=== PATIENT | male | born 1955 | race Caucasian/White ===

== ENCOUNTER → 2017-06-16 | Outpatient (CLI) | payer MEDICAID ==
[~2017-06-16] MED LIST: LEVO500T69 PO; LISI10TA2 PO; LISI20TA PO; METF-380 PO; SIMV40TA4 PO
--- NOTE | 2017-06-16 14:23 | Diagnostic Imaging Report ---
Ultrasound of the urinary bladder. INDICATION: Hypertension. Chronic kidney disease. FINDINGS: The urinary bladder demonstrates wall thickening which may relate to chronic obstructive changes. Prevoid volume is estimated at 600 mL and postvoid volume is also 600 mL. The patient states that he could not void much. IMPRESSION: Dilated bladder with wall thickening probably related to obstructive changes. The patient could not void much and postvoid volume is nearly identical to prevoid volume. Dictated by: Dictated on workstation # [id number]
--- NOTE | 2017-06-16 15:11 | Diagnostic Imaging Report ---
Renal vascular duplex ultrasound. INDICATION: Hypertension. Chronic renal disease. FINDINGS: The right kidney is 9.3 cm and the left kidney is 10 cm in length. No hydronephrosis or focal lesion is seen. There is increased renal parenchymal echogenicity suggestive of underlying chronic renal disease. The proximal and mid right renal artery segments are obscured. The distal right renal artery demonstrates velocity of 50 cm/s. Resistive index in the right kidney is 0.69-0.79. The left renal artery proximal segment is obscured. The mid and distal segment velocities are 72 cm/s and 103 cm/s. Resistive index in the left kidney is 0.71-0.77. IMPRESSION: Bilateral mild renal atrophy and echogenic cortex. The proximal renal artery is obscured bilaterally. Dictated by: Dictated on workstation # [id number]
== END ==
LOC: RAD 09:16
PROVIDERS: ATTEND Internal Medicine Nephrology
DX: N32.89 Other specified disorders of bladder; E78.5 Hyperlipidemia, unspecified; I12.9 Hypertensive chronic kidney disease with stage 1 through stage 4 chronic kidney disease, or unspecified chronic kidney disease; Z72.0 Tobacco use; N18.3 Chronic kidney disease, stage 3 (moderate)
CPT/HCPCS: 76857; 93975

== ENCOUNTER → 2017-06-30 | Outpatient (CLI) | payer MEDICAID ==
[2017-06-30 14:41] LABS: MEAN PLATELET VOLUME 11.6 FL (7.4-10.4); RED BLOOD COUNT 4.96 10^6/uL (4.35-5.85); RED CELL DISTRIBUTION WIDTH 12.6 % (10.0-14.5); WHITE BLOOD COUNT 9.7 10^3/uL (4.3-11.0)
[2017-06-30 14:46] LABS: BILIRUBIN,URINE NEGATIVE (NEGATIVE); KETONES,URINE NEGATIVE (NEGATIVE); LEUKOCYTE ESTERASE ,URINE 1+ (NEGATIVE); NITRITE,URINE NEGATIVE (NEGATIVE); PH,URINE 6 (5-9); PROTEIN,URINE 1+ (NEGATIVE); UROBILINOGEN,URINE NORMAL (NORMAL)
[2017-06-30 14:55] LABS: SQUAMOUS EPITHELIAL CELL,UR RARE /HPF; WBC,URINE 0-2 /HPF
[2017-06-30 15:00] LABS: ALBUMIN 3.6 GM/DL (3.2-4.5); CREATININE SERUM 1.59 MG/DL (0.60-1.30); PHOSPHORUS 4.2 MG/DL (2.3-4.7); POTASSIUM 5.2 MMOL/L (3.6-5.0)
[2017-06-30 15:03] LABS: PROTEIN/CREATININE RATIO 0.29
[2017-07-01 14:46] LABS: CALCIUM PARA THYROID HORMONE 8.9 mg/dL (8.5-10.5)
== END ==
LOC: LAB 14:26
PROVIDERS: ATTEND Internal Medicine Nephrology
DX: I10 Essential (primary) hypertension (principal); N18.3 Chronic kidney disease, stage 3 (moderate); E87.5 Hyperkalemia; Z72.0 Tobacco use
CPT/HCPCS: 36415; 80069; 81000; 82306; 82570; 83970; 84156; 84550; 85027

== ENCOUNTER 2018-12-15 18:31 | Emergency (ER) | payer MEDICAID, MEDICARE ==
[~2018-12-15] VITALS: Ht 182.9 cm; Wt 136.1 kg
[2018-12-15] MEDS ORDERED: LABETALOL HCL 20 MG/4 ML VIAL IV ONE (18:45)
[2018-12-15] MEDS ORDERED: DEXTROSE 50% 50 ML (IMS) SYR IV ONE ×2 (18:45→20:30)
--- NOTE | 2018-12-15 19:30 | NUR ---
ACCUE CHECK IS 105 AFTER D50. WAS INFORMED.
--- NOTE | 2018-12-15 19:40 | Diagnostic Imaging Report ---
INDICATION: Hypoglycemia. COMPARISON: None FINDINGS: Frontal and lateral radiographic views of the chest were obtained. There is prominent 8.5 cm masslike opacity projecting over the medial right lung base. Cardiac silhouette and pulmonary vasculature within normal limits. Lungs are clear. There is no focal consolidation, large effusion, nor pneumothorax. Bony structures show no gross acute abnormalities. IMPRESSION: 1. No evidence of failure or focal infiltrate. 2. Masslike opacity projecting over the medial right lung base. Both benign (prominent pericardial fat, pericardial cyst) and malignant (lung mass) should be considered. Correlation with postcontrast CT chest is recommended. Dictated by: Dictated on workstation # [id number]
--- NOTE | 2018-12-15 19:42 | Diagnostic Imaging Report ---
INDICATION: Altered mental status. TECHNIQUE: Routine non contrast-enhanced axial images were obtained from the skull base to the vertex. Auto Exposure Controls were utilized during the CT exam to meet ALARA standards for radiation dose reduction COMPARISON: None. FINDINGS: The ventricles and cortical sulci are age appropriate. There is no midline shift or mass-effect. No acute intra-axial hemorrhage is seen. There are no abnormal areas of increased or decreased density to suggest acute hemorrhage or edema. No extra-axial masses or collections are present. The bony calvarium is intact. The visualized paranasal sinuses are unremarkable. The mastoid air cells are clear. IMPRESSION: 1. No acute intracranial abnormality. No CT evidence of mass, acute infarct or intracranial hemorrhage. Dictated by: Dictated on workstation # [id number]
--- OUTSIDE RECORDS SUMMARY | 2018-12-15 19:44 | XMS REPORT ---
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 067182974 Problem Chronic kidney disease, stage III (moderate) N18.3 Active 354191908 Problem Diabetic polyneuropathy associated with type 2 diabetes mellitus E11.42 Active 995619329 Problem Mixed hyperlipidemia E78.2 Active 541383898 Problem Essential hypertension I10 Active 93650049 Problem Hyperkalemia E87.5 Active 40987331 Problem Tobacco dependence F17.200 Active 55470079 Problem Non compliance with medical treatment Z91.19 Active 3106556 Problem Periodontal disease K05.6 Active 0792938 Problem Caries of cementum teeth K02.7 Active 57459999 Problem Type 2 diabetes mellitus with diabetic neuropathic arthropathy E11.610 Active 589369420 Problem Morbid (severe) obesity due to excess calories E66.01 Active 890250453 ALLERGIES No Information ENCOUNTERS Encounter Location Date Diagnosis [facility] [id number] [place] [address]1460- 8859 Sep, [facility] [id number] [place] [address] [phone] Aug, [facility] [id number] [place] [address] 83157- 4122 Aug, [facility] [id number] [place] [address] 17342- 4992 Aug, [facility] [id number] [place] [address] 23917- 9887 Aug, [facility] [id number] [place] [address] 25420- 3987 Jul, 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 [facility] [address] [address]- 5840 Jul, 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 ; Essential hypertension I10 ; Renal insufficiency N28.9 and Mixed hyperlipidemia E78.2 [facility] [address] [address]- [address] Jun, [facility] [address] [address]- 8916 Jun, Renal insufficiency N28.9 [facility] [address] 27240- 6218 Jun, Essential hypertension I10 and 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 [facility] [address] 64410- 9467 Jun, Essential hypertension I10 and 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 [facility] [address] 57288- 7744 May, Essential hypertension I10 ; 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 ; Pain of right heel M79.671 and Tobacco dependence F17.200 [facility] [id number] [place] [address] [phone] May, [facility] [address] [id number] May, Caries K02.9 and Dental examination Z01.20 [facility] [address] 8[address]- 4702 06 May, 2018 Type 2 diabetes mellitus with diabetic neuropathic arthropathy E11.610 [facility] [id number] [place] [address] 88166- 5947 Apr, Type 2 diabetes mellitus with diabetic neuropathic arthropathy E11.610 [facility] [address] [address] Mar, [facility] [id number] [place] [address] 69838- 2402 17 Mar, 2018 Type 2 diabetes mellitus with diabetic neuropathic arthropathy E11.610 [facility] [address] [address] 13 Mar, 2018 Type 2 diabetes mellitus with diabetic neuropathic arthropathy E11.610 ; 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 ; 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 ; Mixed hyperlipidemia E78.2 ; Essential hypertension I10 ; Renal insufficiency N28.9 ; Dental caries K02.9 ; 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 ; Irritant contact dermatitis due to detergent L24.0 ; Morbid (severe) obesity due to excess calories E66.01 ; Body mass index (BMI) of 39.0-39.9 in adult Z68.39 and Non compliance with medical treatment Z91.19 [facility] [address] [place] [address] [phone] Mar, 2018 Dental caries K02.9 [facility] [address] [place] [address] 38604- 9617 18 Feb, 2018 [facility] [id number] [place] [address] 87838- 1280 Feb, [facility] [address] [address] 2168 Feb, [facility] [address] [address] 4469 Feb, [facility] [address] [address] January, [facility] [address] [place] [address] [phone] January, [facility] [address] [address] 6612 January, 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 [facility] [id number] [phone] Dec, Dental caries K02.9 [facility] [address] [address] 9865 Dec, 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 [facility] [address] [place] [address] 56702- 8260 Dec, Dental examination Z01.20 ; Periodontal disease K05.6 and Caries of cementum teeth K02.7 [facility] [address] [address] Dec, 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 ; Chronic kidney disease, stage III (moderate) N18.3 ; prison current use of insulin Z79.4 ; Essential hypertension I10 ; Mixed hyperlipidemia E78.2 ; Diabetic polyneuropathy associated with type 2 diabetes mellitus E11.42 and Dental abscess K04.7 [facility] [address] [address] Nov, [facility] [id number] [place] [address] 12554- 9361 Nov, Mixed hyperlipidemia E78.2 ; Essential hypertension I10 and 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 [facility] [address] [address] 6[address] Oct, [facility] [address] [address]- 1303 Sep, [facility] [address] [address]- 2756 Aug, Diabetic polyneuropathy associated with type 2 diabetes mellitus E11.42 [facility] [address] [address]- 8783 Aug, 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 ; Chronic kidney disease, stage III (moderate) N18.3 ; 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 ; Essential hypertension I10 ; Mixed hyperlipidemia E78.2 and Diabetic polyneuropathy associated with type 2 diabetes mellitus E11.42 [facility] [id number] [place] [address] 70022- 1445 Jul, Type 2 diabetes mellitus with hyperglycemia E11.65 and Mixed hyperlipidemia E78.2 [facility] [id number] [place] [address] 56247- 1056 Jun, Type 2 diabetes mellitus with hyperglycemia E11.65 [facility] [id number] [place] [address] 56841- 6309 Jun, Essential hypertension I10 [facility] [id number] [place] [address] 41111- 4346 May, [facility] [id number] [place] [address] 90235- 1138 May, Type 2 diabetes mellitus with hyperglycemia E11.65 and Essential hypertension I10 [facility] [id number] [place] [address] 88356- 3166 May, Essential hypertension I10 ; Mixed hyperlipidemia E78.2 ; Renal insufficiency N28.9 ; Hyperkalemia E87.5 ; Swelling of both lower extremities M79.89 and Type 2 diabetes mellitus with hyperglycemia E11.65 [facility] [address] [address]- 1405 Apr, Essential hypertension I10 ; Mixed hyperlipidemia E78.2 ; Renal insufficiency N28.9 ; Hyperkalemia E87.5 ; Swelling of both lower extremities M79.89 and Type 2 diabetes mellitus with hyperglycemia E11.65 [facility] [address] [address]- 5234 Mar, [facility] [id number] [place] [address] 85956- 1935 Feb, [facility] [address] [address]- 3716 Feb, Essential hypertension I10 ; Mixed hyperlipidemia E78.2 ; Renal insufficiency N28.9 ; Hyperkalemia E87.5 ; Swelling of both lower extremities M79.89 and Type 2 diabetes mellitus with hyperglycemia E11.65 [facility] [id number] [place] [address] [id number] Feb, Encounter for dental examination Z01.20 [facility] [id number] [place] [address] 20663- 5526 January, Essential hypertension I10 [facility] [address] [phone]- 7081 January, Essential hypertension I10 ; Mixed hyperlipidemia E78.2 ; Renal insufficiency N28.9 ; Hyperkalemia E87.5 ; Swelling of both lower extremities M79.89 and Type 2 diabetes mellitus with hyperglycemia E11.65 [facility] [id number] [place] [address] [id number] January, Dental examination Z01.20 [facility] [id number] [place] [address] [phone]- 4697 Dec, Dental examination Z01.20 [facility] [id number] [place] [address] 53201- 2807 Dec, Type 2 diabetes mellitus with hyperglycemia, without long- term current use of insulin E11.65 ; Essential hypertension I10 ; Mixed hyperlipidemia E78.2 ; Renal insufficiency N28.9 ; Hyperkalemia E87.5 and Swelling of both lower extremities M79.89 [facility] [address] [place] [address] 46341- 6398 Nov, Hyperkalemia E87.5 [facility] [id number] [place] [address] 50351- 6996 Nov, Hyperkalemia E87.5 [facility] [id number] [place] [address] [id number]- 0680 Nov, Type 2 diabetes mellitus with hyperglycemia, without long- term current use of insulin E11.65 ; Essential hypertension I10 ; Mixed hyperlipidemia E78.2 ; Renal insufficiency N28.9 ; Hyperkalemia E87.5 and Swelling of both lower extremities M79.89 [facility] [facility] [address] 54943- 4971 Oct, Type 2 diabetes mellitus with hyperglycemia, without long- term current use of insulin E11.65 ; Essential hypertension I10 ; Mixed hyperlipidemia E78.2 ; Renal insufficiency N28.9 ; Hyperkalemia E87.5 and Swelling of both lower extremities M79.89 [facility] [facility] [address] 795694- 3045 Aug, Type 2 diabetes mellitus with hyperglycemia, without long- term current use of insulin E11.65 ; Essential hypertension I10 ; Mixed hyperlipidemia E78.2 ; Renal insufficiency N28.9 ; Hyperkalemia E87.5 and Swelling of both lower extremities M79.89 [facility] [address] 87827- 3545 Aug, Type 2 diabetes mellitus with hyperglycemia, without long- term current use of insulin E11.65 ; Essential hypertension I10 ; Mixed hyperlipidemia E78.2 ; Renal insufficiency N28.9 ; Hyperkalemia E87.5 and Swelling of both lower extremities M79.89 [facility] [address] 28449- 9723 Aug, Mixed hyperlipidemia E78.2 [facility] [id number] [place] [address] 26636- 9384 Aug, Type 2 diabetes mellitus with hyperglycemia, without long- term current use of insulin E11.65 ; Essential hypertension I10 ; Mixed hyperlipidemia E78.2 ; Renal insufficiency N28.9 ; Hyperkalemia E87.5 and Swelling of both lower extremities M79.89 [place] [address] 39418- 4018 Jul, [facility] [facility] [address] [place] [address] [phone]- 2469 Jul, Type 2 diabetes mellitus with hyperglycemia, without long- term current use of insulin E11.65 ; Essential hypertension I10 ; Mixed hyperlipidemia E78.2 ; Renal insufficiency N28.9 ; Hyperkalemia E87.5 ; Weight gain R63.5 and Encounter for immunization Z23 [facility] [address] 97[address]- 7126 Jun, Type 2 diabetes mellitus with hyperglycemia, without long- term current use of insulin E11.65 ; Essential hypertension I10 ; Mixed hyperlipidemia E78.2 ; Renal insufficiency N28.9 and Hyperkalemia E87.5 [place] [address] 71872- 1244 Jun, [place] [address] 76076- 2561 May, Type 2 diabetes mellitus with hyperglycemia, without long- term current use of insulin E11.65 ; Essential hypertension I10 ; Mixed hyperlipidemia E78.2 ; Renal insufficiency N28.9 and Hyperkalemia E87.5 [facility] [id number] [place] [address] 22278- 9687 Apr, Type 2 diabetes mellitus with hyperglycemia, without long- term current use of insulin E11.65 ; Essential hypertension I10 ; Mixed hyperlipidemia E78.2 ; Renal insufficiency N28.9 and Hyperkalemia E87.5 [facility] [id number] [place] [address] 43926- 5127 Apr, [facility] [id number] [place] [address] 19702- 3089 Apr, Type 2 diabetes mellitus with hyperglycemia, without long- term current use of insulin E11.65 ; Essential hypertension I10 ; Mixed hyperlipidemia E78.2 and Renal insufficiency N28.9 [facility] [facility] [id number] [place] [address] 57751- 4840 Mar, [facility] [id number] [place] [address] 69589- 4280 Mar, Type 2 diabetes mellitus with hyperglycemia, without long- term current use of insulin E11.65 ; Essential hypertension I10 ; Mixed hyperlipidemia E78.2 and Renal insufficiency N28.9 [facility] [address] [place] [address] 39264- 1315 Feb, Type 2 diabetes mellitus with hyperglycemia, without long- term current use of insulin E11.65 [facility] [address] [place] [address] 89667- 4293 Feb, [place] [address] 27109- 9960 January, [facility] [id number] [place] [address] 35633- 7555 January, Type 2 diabetes mellitus with hyperglycemia, without long- term current use of insulin E11.65 ; Essential hypertension I10 and Mixed hyperlipidemia E78.2 [place] [id number] [place] [address] 39665- 9481 Dec, [facility] [id number] [place] [address] 73281- 1230 Dec, [facility] [id number] [place] [address] 45436- 5577 Oct, [place] [id number] [place] [address] 57100- 5991 Oct, [facility] [id number] [place] [address] 13192- 2081 Oct, [facility] [id number] [place] [address] 75946- 8483 Oct, IMMUNIZATIONS No Known Immunizations SOCIAL HISTORY Never Assessed REASON FOR VISIT BS f/u PLAN OF CARE VITAL SIGNS MEDICATIONS Unknown Medications RESULTS No Results PROCEDURES No Known procedures INSTRUCTIONS MEDICATIONS ADMINISTERED No Known Medications MEDICAL (GENERAL) HISTORY Type Description Date Medical History Type 2 Diabetes Medical History Hyperlipidemia Medical History Seasonal allergies Medical History DM uncontrolled Noncompliance-Eye Referral Made never kept appt Medical History Essential hypertension, benign Medical History Seeing Dr. Stoner Surgical History Teeth removal 06/14/2018 Hospitalization History Infection in left leg 2013
--- OUTSIDE RECORDS SUMMARY | 2018-12-15 19:44 | XMS REPORT ---
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 Active 32480918 Problem Renal insufficiency N28.9 Active 975589358 Problem Tobacco dependence F17.200 Active 17613152 Problem Non compliance with medical treatment Z91.19 Active 3076302 Problem Type 2 diabetes mellitus with diabetic neuropathic arthropathy E11.610 Active 623644495 Problem Morbid (severe) obesity due to excess calories E66.01 Active 697673508 Problem Type 2 diabetes mellitus with hyperglycemia, without long-term current use of insulin E11.65 Active 603453576783303 Problem Body mass index (BMI) of 39.0-39.9 in adult Z68.39 Active 745042320 Problem Mixed hyperlipidemia E78.2 Active 938942320 Problem Hyperkalemia E87.5 Active 25695368 Problem Essential hypertension I10 Active 20497899 Problem 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 Active 473870014 Problem Diabetic polyneuropathy associated with type 2 diabetes mellitus E11.42 Active 497152520 Problem Swelling of both lower extremities M79.89 Active 05532823450037699 Problem Chronic kidney disease, stage III (moderate) N18.3 Active 769002196 Problem 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 Active 55880330 Problem Periodontal disease K05.6 Active 1761542 ALLERGIES No Information ENCOUNTERS Encounter Location Date Diagnosis [facility], [place] [address] [facility] [id number] [address] Sep, [facility] [address] [id number] [id number] Aug, [facility], [place] [id number] [place] [address] 70766- 2088 Aug, [facility] [place] [id number] [place] [address] 09099- 7546 Aug, [facility], [place] [id number] [place] [address] 25667- 4357 Jul, 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 [facility], [place] [id number] [place] [address] 92301- 3866 Jul, 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 ; Essential hypertension I10 ; Renal insufficiency N28.9 and Mixed hyperlipidemia E78.2 [place] [id number] [place] [address] 87573- 9640 Jun, [place] [address] [address]35- 3457 Jun, Renal insufficiency N28.9 [place] [id number] [place] [address] 09025- 0811 Jun, Essential hypertension I10 and 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 [place] [id number] [place] [address] 73974- 2082 Jun, Essential hypertension I10 and 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 [place] [id number] [place] [address] 51694- 4869 24 May, 2018 Essential hypertension I10 ; 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 ; Pain of right heel M79.671 and Tobacco dependence F17.200 [facility] [id number] [place] [address] [phone] May, [facility] [id number] [place] [address] [id number] May, Caries K02.9 and Dental examination Z01.20 [place] [id number] [place] [address] [phone] 4877 May, Type 2 diabetes mellitus with diabetic neuropathic arthropathy E11.610 [facility], [place] [address] [place] [address] [phone]- 7551 Apr, Type 2 diabetes mellitus with diabetic neuropathic arthropathy E11.610 [facility], [place] [address] [place] [address] 43245- 8366 Mar, [facility] [place] [id number] [place] [address] 50893- 0157 Mar, Type 2 diabetes mellitus with diabetic neuropathic arthropathy E11.610 [facility], [place] [address] [place] [address] 78610- 2291 Mar, Type 2 diabetes mellitus with diabetic neuropathic arthropathy E11.610 ; 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 ; [facility] current use of insulin Z79.4 ; Mixed hyperlipidemia E78.2 ; Essential hypertension I10 ; Renal insufficiency N28.9 ; Dental caries K02.9 ; 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 ; Irritant contact dermatitis due to detergent L24.0 ; Morbid (severe) obesity due to excess calories E66.01 ; Body mass index (BMI) of 39.0-39.9 in adult Z68.39 and Non compliance with medical treatment Z91.19 [facility] [address] [place] [address] [phone] Mar, Dental caries K02.9 [facility], [place] [id number] [place] [address] 98481- 9531 Feb, [facility], [place] [address] [place] [address] 79916- 6579 Feb, [facility] [place] [id number] [place] [address] 89987- 4385 Feb, [facility] [place] [id number] [place] [address] 30813- 7926 Feb, [facility] [place] [id number] [place] [address] 47906- 2423 January, [facility], [place] [address] [address] January, [facility] [place] [id number] [place] [address] 27248- 0664 January, 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 [facility] [address] [phone] Dec, Dental caries K02.9 [facility] [place] [address] [place] [address] 90110- 3873 Dec, 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 [place] [id number] [place] [address] 37935- 3579 Dec, Dental examination Z01.20 ; Periodontal disease K05.6 and Caries of cementum teeth K02.7 [place] [id number] [place] [address] 63570- 9199 Dec, 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 ; Chronic kidney disease, stage III (moderate) N18.3 ; 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 ; Essential hypertension I10 ; Mixed hyperlipidemia E78.2 ; Diabetic polyneuropathy associated with type 2 diabetes mellitus E11.42 and Dental abscess K04.7 [place] [address] [address] Nov, [facility], [place] [address] [address] Nov, Mixed hyperlipidemia E78.2 ; Essential hypertension I10 and 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 [place] [address] [place] [address] 06308- 8574 Oct, [facility] [place] [address] [id number] Sep, [place] [address] [place] [address] 94521- 3549 Aug, Diabetic polyneuropathy associated with type 2 diabetes mellitus E11.42 [place] [address] [place] [address] 89682- 2816 Aug, 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 ; Chronic kidney disease, stage III (moderate) N18.3 ; 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 ; Essential hypertension I10 ; Mixed hyperlipidemia E78.2 and Diabetic polyneuropathy associated with type 2 diabetes mellitus E11.42 [place] [id number] [place] [address] 11387- 4230 Jul, Type 2 diabetes mellitus with hyperglycemia E11.65 and Mixed hyperlipidemia E78.2 [place] [id number] [place] [address] 55048- 9808 Jun, Type 2 diabetes mellitus with hyperglycemia E11.65 [place] [id number] [place] [address] 43439- 8117 Jun, Essential hypertension I10 [place] [id number] [place] [address] 45707- 5903 May, [place] [id number] [place] [address] 96419- 4007 May, Type 2 diabetes mellitus with hyperglycemia E11.65 and Essential hypertension I10 [place] [id number] [place] [address] 80171- 5825 May, Essential hypertension I10 ; Mixed hyperlipidemia E78.2 ; Renal insufficiency N28.9 ; Hyperkalemia E87.5 ; Swelling of both lower extremities M79.89 and Type 2 diabetes mellitus with hyperglycemia E11.65 [place] [address] [address] 8049 Apr, Essential hypertension I10 ; Mixed hyperlipidemia E78.2 ; Renal insufficiency N28.9 ; Hyperkalemia E87.5 ; Swelling of both lower extremities M79.89 and Type 2 diabetes mellitus with hyperglycemia E11.65 [place] [id number] [place] [address] 55429- 7663 Mar, [facility], [place] [address] [place] [address] 85023- 3333 Feb, [facility], [place] [id number] [place] [address] 07172- 4606 Feb, Essential hypertension I10 ; Mixed hyperlipidemia E78.2 ; Renal insufficiency N28.9 ; Hyperkalemia E87.5 ; Swelling of both lower extremities M79.89 and Type 2 diabetes mellitus with hyperglycemia E11.65 [facility] [id number] [place] [address] [phone] Feb, Encounter for dental examination Z01.20 [place] [address] 60577- 4439 January, Essential hypertension I10 [place] [address] 61896- 8836 January, Essential hypertension I10 ; Mixed hyperlipidemia E78.2 ; Renal insufficiency N28.9 ; Hyperkalemia E87.5 ; Swelling of both lower extremities M79.89 and Type 2 diabetes mellitus with hyperglycemia E11.65 [facility] [id number] [place] [address] [phone] January, Dental examination Z01.20 [facility] [place] [id number] [place] [address] 97473- 4987 Dec, Dental examination Z01.20 [facility], [place] [id number] [place] [address] 62586- 6209 Dec, Type 2 diabetes mellitus with hyperglycemia, without long- term current use of insulin E11.65 ; Essential hypertension I10 ; Mixed hyperlipidemia E78.2 ; Renal insufficiency N28.9 ; Hyperkalemia E87.5 and Swelling of both lower extremities M79.89 [facility], [place] [address] [place] [address] [phone]- 0676 Nov, Hyperkalemia E87.5 [facility] [place] [id number] [place] [address] 66548- 4952 Nov, Hyperkalemia E87.5 [place] [id number] [place] [address] 49099- 6346 Nov, Type 2 diabetes mellitus with hyperglycemia, without long- term current use of insulin E11.65 ; Essential hypertension I10 ; Mixed hyperlipidemia E78.2 ; Renal insufficiency N28.9 ; Hyperkalemia E87.5 and Swelling of both lower extremities M79.89 [place] [address] 805248- 1516 Oct, Type 2 diabetes mellitus with hyperglycemia, without long- term current use of insulin E11.65 ; Essential hypertension I10 ; Mixed hyperlipidemia E78.2 ; Renal insufficiency N28.9 ; Hyperkalemia E87.5 and Swelling of both lower extremities M79.89 [place] [address] 20897- 1131 Aug, Type 2 diabetes mellitus with hyperglycemia, without long- term current use of insulin E11.65 ; Essential hypertension I10 ; Mixed hyperlipidemia E78.2 ; Renal insufficiency N28.9 ; Hyperkalemia E87.5 and Swelling of both lower extremities M79.89 [place] [address] 17296- 3898 Aug, Type 2 diabetes mellitus with hyperglycemia, without long- term current use of insulin E11.65 ; Essential hypertension I10 ; Mixed hyperlipidemia E78.2 ; Renal insufficiency N28.9 ; Hyperkalemia E87.5 and Swelling of both lower extremities M79.89 [place] [id number] [place] [address] 56911- 4441 Aug, Mixed hyperlipidemia E78.2 [place] [address] 95253- 6397 Aug, Type 2 diabetes mellitus with hyperglycemia, without long- term current use of insulin E11.65 ; Essential hypertension I10 ; Mixed hyperlipidemia E78.2 ; Renal insufficiency N28.9 ; Hyperkalemia E87.5 and Swelling of both lower extremities M79.89 [place] [address] [place] [address]- 7632 Jul, [place] [address] 35566- 3138 Jul, Type 2 diabetes mellitus with hyperglycemia, without long- term current use of insulin E11.65 ; Essential hypertension I10 ; Mixed hyperlipidemia E78.2 ; Renal insufficiency N28.9 ; Hyperkalemia E87.5 ; Weight gain R63.5 and Encounter for immunization Z23 [place] [address] 60489- 1122 Jun, Type 2 diabetes mellitus with hyperglycemia, without long- term current use of insulin E11.65 ; Essential hypertension I10 ; Mixed hyperlipidemia E78.2 ; Renal insufficiency N28.9 and Hyperkalemia E87.5 [place] [address] 60453- 1171 Jun, [place] [address] 15961- 2607 May, Type 2 diabetes mellitus with hyperglycemia, without long- term current use of insulin E11.65 ; Essential hypertension I10 ; Mixed hyperlipidemia E78.2 ; Renal insufficiency N28.9 and Hyperkalemia E87.5 [place] [address] 10588- 4317 Apr, Type 2 diabetes mellitus with hyperglycemia, without long- term current use of insulin E11.65 ; Essential hypertension I10 ; Mixed hyperlipidemia E78.2 ; Renal insufficiency N28.9 and Hyperkalemia E87.5 [place] [id number] [place] [address] 32237- 7830 Apr, [place] [address] 77186- 0408 Apr, Type 2 diabetes mellitus with hyperglycemia, without long- term current use of insulin E11.65 ; Essential hypertension I10 ; Mixed hyperlipidemia E78.2 and Renal insufficiency N28.9 [place] [address] 06329- 5213 Mar, [facility], [place] [address] [address]- 6794 Mar, Type 2 diabetes mellitus with hyperglycemia, without long- term current use of insulin E11.65 ; Essential hypertension I10 ; Mixed hyperlipidemia E78.2 and Renal insufficiency N28.9 [place] [address] [place] [address] 23310- 1113 Feb, Type 2 diabetes mellitus with hyperglycemia, without long- term current use of insulin E11.65 [place] [id number] [place] [address] 17255- 5088 Feb, [place] [id number] [place] [address] 77308- 5163 January, [place] [id number] [place] [address] 66645- 1008 January, Type 2 diabetes mellitus with hyperglycemia, without long- term current use of insulin E11.65 ; Essential hypertension I10 and Mixed hyperlipidemia E78.2 [place] [address] [place] [address] 42833- 5154 Dec, [place] [id number] [place] [address] 08672- 4145 Dec, [place] [id number] [place] [address] 22051- 3425 Oct, [place] [address] [place] [address] 26141- 5478 Oct, [place] [address] [place] [address] 45892- 3206 Oct, [place] [id number] [place] [address] 42819- 9493 Oct, IMMUNIZATIONS No Known Immunizations SOCIAL HISTORY Never Assessed REASON FOR VISIT Requests return call PLAN OF CARE VITAL SIGNS MEDICATIONS Unknown [...] 06/14/2018 Hospitalization History Infection in left leg 2014
--- OUTSIDE RECORDS SUMMARY | 2018-12-15 19:44 | XMS REPORT ---
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 Active 18434101 Problem Renal insufficiency N28.9 Active 614008356 Problem Tobacco dependence F17.200 Active 83553398 Problem Non compliance with medical treatment Z91.19 Active 9473010 Problem Type 2 diabetes mellitus with diabetic neuropathic arthropathy E11.610 Active 313217514 Problem Morbid (severe) obesity due to excess calories E66.01 Active 560772465 Problem Type 2 diabetes mellitus with hyperglycemia, without long-term current use of insulin E11.65 Active 719348556603359 Problem Body mass index (BMI) of 39.0-39.9 in adult Z68.39 Active 401672042 Problem Mixed hyperlipidemia E78.2 Active 103301375 Problem Hyperkalemia E87.5 Active 02719963 Problem Essential hypertension I10 Active 89660239 Problem 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 Active 425024675 Problem Diabetic polyneuropathy associated with type 2 diabetes mellitus E11.42 Active 153265873 Problem Swelling of both lower extremities M79.89 Active 69050632027912083 Problem Chronic kidney disease, stage III (moderate) N18.3 Active 173354654 Problem 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 Active 53872315 Problem Periodontal disease K05.6 Active 5777967 ALLERGIES No Information ENCOUNTERS Encounter Location Date Diagnosis [facility] [address] [facility] [id number] [address] Sep, [facility] [address] [id number] [id number] Aug, [facility] [id number] [place] [address] 27344- 4224 Aug, [facility] [id number] [place] [address] 76003- 6792 Jul, 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 [facility] [id number] [place] [address] 52803- 2736 Jul, 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 ; Essential hypertension I10 ; Renal insufficiency N28.9 and Mixed hyperlipidemia E78.2 [place] [id number] [place] [address] 97537- 0608 Jun, [place] [id number] [place] [address] 08467- 5903 Jun, Renal insufficiency N28.9 [place] [id number] [place] [address] 83771- 0664 Jun, Essential hypertension I10 and 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 [facility] [id number] [place] [address] 62158- 2462 15 Jun, 2018 Essential hypertension I10 and 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 [place] [id number] [place] [address] 03630- 4900 24 May, 2018 Essential hypertension I10 ; 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 ; Pain of right heel M79.671 and Tobacco dependence F17.200 [facility] [id number] [place] [address] [id number] May, [facility] [address] [id number] May, Caries K02.9 and Dental examination Z01.20 [facility] [id number] [place] [address] 46982- 7997 06 May, 2018 Type 2 diabetes mellitus with diabetic neuropathic arthropathy E11.610 [facility] [address] [address] Apr, Type 2 diabetes mellitus with diabetic neuropathic arthropathy E11.610 [facility] [id number] [place] [address] 78912- 7832 Mar, [facility] [id number] [place] [address] 43670- 3460 17 Mar, 2018 Type 2 diabetes mellitus with diabetic neuropathic arthropathy E11.610 [facility] [id number] [place] [address] 47949- 7660 Mar, Type 2 diabetes mellitus with diabetic neuropathic arthropathy E11.610 ; 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 ; 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 ; Mixed hyperlipidemia E78.2 ; Essential hypertension I10 ; Renal insufficiency N28.9 ; Dental caries K02.9 ; 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 ; Irritant contact dermatitis due to detergent L24.0 ; Morbid (severe) obesity due to excess calories E66.01 ; Body mass index (BMI) of 39.0-39.9 in adult Z68.39 and Non compliance with medical treatment Z91.19 [facility] [id number] [place] [address] [id number] Mar, Dental caries K02.9 [facility] [id number] [place] [address] 81536- 1773 18 Feb, 2018 [facility] [id number] [place] [address] 19433- 2364 Feb, [facility] [id number] [place] [address] 66637- 5895 Feb, [facility] [id number] [place] [address] 49409- 3253 Feb, [facility] [id number] [place] [address] [id number]- 3825 January, [facility] [id number] [place] [address] 70825- 7014 January, [facility] [address] [address] January, 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 [facility] [address] [id number] Dec, Dental caries K02.9 [facility] [id number] [place] [address] 86196- 2331 Dec, 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 [facility] [id number] [place] [address] 97017- 2107 Dec, Dental examination Z01.20 ; Periodontal disease K05.6 and Caries of cementum teeth K02.7 [facility] [address] [place] [address] 92507- 5451 Dec, 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 ; Chronic kidney disease, stage III (moderate) N18.3 ; care home current use of insulin Z79.4 ; Essential hypertension I10 ; Mixed hyperlipidemia E78.2 ; Diabetic polyneuropathy associated with type 2 diabetes mellitus E11.42 and Dental abscess K04.7 [facility] [address] [address] Nov, [facility] [address] [address] Nov, Mixed hyperlipidemia E78.2 ; Essential hypertension I10 and 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 [facility] [address] [address] Oct, [facility] [id number] [place] [address] 03424- 1641 Sep, [facility] [address] [address] Aug, Diabetic polyneuropathy associated with type 2 diabetes mellitus E11.42 [facility] [id number] [place] [address] 64170- 3935 Aug, 2017 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 ; Chronic kidney disease, stage III (moderate) N18.3 ; 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 ; Essential hypertension I10 ; Mixed hyperlipidemia E78.2 and Diabetic polyneuropathy associated with type 2 diabetes mellitus E11.42 [place] [id number] [place] [address] 16941- 4280 Jul, Type 2 diabetes mellitus with hyperglycemia E11.65 and Mixed hyperlipidemia E78.2 [place] [id number] [place] [address] 12898- 0772 Jun, Type 2 diabetes mellitus with hyperglycemia E11.65 [facility] [facility] [id number] [place] [address] 49010- 8560 Jun, Essential hypertension I10 [place] [id number] [place] [address] 83324- 8224 May, [place] [id number] [place] [address] 08669- 9967 May, Type 2 diabetes mellitus with hyperglycemia E11.65 and Essential hypertension I10 [place] [id number] [place] [address] 99841- 9176 May, Essential hypertension I10 ; Mixed hyperlipidemia E78.2 ; Renal insufficiency N28.9 ; Hyperkalemia E87.5 ; Swelling of both lower extremities M79.89 and Type 2 diabetes mellitus with hyperglycemia E11.65 [place] [address] [place] [address] 16290- 0064 Apr, Essential hypertension I10 ; Mixed hyperlipidemia E78.2 ; Renal insufficiency N28.9 ; Hyperkalemia E87.5 ; Swelling of both lower extremities M79.89 and Type 2 diabetes mellitus with hyperglycemia E11.65 [place] [address] [place] [address] 07729- 4091 Mar, [facility] [id number] [place] [address] 09181- 9508 Feb, [facility] [address] [address] 6073 Feb, Essential hypertension I10 ; Mixed hyperlipidemia E78.2 ; Renal insufficiency N28.9 ; Hyperkalemia E87.5 ; Swelling of both lower extremities M79.89 and Type 2 diabetes mellitus with hyperglycemia E11.65 [facility] [id number] [place] [address] [id number] Feb, Encounter for dental examination Z01.20 [facility] [id number] [place] [address] 35936- 1169 January, Essential hypertension I10 [place] [id number] [place] [address] 01917- 8268 January, Essential hypertension I10 ; Mixed hyperlipidemia E78.2 ; Renal insufficiency N28.9 ; Hyperkalemia E87.5 ; Swelling of both lower extremities M79.89 and Type 2 diabetes mellitus with hyperglycemia E11.65 [facility] [id number] [place] [address] [id number] January, Dental examination Z01.20 [facility] [id number] [place] [address] 38763- 5543 Dec, Dental examination Z01.20 [facility] [id number] [place] [address] 00071- 0279 Dec, Type 2 diabetes mellitus with hyperglycemia, without long- term current use of insulin E11.65 ; Essential hypertension I10 ; Mixed hyperlipidemia E78.2 ; Renal insufficiency N28.9 ; Hyperkalemia E87.5 and Swelling of both lower extremities M79.89 [facility] [id number] [place] [address] 64995- 7404 Nov, Hyperkalemia E87.5 [facility] [id number] [place] [address] 26476- 3893 Nov, Hyperkalemia E87.5 [facility] [id number] [place] [address] 86391- 9246 Nov, Type 2 diabetes mellitus with hyperglycemia, without long- term current use of insulin E11.65 ; Essential hypertension I10 ; Mixed hyperlipidemia E78.2 ; Renal insufficiency N28.9 ; Hyperkalemia E87.5 and Swelling of both lower extremities M79.89 [place] [id number] [place] [address] 35649- 5289 Oct, Type 2 diabetes mellitus with hyperglycemia, without long- term current use of insulin E11.65 ; Essential hypertension I10 ; Mixed hyperlipidemia E78.2 ; Renal insufficiency N28.9 ; Hyperkalemia E87.5 and Swelling of both lower extremities M79.89 [place] [address] 259648- 2453 Aug, Type 2 diabetes mellitus with hyperglycemia, without long- term current use of insulin E11.65 ; Essential hypertension I10 ; Mixed hyperlipidemia E78.2 ; Renal insufficiency N28.9 ; Hyperkalemia E87.5 and Swelling of both lower extremities M79.89 [place] [id number] [place] [address] 19233- 0704 Aug, Type 2 diabetes mellitus with hyperglycemia, without long- term current use of insulin E11.65 ; Essential hypertension I10 ; Mixed hyperlipidemia E78.2 ; Renal insufficiency N28.9 ; Hyperkalemia E87.5 and Swelling of both lower extremities M79.89 [place] [id number] [place] [address] 59443- 7480 Aug, Mixed hyperlipidemia E78.2 [place] [id number] [place] [address] 61786- 1931 Aug, Type 2 diabetes mellitus with hyperglycemia, without long- term current use of insulin E11.65 ; Essential hypertension I10 ; Mixed hyperlipidemia E78.2 ; Renal insufficiency N28.9 ; Hyperkalemia E87.5 and Swelling of both lower extremities M79.89 [place] [id number] [place] [address] 67728- 0456 Jul, [place] [address] [place] [address]- 2322 Jul, Type 2 diabetes mellitus with hyperglycemia, without long- term current use of insulin E11.65 ; Essential hypertension I10 ; Mixed hyperlipidemia E78.2 ; Renal insufficiency N28.9 ; Hyperkalemia E87.5 ; Weight gain R63.5 and Encounter for immunization Z23 [place] [id number] [place] [address] 17061- 3115 Jun, Type 2 diabetes mellitus with hyperglycemia, without long- term current use of insulin E11.65 ; Essential hypertension I10 ; Mixed hyperlipidemia E78.2 ; Renal insufficiency N28.9 and Hyperkalemia E87.5 [place] [address] 50126- 2671 Jun, [place] [id number] [place] [address] 41074- 6262 May, Type 2 diabetes mellitus with hyperglycemia, without long- term current use of insulin E11.65 ; Essential hypertension I10 ; Mixed hyperlipidemia E78.2 ; Renal insufficiency N28.9 and Hyperkalemia E87.5 [place] [id number] [place] [address] 77251- 8068 Apr, Type 2 diabetes mellitus with hyperglycemia, without long- term current use of insulin E11.65 ; Essential hypertension I10 ; Mixed hyperlipidemia E78.2 ; Renal insufficiency N28.9 and Hyperkalemia E87.5 [place] [id number] [place] [address] 32164- 8994 Apr, [place] [id number] [place] [address] 00085- 3380 Apr, Type 2 diabetes mellitus with hyperglycemia, without long- term current use of insulin E11.65 ; Essential hypertension I10 ; Mixed hyperlipidemia E78.2 and Renal insufficiency N28.9 [place] [id number] [place] [address] 51831- 6108 Mar, [place] [id number] [place] [address] 14165- 7749 Mar, Type 2 diabetes mellitus with hyperglycemia, without long- term current use of insulin E11.65 ; Essential hypertension I10 ; Mixed hyperlipidemia E78.2 and Renal insufficiency N28.9 [place] [id number] [place] [address] 39011- 5697 Feb, Type 2 diabetes mellitus with hyperglycemia, without long- term current use of insulin E11.65 [place] [address] 29611- 0563 Feb, [place] [address] 25838- 5060 January, [place] [address] 81907- 8960 January, Type 2 diabetes mellitus with hyperglycemia, without long- term current use of insulin E11.65 ; Essential hypertension I10 and Mixed hyperlipidemia E78.2 [place] [id number] [place] [address] 61789- 5992 Dec, [place] [id number] [place] [address] 56681- 7081 Dec, [place] [id number] [place] [address] 27990- 6388 Oct, [place] [id number] [place] [address] 50704- 5454 Oct, [place] [id number] [place] [address] 75808- 2886 Oct, [place] [id number] [place] [address] 73896- 6652 Oct, IMMUNIZATIONS No Known Immunizations SOCIAL HISTORY Never Assessed REASON FOR VISIT 6 mo DM ed f/u PLAN OF CARE VITAL SIGNS MEDICATIONS [...]
--- OUTSIDE RECORDS SUMMARY | 2018-12-15 19:45 | XMS REPORT ---
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 Active 30504069 Problem Renal insufficiency N28.9 Active 229588100 Problem Tobacco dependence F17.200 Active 33397030 Problem Non compliance with medical treatment Z91.19 Active 8003207 Problem Type 2 diabetes mellitus with diabetic neuropathic arthropathy E11.610 Active 386580128 Problem Morbid (severe) obesity due to excess calories E66.01 Active 042103377 Problem Type 2 diabetes mellitus with hyperglycemia, without long-term current use of insulin E11.65 Active 213540193302782 Problem Body mass index (BMI) of 39.0-39.9 in adult Z68.39 Active 315491002 Problem Mixed hyperlipidemia E78.2 Active 649781033 Problem Hyperkalemia E87.5 Active 83424820 Problem Essential hypertension I10 Active 47025849 Problem 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 Active 563894228 Problem Diabetic polyneuropathy associated with type 2 diabetes mellitus E11.42 Active 615066987 Problem Swelling of both lower extremities M79.89 Active 61488268036119619 Problem Chronic kidney disease, stage III (moderate) N18.3 Active 553594382 Problem 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 Active 26182439 Problem Periodontal disease K05.6 Active 2470880 ALLERGIES No Known Allergies ENCOUNTERS Encounter Location Date Diagnosis [facility] [address] [facility] [id number] [address] Sep, [facility] [id number] [address] Jun, [facility] [address] [address] 24 May, 2018 Essential hypertension I10 ; 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 ; Pain of right heel M79.671 and Tobacco dependence F17.200 [facility] [address] [id number] May, [facility] [id number] [place] [id number] May, Caries K02.9 and Dental examination Z01.20 [facility] [id number] [place] [address] 56846- 5173 06 May, 2018 Type 2 diabetes mellitus with diabetic neuropathic arthropathy E11.610 [facility] [id number] [place] [address] 25243- 7746 Apr, Type 2 diabetes mellitus with diabetic neuropathic arthropathy E11.610 [facility] [id number] [place] [address] 80245- 7378 Mar, [facility] [id number] [place] [address] 78992- 7304 17 Mar, 2018 Type 2 diabetes mellitus with diabetic neuropathic arthropathy E11.610 [facility] [id number] [place] [address] 36542- 2204 13 Mar, 2018 Type 2 diabetes mellitus with diabetic neuropathic arthropathy E11.610 ; 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 ; 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 ; Mixed hyperlipidemia E78.2 ; Essential hypertension I10 ; Renal insufficiency N28.9 ; Dental caries K02.9 ; 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 ; Irritant contact dermatitis due to detergent L24.0 ; Morbid (severe) obesity due to excess calories E66.01 ; Body mass index (BMI) of 39.0-39.9 in adult Z68.39 and Non compliance with medical treatment Z91.19 [facility] [address] [id number] 10 Mar, 2018 Dental caries K02.9 [facility] [address], [place] [address] 18 Feb, 2018 [facility] [address] [place] [address] 71989- 5568 Feb, [facility] [address] [address] 14 Feb, 2018 [facility] [address] [place] [address] 38536- 8776 Feb, [facility] [address] [place] [address] 85458- 3477 January, [facility] [id number] [place] [address] 73381- 4594 January, [facility] [id number] [place] [address] 09484- 1846 January, 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 [facility] [id number] [place] [address] [id number] Dec, Dental caries K02.9 [facility] [id number] [place] [address] 06215- 2766 Dec, 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 [facility] [address] [place] [address] 09620- 2743 Dec, Dental examination Z01.20 ; Periodontal disease K05.6 and Caries of cementum teeth K02.7 [facility] [id number] [place] [address] 79850- 5305 Dec, 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 ; Chronic kidney disease, stage III (moderate) N18.3 ; 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 ; Essential hypertension I10 ; Mixed hyperlipidemia E78.2 ; Diabetic polyneuropathy associated with type 2 diabetes mellitus E11.42 and Dental abscess K04.7 [facility] [address], [place] [address] Nov, [facility] [address] [address] Nov, Mixed hyperlipidemia E78.2 ; Essential hypertension I10 and 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 [facility] [address], [place] [address] Oct, [facility] [id number] [place] [address] 23302- 0401 Sep, [facility] [address], [place] [address] Aug, Diabetic polyneuropathy associated with type 2 diabetes mellitus E11.42 [facility] [address] [place] [address] 97302- 2195 Aug, 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 ; Chronic kidney disease, stage III (moderate) N18.3 ; skilled nursing current use of insulin Z79.4 ; Essential hypertension I10 ; Mixed hyperlipidemia E78.2 and Diabetic polyneuropathy associated with type 2 diabetes mellitus E11.42 [facility] [address] [address] Jul, Type 2 diabetes mellitus with hyperglycemia E11.65 and Mixed hyperlipidemia E78.2 [facility] [address], [place] [address] Jun, Type 2 diabetes mellitus with hyperglycemia E11.65 [facility] [address], [place] [address] Jun, Essential hypertension I10 [facility] [address], [place] [address] May, [facility] [address], [place] [address] May, Type 2 diabetes mellitus with hyperglycemia E11.65 and Essential hypertension I10 [facility] [address], [place] [address] May, Essential hypertension I10 ; Mixed hyperlipidemia E78.2 ; Renal insufficiency N28.9 ; Hyperkalemia E87.5 ; Swelling of both lower extremities M79.89 and Type 2 diabetes mellitus with hyperglycemia E11.65 [facility] [address] [place] [address] 95141- 5236 Apr, Essential hypertension I10 ; Mixed hyperlipidemia E78.2 ; Renal insufficiency N28.9 ; Hyperkalemia E87.5 ; Swelling of both lower extremities M79.89 and Type 2 diabetes mellitus with hyperglycemia E11.65 [facility] [address] [place] [address] 12816- 7835 Mar, [place] [id number] [place] [address] 56267- 5903 Feb, [place] [address] [place] [address] 86229- 6730 Feb, Essential hypertension I10 ; Mixed hyperlipidemia E78.2 ; Renal insufficiency N28.9 ; Hyperkalemia E87.5 ; Swelling of both lower extremities M79.89 and Type 2 diabetes mellitus with hyperglycemia E11.65 [facility] [address] [place] [address] [phone] Feb, Encounter for dental examination Z01.20 [facility] [place] [id number] [place] [address] 07159- 6179 January, Essential hypertension I10 [place] [address] [place] [address] 46905- 2732 January, Essential hypertension I10 ; Mixed hyperlipidemia E78.2 ; Renal insufficiency N28.9 ; Hyperkalemia E87.5 ; Swelling of both lower extremities M79.89 and Type 2 diabetes mellitus with hyperglycemia E11.65 [facility] [address] [place] [address] [phone] January, Dental examination Z01.20 [facility] [address] [place] [address] [id number]- 2648 Dec, Dental examination Z01.20 [facility] [id number] [place] [address] 80700- 4950 Dec, Type 2 diabetes mellitus with hyperglycemia, without long- term current use of insulin E11.65 ; Essential hypertension I10 ; Mixed hyperlipidemia E78.2 ; Renal insufficiency N28.9 ; Hyperkalemia E87.5 and Swelling of both lower extremities M79.89 [place] [id number] [place] [address] 25964- 0976 Nov, Hyperkalemia E87.5 [place] [place] [id number] [place] [address] 91395- 5779 Nov, Hyperkalemia E87.5 [place] [id number] [place] [address] 10047- 4891 Nov, Type 2 diabetes mellitus with hyperglycemia, without long- term current use of insulin E11.65 ; Essential hypertension I10 ; Mixed hyperlipidemia E78.2 ; Renal insufficiency N28.9 ; Hyperkalemia E87.5 and Swelling of both lower extremities M79.89 [place] [id number] [place] [address] 09938- 9829 Oct, Type 2 diabetes mellitus with hyperglycemia, without long- term current use of insulin E11.65 ; Essential hypertension I10 ; Mixed hyperlipidemia E78.2 ; Renal insufficiency N28.9 ; Hyperkalemia E87.5 and Swelling of both lower extremities M79.89 [place] [id number] [place] [address] 49720- 5367 Aug, Type 2 diabetes mellitus with hyperglycemia, without long- term current use of insulin E11.65 ; Essential hypertension I10 ; Mixed hyperlipidemia E78.2 ; Renal insufficiency N28.9 ; Hyperkalemia E87.5 and Swelling of both lower extremities M79.89 [place] [id number] [place] [address] 78585- 5523 Aug, Type 2 diabetes mellitus with hyperglycemia, without long- term current use of insulin E11.65 ; Essential hypertension I10 ; Mixed hyperlipidemia E78.2 ; Renal insufficiency N28.9 ; Hyperkalemia E87.5 and Swelling of both lower extremities M79.89 [place] [id number] [place] [address] 70094- 1040 Aug, Mixed hyperlipidemia E78.2 [place] [address] [address]807- 1281 Aug, Type 2 diabetes mellitus with hyperglycemia, without long- term current use of insulin E11.65 ; Essential hypertension I10 ; Mixed hyperlipidemia E78.2 ; Renal insufficiency N28.9 ; Hyperkalemia E87.5 and Swelling of both lower extremities M79.89 [place] [id number] [place] [address] 57952- 2588 Jul, [place] [address] [address]47- 1868 Jul, Type 2 diabetes mellitus with hyperglycemia, without long- term current use of insulin E11.65 ; Essential hypertension I10 ; Mixed hyperlipidemia E78.2 ; Renal insufficiency N28.9 ; Hyperkalemia E87.5 ; Weight gain R63.5 and Encounter for immunization Z23 [place] [address] 73041- 6314 Jun, Type 2 diabetes mellitus with hyperglycemia, without long- term current use of insulin E11.65 ; Essential hypertension I10 ; Mixed hyperlipidemia E78.2 ; Renal insufficiency N28.9 and Hyperkalemia E87.5 [place] [id number] [place] [address] 45731- 5570 Jun, [place] [id number] [place] [address] 44353- 5007 May, Type 2 diabetes mellitus with hyperglycemia, without long- term current use of insulin E11.65 ; Essential hypertension I10 ; Mixed hyperlipidemia E78.2 ; Renal insufficiency N28.9 and Hyperkalemia E87.5 [place] [id number] [place] [address] 17916- 8922 Apr, Type 2 diabetes mellitus with hyperglycemia, without long- term current use of insulin E11.65 ; Essential hypertension I10 ; Mixed hyperlipidemia E78.2 ; Renal insufficiency N28.9 and Hyperkalemia E87.5 [place] [id number] [place] [address] 84590- 1961 Apr, [facility] [id number] [place] [address] 65094- 5223 Apr, Type 2 diabetes mellitus with hyperglycemia, without long- term current use of insulin E11.65 ; Essential hypertension I10 ; Mixed hyperlipidemia E78.2 and Renal insufficiency N28.9 [place] [id number] [place] [address] 20936- 4768 Mar, [place] [id number] [place] [address] 89349- 9506 Mar, Type 2 diabetes mellitus with hyperglycemia, without long- term current use of insulin E11.65 ; Essential hypertension I10 ; Mixed hyperlipidemia E78.2 and Renal insufficiency N28.9 [place] [id number] [place] [address] 60558- 3872 Feb, Type 2 diabetes mellitus with hyperglycemia, without long- term current use of insulin E11.65 [place] [id number] [place] [address] 93091- 0412 Feb, [place] [id number] [place] [address] 85636- 7997 January, [place] [address] [place] [address] 68280- 7192 January, Type 2 diabetes mellitus with hyperglycemia, without long- term current use of insulin E11.65 ; Essential hypertension I10 and Mixed hyperlipidemia E78.2 [place] [id number] [place] [address] 62053- 0340 Dec, [place] [id number] [place] [address] 23262- 5167 Dec, [place] [id number] [place] [address] 47365- 4073 Oct, [facility] [address] [facility] [id number] [place] [address] 9751 Oct, [facility] [address] [facility] [id number] [place] Oct, [facility] [address] [facility] [id number] [address] 1094 Oct, IMMUNIZATIONS No Known Immunizations SOCIAL HISTORY Never Assessed REASON FOR VISIT ext 11, 12, 13 please get PA's 11,12 and 13 for this patient as these extractions were treatment planned by Dr. Yuen and I want to make sure we will be able to do these extractions. Thanks., Twest PLAN OF CARE Activity Details Follow Up prn Reason:te lowers VITAL SIGNS Height 72 in 2018-06-14 Blood pressure systolic 148 mmHg 2018-06-14 Blood pressure diastolic 82 mmHg 2018-06-14 MEDICATIONS Medication Instructions Dosage Frequency Start Date End Date Duration Status Gabapentin 300 MG Orally Once a day 1 capsule before bedtime 24h Aug, 28 days Active Clonidine HCl 0.2 MG Orally twice a day 1 tablet 12h 90 days Active Metoprolol Succinate ER 50 mg Orally twice a day 1 tablet 12h 90 days Active Januvia 100 mg Orally Once a day 1 tablet 24h Mar, 90 days Active Chlorthalidone 25 MG Orally Once a day 1/2 tablet in the morning 24h 90 days Active Triamcinolone Acetonide 0.1 % Externally Twice a day 1 application to affected area 12h Jun, 7 days Active NovoLog 100 UNIT/ML Subcutaneous 3 times a day 70 units with meals. 8h Active Levemir 100 UNIT/ML Subcutaneous 2 times a day INJECT 70 UNITS SUBCUTANEOUSLY TWICE DAILY 12h Active MetFORMIN HCl ER 500 mg Orally twice a day 1 tablet 12h January, 30 day(s) Active MetFORMIN HCl ER 500 mg DX- E11.22 twice a day 2 tablets 12h Mar, Active Simvastatin 40 mg Orally Once a day 1 tablet in the evening 24h 90 days Active RESULTS No Results PROCEDURES Procedure Date Ordered Result Body Site INTRAORL-PERIAPICAL 1 FILM [id number] Jun 14, 2018 INTRAORL-PERIAPICAL EA ADD FILM Jun 14, 2018 EXTRAC ERUPTED TOOTH/EXPOSED ROOT Jun 14, 2018 EXTRAC ERUPTED TOOTH/EXPOSED ROOT Jun 14, 2018 EXTRAC ERUPTED TOOTH/EXPOSED ROOT Jun 14, 2018 EXTRAC ERUPTED TOOTH/EXPOSED ROOT Jun 14, 2018 EXTRAC ERUPTED TOOTH/EXPOSED ROOT Jun 14, 2018 INSTRUCTIONS MEDICATIONS ADMINISTERED No Known Medications MEDICAL (GENERAL) HISTORY Type Description Date Medical History Type 2 Diabetes Medical History Hyperlipidemia Medical History Seasonal allergies Medical History DM uncontrolled Noncompliance-Eye Referral Made never kept appt Medical History Essential hypertension, benign Medical History Seeing Dr. Stoner Surgical History Teeth removal 06/14/2018 Hospitalization History Infection in left leg 2013
--- OUTSIDE RECORDS SUMMARY | 2018-12-15 19:45 | XMS REPORT ---
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 Active 44255118 Problem Renal insufficiency N28.9 Active 228483848 Problem Tobacco dependence F17.200 Active 36445829 Problem Non compliance with medical treatment Z91.19 Active 4808916 Problem Type 2 diabetes mellitus with diabetic neuropathic arthropathy E11.610 Active 529709145 Problem Morbid (severe) obesity due to excess calories E66.01 Active 355636339 Problem Type 2 diabetes mellitus with hyperglycemia, without long-term current use of insulin E11.65 Active [id number] Problem Body mass index (BMI) of 39.0-39.9 in adult Z68.39 Active 677089416 Problem Mixed hyperlipidemia E78.2 Active 582719365 Problem Hyperkalemia E87.5 Active 33123905 Problem Essential hypertension I10 Active 29649479 Problem prison current use of insulin Z79.4 Active 737615057 Problem Diabetic polyneuropathy associated with type 2 diabetes mellitus E11.42 Active 768449634 Problem Swelling of both lower extremities M79.89 Active [id number] Problem Chronic kidney disease, stage III (moderate) N18.3 Active 697585592 Problem 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 Active 35731668 Problem Periodontal disease K05.6 Active 4126949 ALLERGIES No Information ENCOUNTERS Encounter Location Date Diagnosis [facility] [id number], [place] [address] Sep, [facility] [id number] [place] [address] 55421- 7978 Jul, [facility] [id number] [place] [address] 40310- 3395 Jun, [facility] [id number] [place] [address] 14297- 0646 Jun, Renal insufficiency N28.9 [facility] [id number] [place] [address] 29946- 8326 Jun, Essential hypertension I10 and 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 [facility] [id number] [place] [address] 15913- 6946 Jun, Essential hypertension I10 and 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 [facility] [id number] [place] [address] 52864- 5591 24 May, 2018 Essential hypertension I10 ; 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 ; Pain of right heel M79.671 and Tobacco dependence F17.200 [facility] [id number] [place] [address] [phone] May, [facility] [id number] [place] [address] [phone] May, Caries K02.9 and Dental examination Z01.20 [facility] [id number] [place] [address] 88279- 2755 06 May, 2018 Type 2 diabetes mellitus with diabetic neuropathic arthropathy E11.610 [facility] [id number] [place] [address] 11285- 1122 Apr, Type 2 diabetes mellitus with diabetic neuropathic arthropathy E11.610 [facility] [id number] [place] [address] 08225- 4006 Mar, [facility] [id number] [place] [address] 17634- 7870 Mar, Type 2 diabetes mellitus with diabetic neuropathic arthropathy E11.610 [facility] [id number] [place] [address] 29423- 3091 13 Mar, 2018 Type 2 diabetes mellitus with diabetic neuropathic arthropathy E11.610 ; 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 ; prison current use of insulin Z79.4 ; Mixed hyperlipidemia E78.2 ; Essential hypertension I10 ; Renal insufficiency N28.9 ; Dental caries K02.9 ; 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 ; Irritant contact dermatitis due to detergent L24.0 ; Morbid (severe) obesity due to excess calories E66.01 ; Body mass index (BMI) of 39.0-39.9 in adult Z68.39 and Non compliance with medical treatment Z91.19 [facility] [id number] [place] [address] [phone] Mar, Dental caries K02.9 [facility] [id number] [place] [address] 08283- 5194 18 Feb, 2018 [facility] [id number] [place] [address] 36068- [phone] Feb, [facility] [id number] [place] [address] 83371- 4585 Feb, [facility] [id number] [place] [address] 67956- 3844 Feb, [facility] [id number] [place] [address] 04631- 5804 January, [facility] [id number] [place] [address] 19169- 0472 January, [facility] [id number] [place] [address] [phone] January, 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 [facility] [id number] [place] [address] [phone] Dec, Dental caries K02.9 [facility] [address] [address] Dec, 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 [facility] [address], [place] [address] 10 Dec, 2017 Dental examination Z01.20 ; Periodontal disease K05.6 and Caries of cementum teeth K02.7 [facility] [address], [place] [address] 4[address] 10 Dec, 2017 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 ; Chronic kidney disease, stage III (moderate) N18.3 ; 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 ; Essential hypertension I10 ; Mixed hyperlipidemia E78.2 ; Diabetic polyneuropathy associated with type 2 diabetes mellitus E11.42 and Dental abscess K04.7 [facility] [id number] [place] [address] 81226- 0297 08 Nov, 2017 [facility] [id number] [place] [address] 83561- 3967 Nov, Mixed hyperlipidemia E78.2 ; Essential hypertension I10 and 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 [facility] [address], [place] [address] 7871 13 Oct, 2017 [facility] [id number] [place] [address] 82940- 5498 Sep, [facility] [address], [place] [address] 9164 Aug, Diabetic polyneuropathy associated with type 2 diabetes mellitus E11.42 [facility] [address], [place] [address] 9214 Aug, 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 ; Chronic kidney disease, stage III (moderate) N18.3 ; prison current use of insulin Z79.4 ; Essential hypertension I10 ; Mixed hyperlipidemia E78.2 and Diabetic polyneuropathy associated with type 2 diabetes mellitus E11.42 [facility] [address], [place] [address] Jul, Type 2 diabetes mellitus with hyperglycemia E11.65 and Mixed hyperlipidemia E78.2 [facility] [address], [place] [address] 9132 Jun, Type 2 diabetes mellitus with hyperglycemia E11.65 [facility] [id number] [place] [address] 13774- 1777 Jun, Essential hypertension I10 [facility] [id number] [place] [address] 64202- 4751 May, [facility] [id number] [place] [address] 12487- 8436 May, Type 2 diabetes mellitus with hyperglycemia E11.65 and Essential hypertension I10 [facility] [id number] [place] [address] 13353- 8975 May, Essential hypertension I10 ; Mixed hyperlipidemia E78.2 ; Renal insufficiency N28.9 ; Hyperkalemia E87.5 ; Swelling of both lower extremities M79.89 and Type 2 diabetes mellitus with hyperglycemia E11.65 [facility] [id number] [place] [address] 81288- 3743 Apr, Essential hypertension I10 ; Mixed hyperlipidemia E78.2 ; Renal insufficiency N28.9 ; Hyperkalemia E87.5 ; Swelling of both lower extremities M79.89 and Type 2 diabetes mellitus with hyperglycemia E11.65 [facility] [address], [place] [address] 74[address] Mar, [facility] [id number] [place] [address] 38610- 3379 Feb, [facility] [id number] [place] [address] 11729- 7051 Feb, Essential hypertension I10 ; Mixed hyperlipidemia E78.2 ; Renal insufficiency N28.9 ; Hyperkalemia E87.5 ; Swelling of both lower extremities M79.89 and Type 2 diabetes mellitus with hyperglycemia E11.65 [facility] [address] [phone] 13 Feb, 2017 Encounter for dental examination Z01.20 [facility] [id number] [place] [address] 85412- 8001 January, Essential hypertension I10 [facility] [id number] [place] [address] 01166- 6752 January, Essential hypertension I10 ; Mixed hyperlipidemia E78.2 ; Renal insufficiency N28.9 ; Hyperkalemia E87.5 ; Swelling of both lower extremities M79.89 and Type 2 diabetes mellitus with hyperglycemia E11.65 [facility] [id number] [place] [address] [phone] January, Dental examination Z01.20 [facility] [id number] [place] [address] 61156- 8600 Dec, Dental examination Z01.20 [facility] [id number] [place] [address] 19372- 5171 Dec, Type 2 diabetes mellitus with hyperglycemia, without long- term current use of insulin E11.65 ; Essential hypertension I10 ; Mixed hyperlipidemia E78.2 ; Renal insufficiency N28.9 ; Hyperkalemia E87.5 and Swelling of both lower extremities M79.89 [facility] [id number] [place] [address] 86430- 9084 Nov, Hyperkalemia E87.5 [facility] [id number] [place] [address] 72587- 2715 Nov, Hyperkalemia E87.5 [facility] [id number] [place] [address] 36332- 8476 Nov, Type 2 diabetes mellitus with hyperglycemia, without long- term current use of insulin E11.65 ; Essential hypertension I10 ; Mixed hyperlipidemia E78.2 ; Renal insufficiency N28.9 ; Hyperkalemia E87.5 and Swelling of both lower extremities M79.89 [facility] [address] [place] [address] 97794- 1245 Oct, Type 2 diabetes mellitus with hyperglycemia, without long- term current use of insulin E11.65 ; Essential hypertension I10 ; Mixed hyperlipidemia E78.2 ; Renal insufficiency N28.9 ; Hyperkalemia E87.5 and Swelling of both lower extremities M79.89 [facility] [facility] [address] 34[address]- 2080 Aug, Type 2 diabetes mellitus with hyperglycemia, without long- term current use of insulin E11.65 ; Essential hypertension I10 ; Mixed hyperlipidemia E78.2 ; Renal insufficiency N28.9 ; Hyperkalemia E87.5 and Swelling of both lower extremities M79.89 [facility] [address] [id number]- 6276 Aug, Type 2 diabetes mellitus with hyperglycemia, without long- term current use of insulin E11.65 ; Essential hypertension I10 ; Mixed hyperlipidemia E78.2 ; Renal insufficiency N28.9 ; Hyperkalemia E87.5 and Swelling of both lower extremities M79.89 [facility] [facility] [address] 73263- 5798 Aug, Mixed hyperlipidemia E78.2 [facility] [address] 08220- 7689 Aug, Type 2 diabetes mellitus with hyperglycemia, without long- term current use of insulin E11.65 ; Essential hypertension I10 ; Mixed hyperlipidemia E78.2 ; Renal insufficiency N28.9 ; Hyperkalemia E87.5 and Swelling of both lower extremities M79.89 [facility] [id number] [place] [address] 23017- 8029 Jul, [facility] [address]- 8328 Jul, Type 2 diabetes mellitus with hyperglycemia, without long- term current use of insulin E11.65 ; Essential hypertension I10 ; Mixed hyperlipidemia E78.2 ; Renal insufficiency N28.9 ; Hyperkalemia E87.5 ; Weight gain R63.5 and Encounter for immunization Z23 [facility] [id number] [place] [address] 89447- 8799 Jun, Type 2 diabetes mellitus with hyperglycemia, without long- term current use of insulin E11.65 ; Essential hypertension I10 ; Mixed hyperlipidemia E78.2 ; Renal insufficiency N28.9 and Hyperkalemia E87.5 [facility] [id number] [place] [address] 13678- 2627 Jun, [facility] [id number] [place] [address] 50889- 1843 May, Type 2 diabetes mellitus with hyperglycemia, without long- term current use of insulin E11.65 ; Essential hypertension I10 ; Mixed hyperlipidemia E78.2 ; Renal insufficiency N28.9 and Hyperkalemia E87.5 [facility] [id number] [place] [address] 76374- 2932 Apr, Type 2 diabetes mellitus with hyperglycemia, without long- term current use of insulin E11.65 ; Essential hypertension I10 ; Mixed hyperlipidemia E78.2 ; Renal insufficiency N28.9 and Hyperkalemia E87.5 [facility] [id number] [place] [address] 93572- 6400 Apr, [facility] [id number] [place] [address] 25532- 4241 Apr, Type 2 diabetes mellitus with hyperglycemia, without long- term current use of insulin E11.65 ; Essential hypertension I10 ; Mixed hyperlipidemia E78.2 and Renal insufficiency N28.9 [facility] [id number] [place] [address] 98597- 8568 Mar, [facility] [facility] [id number] [place] [address] 89330- 9294 Mar, Type 2 diabetes mellitus with hyperglycemia, without long- term current use of insulin E11.65 ; Essential hypertension I10 ; Mixed hyperlipidemia E78.2 and Renal insufficiency N28.9 [facility] [id number] [place] [address] 27905- 0989 Feb, Type 2 diabetes mellitus with hyperglycemia, without long- term current use of insulin E11.65 [facility] [id number] [place] [address] 48936- 0910 Feb, [facility] [address] 4218 January, [place] [facility] [address] 3952 January, Type 2 diabetes mellitus with hyperglycemia, without long- term current use of insulin E11.65 ; Essential hypertension I10 and Mixed hyperlipidemia E78.2 [place] [facility] [address] [place] [address]- 4015 Dec, [facility] [facility] [address] 5306 Dec, [facility] [id number] [place] [address] 58669- 6977 Oct, [facility] [facility] [id number] [place] [address] 75697- 8217 Oct, [facility] [facility] [address] 5959 Oct, [facility] [facility] [address], [place] [address]- 5879 Oct, IMMUNIZATIONS No Known Immunizations SOCIAL HISTORY Never Assessed REASON FOR VISIT Meds addition PLAN OF CARE VITAL SIGNS MEDICATIONS Medication Instructions Dosage Frequency Start Date End Date Duration Status Januvia 25 MG Orally Once a day 1 tablet 24h Jun, 30 days Active NovoLog 100 UNIT/ML Subcutaneous 3 times a day INJECT SUBCUTANEOUSLY 80 UNITS WITH MEALS AND 10 UNITS WITH SNACKS DIRECTED. 8h Active RESULTS No Results PROCEDURES No Known procedures [...]
--- OUTSIDE RECORDS SUMMARY | 2018-12-15 19:45 | XMS REPORT ---
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 Active 55720714 Problem Renal insufficiency N28.9 Active 089053202 Problem Tobacco dependence F17.200 Active 53013876 Problem Non compliance with medical treatment Z91.19 Active 7383825 Problem Type 2 diabetes mellitus with diabetic neuropathic arthropathy E11.610 Active 117716723 Problem Morbid (severe) obesity due to excess calories E66.01 Active 830860107 Problem Type 2 diabetes mellitus with hyperglycemia, without long-term current use of insulin E11.65 Active 431628297860224 Problem Body mass index (BMI) of 39.0-39.9 in adult Z68.39 Active 968082172 Problem Mixed hyperlipidemia E78.2 Active 611376222 Problem Hyperkalemia E87.5 Active 83185912 Problem Essential hypertension I10 Active 29525601 Problem snf current use of insulin Z79.4 Active 828035647 Problem Diabetic polyneuropathy associated with type 2 diabetes mellitus E11.42 Active 027230202 Problem Swelling of both lower extremities M79.89 Active [id number] Problem Chronic kidney disease, stage III (moderate) N18.3 Active 659614643 Problem 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 Active 99997829 Problem Periodontal disease K05.6 Active [id number] ALLERGIES No Information ENCOUNTERS Encounter Location Date Diagnosis [facility] [address] [address] Sep, [facility] [id number] [place] [address] [id number] Aug, [facility] [id number] [place] [address] 36036- 9540 Aug, [facility] [id number] [place] [address] 54891- 7821 Jul, 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 [facility] [address] [address] Jul, 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 ; Essential hypertension I10 ; Renal insufficiency N28.9 and Mixed hyperlipidemia E78.2 [facility] [address] [address] Jun, [facility] [id number] [place] [address] 43817- 0961 Jun, Renal insufficiency N28.9 [facility] [address] [address]- [address] Jun, Essential hypertension I10 and 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 [facility] [id number] [place] [address] 77012- 1649 15 Jun, 2018 Essential hypertension I10 and 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 [facility] [id number] [place] [address] 91830- 7049 24 May, 2018 Essential hypertension I10 ; 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 ; Pain of right heel M79.671 and Tobacco dependence F17.200 [facility] [id number] [place] [address] [id number] May, [facility] [id number] [place] [address] [id number] May, Caries K02.9 and Dental examination Z01.20 [facility] [id number] [place] [address] 68186- 4203 06 May, 2018 Type 2 diabetes mellitus with diabetic neuropathic arthropathy E11.610 [facility] [address] [address] Apr, Type 2 diabetes mellitus with diabetic neuropathic arthropathy E11.610 [facility] [address] [address] Mar, [facility] [address], [place] [address] Mar, Type 2 diabetes mellitus with diabetic neuropathic arthropathy E11.610 [facility] [address] [place] [address] 40232- 4309 Mar, Type 2 diabetes mellitus with diabetic neuropathic arthropathy E11.610 ; 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 ; snf current use of insulin Z79.4 ; Mixed hyperlipidemia E78.2 ; Essential hypertension I10 ; Renal insufficiency N28.9 ; Dental caries K02.9 ; 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 ; Irritant contact dermatitis due to detergent L24.0 ; Morbid (severe) obesity due to excess calories E66.01 ; Body mass index (BMI) of 39.0-39.9 in adult Z68.39 and Non compliance with medical treatment Z91.19 [facility] [id number] [place] [address] [id number] Mar, Dental caries K02.9 [facility] [address], [place] [address] 18 Feb, 2018 [facility] [address], [place] [address] Feb, [facility] [id number] [place] [address] 25609- 6012 Feb, [facility] [id number] [place] [address] 96087- 1758 Feb, [facility] [address] [address] January, [facility] [id number] [place] [address] 52426- 8296 January, [facility] [address], [place] [address] January, 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 [facility] [id number] [id number] Dec, Dental caries K02.9 [facility] [address] [place] [address] 94351- 1224 Dec, 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 [facility] [address], [place] [address] Dec, Dental examination Z01.20 ; Periodontal disease K05.6 and Caries of cementum teeth K02.7 [facility] [address], [place] [address] Dec, 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 ; Chronic kidney disease, stage III (moderate) N18.3 ; 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 ; Essential hypertension I10 ; Mixed hyperlipidemia E78.2 ; Diabetic polyneuropathy associated with type 2 diabetes mellitus E11.42 and Dental abscess K04.7 [facility] [address], [place] [address] Nov, [facility] [address], [place] [address] Nov, Mixed hyperlipidemia E78.2 ; Essential hypertension I10 and 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 [facility] [address], [place] [address] Oct, [facility] [id number] [address] Sep, [facility] [address], [place] [address] Aug, Diabetic polyneuropathy associated with type 2 diabetes mellitus E11.42 [facility] [id number] [place] [address] 01749- 5803 Aug, 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 ; Chronic kidney disease, stage III (moderate) N18.3 ; snf current use of insulin Z79.4 ; Essential hypertension I10 ; Mixed hyperlipidemia E78.2 and Diabetic polyneuropathy associated with type 2 diabetes mellitus E11.42 [facility] [id number] [place] [address] 27034- 1159 Jul, Type 2 diabetes mellitus with hyperglycemia E11.65 and Mixed hyperlipidemia E78.2 [facility] [id number] [place] [address] 21393- 6846 Jun, Type 2 diabetes mellitus with hyperglycemia E11.65 [facility] [id number] [place] [address] 67692- 2872 Jun, Essential hypertension I10 [facility] [id number] [place] [address] 22224- 3443 May, [facility] [id number] [place] [address] 35013- 5989 May, Type 2 diabetes mellitus with hyperglycemia E11.65 and Essential hypertension I10 [facility] [id number] [place] [address] 68511- 4068 May, Essential hypertension I10 ; Mixed hyperlipidemia E78.2 ; Renal insufficiency N28.9 ; Hyperkalemia E87.5 ; Swelling of both lower extremities M79.89 and Type 2 diabetes mellitus with hyperglycemia E11.65 [facility] [id number] [place] [address] 82958- 6529 Apr, Essential hypertension I10 ; Mixed hyperlipidemia E78.2 ; Renal insufficiency N28.9 ; Hyperkalemia E87.5 ; Swelling of both lower extremities M79.89 and Type 2 diabetes mellitus with hyperglycemia E11.65 [facility] [id number] [place] [address] 04198- 9870 Mar, [facility] [id number] [place] [address] 54718- 9287 Feb, [facility] [id number] [place] [address] 29138- 1278 Feb, Essential hypertension I10 ; Mixed hyperlipidemia E78.2 ; Renal insufficiency N28.9 ; Hyperkalemia E87.5 ; Swelling of both lower extremities M79.89 and Type 2 diabetes mellitus with hyperglycemia E11.65 [facility] [id number] [place] [address] [id number] Feb, Encounter for dental examination Z01.20 [facility] [id number] [place] [address] 77033- 2526 January, Essential hypertension I10 [facility] [id number] [place] [address] 31495- 9859 January, Essential hypertension I10 ; Mixed hyperlipidemia E78.2 ; Renal insufficiency N28.9 ; Hyperkalemia E87.5 ; Swelling of both lower extremities M79.89 and Type 2 diabetes mellitus with hyperglycemia E11.65 [facility] [id number] [place] [address] [id number] January, Dental examination Z01.20 [facility] [id number] [place] [address] 61903- 8103 Dec, Dental examination Z01.20 [facility] [id number] [place] [address] 31212- 7788 Dec, Type 2 diabetes mellitus with hyperglycemia, without long- term current use of insulin E11.65 ; Essential hypertension I10 ; Mixed hyperlipidemia E78.2 ; Renal insufficiency N28.9 ; Hyperkalemia E87.5 and Swelling of both lower extremities M79.89 [facility] [id number] [place] [address] 56129- 0690 Nov, Hyperkalemia E87.5 [facility] [id number] [place] [address] 60761- 2465 Nov, Hyperkalemia E87.5 [facility] [id number] [place] [address] 09343- 3054 Nov, Type 2 diabetes mellitus with hyperglycemia, without long- term current use of insulin E11.65 ; Essential hypertension I10 ; Mixed hyperlipidemia E78.2 ; Renal insufficiency N28.9 ; Hyperkalemia E87.5 and Swelling of both lower extremities M79.89 [facility] [id number] [place] [address] 20987- 5862 Oct, Type 2 diabetes mellitus with hyperglycemia, without long- term current use of insulin E11.65 ; Essential hypertension I10 ; Mixed hyperlipidemia E78.2 ; Renal insufficiency N28.9 ; Hyperkalemia E87.5 and Swelling of both lower extremities M79.89 [facility] [id number] [place] [address] Aug, Type 2 diabetes mellitus with hyperglycemia, without long- term current use of insulin E11.65 ; Essential hypertension I10 ; Mixed hyperlipidemia E78.2 ; Renal insufficiency N28.9 ; Hyperkalemia E87.5 and Swelling of both lower extremities M79.89 [facility] [id number] [place] [address] 35536- 1627 Aug, Type 2 diabetes mellitus with hyperglycemia, without long- term current use of insulin E11.65 ; Essential hypertension I10 ; Mixed hyperlipidemia E78.2 ; Renal insufficiency N28.9 ; Hyperkalemia E87.5 and Swelling of both lower extremities M79.89 [facility] [id number] [place] [address] 46351- 1150 Aug, Mixed hyperlipidemia E78.2 [facility] [id number] [place] [address] 74136- 3507 Aug, Type 2 diabetes mellitus with hyperglycemia, without long- term current use of insulin E11.65 ; Essential hypertension I10 ; Mixed hyperlipidemia E78.2 ; Renal insufficiency N28.9 ; Hyperkalemia E87.5 and Swelling of both lower extremities M79.89 [facility] [id number] [place] [address] 24389- 6208 Jul, [facility] [id number] [place] [address] 08030- 1439 Jul, Type 2 diabetes mellitus with hyperglycemia, without long- term current use of insulin E11.65 ; Essential hypertension I10 ; Mixed hyperlipidemia E78.2 ; Renal insufficiency N28.9 ; Hyperkalemia E87.5 ; Weight gain R63.5 and Encounter for immunization Z23 [facility] [id number] [place] [address] 41266- 1289 Jun, Type 2 diabetes mellitus with hyperglycemia, without long- term current use of insulin E11.65 ; Essential hypertension I10 ; Mixed hyperlipidemia E78.2 ; Renal insufficiency N28.9 and Hyperkalemia E87.5 [place] [facility] [address] 79131- 1639 Jun, [facility] [id number] [place] [address] 23974- 5627 May, Type 2 diabetes mellitus with hyperglycemia, without long- term current use of insulin E11.65 ; Essential hypertension I10 ; Mixed hyperlipidemia E78.2 ; Renal insufficiency N28.9 and Hyperkalemia E87.5 [facility] [id number] [place] [address] 82000- 4831 Apr, Type 2 diabetes mellitus with hyperglycemia, without long- term current use of insulin E11.65 ; Essential hypertension I10 ; Mixed hyperlipidemia E78.2 ; Renal insufficiency N28.9 and Hyperkalemia E87.5 [facility] [id number] [place] [address] 18679- 1075 Apr, [facility] [id number] [place] [address] 38289- 0855 Apr, Type 2 diabetes mellitus with hyperglycemia, without long- term current use of insulin E11.65 ; Essential hypertension I10 ; Mixed hyperlipidemia E78.2 and Renal insufficiency N28.9 [facility] [id number] [place] [address] 95417- 2815 Mar, [facility] [id number] [place] [address] 53866- 1346 Mar, Type 2 diabetes mellitus with hyperglycemia, without long- term current use of insulin E11.65 ; Essential hypertension I10 ; Mixed hyperlipidemia E78.2 and Renal insufficiency N28.9 [facility] [id number] [place] [address] 20984- 3138 Feb, Type 2 diabetes mellitus with hyperglycemia, without long- term current use of insulin E11.65 [facility] [id number] [place] [address] 41917- 1300 Feb, [facility] [id number] [place] [address] 20507- 1845 January, [facility] [id number] [place] [address] 46952- 7954 January, Type 2 diabetes mellitus with hyperglycemia, without long- term current use of insulin E11.65 ; Essential hypertension I10 and Mixed hyperlipidemia E78.2 [facility] [id number] [place] [address] 57863- 0798 Dec, [facility] [id number] [place] [address] 89555- 4119 Dec, [facility] [id number] [place] [address] 58405- 9305 Oct, [facility] [address], [place] [address]- 5361 Oct, [facility] [id number] [place] [address] 86977- 9854 Oct, [facility] [id number] [place] [address] 96355- 5582 Oct, IMMUNIZATIONS No Known Immunizations SOCIAL HISTORY Never Assessed REASON FOR VISIT Returned call about BS PLAN OF CARE VITAL SIGNS MEDICATIONS Medication Instructions Dosage Frequency Start Date End Date Duration Status NovoLog 100 UNIT/ML Subcutaneous 3 times a day before meals. 90 units Active Levemir 100 UNIT/ML Subcutaneous 2 times a day 90 UNITS SUBCUTANEOUSLY TWICE DAILY 12h Active RESULTS No Results PROCEDURES No Known [...]
--- OUTSIDE RECORDS SUMMARY | 2018-12-15 19:46 | XMS REPORT ---
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 Active 74667714 Problem Renal insufficiency N28.9 Active 036836594 Problem Tobacco dependence F17.200 Active 09863624 Problem Non compliance with medical treatment Z91.19 Active 6924610 Problem Type 2 diabetes mellitus with diabetic neuropathic arthropathy E11.610 Active 084036649 Problem Morbid (severe) obesity due to excess calories E66.01 Active 074844364 Problem Type 2 diabetes mellitus with hyperglycemia, without long-term current use of insulin E11.65 Active 889087635869878 Problem Body mass index (BMI) of 39.0-39.9 in adult Z68.39 Active 807232544 Problem Mixed hyperlipidemia E78.2 Active 321183723 Problem Hyperkalemia E87.5 Active 16871443 Problem Essential hypertension I10 Active 34744614 Problem FCI current use of insulin Z79.4 Active 702180092 Problem Diabetic polyneuropathy associated with type 2 diabetes mellitus E11.42 Active 429805191 Problem Swelling of both lower extremities M79.89 Active [id number] Problem Chronic kidney disease, stage III (moderate) N18.3 Active 147403632 Problem 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 Active 48544167 Problem Periodontal disease K05.6 Active 5087448 ALLERGIES No Information ENCOUNTERS Encounter Location Date Diagnosis [facility] [address] [facility] [id number] [address] Sep, [facility] [address] [facility] [id number], [place] [address] 15 Jun, 2018 [facility] [address] [place] [address]2927- 6677 24 May, 2018 Essential hypertension I10 ; 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 ; Pain of right heel M79.671 and Tobacco dependence F17.200 [facility] [address] [id number] May, [facility] [id number] [place] [address] [id number] May, Caries K02.9 and Dental examination Z01.20 [facility] [address] [address] 06 May, 2018 Type 2 diabetes mellitus with diabetic neuropathic arthropathy E11.610 [facility] [id number] [place] [address] 95014- 9142 Apr, Type 2 diabetes mellitus with diabetic neuropathic arthropathy E11.610 [facility] [id number] [place] [address] 24665- 3964 Mar, [facility] [id number] [place] [address] 27159- 2050 17 Mar, 2018 Type 2 diabetes mellitus with diabetic neuropathic arthropathy E11.610 [facility] [id number] [place] [address] 24809- 6688 13 Mar, 2018 Type 2 diabetes mellitus with diabetic neuropathic arthropathy E11.610 ; 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 ; FCI current use of insulin Z79.4 ; Mixed hyperlipidemia E78.2 ; Essential hypertension I10 ; Renal insufficiency N28.9 ; Dental caries K02.9 ; 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 ; Irritant contact dermatitis due to detergent L24.0 ; Morbid (severe) obesity due to excess calories E66.01 ; Body mass index (BMI) of 39.0-39.9 in adult Z68.39 and Non compliance with medical treatment Z91.19 [facility] [address] [place] [address] [phone] Mar, Dental caries K02.9 [facility] [address] [address] 18 Feb, 2018 [facility] [address], [place] [address] Feb, [facility] [address], [place] [address] Feb, [facility] [id number] [place] [address] 37975- 6877 Feb, [facility] [address] [place] [address] 01668- 9784 January, [facility] [address] [place] [address] 09867- 0141 January, [facility] [id number] [place] [address] 27432- 3876 January, 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 [facility] [address] [id number] Dec, Dental caries K02.9 [facility] [id number] [place] [address] 88764- 7384 Dec, 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 [facility] [address] [address] Dec, Dental examination Z01.20 ; Periodontal disease K05.6 and Caries of cementum teeth K02.7 [facility] [address], [place] [address] Dec, 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 ; Chronic kidney disease, stage III (moderate) N18.3 ; 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 ; Essential hypertension I10 ; Mixed hyperlipidemia E78.2 ; Diabetic polyneuropathy associated with type 2 diabetes mellitus E11.42 and Dental abscess K04.7 [facility] [address], [place] [address] Nov, [facility] [address], [place] [address] 8[address] Nov, Mixed hyperlipidemia E78.2 ; Essential hypertension I10 and 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 [facility] [address] [address] 58[address] Oct, [facility] [id number] [place] [address] 36919- 7474 Sep, [facility] [address] [place] [address] 26662- 6492 Aug, Diabetic polyneuropathy associated with type 2 diabetes mellitus E11.42 [facility] [id number] [place] [address] 67103- 9552 Aug, 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 ; Chronic kidney disease, stage III (moderate) N18.3 ; FCI current use of insulin Z79.4 ; Essential hypertension I10 ; Mixed hyperlipidemia E78.2 and Diabetic polyneuropathy associated with type 2 diabetes mellitus E11.42 [facility] [id number] [place] [address] 22342- 0596 Jul, Type 2 diabetes mellitus with hyperglycemia E11.65 and Mixed hyperlipidemia E78.2 [facility] [id number] [place] [address] 50007- 1154 Jun, Type 2 diabetes mellitus with hyperglycemia E11.65 [facility] [address] [place] [address] [phone]- 9019 Jun, Essential hypertension I10 [facility] [address] [place] [address] 26511- 9404 May, [facility] [id number] [place] [address] 38127- 1907 May, Type 2 diabetes mellitus with hyperglycemia E11.65 and Essential hypertension I10 [facility] [id number] [place] [address] 93822- 8296 May, Essential hypertension I10 ; Mixed hyperlipidemia E78.2 ; Renal insufficiency N28.9 ; Hyperkalemia E87.5 ; Swelling of both lower extremities M79.89 and Type 2 diabetes mellitus with hyperglycemia E11.65 [facility] [address] [place] [address] [id number]- 4650 Apr, Essential hypertension I10 ; Mixed hyperlipidemia E78.2 ; Renal insufficiency N28.9 ; Hyperkalemia E87.5 ; Swelling of both lower extremities M79.89 and Type 2 diabetes mellitus with hyperglycemia E11.65 [facility] [address] [place] [address] 52701- 3148 Mar, [facility] [id number] [place] [address] 27535- 4891 Feb, [facility] [id number] [place] [address] 37182- 2486 Feb, Essential hypertension I10 ; Mixed hyperlipidemia E78.2 ; Renal insufficiency N28.9 ; Hyperkalemia E87.5 ; Swelling of both lower extremities M79.89 and Type 2 diabetes mellitus with hyperglycemia E11.65 [facility] [id number] [place] [address] [id number] Feb, Encounter for dental examination Z01.20 [facility] [address] [place] [address] 51257- 4209 January, Essential hypertension I10 [facility] [address] [place] [address] 33210028- 7837 January, Essential hypertension I10 ; Mixed hyperlipidemia E78.2 ; Renal insufficiency N28.9 ; Hyperkalemia E87.5 ; Swelling of both lower extremities M79.89 and Type 2 diabetes mellitus with hyperglycemia E11.65 [facility] [address] [place] [address] [phone] January, Dental examination Z01.20 [facility] [address] [place] [address] 97840- 9514 26 Apr, 2017 Dental examination Z01.20 [facility] [address] [address] 1463 Dec, Type 2 diabetes mellitus with hyperglycemia, without long- term current use of insulin E11.65 ; Essential hypertension I10 ; Mixed hyperlipidemia E78.2 ; Renal insufficiency N28.9 ; Hyperkalemia E87.5 and Swelling of both lower extremities M79.89 [facility] [id number] [place] [address] 98121- 5877 Nov, Hyperkalemia E87.5 [facility] [address] [place] [address] 95933- 9040 Nov, Hyperkalemia E87.5 [facility] [id number] [place] [address] 48230- 8675 Nov, Type 2 diabetes mellitus with hyperglycemia, without long- term current use of insulin E11.65 ; Essential hypertension I10 ; Mixed hyperlipidemia E78.2 ; Renal insufficiency N28.9 ; Hyperkalemia E87.5 and Swelling of both lower extremities M79.89 [facility] [address] [place] [address] 63705- 5704 Oct, Type 2 diabetes mellitus with hyperglycemia, without long- term current use of insulin E11.65 ; Essential hypertension I10 ; Mixed hyperlipidemia E78.2 ; Renal insufficiency N28.9 ; Hyperkalemia E87.5 and Swelling of both lower extremities M79.89 [facility] [address] [address] 2457 Aug, Type 2 diabetes mellitus with hyperglycemia, without long- term current use of insulin E11.65 ; Essential hypertension I10 ; Mixed hyperlipidemia E78.2 ; Renal insufficiency N28.9 ; Hyperkalemia E87.5 and Swelling of both lower extremities M79.89 [facility] [address] [place] [address] 99934- 5837 Aug, Type 2 diabetes mellitus with hyperglycemia, without long- term current use of insulin E11.65 ; Essential hypertension I10 ; Mixed hyperlipidemia E78.2 ; Renal insufficiency N28.9 ; Hyperkalemia E87.5 and Swelling of both lower extremities M79.89 [facility] [address] [address]262- 8755 Aug, Mixed hyperlipidemia E78.2 [facility] [address] [address]- 1954 Aug, Type 2 diabetes mellitus with hyperglycemia, without long- term current use of insulin E11.65 ; Essential hypertension I10 ; Mixed hyperlipidemia E78.2 ; Renal insufficiency N28.9 ; Hyperkalemia E87.5 and Swelling of both lower extremities M79.89 [facility] [address] 36935- 4496 Jul, [facility] [address] 85363- 2263 Jul, Type 2 diabetes mellitus with hyperglycemia, without long- term current use of insulin E11.65 ; Essential hypertension I10 ; Mixed hyperlipidemia E78.2 ; Renal insufficiency N28.9 ; Hyperkalemia E87.5 ; Weight gain R63.5 and Encounter for immunization Z23 [facility] [facility] [address] 28194- 1325 Jun, Type 2 diabetes mellitus with hyperglycemia, without long- term current use of insulin E11.65 ; Essential hypertension I10 ; Mixed hyperlipidemia E78.2 ; Renal insufficiency N28.9 and Hyperkalemia E87.5 [facility] [address] 76519- 3178 Jun, [facility] [id number] [place] [address] 50624- 6835 May, Type 2 diabetes mellitus with hyperglycemia, without long- term current use of insulin E11.65 ; Essential hypertension I10 ; Mixed hyperlipidemia E78.2 ; Renal insufficiency N28.9 and Hyperkalemia E87.5 [facility] [address] 28777- 3863 Apr, Type 2 diabetes mellitus with hyperglycemia, without long- term current use of insulin E11.65 ; Essential hypertension I10 ; Mixed hyperlipidemia E78.2 ; Renal insufficiency N28.9 and Hyperkalemia E87.5 [facility] [id number] [place] [address] 44678- 3656 Apr, [facility] [id number] [place] [address] 85098- 5212 Apr, Type 2 diabetes mellitus with hyperglycemia, without long- term current use of insulin E11.65 ; Essential hypertension I10 ; Mixed hyperlipidemia E78.2 and Renal insufficiency N28.9 [facility] [id number] [place] [address] 67047- 4306 Mar, [facility] [id number] [place] [address] 32722- 4247 Mar, Type 2 diabetes mellitus with hyperglycemia, without long- term current use of insulin E11.65 ; Essential hypertension I10 ; Mixed hyperlipidemia E78.2 and Renal insufficiency N28.9 [facility] [address] [place] [address] 72285- 9654 Feb, Type 2 diabetes mellitus with hyperglycemia, without long- term current use of insulin E11.65 [facility] [address] [place] [address] 39835- 0001 Feb, [facility] [id number] [place] [address] 05947- 6603 January, [facility] [id number] [place] [address] 14772- 4108 January, Type 2 diabetes mellitus with hyperglycemia, without long- term current use of insulin E11.65 ; Essential hypertension I10 and Mixed hyperlipidemia E78.2 [facility] [id number] [place] [address] 49264- 8013 Dec, [facility] [id number] [place] [address] 47247- 5790 Dec, [facility] [id number] [place] [address] 54530- 2836 Oct, [facility] [address] [facility] [id number] [place] [address]- 2546 Oct, [facility] [address] [facility] [id number], [place] [address]- 1556 Oct, [facility] [address] [facility] [id number] [place] [address]- 8586 Oct, IMMUNIZATIONS No Known Immunizations SOCIAL HISTORY Never Assessed REASON FOR VISIT BS f/u PLAN OF CARE VITAL SIGNS MEDICATIONS Medication Instructions Dosage Frequency Start Date End Date Duration Status MetFORMIN HCl ER 500 mg DX- E11.22 twice a day 2 tablets 12h 13 Mar, 2018 Active RESULTS No Results PROCEDURES No Known [...]
--- OUTSIDE RECORDS SUMMARY | 2018-12-15 19:46 | XMS REPORT ---
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 Active 39195845 Problem Renal insufficiency N28.9 Active 242258921 Problem Tobacco dependence F17.200 Active 05155559 Problem Non compliance with medical treatment Z91.19 Active 3403921 Problem Type 2 diabetes mellitus with diabetic neuropathic arthropathy E11.610 Active 763299094 Problem Morbid (severe) obesity due to excess calories E66.01 Active 225347178 Problem Type 2 diabetes mellitus with hyperglycemia, without long-term current use of insulin E11.65 Active 655205761914346 Problem Body mass index (BMI) of 39.0-39.9 in adult Z68.39 Active 172282314 Problem Mixed hyperlipidemia E78.2 Active 711688709 Problem Hyperkalemia E87.5 Active 45197477 Problem Essential hypertension I10 Active 35642995 Problem 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 Active 835265868 Problem Diabetic polyneuropathy associated with type 2 diabetes mellitus E11.42 Active 242217040 Problem Swelling of both lower extremities M79.89 Active [id number] Problem Chronic kidney disease, stage III (moderate) N18.3 Active 229192263 Problem 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 Active 01062949 Problem Periodontal disease K05.6 Active 7984450 ALLERGIES No Known Allergies ENCOUNTERS Encounter Location Date Diagnosis [facility] [address] [facility] [id number] [address] Sep, [facility] [id number] [place] [address]40- 4404 15 Jun, 2018 [facility] [id number] [place] [address] 35265- 1748 24 May, 2018 Essential hypertension I10 ; 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 ; Pain of right heel M79.671 and Tobacco dependence F17.200 [facility] [address] [place] [address] [id number] May, [facility] [id number] [place] [address] [id number] May, Caries K02.9 and Dental examination Z01.20 [place] [address] [address]- [address] 06 May, 2018 Type 2 diabetes mellitus with diabetic neuropathic arthropathy E11.610 [place] [id number] [place] [address] 78440- 9089 Apr, Type 2 diabetes mellitus with diabetic neuropathic arthropathy E11.610 [place] [id number] [place] [address] 15891- 4802 Mar, [place] [address] [address]- [address] 17 Mar, 2018 Type 2 diabetes mellitus with diabetic neuropathic arthropathy E11.610 [place] [id number] [place] [address] 60377- 8358 13 Mar, 2018 Type 2 diabetes mellitus with diabetic neuropathic arthropathy E11.610 ; 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 ; long-term current use of insulin Z79.4 ; Mixed hyperlipidemia E78.2 ; Essential hypertension I10 ; Renal insufficiency N28.9 ; Dental caries K02.9 ; 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 ; Irritant contact dermatitis due to detergent L24.0 ; Morbid (severe) obesity due to excess calories E66.01 ; Body mass index (BMI) of 39.0-39.9 in adult Z68.39 and Non compliance with medical treatment Z91.19 [facility] [id number] [place] [address] [id number] Mar, Dental caries K02.9 [facility] [address] [address] 18 Feb, 2018 [facility] [address] [address] Feb, [facility] [address] [address] Feb, [facility] [address] [address] Feb, [facility] [address] [address] January, [facility] [address] [place] [address] 19705- 3869 January, [facility] [address] [place] [address] 10082- 8670 January, 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 [facility] [address] [id number] Dec, Dental caries K02.9 [facility] [address] [address] Dec, 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 [facility] [address] [address] Dec, Dental examination Z01.20 ; Periodontal disease K05.6 and Caries of cementum teeth K02.7 [facility] [id number] [address] Dec, 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 ; Chronic kidney disease, stage III (moderate) N18.3 ; long-term current use of insulin Z79.4 ; Essential hypertension I10 ; Mixed hyperlipidemia E78.2 ; Diabetic polyneuropathy associated with type 2 diabetes mellitus E11.42 and Dental abscess K04.7 [facility] [address] [place] [address] 72195- 2038 Nov, [facility] [address] [address] Nov, Mixed hyperlipidemia E78.2 ; Essential hypertension I10 and 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 [facility] [address] [address] 47[address] Oct, [facility] [id number] [place] [address] 59336- 7618 Sep, [facility] [address] [address] Aug, Diabetic polyneuropathy associated with type 2 diabetes mellitus E11.42 [place] [address] [address] Aug, 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 ; Chronic kidney disease, stage III (moderate) N18.3 ; long-term current use of insulin Z79.4 ; Essential hypertension I10 ; Mixed hyperlipidemia E78.2 and Diabetic polyneuropathy associated with type 2 diabetes mellitus E11.42 [place] [address] [place] [address] 02741- 3837 Jul, Type 2 diabetes mellitus with hyperglycemia E11.65 and Mixed hyperlipidemia E78.2 [place] [address] [address] 21[address] Jun, Type 2 diabetes mellitus with hyperglycemia E11.65 [facility] [address] [address] 1670 Jun, Essential hypertension I10 [place] [address] [address] May, [place] [address] [address] 92[address] May, Type 2 diabetes mellitus with hyperglycemia E11.65 and Essential hypertension I10 [place] [id number] [place] [address] 19657- 5308 May, Essential hypertension I10 ; Mixed hyperlipidemia E78.2 ; Renal insufficiency N28.9 ; Hyperkalemia E87.5 ; Swelling of both lower extremities M79.89 and Type 2 diabetes mellitus with hyperglycemia E11.65 [facility] [address] [place] [address] 05377- 4248 Apr, Essential hypertension I10 ; Mixed hyperlipidemia E78.2 ; Renal insufficiency N28.9 ; Hyperkalemia E87.5 ; Swelling of both lower extremities M79.89 and Type 2 diabetes mellitus with hyperglycemia E11.65 [facility] [id number] [place] [address] 96093- 8449 Mar, [place] [id number] [place] [address] 15627- 6696 Feb, [facility] [id number] [place] [address] 11751- 2155 Feb, Essential hypertension I10 ; Mixed hyperlipidemia E78.2 ; Renal insufficiency N28.9 ; Hyperkalemia E87.5 ; Swelling of both lower extremities M79.89 and Type 2 diabetes mellitus with hyperglycemia E11.65 [facility] [id number] [place] [address] [phone] Feb, Encounter for dental examination Z01.20 [facility] [address] [place] [address] 71890- 7073 January, Essential hypertension I10 [facility] [id number] [place] [address] 95570- 0987 January, Essential hypertension I10 ; Mixed hyperlipidemia E78.2 ; Renal insufficiency N28.9 ; Hyperkalemia E87.5 ; Swelling of both lower extremities M79.89 and Type 2 diabetes mellitus with hyperglycemia E11.65 [facility] [id number] [place] [address] [phone] January, Dental examination Z01.20 [facility] [id number] [place] [address] [id number]- 4279 Dec, Dental examination Z01.20 [place] [address] [place] [address] 93059- 3835 Dec, Type 2 diabetes mellitus with hyperglycemia, without long- term current use of insulin E11.65 ; Essential hypertension I10 ; Mixed hyperlipidemia E78.2 ; Renal insufficiency N28.9 ; Hyperkalemia E87.5 and Swelling of both lower extremities M79.89 [place] [id number] [place] [address] 12013- 6301 Nov, Hyperkalemia E87.5 [place] [id number] [place] [address] 83157- 4813 Nov, Hyperkalemia E87.5 [place] [id number] [place] [address] 91122- 0320 Nov, Type 2 diabetes mellitus with hyperglycemia, without long- term current use of insulin E11.65 ; Essential hypertension I10 ; Mixed hyperlipidemia E78.2 ; Renal insufficiency N28.9 ; Hyperkalemia E87.5 and Swelling of both lower extremities M79.89 [place] [id number] [place] [address] 67388- 0139 Oct, Type 2 diabetes mellitus with hyperglycemia, without long- term current use of insulin E11.65 ; Essential hypertension I10 ; Mixed hyperlipidemia E78.2 ; Renal insufficiency N28.9 ; Hyperkalemia E87.5 and Swelling of both lower extremities M79.89 [place] [address] [place] [address] 58042- 0868 Aug, Type 2 diabetes mellitus with hyperglycemia, without long- term current use of insulin E11.65 ; Essential hypertension I10 ; Mixed hyperlipidemia E78.2 ; Renal insufficiency N28.9 ; Hyperkalemia E87.5 and Swelling of both lower extremities M79.89 [place] [address] [place] [address] 13691- 7064 Aug, Type 2 diabetes mellitus with hyperglycemia, without long- term current use of insulin E11.65 ; Essential hypertension I10 ; Mixed hyperlipidemia E78.2 ; Renal insufficiency N28.9 ; Hyperkalemia E87.5 and Swelling of both lower extremities M79.89 [place] [address] 86957- 5169 Aug, Mixed hyperlipidemia E78.2 [place] [address] 08003- 1661 Aug, Type 2 diabetes mellitus with hyperglycemia, without long- term current use of insulin E11.65 ; Essential hypertension I10 ; Mixed hyperlipidemia E78.2 ; Renal insufficiency N28.9 ; Hyperkalemia E87.5 and Swelling of both lower extremities M79.89 [place] [address] 85313- 0010 Jul, [place] [address] 99060- 7111 Jul, Type 2 diabetes mellitus with hyperglycemia, without long- term current use of insulin E11.65 ; Essential hypertension I10 ; Mixed hyperlipidemia E78.2 ; Renal insufficiency N28.9 ; Hyperkalemia E87.5 ; Weight gain R63.5 and Encounter for immunization Z23 [place] [address] 30433- 7067 Jun, Type 2 diabetes mellitus with hyperglycemia, without long- term current use of insulin E11.65 ; Essential hypertension I10 ; Mixed hyperlipidemia E78.2 ; Renal insufficiency N28.9 and Hyperkalemia E87.5 [place] [address] 23891- 6855 Jun, [place] [address] 08455- 8968 May, Type 2 diabetes mellitus with hyperglycemia, without long- term current use of insulin E11.65 ; Essential hypertension I10 ; Mixed hyperlipidemia E78.2 ; Renal insufficiency N28.9 and Hyperkalemia E87.5 [place] [address] 22124- 3474 Apr, Type 2 diabetes mellitus with hyperglycemia, without long- term current use of insulin E11.65 ; Essential hypertension I10 ; Mixed hyperlipidemia E78.2 ; Renal insufficiency N28.9 and Hyperkalemia E87.5 [place] [address] [place] [address] 94591- 2878 Apr, [place] [id number] [place] [address] 27473- 4479 Apr, Type 2 diabetes mellitus with hyperglycemia, without long- term current use of insulin E11.65 ; Essential hypertension I10 ; Mixed hyperlipidemia E78.2 and Renal insufficiency N28.9 [place] [id number] [place] [address] 25815- 0328 Mar, [place] [id number] [place] [address] 89846- 8720 Mar, Type 2 diabetes mellitus with hyperglycemia, without long- term current use of insulin E11.65 ; Essential hypertension I10 ; Mixed hyperlipidemia E78.2 and Renal insufficiency N28.9 [place] [id number] [place] [address] 44613- 0774 Feb, Type 2 diabetes mellitus with hyperglycemia, without long- term current use of insulin E11.65 [place] [address] [place] [address] 45497- 4961 Feb, [place] [address] [place] [address] 84724- 2575 January, [place] [id number] [place] [address] 22573- 6625 January, Type 2 diabetes mellitus with hyperglycemia, without long- term current use of insulin E11.65 ; Essential hypertension I10 and Mixed hyperlipidemia E78.2 [place] [address] [place] [address] 74849- 5687 Dec, [place] [id number] [place] [address] 03134- 2519 Dec, [place] [id number] [place] [address], [place] [address]- 3584 Oct, [facility] [address] [facility] [id number] [address]- 4343 Oct, [facility] [address] [facility] [id number] [address]- 0126 Oct, [facility] [address] [facility] [id number] [address]- 0202 Oct, IMMUNIZATIONS No Known Immunizations SOCIAL HISTORY Never Assessed REASON FOR VISIT Medication [id number], Pt states Gabapentin is not helping his heel pain. , Pt is not due for A1c until 07/08, pt informed of this and will schedule after this time PLAN OF CARE Activity Details Follow Up 4 Weeks Reason:CHM/DM w/Janis VITAL SIGNS Height 72 in 2018-06-19 Weight 285.4 lbs 2018-06-19 Temperature 98.5 degrees Fahrenheit 2018-06-19 Heart Rate 104 bpm 2018-06-19 Respiratory Rate 20 2018-06-19 BMI 38.70 kg/m2 2018-06-19 Blood pressure systolic 150 mmHg 2018-06-19 Blood pressure diastolic 88 mmHg 2018-06-19 MEDICATIONS Medication Instructions Dosage Frequency Start Date End Date Duration Status Januvia 100 mg Orally Once a day 1 tablet 24h 17 Mar, 2018 90 days Active Metoprolol Succinate ER 50 mg Orally twice a day 1 tablet 12h 90 days Active Clonidine HCl 0.2 MG Orally twice a day 1 tablet 12h 90 days Active Triamcinolone Acetonide 0.1 % Externally Twice a day 1 application to affected area 12h Jun, 7 days Active Chlorthalidone 25 MG Orally Once a day 1/2 tablet in the morning 24h 90 days Active Gabapentin 300 MG Orally Once a day 1 capsule before bedtime 24h Aug, 28 days Active NovoLog 100 UNIT/ML Subcutaneous 3 times a day 70 units with meals. 8h Active Simvastatin 40 mg Orally Once a day 1 tablet in the evening 24h 90 days Active Levemir 100 UNIT/ML Subcutaneous 2 times a day INJECT 70 UNITS SUBCUTANEOUSLY TWICE DAILY 12h Active MetFORMIN HCl ER 500 mg DX- E11.22 twice a day 2 tablets 12h 13 Mar, 2018 Active RESULTS No Results PROCEDURES Procedure Date Ordered Result Body Site [facility] VISIT ESTABLISHED PATIENT Jun 19, 2018 INSTRUCTIONS MEDICATIONS ADMINISTERED No Known Medications [...]
--- OUTSIDE RECORDS SUMMARY | 2018-12-15 19:46 | XMS REPORT ---
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 Seam Tender Name Role Phone SCOTTJENELLE SibleyELE Unavailable PROBLEMS Type Condition ICD9-CM Code GVM64-XI Code Onset Dates Condition Status SNOMED Code Problem Periodontal disease K05.6 Active 4279836 Problem Body mass index (BMI) of 39.0-39.9 in adult Z68.39 Active 707511599 Problem Caries of cementum teeth K02.7 Active 07619615 Problem Type 2 diabetes mellitus with diabetic neuropathic arthropathy E11.610 Active 680281057 Problem Morbid (severe) obesity due to excess calories E66.01 Active 560413568 Problem Non compliance with medical treatment Z91.19 Active 4345327 Problem Type 2 diabetes mellitus with hyperglycemia, without long-term current use of insulin E11.65 Active 399477469221160 Problem 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 Active 80442209 Problem Renal insufficiency N28.9 Active 685182664 Problem Essential hypertension I10 Active 03945230 Problem Mixed hyperlipidemia E78.2 Active 539722326 Problem 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 Active 76864041 Problem group home current use of insulin Z79.4 Active 445217114 Problem Hyperkalemia E87.5 Active 82427518 Problem Diabetic polyneuropathy associated with type 2 diabetes mellitus E11.42 Active 616763515 Problem Swelling of both lower extremities M79.89 Active [id number] Problem Chronic kidney disease, stage III (moderate) N18.3 Active 146952235 ALLERGIES No Information ENCOUNTERS Encounter Location Date Diagnosis [facility] [address] [id number] May, [facility] [id number] [id number] May, [facility] [address], [place] [address] May, Type 2 diabetes mellitus with diabetic neuropathic arthropathy E11.610 [facility] [address] [address] Apr, Type 2 diabetes mellitus with diabetic neuropathic arthropathy E11.610 [facility] [id number] [place] [address] 24716- 7639 Mar, [facility] [id number] [place] [address] 87266- 9434 Mar, Type 2 diabetes mellitus with diabetic neuropathic arthropathy E11.610 [facility] [id number] [place] [address] 47591- 9758 Mar, Type 2 diabetes mellitus with diabetic neuropathic arthropathy E11.610 ; 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 ; group home current use of insulin Z79.4 ; Mixed hyperlipidemia E78.2 ; Essential hypertension I10 ; Renal insufficiency N28.9 ; Dental caries K02.9 ; 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 ; Irritant contact dermatitis due to detergent L24.0 ; Morbid (severe) obesity due to excess calories E66.01 ; Body mass index (BMI) of 39.0-39.9 in adult Z68.39 and Non compliance with medical treatment Z91.19 [facility] [id number] [place] [id number] Mar, Dental caries K02.9 [facility] [id number] [place] [address] 34627- 3805 18 Feb, 2018 [facility] [id number] [place] [address] 88021- 2393 Feb, [facility] [id number] [place] [address] 33276- 3613 Feb, [facility] [id number] [place] [address] 94472- 4205 Feb, [facility] [id number] [place] [address] 67941- 7159 January, [facility] [address], [place] [address] January, [facility] [id number] [place] [address] 32498- 2014 January, 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 [facility] [address] [id number] Dec, Dental caries K02.9 [facility] [id number] [place] [address] 39099- 6134 Dec, 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 [facility] [id number] [place] [address] 54532- 3637 Dec, Dental examination Z01.20 ; Periodontal disease K05.6 and Caries of cementum teeth K02.7 [facility] [id number] [place] [address] 28623- 1423 Dec, 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 ; Chronic kidney disease, stage III (moderate) N18.3 ; group home current use of insulin Z79.4 ; Essential hypertension I10 ; Mixed hyperlipidemia E78.2 ; Diabetic polyneuropathy associated with type 2 diabetes mellitus E11.42 and Dental abscess K04.7 [facility] [id number] [place] [address] 33598- 6368 Nov, [facility] [id number] [place] [address] 50685- 4419 Nov, Mixed hyperlipidemia E78.2 ; Essential hypertension I10 and 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 [facility] [id number] [place] [address] 15430- 0696 Oct, [facility] [id number] [place] [address] 13040- 0845 Sep, [facility] [id number] [place] [address] 33585- 3234 Aug, Diabetic polyneuropathy associated with type 2 diabetes mellitus E11.42 [facility] [id number] [place] [address] 00175- 7440 Aug, 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 ; Chronic kidney disease, stage III (moderate) N18.3 ; 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 ; Essential hypertension I10 ; Mixed hyperlipidemia E78.2 and Diabetic polyneuropathy associated with type 2 diabetes mellitus E11.42 [facility] [id number] [place] [address] 53912- 0894 Jul, Type 2 diabetes mellitus with hyperglycemia E11.65 and Mixed hyperlipidemia E78.2 [facility] [id number] [place] [address] 91306- 9299 Jun, Type 2 diabetes mellitus with hyperglycemia E11.65 [facility] [id number] [place] [address] 80553- 4712 Jun, Essential hypertension I10 [facility] [id number] [place] [address] 57179- 9680 May, [facility] [id number] [place] [address] 91313- 0280 May, Type 2 diabetes mellitus with hyperglycemia E11.65 and Essential hypertension I10 [place] [facility] [id number] [place] [address] 07166- 1188 May, Essential hypertension I10 ; Mixed hyperlipidemia E78.2 ; Renal insufficiency N28.9 ; Hyperkalemia E87.5 ; Swelling of both lower extremities M79.89 and Type 2 diabetes mellitus with hyperglycemia E11.65 [facility] [id number] [place] [address] 82076- 4814 Apr, Essential hypertension I10 ; Mixed hyperlipidemia E78.2 ; Renal insufficiency N28.9 ; Hyperkalemia E87.5 ; Swelling of both lower extremities M79.89 and Type 2 diabetes mellitus with hyperglycemia E11.65 [facility] [id number] [place] [address] 53180- 4253 Mar, [facility] [address] [place] [address] 91617- 7300 Feb, [facility] [id number] [place] [address] 57792- 5733 Feb, Essential hypertension I10 ; Mixed hyperlipidemia E78.2 ; Renal insufficiency N28.9 ; Hyperkalemia E87.5 ; Swelling of both lower extremities M79.89 and Type 2 diabetes mellitus with hyperglycemia E11.65 [facility] [id number] [place] [address] [id number] Feb, Encounter for dental examination Z01.20 [facility] [id number] [place] [address] 23259- 1767 January, Essential hypertension I10 [place] [id number] [place] [address] 17418- 6129 January, Essential hypertension I10 ; Mixed hyperlipidemia E78.2 ; Renal insufficiency N28.9 ; Hyperkalemia E87.5 ; Swelling of both lower extremities M79.89 and Type 2 diabetes mellitus with hyperglycemia E11.65 [facility] [id number] [place] [address] [id number] January, Dental examination Z01.20 [facility] [id number] [place] [address] 91970- 1799 Dec, Dental examination Z01.20 [facility] [id number] [place] [address] 18266- 9308 Dec, Type 2 diabetes mellitus with hyperglycemia, without long- term current use of insulin E11.65 ; Essential hypertension I10 ; Mixed hyperlipidemia E78.2 ; Renal insufficiency N28.9 ; Hyperkalemia E87.5 and Swelling of both lower extremities M79.89 [facility] [id number] [place] [address] 68777- 6348 Nov, Hyperkalemia E87.5 [facility] [id number] [place] [address] 87264- 6210 Nov, Hyperkalemia E87.5 [facility] [facility] [id number] [place] [address] Nov, Type 2 diabetes mellitus with hyperglycemia, without long- term current use of insulin E11.65 ; Essential hypertension I10 ; Mixed hyperlipidemia E78.2 ; Renal insufficiency N28.9 ; Hyperkalemia E87.5 and Swelling of both lower extremities M79.89 [place] [address] [address]- 1026 Oct, Type 2 diabetes mellitus with hyperglycemia, without long- term current use of insulin E11.65 ; Essential hypertension I10 ; Mixed hyperlipidemia E78.2 ; Renal insufficiency N28.9 ; Hyperkalemia E87.5 and Swelling of both lower extremities M79.89 [facility] [id number] [place] [address] 32152- 4801 Aug, Type 2 diabetes mellitus with hyperglycemia, without long- term current use of insulin E11.65 ; Essential hypertension I10 ; Mixed hyperlipidemia E78.2 ; Renal insufficiency N28.9 ; Hyperkalemia E87.5 and Swelling of both lower extremities M79.89 [place] [id number] [place] [id number] Aug, Type 2 diabetes mellitus with hyperglycemia, without long- term current use of insulin E11.65 ; Essential hypertension I10 ; Mixed hyperlipidemia E78.2 ; Renal insufficiency N28.9 ; Hyperkalemia E87.5 and Swelling of both lower extremities M79.89 [place] [id number] [place] [address] 92923- 2503 Aug, Mixed hyperlipidemia E78.2 [place] [id number] [place] [address] Aug, Type 2 diabetes mellitus with hyperglycemia, without long- term current use of insulin E11.65 ; Essential hypertension I10 ; Mixed hyperlipidemia E78.2 ; Renal insufficiency N28.9 ; Hyperkalemia E87.5 and Swelling of both lower extremities M79.89 [place] [address], [place] [address]64 Jul, [place] [id number] [place] [address] 05484- 8393 Jul, Type 2 diabetes mellitus with hyperglycemia, without long- term current use of insulin E11.65 ; Essential hypertension I10 ; Mixed hyperlipidemia E78.2 ; Renal insufficiency N28.9 ; Hyperkalemia E87.5 ; Weight gain R63.5 and Encounter for immunization Z23 [place] [id number] [place] [address] 76617- 0141 Jun, Type 2 diabetes mellitus with hyperglycemia, without long- term current use of insulin E11.65 ; Essential hypertension I10 ; Mixed hyperlipidemia E78.2 ; Renal insufficiency N28.9 and Hyperkalemia E87.5 [place] [id number] [place] [address] 21270- 9207 Jun, [place] [id number] [place] [address] 77692- 3699 May, Type 2 diabetes mellitus with hyperglycemia, without long- term current use of insulin E11.65 ; Essential hypertension I10 ; Mixed hyperlipidemia E78.2 ; Renal insufficiency N28.9 and Hyperkalemia E87.5 [place] [id number] [place] [address] 86110- 4761 Apr, Type 2 diabetes mellitus with hyperglycemia, without long- term current use of insulin E11.65 ; Essential hypertension I10 ; Mixed hyperlipidemia E78.2 ; Renal insufficiency N28.9 and Hyperkalemia E87.5 [place] [id number] [place] [address] 50146- 3204 Apr, [id number] [place] [address] 45734- 5446 Apr, Type 2 diabetes mellitus with hyperglycemia, without long- term current use of insulin E11.65 ; Essential hypertension I10 ; Mixed hyperlipidemia E78.2 and Renal insufficiency N28.9 [place] [address] [place] [address]- 4343 Mar, [facility] [id number] [place] [address] 06079- 3539 Mar, Type 2 diabetes mellitus with hyperglycemia, without long- term current use of insulin E11.65 ; Essential hypertension I10 ; Mixed hyperlipidemia E78.2 and Renal insufficiency N28.9 [place] [id number] [place] [address] 36009- 5681 Feb, Type 2 diabetes mellitus with hyperglycemia, without long- term current use of insulin E11.65 [place] [address] [place] [address] 31624- 7348 Feb, [place] [id number] [place] [address] 81788- 4736 January, [place] [id number] [place] [address] 44543- 2379 January, Type 2 diabetes mellitus with hyperglycemia, without long- term current use of insulin E11.65 ; Essential hypertension I10 and Mixed hyperlipidemia E78.2 [address] [address] [place] [address] 12230- 1077 Dec, [place] [id number] [place] [address] 96218- 5665 Dec, [place] [id number] [place] [address] 62822- 3510 Oct, [place] [id number] [place] [address] 59169- 2571 Oct, [facility] [id number] [place] [address] 69980- 1221 Oct, [place] [id number] [place] [address] 97959- 6036 Oct, IMMUNIZATIONS No Known Immunizations SOCIAL HISTORY Never Assessed REASON FOR VISIT 1 mo f/u DM Ed PLAN OF CARE VITAL SIGNS MEDICATIONS Medication Instructions Dosage Frequency Start Date End Date Duration Status NovoLog 100 UNIT/ML Subcutaneous 3 times a day 70 units with meals. 8h Active Levemir 100 UNIT/ML Subcutaneous 2 times a day INJECT 70 UNITS SUBCUTANEOUSLY TWICE DAILY 12h Active RESULTS No Results PROCEDURES No Known procedures INSTRUCTIONS MEDICATIONS ADMINISTERED No Known Medications MEDICAL (GENERAL) HISTORY Type Description Date Medical History Type 2 Diabetes Medical History Hyperlipidemia Medical History Seasonal allergies Medical History DM uncontrolled Noncompliance-Eye Referral Made never kept appt Medical History Essential hypertension, benign Medical History Seeing Dr. Stoner Hospitalization History Infection in left leg 2013
--- OUTSIDE RECORDS SUMMARY | 2018-12-15 19:47 | XMS REPORT ---
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 Name Role Phone ANI CASTILLO Unavailable PROBLEMS Type Condition ICD9-CM Code RXP55-TU Code Onset Dates Condition Status SNOMED Code Problem Periodontal disease K05.6 Active 9330434 Problem Body mass index (BMI) of 39.0-39.9 in adult Z68.39 Active 833052597 Problem Caries of cementum teeth K02.7 Active 33215895 Problem Type 2 diabetes mellitus with diabetic neuropathic arthropathy E11.610 Active 859272425 Problem Morbid (severe) obesity due to excess calories E66.01 Active 506266527 Problem Non compliance with medical treatment Z91.19 Active 1226327 Problem Type 2 diabetes mellitus with hyperglycemia, without long-term current use of insulin E11.65 Active 460291784624513 Problem 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 Active 05795885 Problem Renal insufficiency N28.9 Active 482340887 Problem Essential hypertension I10 Active 64240234 Problem Mixed hyperlipidemia E78.2 Active 104740200 Problem 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 Active 26850692 Problem group home current use of insulin Z79.4 Active 671485882 Problem Hyperkalemia E87.5 Active 44355495 Problem Diabetic polyneuropathy associated with type 2 diabetes mellitus E11.42 Active 952441005 Problem Swelling of both lower extremities M79.89 Active 13376231402279736 Problem Chronic kidney disease, stage III (moderate) N18.3 Active 331616598 ALLERGIES No Information ENCOUNTERS Encounter Location Date Diagnosis [facility] [address] [facility] [id number] [id number] May, [facility] [id number] [id number] May, [facility] [address], [place] [address] May, Type 2 diabetes mellitus with diabetic neuropathic arthropathy E11.610 [facility] [address], [place] [address] Apr, Type 2 diabetes mellitus with diabetic neuropathic arthropathy E11.610 [facility] [id number] [place] [address]89- 9861 Mar, [facility] [id number] [place] [address] 22155- 9683 Mar, Type 2 diabetes mellitus with diabetic neuropathic arthropathy E11.610 [facility] [id number] [place] [address] 22321- 2696 Mar, Type 2 diabetes mellitus with diabetic [...] and Non compliance with medical treatment Z91.19 [facility] [id number] [id number] Mar, Dental caries K02.9 [facility] [address], [place] [address] 18 Feb, 2018 [facility] [address], [place] [address] Feb, [facility] [id number] [place] [address] 02195- 5070 Feb, [facility] [address], [place] [address] Feb, [facility] [id number] [address] January, [facility] [id number] [place] [address] 19272- 1023 January, [facility] [id number] [place] [address] 03949- 9639 January, 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 [facility] [id number] [place] [id number] Dec, Dental caries K02.9 [facility] [id number] [place] [address] 00740- 5440 Dec, 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 [facility] [id number] [place] [address] 31347- 8678 Dec, Dental examination Z01.20 ; Periodontal disease K05.6 and Caries of cementum teeth K02.7 [facility] [id number] [place] [address] 11665- 1717 Dec, 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 ; Chronic kidney disease, stage III (moderate) N18.3 ; group home current use of insulin Z79.4 ; Essential hypertension I10 ; Mixed hyperlipidemia E78.2 ; Diabetic polyneuropathy associated with type 2 diabetes mellitus E11.42 and Dental abscess K04.7 [facility] [place] [id number] [place] [address] 99711- 7951 Nov, [facility] [id number] [place] [address] 75770- 1239 Nov, Mixed hyperlipidemia E78.2 ; Essential hypertension I10 and 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 [facility] [id number] [place] [address] 31369- 4395 Oct, [facility] [id number] [place] [address] 81054- 5108 Sep, [facility] [id number] [place] [address] 43489- 6862 Aug, Diabetic polyneuropathy associated with type 2 diabetes mellitus E11.42 [facility] [id number] [place] [address] 17902- 6034 Aug, 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 ; Chronic kidney disease, stage III (moderate) N18.3 ; 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 ; Essential hypertension I10 ; Mixed hyperlipidemia E78.2 and Diabetic polyneuropathy associated with type 2 diabetes mellitus E11.42 [facility] [id number] [place] [address] 74731- 9433 Jul, Type 2 diabetes mellitus with hyperglycemia E11.65 and Mixed hyperlipidemia E78.2 [facility] [id number] [place] [address] 59995- 6895 Jun, Type 2 diabetes mellitus with hyperglycemia E11.65 [facility] [id number] [place] [address] 69025- 2928 Jun, Essential hypertension I10 [facility] [id number] [place] [address] 46513- 2752 May, [facility] [id number] [place] [address] 41615- 7452 May, Type 2 diabetes mellitus with hyperglycemia E11.65 and Essential hypertension I10 [facility] [id number] [place] [address] 99696- 2494 May, Essential hypertension I10 ; Mixed hyperlipidemia E78.2 ; Renal insufficiency N28.9 ; Hyperkalemia E87.5 ; Swelling of both lower extremities M79.89 and Type 2 diabetes mellitus with hyperglycemia E11.65 [facility] [id number] [place] [address] 18555- 7612 Apr, Essential hypertension I10 ; Mixed hyperlipidemia E78.2 ; Renal insufficiency N28.9 ; Hyperkalemia E87.5 ; Swelling of both lower extremities M79.89 and Type 2 diabetes mellitus with hyperglycemia E11.65 [facility] [id number] [place] [address] 10305- 3385 Mar, [facility] [id number] [place] [address] 05643- 6221 Feb, [facility] [id number] [place] [phone] Feb, Essential hypertension I10 ; Mixed hyperlipidemia E78.2 ; Renal insufficiency N28.9 ; Hyperkalemia E87.5 ; Swelling of both lower extremities M79.89 and Type 2 diabetes mellitus with hyperglycemia E11.65 [facility] [id number] [place] [address] [phone] Feb, Encounter for dental examination Z01.20 [facility] [address] 8[address]13- 7955 January, Essential hypertension I10 [facility] [id number] [place] [address] 77885- 8097 January, Essential hypertension I10 ; Mixed hyperlipidemia E78.2 ; Renal insufficiency N28.9 ; Hyperkalemia E87.5 ; Swelling of both lower extremities M79.89 and Type 2 diabetes mellitus with hyperglycemia E11.65 [facility] [id number] [place] [address] [phone] January, Dental examination Z01.20 [facility] [id number] [place] [address] 42381- 7562 Dec, Dental examination Z01.20 [facility] [id number] [place] [address] 50423- 9774 Dec, Type 2 diabetes mellitus with hyperglycemia, without long- term current use of insulin E11.65 ; Essential hypertension I10 ; Mixed hyperlipidemia E78.2 ; Renal insufficiency N28.9 ; Hyperkalemia E87.5 and Swelling of both lower extremities M79.89 [facility] [id number] [place] [address] 92871- 5242 Nov, Hyperkalemia E87.5 [facility] [id number] [place] [phone] 2546 Nov, Hyperkalemia E87.5 [facility] [id number] [place] [address] Nov, Type 2 diabetes mellitus with hyperglycemia, without long- term current use of insulin E11.65 ; Essential hypertension I10 ; Mixed hyperlipidemia E78.2 ; Renal insufficiency N28.9 ; Hyperkalemia E87.5 and Swelling of both lower extremities M79.89 [facility] [id number] [place] [address] 735321- 8323 Oct, Type 2 diabetes mellitus with hyperglycemia, without long- term current use of insulin E11.65 ; Essential hypertension I10 ; Mixed hyperlipidemia E78.2 ; Renal insufficiency N28.9 ; Hyperkalemia E87.5 and Swelling of both lower extremities M79.89 [facility] [id number] [place] [address] 24675- 5606 Aug, Type 2 diabetes mellitus with hyperglycemia, without long- term current use of insulin E11.65 ; Essential hypertension I10 ; Mixed hyperlipidemia E78.2 ; Renal insufficiency N28.9 ; Hyperkalemia E87.5 and Swelling of both lower extremities M79.89 [facility] [id number] [place] [address] 46151- 0408 Aug, Type 2 diabetes mellitus with hyperglycemia, without long- term current use of insulin E11.65 ; Essential hypertension I10 ; Mixed hyperlipidemia E78.2 ; Renal insufficiency N28.9 ; Hyperkalemia E87.5 and Swelling of both lower extremities M79.89 [facility] [id number] [place] [address] 00752- 1558 Aug, Mixed hyperlipidemia E78.2 [facility] [id number] [place] [address] 2398 Aug, Type 2 diabetes mellitus with hyperglycemia, without long- term current use of insulin E11.65 ; Essential hypertension I10 ; Mixed hyperlipidemia E78.2 ; Renal insufficiency N28.9 ; Hyperkalemia E87.5 and Swelling of both lower extremities M79.89 [facility] [id number] [place] [address] 59988- 0846 Jul, [facility] [address] 12892- 4727 Jul, Type 2 diabetes mellitus with hyperglycemia, without long- term current use of insulin E11.65 ; Essential hypertension I10 ; Mixed hyperlipidemia E78.2 ; Renal insufficiency N28.9 ; Hyperkalemia E87.5 ; Weight gain R63.5 and Encounter for immunization Z23 [facility] [id number] [place] [address] 48543- 9945 Jun, Type 2 diabetes mellitus with hyperglycemia, without long- term current use of insulin E11.65 ; Essential hypertension I10 ; Mixed hyperlipidemia E78.2 ; Renal insufficiency N28.9 and Hyperkalemia E87.5 [facility] [id number] [place] [address] 43444- 2064 Jun, [facility] [id number] [place] [address] 16220- 4290 May, Type 2 diabetes mellitus with hyperglycemia, without long- term current use of insulin E11.65 ; Essential hypertension I10 ; Mixed hyperlipidemia E78.2 ; Renal insufficiency N28.9 and Hyperkalemia E87.5 [facility] [id number] [place] [address] 27900- 0711 Apr, Type 2 diabetes mellitus with hyperglycemia, without long- term current use of insulin E11.65 ; Essential hypertension I10 ; Mixed hyperlipidemia E78.2 ; Renal insufficiency N28.9 and Hyperkalemia E87.5 [facility] [id number] [place] [address] 60410- 6827 Apr, [place] [address] 25240- 9185 Apr, Type 2 diabetes mellitus with hyperglycemia, without long- term current use of insulin E11.65 ; Essential hypertension I10 ; Mixed hyperlipidemia E78.2 and Renal insufficiency N28.9 [facility] [id number] [place] [address] 20613- 0639 Mar, [facility] [id number] [place] [address] 66714- 3790 Mar, Type 2 diabetes mellitus with hyperglycemia, without long- term current use of insulin E11.65 ; Essential hypertension I10 ; Mixed hyperlipidemia E78.2 and Renal insufficiency N28.9 [address] [address] 55699- 4163 Feb, Type 2 diabetes mellitus with hyperglycemia, without long- term current use of insulin E11.65 [facility] [id number] [place] [address] 36092- 8132 Feb, [facility] [id number] [place] [address] 20939- 4063 January, [facility] [id number] [place] [address] 56412- 6083 January, Type 2 diabetes mellitus with hyperglycemia, without long- term current use of insulin E11.65 ; Essential hypertension I10 and Mixed hyperlipidemia E78.2 [facility] [id number] [place] [address] 02797- 6335 Dec, [facility] [id number] [place] [address] 24492- 2401 Dec, [facility] [id number] [place] [address] 00416- 7197 Oct, [facility] [id number] [place] [address] 22207- 1578 Oct, [facility] [id number] [place] [address] 88255- 5983 Oct, [facility] [id number] [place] [address] 28371- 6834 Oct, IMMUNIZATIONS No Known Immunizations SOCIAL HISTORY Never Assessed REASON FOR VISIT eye exam PLAN OF CARE VITAL SIGNS MEDICATIONS Unknown [...] [facility] History Infection in left leg 2014
--- OUTSIDE RECORDS SUMMARY | 2018-12-15 19:47 | XMS REPORT ---
Author Author JOSUE DHILLON [facility] Address Unknown Care Team Providers Care Technical Training Manager Name Role Phone JOSUE DHILLON Unavailable PROBLEMS Type Condition ICD9-CM Code LEP22-PF Code Onset Dates Condition Status SNOMED Code Problem Periodontal disease K05.6 Active 3666504 Problem Body mass index (BMI) of 39.0-39.9 in adult Z68.39 Active 110703440 Problem Caries of cementum teeth K02.7 Active 65867528 Problem Type 2 diabetes mellitus with diabetic neuropathic arthropathy E11.610 Active 782226219 Problem Morbid (severe) obesity due to excess calories E66.01 Active 792897236 Problem Non compliance with medical treatment Z91.19 Active 4260871 Problem Type 2 diabetes mellitus with hyperglycemia, without long-term current use of insulin E11.65 Active [id number] Problem 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 Active 10919663 Problem Renal insufficiency N28.9 Active 901542416 Problem Essential hypertension I10 Active 48722575 Problem Mixed hyperlipidemia E78.2 Active 811270892 Problem 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 Active 44758826 Problem medical terminologist current use of insulin Z79.4 Active 170910415 Problem Hyperkalemia E87.5 Active 15592899 Problem Diabetic polyneuropathy associated with type 2 diabetes mellitus E11.42 Active 656602704 Problem Swelling of both lower extremities M79.89 Active 27446402101968080 Problem Chronic kidney disease, stage III (moderate) N18.3 Active 118636126 ALLERGIES No Known Allergies ENCOUNTERS Encounter Location Date Diagnosis [facility] [id number], [place] [address] May, [facility] [id number] [id number] May, [facility] [id number] [id number] May, Type 2 diabetes mellitus with diabetic neuropathic arthropathy E11.610 [facility] [address] [address] Apr, Type 2 diabetes mellitus with diabetic neuropathic arthropathy E11.610 [facility] [address] [address] Mar, [facility] [id number] [place] [address]67- 4298 Mar, Type 2 diabetes mellitus with diabetic neuropathic arthropathy E11.610 [facility] [id number] [place] [address] 0824 Mar, Type 2 diabetes mellitus with diabetic neuropathic arthropathy E11.610 ; 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 ; half-way current use of insulin Z79.4 ; Mixed hyperlipidemia E78.2 ; Essential hypertension I10 ; Renal insufficiency N28.9 ; Dental caries K02.9 ; 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 ; Irritant contact dermatitis due to detergent L24.0 ; Morbid (severe) obesity due to excess calories E66.01 ; Body mass index (BMI) of 39.0-39.9 in adult Z68.39 and Non compliance with medical treatment Z91.19 [facility] [id number] [place] [id number] Mar, Dental caries K02.9 [facility] [address], [place] [address] Feb, [facility] [address], [place] [address] Feb, [facility] [id number] [place] [address] 78617- 2116 Feb, [facility] [id number] [place] [address] 15792- 5183 Feb, [facility] [address] [place] [address] 36990- 2224 January, [facility] [address], [place] [address] January, [facility] [id number] [place] [address] 45044- 7125 January, 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 [facility] [address] [id number] Dec, Dental caries K02.9 [facility] [id number] [place] [address] 05625- 3052 Dec, 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 [facility] [id number] [place] [address] 11307- 2357 Dec, Dental examination Z01.20 ; Periodontal disease K05.6 and Caries of cementum teeth K02.7 [facility] [id number] [place] [address] 79716- 4162 Dec, 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 ; Chronic kidney disease, stage III (moderate) N18.3 ; medical terminologist current use of insulin Z79.4 ; Essential hypertension I10 ; Mixed hyperlipidemia E78.2 ; Diabetic polyneuropathy associated with type 2 diabetes mellitus E11.42 and Dental abscess K04.7 [facility] [address], [place] [address] Nov, [facility] [id number] [place] [address] 84738- 7292 Nov, Mixed hyperlipidemia E78.2 ; Essential hypertension I10 and 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 [facility] [id number] [place] [address]99[address] 0523 Oct, [facility] [id number] [place] [address] [phone]- 4255 Sep, [facility] [id number] [place] [address] 92416- 7469 Aug, Diabetic polyneuropathy associated with type 2 diabetes mellitus E11.42 [facility] [address], [place] [address] Aug, 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 ; Chronic kidney disease, stage III (moderate) N18.3 ; medical terminologist current use of insulin Z79.4 ; Essential hypertension I10 ; Mixed hyperlipidemia E78.2 and Diabetic polyneuropathy associated with type 2 diabetes mellitus E11.42 [facility] [id number] [place] [address] 23074- 0729 Jul, Type 2 diabetes mellitus with hyperglycemia E11.65 and Mixed hyperlipidemia E78.2 [facility] [id number] [place] [address] 29676- 6370 Jun, Type 2 diabetes mellitus with hyperglycemia E11.65 [facility] [id number] [place] [address] 32356- 8519 Jun, Essential hypertension I10 [facility] [id number] [place] [address] 56480- 1905 May, [facility] [id number] [place] [address] 21850- 1406 May, Type 2 diabetes mellitus with hyperglycemia E11.65 and Essential hypertension I10 [facility] [id number] [place] [address] 71000- 8035 May, Essential hypertension I10 ; Mixed hyperlipidemia E78.2 ; Renal insufficiency N28.9 ; Hyperkalemia E87.5 ; Swelling of both lower extremities M79.89 and Type 2 diabetes mellitus with hyperglycemia E11.65 [facility] [address], [place] [address] Apr, Essential hypertension I10 ; Mixed hyperlipidemia E78.2 ; Renal insufficiency N28.9 ; Hyperkalemia E87.5 ; Swelling of both lower extremities M79.89 and Type 2 diabetes mellitus with hyperglycemia E11.65 [facility] [address] [place] [address] 64965- 8838 Mar, [facility] [id number] [place] [address] 61126- 0213 Feb, [facility] [address] [address] Feb, Essential hypertension I10 ; Mixed hyperlipidemia E78.2 ; Renal insufficiency N28.9 ; Hyperkalemia E87.5 ; Swelling of both lower extremities M79.89 and Type 2 diabetes mellitus with hyperglycemia E11.65 [facility] [address] [id number] Feb, Encounter for dental examination Z01.20 [address] [address] [address] January, Essential hypertension I10 [address] [facility] [address] [address]- 3047 January, Essential hypertension I10 ; Mixed hyperlipidemia E78.2 ; Renal insufficiency N28.9 ; Hyperkalemia E87.5 ; Swelling of both lower extremities M79.89 and Type 2 diabetes mellitus with hyperglycemia E11.65 [facility] [id number] [place] [address] [id number] January, Dental examination Z01.20 [facility] [id number] [place] [address] 53301- 3007 Dec, Dental examination Z01.20 [facility] [id number] [place] [address] 80104- 9829 Dec, Type 2 diabetes mellitus with hyperglycemia, without long- term current use of insulin E11.65 ; Essential hypertension I10 ; Mixed hyperlipidemia E78.2 ; Renal insufficiency N28.9 ; Hyperkalemia E87.5 and Swelling of both lower extremities M79.89 [facility] [id number] [place] [address] [phone]- 5508 Nov, Hyperkalemia E87.5 [facility] [id number] [place] [address] 45408- 8087 Nov, Hyperkalemia E87.5 [facility] [id number] [place] [address] 80103- 1711 Nov, Type 2 diabetes mellitus with hyperglycemia, without long- term current use of insulin E11.65 ; Essential hypertension I10 ; Mixed hyperlipidemia E78.2 ; Renal insufficiency N28.9 ; Hyperkalemia E87.5 and Swelling of both lower extremities M79.89 [facility] [address] [address] 4[address] Oct, Type 2 diabetes mellitus with hyperglycemia, without long- term current use of insulin E11.65 ; Essential hypertension I10 ; Mixed hyperlipidemia E78.2 ; Renal insufficiency N28.9 ; Hyperkalemia E87.5 and Swelling of both lower extremities M79.89 [address] [address] [address]- [address] Aug, Type 2 diabetes mellitus with hyperglycemia, without long- term current use of insulin E11.65 ; Essential hypertension I10 ; Mixed hyperlipidemia E78.2 ; Renal insufficiency N28.9 ; Hyperkalemia E87.5 and Swelling of both lower extremities M79.89 [address] [facility] [address] [address]- 9977 Aug, Type 2 diabetes mellitus with hyperglycemia, without long- term current use of insulin E11.65 ; Essential hypertension I10 ; Mixed hyperlipidemia E78.2 ; Renal insufficiency N28.9 ; Hyperkalemia E87.5 and Swelling of both lower extremities M79.89 [facility] [id number] [place] [address] 89367- 4177 Aug, Mixed hyperlipidemia E78.2 [facility] [id number] [place] [address] 18863- 5043 Aug, Type 2 diabetes mellitus with hyperglycemia, without long- term current use of insulin E11.65 ; Essential hypertension I10 ; Mixed hyperlipidemia E78.2 ; Renal insufficiency N28.9 ; Hyperkalemia E87.5 and Swelling of both lower extremities M79.89 [address] [address]- 3473 Jul, [facility] [address] [address]- 3494 Jul, Type 2 diabetes mellitus with hyperglycemia, without long- term current use of insulin E11.65 ; Essential hypertension I10 ; Mixed hyperlipidemia E78.2 ; Renal insufficiency N28.9 ; Hyperkalemia E87.5 ; Weight gain R63.5 and Encounter for immunization Z23 [address] 36583- 9358 Jun, Type 2 diabetes mellitus with hyperglycemia, without long- term current use of insulin E11.65 ; Essential hypertension I10 ; Mixed hyperlipidemia E78.2 ; Renal insufficiency N28.9 and Hyperkalemia E87.5 [address] 7[address]50- 4411 Jun, [facility] [address] 0[address]28- 2129 May, Type 2 diabetes mellitus with hyperglycemia, without long- term current use of insulin E11.65 ; Essential hypertension I10 ; Mixed hyperlipidemia E78.2 ; Renal insufficiency N28.9 and Hyperkalemia E87.5 [address] 87581- 0208 Apr, Type 2 diabetes mellitus with hyperglycemia, without long- term current use of insulin E11.65 ; Essential hypertension I10 ; Mixed hyperlipidemia E78.2 ; Renal insufficiency N28.9 and Hyperkalemia E87.5 [facility] [id number] [place] [address] 47907- 9026 Apr, [address] [address] [address]69- 9630 Apr, Type 2 diabetes mellitus with hyperglycemia, without long- term current use of insulin E11.65 ; Essential hypertension I10 ; Mixed hyperlipidemia E78.2 and Renal insufficiency N28.9 [address] [facility] 21779- 2795 Mar, [facility] [address], [place] [address] Mar, Type 2 diabetes mellitus with hyperglycemia, without long- term current use of insulin E11.65 ; Essential hypertension I10 ; Mixed hyperlipidemia E78.2 and Renal insufficiency N28.9 [address] [facility] [place] [address] 25052- 3221 Feb, Type 2 diabetes mellitus with hyperglycemia, without long- term current use of insulin E11.65 [facility] [address], [place] [address] Feb, [facility] [id number] [place] [address] 40234- 4566 January, [facility] [id number] [place] [address] 94618- 0698 January, Type 2 diabetes mellitus with hyperglycemia, without long- term current use of insulin E11.65 ; Essential hypertension I10 and Mixed hyperlipidemia E78.2 [address] [facility] [place] [address] 11894- 7618 Dec, [facility] [id number] [place] [address] 04770- 6743 Dec, [facility] [id number] [place] [address] 53184- 5879 Oct, [facility] [id number] [place] [address] 16269- 4841 Oct, [address], [place] [address] 7880 Oct, [facility] [id number] [place] [address] 64320- 8977 Oct, IMMUNIZATIONS No Known Immunizations SOCIAL HISTORY Never Assessed REASON FOR VISIT matteo/root tip extraction PLAN OF CARE Activity Details Follow Up prn Reason:upper TE'S VITAL SIGNS Height 72 in 2018-04-04 Blood pressure systolic 180 mmHg 2018-04-04 Blood pressure diastolic 100 mmHg 2018-04-04 MEDICATIONS Medication Instructions Dosage Frequency Start Date End Date Duration Status Levemir 100 UNIT/ML INJECT 60 UNITS SUBCUTANEOUSLY TWICE DAILY 25 Active MetFORMIN HCl ER 500 mg Orally twice a day 1 tablet 12h January, 30 day(s) Active Tradjenta 5 mg Orally Once a day 1 tablet 24h January, 30 day(s) Active Fish Oil 1000 MG Orally Once a day 2 capsule 24h Unknown Clonidine HCl 0.2 MG Orally twice a day 1 tablet 12h 90 days Unknown Lyrica 50 mg Orally Twice a day 1 capsule 12h 28 days Unknown NovoLog 100 UNIT/ML INJECT SUBCUTANEOUSLY 55 UNITS WITH MEALS AND 10 UNITS WITH SNACKS DIRECTED. 17 Active Gabapentin 300 MG Orally Once a day 1 capsule before bedtime 24h Aug, 28 days Unknown Metoprolol Succinate ER 50 mg Orally twice a day 1 tablet 12h Unknown Triamcinolone Acetonide 0.1 % Externally Twice a day 1 application to affected area 12h Jun, Unknown Simvastatin 40 mg Orally Once a day 1 tablet in the evening 24h Unknown Chlorthalidone 25 MG Orally Once a day 1/2 tablet in the morning 24h Unknown RESULTS No Results PROCEDURES Procedure Date Ordered Result Body Site RE-EVALUATION - LTD PROBLEM FOCUSED January 26, 2017 EXTRAC ERUPTED TOOTH/EXPOSED ROOT April 04, 2018 SURG REMOVAL ERUPTED TOOTH April 04, 2018 SURG REMOVAL ERUPTED TOOTH April 04, 2018 SURG REMOVAL ERUPTED TOOTH April 04, 2018 INSTRUCTIONS MEDICATIONS ADMINISTERED No Known Medications MEDICAL (GENERAL) HISTORY Type Description Date Medical History Type 2 Diabetes Medical History Hyperlipidemia Medical History Seasonal allergies Medical History DM uncontrolled Noncompliance-Eye Referral Made never kept appt Medical History Essential hypertension, benign Medical History Seeing Dr. Stoner Hospitalization History Infection in left leg 2013
--- OUTSIDE RECORDS SUMMARY | 2018-12-15 19:47 | XMS REPORT ---
Author Author MERT SCOTT Organization [facility] Address [address] [place] [address] Care Team Providers Care Hiv Counselor Name Role Phone SCOTTJENELLE SibleyELE Unavailable PROBLEMS Type Condition ICD9-CM Code AUD93-QN Code Onset Dates Condition Status SNOMED Code Problem Periodontal disease K05.6 Active 7407776 Problem Body mass index (BMI) of 39.0-39.9 in adult Z68.39 Active 015161076 Problem Caries of cementum teeth K02.7 Active 55104232 Problem Type 2 diabetes mellitus with diabetic neuropathic arthropathy E11.610 Active 546571814 Problem Morbid (severe) obesity due to excess calories E66.01 Active 210609938 Problem Non compliance with medical treatment Z91.19 Active 8197555 Problem Type 2 diabetes mellitus with hyperglycemia, without long-term current use of insulin E11.65 Active 305666074110499 Problem 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 Active 31927976 Problem Renal insufficiency N28.9 Active 992272893 Problem Essential hypertension I10 Active 99643219 Problem Mixed hyperlipidemia E78.2 Active 424016632 Problem 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 [address] [phone] May, [facility] [id number] [id number] May, [facility] [address] [address] May, Type 2 diabetes mellitus with diabetic neuropathic arthropathy E11.610 [facility] [address] [address] Apr, Type 2 diabetes mellitus with diabetic neuropathic arthropathy E11.610 [facility] [id number] [place] [address] 42301- 0300 Mar, [facility] [id number] [place] [address] 24671- 5556 Mar, Type 2 diabetes mellitus with diabetic neuropathic arthropathy E11.610 [facility] [id number] [place] [address] 06089- 2197 Mar, Type 2 diabetes mellitus with diabetic neuropathic arthropathy E11.610 ; 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 ; longterm current use of insulin Z79.4 ; Mixed hyperlipidemia E78.2 ; Essential hypertension I10 ; Renal insufficiency N28.9 ; Dental caries K02.9 ; 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 ; Irritant contact dermatitis due to detergent L24.0 ; Morbid (severe) obesity due to excess calories E66.01 ; Body mass index (BMI) of 39.0-39.9 in adult Z68.39 and Non compliance with medical treatment Z91.19 [facility] [id number] [place] [id number] Mar, Dental caries K02.9 [facility] [id number] [place] [address] 80642- 5371 18 Feb, 2018 [facility] [id number] [place] [address] 50695- 5067 Feb, [facility] [id number] [place] [address] 06680- 1773 Feb, [facility] [id number] [place] [address] 12958- 3305 Feb, [facility] [id number] [place] [address] 97915- 0106 January, [facility] [address] [address] January, [facility] [id number] [place] [address] 76586- 1248 January, 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 [facility] [address] [id number] Dec, Dental caries K02.9 [facility] [id number] [place] [address] 09531- 6705 Dec, 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 [place] [facility] [id number] [place] [address] 63659- 7961 Dec, Dental examination Z01.20 ; Periodontal disease K05.6 and Caries of cementum teeth K02.7 [place] [facility] [id number] [place] [address] 71373- 0904 Dec, 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 ; Chronic kidney disease, stage III (moderate) N18.3 ; longterm current use of insulin Z79.4 ; Essential hypertension I10 ; Mixed hyperlipidemia E78.2 ; Diabetic polyneuropathy associated with type 2 diabetes mellitus E11.42 and Dental abscess K04.7 [place] [id number] [place] [address] 14010- 6885 Nov, [facility] [id number] [place] [address] 16133- 9879 Nov, Mixed hyperlipidemia E78.2 ; Essential hypertension I10 and 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 [facility] [id number] [place] [address] 24288- 8355 Oct, [facility] [id number] [place] [address] 41334- 9144 Sep, 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 ; Essential hypertension I10 ; Mixed hyperlipidemia E78.2 and Diabetic polyneuropathy associated with type 2 diabetes mellitus E11.42 [place] [id number] [place] [address] 21100- 0428 Jul, Type 2 diabetes mellitus with hyperglycemia E11.65 and Mixed hyperlipidemia E78.2 [place] [id number] [place] [address] 54320- 5672 Jun, Type 2 diabetes mellitus with hyperglycemia E11.65 [place] [facility] [id number] [place] [address] 00982- 6759 Jun, Essential hypertension I10 [place] [id number] [place] [address] 73673- 5879 May, [place] [id number] [place] [address] 05463- 0959 May, Type 2 diabetes mellitus with hyperglycemia E11.65 and Essential hypertension I10 [place] [id number] [place] [address] 13706- 6111 May, Essential hypertension I10 ; Mixed hyperlipidemia E78.2 ; Renal insufficiency N28.9 ; Hyperkalemia E87.5 ; Swelling of both lower extremities M79.89 and Type 2 diabetes mellitus with hyperglycemia E11.65 [place] [id number] [place] [address] 10592- 6687 Apr, Essential hypertension I10 ; Mixed hyperlipidemia E78.2 ; Renal insufficiency N28.9 ; Hyperkalemia E87.5 ; Swelling of both lower extremities M79.89 and Type 2 diabetes mellitus with hyperglycemia E11.65 [place] [id number] [place] [address] 47945- 9539 Mar, [facility] [id number] [place] [address] 60561- 1369 Feb, [facility] [id number] [place] [address] 00519- 5169 Feb, Essential hypertension I10 ; Mixed hyperlipidemia E78.2 ; Renal insufficiency N28.9 ; Hyperkalemia E87.5 ; Swelling of both lower extremities M79.89 and Type 2 diabetes mellitus with hyperglycemia E11.65 [facility] [id number] [place] [address] [phone] Feb, Encounter for dental examination Z01.20 [facility] [id number] [place] [address] 81612- 3524 January, Essential hypertension I10 [place] [id number] [place] [address] 21839- 7503 January, Essential hypertension I10 ; Mixed hyperlipidemia E78.2 ; Renal insufficiency N28.9 ; Hyperkalemia E87.5 ; Swelling of both lower extremities M79.89 and Type 2 diabetes mellitus with hyperglycemia E11.65 [facility] [id number] [place] [address] [id number] January, Dental examination Z01.20 [facility] [id number] [place] [address] 44616- 2457 Dec, Dental examination Z01.20 [facility] [id number] [place] [address] 86189- 5745 Dec, Type 2 diabetes mellitus with hyperglycemia, without long- term current use of insulin E11.65 ; Essential hypertension I10 ; Mixed hyperlipidemia E78.2 ; Renal insufficiency N28.9 ; Hyperkalemia E87.5 and Swelling of both lower extremities M79.89 [facility] [id number] [place] [address] 03429- 7182 Nov, Hyperkalemia E87.5 [facility] [id number] [place] [address] 73500- 1615 Nov, Hyperkalemia E87.5 [place] [id number] [place] [address] 9[address] Nov, Type 2 diabetes mellitus with hyperglycemia, without long- term current use of insulin E11.65 ; Essential hypertension I10 ; Mixed hyperlipidemia E78.2 ; Renal insufficiency N28.9 ; Hyperkalemia E87.5 and Swelling of both lower extremities M79.89 [place] [address] [address]337- 0124 Oct, Type 2 diabetes mellitus with hyperglycemia, without long- term current use of insulin E11.65 ; Essential hypertension I10 ; Mixed hyperlipidemia E78.2 ; Renal insufficiency N28.9 ; Hyperkalemia E87.5 and Swelling of both lower extremities M79.89 [place] [id number] [place] [address] 55717- 9442 Aug, Type 2 diabetes mellitus with hyperglycemia, without long- term current use of insulin E11.65 ; Essential hypertension I10 ; Mixed hyperlipidemia E78.2 ; Renal insufficiency N28.9 ; Hyperkalemia E87.5 and Swelling of both lower extremities M79.89 [place] [id number] [place] [id number]89 Aug, Type 2 diabetes mellitus with hyperglycemia, without long- term current use of insulin E11.65 ; Essential hypertension I10 ; Mixed hyperlipidemia E78.2 ; Renal insufficiency N28.9 ; Hyperkalemia E87.5 and Swelling of both lower extremities M79.89 [place] [id number] [place] [address] 93169- 5205 Aug, Mixed hyperlipidemia E78.2 [place] [id number] [place] [address] 8833 Aug, Type 2 diabetes mellitus with hyperglycemia, without long- term current use of insulin E11.65 ; Essential hypertension I10 ; Mixed hyperlipidemia E78.2 ; Renal insufficiency N28.9 ; Hyperkalemia E87.5 and Swelling of both lower extremities M79.89 [place] [address] [address]- 9625 Jul, [place] [id number] [place] [address] 20838- 3062 Jul, Type 2 diabetes mellitus with hyperglycemia, without long- term current use of insulin E11.65 ; Essential hypertension I10 ; Mixed hyperlipidemia E78.2 ; Renal insufficiency N28.9 ; Hyperkalemia E87.5 ; Weight gain R63.5 and Encounter for immunization Z23 [place] [id number] [place] [address] 91256- 2880 Jun, Type 2 diabetes mellitus with hyperglycemia, without long- term current use of insulin E11.65 ; Essential hypertension I10 ; Mixed hyperlipidemia E78.2 ; Renal insufficiency N28.9 and Hyperkalemia E87.5 [place] [id number] [place] [address] 36606- 3437 Jun, [place] [id number] [place] [address] 64991- 0997 May, Type 2 diabetes mellitus with hyperglycemia, without long- term current use of insulin E11.65 ; Essential hypertension I10 ; Mixed hyperlipidemia E78.2 ; Renal insufficiency N28.9 and Hyperkalemia E87.5 [place] [id number] [place] [address] 68979- 9147 Apr, Type 2 diabetes mellitus with hyperglycemia, without long- term current use of insulin E11.65 ; Essential hypertension I10 ; Mixed hyperlipidemia E78.2 ; Renal insufficiency N28.9 and Hyperkalemia E87.5 [place] [address] [place] [address] 33327- 0687 Apr, [place] [id number] [place] [address] 62410- 5615 Apr, Type 2 diabetes mellitus with hyperglycemia, without long- term current use of insulin E11.65 ; Essential hypertension I10 ; Mixed hyperlipidemia E78.2 and Renal insufficiency N28.9 [place] [address] [place] [address]- 3282 Mar, [place] [id number] [place] [address] 52307- 4414 Mar, Type 2 diabetes mellitus with hyperglycemia, without long- term current use of insulin E11.65 ; Essential hypertension I10 ; Mixed hyperlipidemia E78.2 and Renal insufficiency N28.9 [place] [id number] [place] [address] 46440- 5206 Feb, Type 2 diabetes mellitus with hyperglycemia, without long- term current use of insulin E11.65 [place] [id number] [place] [address] 39390- 5821 Feb, [place] [id number] [place] [address] 27774- 0777 January, [place] [id number] [place] [address] 51073- 5424 January, Type 2 diabetes mellitus with hyperglycemia, without long- term current use of insulin E11.65 ; Essential hypertension I10 and Mixed hyperlipidemia E78.2 [place] [id number] [place] [address] 31480- 4018 Dec, [place] [id number] [place] [address] 27164- 5212 Dec, [place] [id number] [place] [address] 46549- 7361 Oct, [place] [id number] [place] [address] 71002- 5269 Oct, [place] [id number] [place] [address] 96666- 1225 Oct, [place] [id number] [place] [address] 07045- 1876 Oct, IMMUNIZATIONS No Known Immunizations SOCIAL HISTORY Never Assessed REASON FOR VISIT ELIZABETH márquez PLAN OF CARE VITAL SIGNS MEDICATIONS Medication Instructions Dosage Frequency Start Date End Date Duration Status Januvia 100 mg Orally Once a day 1 tablet 24h Mar, 90 days Active RESULTS No Results PROCEDURES No Known [...]
--- OUTSIDE RECORDS SUMMARY | 2018-12-15 19:48 | XMS REPORT ---
Author Author MERT SCOTT Organization [facility] Address [address] [place] [address] Care Team Providers Care Automatic Profile Shaper Operator Name Role Phone SCOTTJENELLE SibleyELE Unavailable PROBLEMS Type Condition ICD9-CM Code NHR22-FP Code Onset Dates Condition Status SNOMED Code Problem Periodontal disease K05.6 Active 1978723 Problem Body mass index (BMI) of 39.0-39.9 in adult Z68.39 Active 658830275 Problem Caries of cementum teeth K02.7 Active 54243164 Problem Type 2 diabetes mellitus with diabetic neuropathic arthropathy E11.610 Active 342838676 Problem Morbid (severe) obesity due to excess calories E66.01 Active 264636638 Problem Non compliance with medical treatment Z91.19 Active 3617896 Problem Type 2 diabetes mellitus with hyperglycemia, without long-term current use of insulin E11.65 Active 271750435108235 Problem 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 Active 73368513 Problem Renal insufficiency N28.9 Active 799681804 Problem Essential hypertension I10 Active 06714377 Problem Mixed hyperlipidemia E78.2 Active 572989880 Problem 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 Active 80227086 Problem group home current use of insulin Z79.4 Active 183787754 Problem Hyperkalemia E87.5 Active 86212283 Problem Diabetic polyneuropathy associated with type 2 diabetes mellitus E11.42 Active 208905670 Problem Swelling of both lower extremities M79.89 Active 51422200982304495 Problem Chronic kidney disease, stage III (moderate) N18.3 Active 735455188 ALLERGIES No Known Allergies ENCOUNTERS Encounter Location Date Diagnosis [facility] [address] [facility] [id number] [address] May, [facility] [address] [facility] [id number] [address] Apr, Type 2 diabetes mellitus with diabetic neuropathic arthropathy E11.610 [facility] [address] [address] Mar, [facility] [id number] [place] [address]2848- 7855 17 Mar, 2018 Type 2 diabetes mellitus with diabetic neuropathic arthropathy E11.610 [facility] [id number] [place] [address] 28399- 0211 13 Mar, 2018 Type 2 diabetes mellitus with diabetic neuropathic arthropathy E11.610 ; 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 ; salvage determiner current use of insulin Z79.4 ; Mixed hyperlipidemia E78.2 ; Essential hypertension I10 ; Renal insufficiency N28.9 ; Dental caries K02.9 ; 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 ; Irritant contact dermatitis due to detergent L24.0 ; Morbid (severe) obesity due to excess calories E66.01 ; Body mass index (BMI) of 39.0-39.9 in adult Z68.39 and Non compliance with medical treatment Z91.19 [facility] [id number] [place] [phone] Mar, Dental caries K02.9 [facility] [id number] [place] [address] 57490- 8194 18 Feb, 2018 [facility] [id number] [place] [address]30- 2028 Feb, [facility] [address] [address] Feb, [facility] [address] [address] Feb, [facility] [id number] [place] [address] 76330- 5633 January, [facility] [address] [address] January, [facility] [id number] [place] [address] 41973- 6543 January, 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 [facility] [address] [id number] Dec, Dental caries K02.9 [facility] [id number] [place] [address] 64611- 5238 Dec, 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 [facility] [id number] [place] [address] 11214- 1243 Dec, Dental examination Z01.20 ; Periodontal disease K05.6 and Caries of cementum teeth K02.7 [facility] [id number] [place] [address] 24744- 9963 Dec, 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 ; Chronic kidney disease, stage III (moderate) N18.3 ; salvage determiner current use of insulin Z79.4 ; Essential hypertension I10 ; Mixed hyperlipidemia E78.2 ; Diabetic polyneuropathy associated with type 2 diabetes mellitus E11.42 and Dental abscess K04.7 [facility] [id number] [place] [address] 96758- 2162 Nov, [facility] [id number] [place] [address] 68209- 5494 Nov, Mixed hyperlipidemia E78.2 ; Essential hypertension I10 and 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 [facility] [address] [address] Oct, [facility] [address] [address] Sep, [facility] [id number] [place] [address] 12203- 2622 Aug, Diabetic polyneuropathy associated with type 2 diabetes mellitus E11.42 [facility] [address] [address] Aug, 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 ; Chronic kidney disease, stage III (moderate) N18.3 ; salvage determiner current use of insulin Z79.4 ; Essential hypertension I10 ; Mixed hyperlipidemia E78.2 and Diabetic polyneuropathy associated with type 2 diabetes mellitus E11.42 [facility] [id number] [place] [address] 89945- 5027 Jul, Type 2 diabetes mellitus with hyperglycemia E11.65 and Mixed hyperlipidemia E78.2 [facility] [address] [address]- [address]645 Jun, Type 2 diabetes mellitus with hyperglycemia E11.65 [facility] [id number] [place] [address] 59697- 7522 Jun, Essential hypertension I10 [facility] [id number] [place] [address] 35777- 1530 May, [facility] [id number] [place] [address] 53821- 4313 May, Type 2 diabetes mellitus with hyperglycemia E11.65 and Essential hypertension I10 [facility] [id number] [place] [address] 40730- 9699 May, Essential hypertension I10 ; Mixed hyperlipidemia E78.2 ; Renal insufficiency N28.9 ; Hyperkalemia E87.5 ; Swelling of both lower extremities M79.89 and Type 2 diabetes mellitus with hyperglycemia E11.65 [facility] [id number] [place] [address] 12978- 4684 Apr, Essential hypertension I10 ; Mixed hyperlipidemia E78.2 ; Renal insufficiency N28.9 ; Hyperkalemia E87.5 ; Swelling of both lower extremities M79.89 and Type 2 diabetes mellitus with hyperglycemia E11.65 [facility] [id number] [place] [address] 48390- 1319 Mar, [facility] [id number] [place] [address] 51647- 4084 Feb, [facility] [id number] [place] [address] 47445- 1219 Feb, Essential hypertension I10 ; Mixed hyperlipidemia E78.2 ; Renal insufficiency N28.9 ; Hyperkalemia E87.5 ; Swelling of both lower extremities M79.89 and Type 2 diabetes mellitus with hyperglycemia E11.65 [facility] [id number] [place] [phone] Feb, Encounter for dental examination Z01.20 [facility] [id number] [place] [address] [phone] January, Essential hypertension I10 [facility] [id number] [place] [address] 097694- 0404 January, Essential hypertension I10 ; Mixed hyperlipidemia E78.2 ; Renal insufficiency N28.9 ; Hyperkalemia E87.5 ; Swelling of both lower extremities M79.89 and Type 2 diabetes mellitus with hyperglycemia E11.65 [facility] [id number] [place] [phone] January, Dental examination Z01.20 [facility] [id number] [place] [address] [phone]- [phone] Dec, Dental examination Z01.20 [facility] [id number] [place] [address] 01010- 9768 Dec, Type 2 diabetes mellitus with hyperglycemia, without long- term current use of insulin E11.65 ; Essential hypertension I10 ; Mixed hyperlipidemia E78.2 ; Renal insufficiency N28.9 ; Hyperkalemia E87.5 and Swelling of both lower extremities M79.89 [facility] [address] [address] Nov, Hyperkalemia E87.5 [facility] [id number] [place] [address] 45813- 0950 Nov, Hyperkalemia E87.5 [facility] [id number] [place] [address] 35243- 9091 Nov, Type 2 diabetes mellitus with hyperglycemia, without long- term current use of insulin E11.65 ; Essential hypertension I10 ; Mixed hyperlipidemia E78.2 ; Renal insufficiency N28.9 ; Hyperkalemia E87.5 and Swelling of both lower extremities M79.89 [place] [facility] [address] [place] [id number]- [address] Oct, Type 2 diabetes mellitus with hyperglycemia, without long- term current use of insulin E11.65 ; Essential hypertension I10 ; Mixed hyperlipidemia E78.2 ; Renal insufficiency N28.9 ; Hyperkalemia E87.5 and Swelling of both lower extremities M79.89 [place] [facility] [address] 40992- 0666 Aug, Type 2 diabetes mellitus with hyperglycemia, without long- term current use of insulin E11.65 ; Essential hypertension I10 ; Mixed hyperlipidemia E78.2 ; Renal insufficiency N28.9 ; Hyperkalemia E87.5 and Swelling of both lower extremities M79.89 [place] [address] [address]- 6788 Aug, Type 2 diabetes mellitus with hyperglycemia, without long- term current use of insulin E11.65 ; Essential hypertension I10 ; Mixed hyperlipidemia E78.2 ; Renal insufficiency N28.9 ; Hyperkalemia E87.5 and Swelling of both lower extremities M79.89 [place] [address] 24048- 7081 Aug, Mixed hyperlipidemia E78.2 [place] [address] 57358- 9173 Aug, Type 2 diabetes mellitus with hyperglycemia, without long- term current use of insulin E11.65 ; Essential hypertension I10 ; Mixed hyperlipidemia E78.2 ; Renal insufficiency N28.9 ; Hyperkalemia E87.5 and Swelling of both lower extremities M79.89 [place] [address] [place] [id number]- [address]17 Jul, [facility] [address] 0[address]69- 4486 Jul, Type 2 diabetes mellitus with hyperglycemia, without long- term current use of insulin E11.65 ; Essential hypertension I10 ; Mixed hyperlipidemia E78.2 ; Renal insufficiency N28.9 ; Hyperkalemia E87.5 ; Weight gain R63.5 and Encounter for immunization Z23 [facility] [address] 99459- 2965 Jun, Type 2 diabetes mellitus with hyperglycemia, without long- term current use of insulin E11.65 ; Essential hypertension I10 ; Mixed hyperlipidemia E78.2 ; Renal insufficiency N28.9 and Hyperkalemia E87.5 [place] [address] 18676- 6360 Jun, [place] [address] 65653- 7547 May, Type 2 diabetes mellitus with hyperglycemia, without long- term current use of insulin E11.65 ; Essential hypertension I10 ; Mixed hyperlipidemia E78.2 ; Renal insufficiency N28.9 and Hyperkalemia E87.5 [place] [address] 98922- 6326 Apr, Type 2 diabetes mellitus with hyperglycemia, without long- term current use of insulin E11.65 ; Essential hypertension I10 ; Mixed hyperlipidemia E78.2 ; Renal insufficiency N28.9 and Hyperkalemia E87.5 [place] [address] 94574- 5866 Apr, [place] [address] 02884- 6152 Apr, Type 2 diabetes mellitus with hyperglycemia, without long- term current use of insulin E11.65 ; Essential hypertension I10 ; Mixed hyperlipidemia E78.2 and Renal insufficiency N28.9 [place] [address] 08811- 6934 Mar, [place] [address] [address]- 1991 Mar, Type 2 diabetes mellitus with hyperglycemia, without long- term current use of insulin E11.65 ; Essential hypertension I10 ; Mixed hyperlipidemia E78.2 and Renal insufficiency N28.9 [facility] [address] [place] [address] 03844- 8312 Feb, Type 2 diabetes mellitus with hyperglycemia, without long- term current use of insulin E11.65 [facility] [address] [place] [address] 92995- 4630 Feb, [facility] [id number] [place] [address] 32172- 1428 January, [facility] [id number] [place] [address] 09965- 0349 January, Type 2 diabetes mellitus with hyperglycemia, without long- term current use of insulin E11.65 ; Essential hypertension I10 and Mixed hyperlipidemia E78.2 [facility] [id number] [place] [address] 99480- 5083 Dec, [facility] [id number] [place] [address] 44973- 3998 Dec, [facility] [id number] [place] [address] 81197- 9015 Oct, [facility] [id number] [place] [address] 31946- 3491 Oct, [facility] [id number] [place] [address] 52951- 3479 Oct, [facility] [id number] [place] [address] 24709- 9788 Oct, IMMUNIZATIONS No Known Immunizations SOCIAL HISTORY Never Assessed REASON FOR VISIT Transition of Care/ having heel pain on rightt foot , nerve pain on left foot - - dorian hankins PLAN OF CARE Activity Details Follow Up 3 Months, prn Reason:CHM/DM VITAL SIGNS Height 72 in 2018-04-07 Weight 290.0 lbs 2018-04-07 Temperature 98.6 degrees Fahrenheit 2018-04-07 Heart Rate 86 bpm 2018-04-07 Respiratory Rate 22 2018-04-07 BMI 39.33 kg/m2 2018-04-07 Blood pressure systolic 144 mmHg 2018-04-07 Blood pressure diastolic 90 mmHg 2018-04-07 MEDICATIONS Medication Instructions Dosage Frequency Start Date End Date Duration Status Triamcinolone Acetonide 0.1 % Externally Twice a day 1 application to affected area 12h Jun, 07 days Active Chlorthalidone 25 MG Orally Once a day 1/2 tablet in the morning 24h 90 days Active MetFORMIN HCl ER 500 mg Orally twice a day 1 tablet with meals twice a day 12h Mar, 90 days Active MetFORMIN HCl ER 500 mg Orally twice a day 1 tablet 12h January, 30 day(s) Active NovoLog 100 UNIT/ML Subcutaneous 3 times a day INJECT SUBCUTANEOUSLY 55 UNITS WITH MEALS AND 10 UNITS WITH SNACKS DIRECTED. 8h 12 months Active Simvastatin 40 mg Orally Once a day 1 tablet in the evening 24h 90 days Active Metoprolol Succinate ER 50 mg Orally twice a day 1 tablet 12h 90 days Active Clonidine HCl 0.2 MG Orally twice a day 1 tablet 12h 90 days Active Tradjenta 5 mg Orally Once a day 1 tablet 24h January, 90 days Active Gabapentin 300 MG Orally Once a day 1 capsule before bedtime 24h Aug, 28 days Active Levemir 100 UNIT/ML Subcutaneous 2 times a day INJECT 65 UNITS SUBCUTANEOUSLY TWICE DAILY 12h 12 months Active RESULTS Name Result Date Reference Range A1C (IN HOUSE) 2018-04-07 A1C IN HOUSE 13.1 4.3 - 5.6 % Previous A1c 9.8 Lot [id number] Exp date 11/2018 PROCEDURES Procedure Date Ordered Result Body Site GLYCATED HEMOGLOBIN TEST April 07, 2018 INSTRUCTIONS MEDICATIONS ADMINISTERED No Known Medications MEDICAL (GENERAL) HISTORY Type Description Date Medical History Type 2 Diabetes Medical History Hyperlipidemia Medical History Seasonal allergies Medical History DM uncontrolled Noncompliance-Eye Referral Made never kept appt Medical History Essential hypertension, benign Medical History Seeing Dr. Stoner Hospitalization History Infection in left leg 2013
--- OUTSIDE RECORDS SUMMARY | 2018-12-15 19:48 | XMS REPORT ---
Author Author ADRIANO SANTACRUZ Organization [facility] Address [address] [place] [address] Care Team Providers Care Speech And Hearing Director Name Role Phone NOAM ADRIANO Unavailable PROBLEMS Type Condition ICD9-CM Code XCX60-FW Code Onset Dates Condition Status SNOMED Code Problem Periodontal disease K05.6 Active 0293627 Problem Body mass index (BMI) of 39.0-39.9 in adult Z68.39 Active 018633758 Problem Caries of cementum teeth K02.7 Active 99594160 Problem Type 2 diabetes mellitus with diabetic neuropathic arthropathy E11.610 Active 250207444 Problem Morbid (severe) obesity due to excess calories E66.01 Active 469117662 Problem Non compliance with medical treatment Z91.19 Active 2866737 Problem Type 2 diabetes mellitus with hyperglycemia, without long-term current use of insulin E11.65 Active [id number] Problem 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 Active 84059259 Problem Renal insufficiency N28.9 Active 582489413 Problem Essential hypertension I10 Active 27735400 Problem Mixed hyperlipidemia E78.2 Active 790755419 Problem 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 Active 41331092 Problem 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 Active 423046345 Problem Hyperkalemia E87.5 Active 26612865 Problem Diabetic polyneuropathy associated with type 2 diabetes mellitus E11.42 Active 908240096 Problem Swelling of both lower extremities M79.89 Active [id number] Problem Chronic kidney disease, stage III (moderate) N18.3 Active 386097071 ALLERGIES No Information ENCOUNTERS Encounter Location Date Diagnosis [facility] [id number], [place] [address] Apr, Type 2 diabetes mellitus with diabetic neuropathic arthropathy E11.610 [facility] [id number] [address] Mar, [facility] [id number], [place] [address] 17 Mar, 2018 Type 2 diabetes mellitus with diabetic neuropathic arthropathy E11.610 [facility] [id number] [place] [address]201- [address] 13 Mar, 2018 Type 2 diabetes mellitus with diabetic neuropathic arthropathy E11.610 ; 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 ; 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 ; Mixed hyperlipidemia E78.2 ; Essential hypertension I10 ; Renal insufficiency N28.9 ; Dental caries K02.9 ; 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 ; Irritant contact dermatitis due to detergent L24.0 ; Morbid (severe) obesity due to excess calories E66.01 ; Body mass index (BMI) of 39.0-39.9 in adult Z68.39 and Non compliance with medical treatment Z91.19 [facility] [id number] [place] [address] [id number] 10 Mar, 2018 Dental caries K02.9 [facility] [id number] [place] [address] 95293- 5469 18 Feb, 2018 [facility] [id number] [place] [address] 04626- 7649 Feb, [facility] [id number] [place] [address] 58202- 4358 Feb, [facility] [id number] [place] [address] 62063- 9004 Feb, [facility] [id number] [place] [address] 77988- 2312 January, [facility] [id number] [place] [address] [id number]- 9467 January, [facility] [id number] [place] [address] [phone] January, 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 [facility] [id number] [place] [address] [id number] Dec, Dental caries K02.9 [address], [place] [address] Dec, 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 [address] [address] [address] Dec, Dental examination Z01.20 ; Periodontal disease K05.6 and Caries of cementum teeth K02.7 [address] [place] [address], [place] [address] Dec, 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 ; Chronic kidney disease, stage III (moderate) N18.3 ; 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 ; Essential hypertension I10 ; Mixed hyperlipidemia E78.2 ; Diabetic polyneuropathy associated with type 2 diabetes mellitus E11.42 and Dental abscess K04.7 [address] [place] [address], [place] [address] Nov, [address] [id number] [address] Nov, Mixed hyperlipidemia E78.2 ; Essential hypertension I10 and 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 [facility] [facility] [address] [address] 13 Oct, 2017 [address] [id number] [address] Sep, [address] [id number], [place] [address] Aug, Diabetic polyneuropathy associated with type 2 diabetes mellitus E11.42 [address] [place] [address], [place] [address] Aug, 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 ; Chronic kidney disease, stage III (moderate) N18.3 ; jail current use of insulin Z79.4 ; Essential hypertension I10 ; Mixed hyperlipidemia E78.2 and Diabetic polyneuropathy associated with type 2 diabetes mellitus E11.42 [facility] [id number], [place] [address] Jul, Type 2 diabetes mellitus with hyperglycemia E11.65 and Mixed hyperlipidemia E78.2 [address] [facility] [id number], [place] [address] Jun, Type 2 diabetes mellitus with hyperglycemia E11.65 [facility] [id number] [place] [address] 22553- 0686 Jun, Essential hypertension I10 [address] [place] [id number] [place] [address] 81205- 1372 May, [address] [place] [id number] [place] [address] 16142- 7924 May, Type 2 diabetes mellitus with hyperglycemia E11.65 and Essential hypertension I10 [facility] [facility] [id number] [place] [address] 14852- 5734 May, Essential hypertension I10 ; Mixed hyperlipidemia E78.2 ; Renal insufficiency N28.9 ; Hyperkalemia E87.5 ; Swelling of both lower extremities M79.89 and Type 2 diabetes mellitus with hyperglycemia E11.65 [place] [place] [address], [place] [address] Apr, Essential hypertension I10 ; Mixed hyperlipidemia E78.2 ; Renal insufficiency N28.9 ; Hyperkalemia E87.5 ; Swelling of both lower extremities M79.89 and Type 2 diabetes mellitus with hyperglycemia E11.65 [address] [place] [address] [address] Mar, [address] [place] [id number] [place] [address] 26068- 9713 Feb, [address] [place], [place] [address] Feb, Essential hypertension I10 ; Mixed hyperlipidemia E78.2 ; Renal insufficiency N28.9 ; Hyperkalemia E87.5 ; Swelling of both lower extremities M79.89 and Type 2 diabetes mellitus with hyperglycemia E11.65 [facility] [address] [id number] Feb, Encounter for dental examination Z01.20 [facility] [id number] [place] [address] 696970- 6531 January, Essential hypertension I10 [facility] [id number] [place] [address] 80584- 8390 January, Essential hypertension I10 ; Mixed hyperlipidemia E78.2 ; Renal insufficiency N28.9 ; Hyperkalemia E87.5 ; Swelling of both lower extremities M79.89 and Type 2 diabetes mellitus with hyperglycemia E11.65 [facility] [id number] [place] [address] [id number] January, Dental examination Z01.20 [facility] [place] [id number] [place] [address] 92960- 6008 Dec, Dental examination Z01.20 [facility] [id number] [place] [address] 20419- 1112 Dec, Type 2 diabetes mellitus with hyperglycemia, without long- term current use of insulin E11.65 ; Essential hypertension I10 ; Mixed hyperlipidemia E78.2 ; Renal insufficiency N28.9 ; Hyperkalemia E87.5 and Swelling of both lower extremities M79.89 [address] [place] [id number] [place] [address] 67525- 6622 Nov, Hyperkalemia E87.5 [facility] [facility] [id number] [place] [address] 41383- 8391 Nov, Hyperkalemia E87.5 [facility] [facility] [id number] [place] [address] 03436- 1794 Nov, Type 2 diabetes mellitus with hyperglycemia, without long- term current use of insulin E11.65 ; Essential hypertension I10 ; Mixed hyperlipidemia E78.2 ; Renal insufficiency N28.9 ; Hyperkalemia E87.5 and Swelling of both lower extremities M79.89 [place] [id number] [place] [address] 80104- 3823 Oct, Type 2 diabetes mellitus with hyperglycemia, without long- term current use of insulin E11.65 ; Essential hypertension I10 ; Mixed hyperlipidemia E78.2 ; Renal insufficiency N28.9 ; Hyperkalemia E87.5 and Swelling of both lower extremities M79.89 [place] [id number] [place] [address] 92968- 6781 Aug, Type 2 diabetes mellitus with hyperglycemia, without long- term current use of insulin E11.65 ; Essential hypertension I10 ; Mixed hyperlipidemia E78.2 ; Renal insufficiency N28.9 ; Hyperkalemia E87.5 and Swelling of both lower extremities M79.89 [facility] [place] [id number] [place] [address] 32745- 3151 Aug, Type 2 diabetes mellitus with hyperglycemia, without long- term current use of insulin E11.65 ; Essential hypertension I10 ; Mixed hyperlipidemia E78.2 ; Renal insufficiency N28.9 ; Hyperkalemia E87.5 and Swelling of both lower extremities M79.89 [place] [id number] [place] [address] 30000- 9703 Aug, Mixed hyperlipidemia E78.2 [place] [id number] [place] [address] 81068- 9751 Aug, Type 2 diabetes mellitus with hyperglycemia, without long- term current use of insulin E11.65 ; Essential hypertension I10 ; Mixed hyperlipidemia E78.2 ; Renal insufficiency N28.9 ; Hyperkalemia E87.5 and Swelling of both lower extremities M79.89 [id number] [place] [address] 31299- 4802 Jul, [address] [id number] [place] [address] Jul, Type 2 diabetes mellitus with hyperglycemia, without long- term current use of insulin E11.65 ; Essential hypertension I10 ; Mixed hyperlipidemia E78.2 ; Renal insufficiency N28.9 ; Hyperkalemia E87.5 ; Weight gain R63.5 and Encounter for immunization Z23 [address] [place] [id number] [place] [address] 25547- 0733 Jun, Type 2 diabetes mellitus with hyperglycemia, without long- term current use of insulin E11.65 ; Essential hypertension I10 ; Mixed hyperlipidemia E78.2 ; Renal insufficiency N28.9 and Hyperkalemia E87.5 [address] [place] [id number] [place] [address] 78220- 7595 Jun, [address] [id number] [place] [address] 76055- 7612 May, Type 2 diabetes mellitus with hyperglycemia, without long- term current use of insulin E11.65 ; Essential hypertension I10 ; Mixed hyperlipidemia E78.2 ; Renal insufficiency N28.9 and Hyperkalemia E87.5 [address] [place] [id number] [place] [address] 11363- 4748 Apr, Type 2 diabetes mellitus with hyperglycemia, without long- term current use of insulin E11.65 ; Essential hypertension I10 ; Mixed hyperlipidemia E78.2 ; Renal insufficiency N28.9 and Hyperkalemia E87.5 [address] [place] [id number] [place] [address] 22506- 9984 Apr, [address] [place] [id number] [place] [address] 85029- 7621 Apr, Type 2 diabetes mellitus with hyperglycemia, without long- term current use of insulin E11.65 ; Essential hypertension I10 ; Mixed hyperlipidemia E78.2 and Renal insufficiency N28.9 [place] [place] [id number] [place] [address] 93665- 6549 Mar, [address] [id number] [place] [address] 74760- 4814 Mar, Type 2 diabetes mellitus with hyperglycemia, without long- term current use of insulin E11.65 ; Essential hypertension I10 ; Mixed hyperlipidemia E78.2 and Renal insufficiency N28.9 [address] [place] [id number] [place] [address] 31410- 3226 Feb, Type 2 diabetes mellitus with hyperglycemia, without long- term current use of insulin E11.65 [facility] [address], [place] [address]- 6[address] Feb, [facility] [id number] [place] [address] 41821- 8060 January, [facility] [id number] [place] [address] 46489- 1654 January, Type 2 diabetes mellitus with hyperglycemia, without long- term current use of insulin E11.65 ; Essential hypertension I10 and Mixed hyperlipidemia E78.2 [place] [id number] [place] [address] 23517- 6863 Dec, [facility] [id number] [place] [address] 15130- 3021 Dec, [facility] [id number] [place] [address] 13154- 5680 Oct, [facility] [id number] [place] [address] 45375- 2202 Oct, [facility] [id number] [place] [address] 47886- 4352 Oct, [facility] [address], [place] [address]- 3180 Oct, IMMUNIZATIONS No Known Immunizations SOCIAL HISTORY Never Assessed REASON FOR VISIT 1 wk f/u DM Ed PLAN OF CARE VITAL SIGNS MEDICATIONS Unknown [...]
--- OUTSIDE RECORDS SUMMARY | 2018-12-15 19:48 | XMS REPORT ---
Author Author ANI CASTILLO Organization [facility] Address [address] [place] [address] Care Team Providers Care Wedding Transportation Driver Name Role Phone ANI CASTILLO Unavailable PROBLEMS Type Condition ICD9-CM Code NLT77-EF Code Onset Dates Condition Status SNOMED Code Problem Periodontal disease K05.6 Active 6940763 Problem Body mass index (BMI) of 39.0-39.9 in adult Z68.39 Active 776566399 Problem Caries of cementum teeth K02.7 Active 79883719 Problem Type 2 diabetes mellitus with diabetic neuropathic arthropathy E11.610 Active 565287974 Problem Morbid (severe) obesity due to excess calories E66.01 Active 214993254 Problem Non compliance with medical treatment Z91.19 Active 7601367 Problem Type 2 diabetes mellitus with hyperglycemia, without long-term current use of insulin E11.65 Active 642514895498443 Problem 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 Active 86517964 Problem Renal insufficiency N28.9 Active 860826751 Problem Essential hypertension I10 Active 97314176 Problem Mixed hyperlipidemia E78.2 Active 952063176 Problem 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 Active 15852140 Problem [facility]FP current use of insulin Z79.4 Active 030596145 Problem Hyperkalemia E87.5 Active 32815174 Problem Diabetic polyneuropathy associated with type 2 diabetes mellitus E11.42 Active 113716657 Problem Swelling of both lower extremities M79.89 Active 70002962995782502 Problem Chronic kidney disease, stage III (moderate) N18.3 Active 127204681 ALLERGIES No Information ENCOUNTERS Encounter Location Date Diagnosis [facility] [id number] [address] Apr, Type 2 diabetes mellitus with diabetic neuropathic arthropathy E11.610 [facility] [address], [place] [address] 20 Mar, 2018 [facility] [address] [place] [address] 17 Mar, 2018 Type 2 diabetes mellitus with diabetic neuropathic arthropathy E11.610 [facility] [address], [place] [address] 13 Mar, 2018 Type 2 diabetes mellitus with diabetic neuropathic arthropathy E11.610 ; 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 ; 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 ; Mixed hyperlipidemia E78.2 ; Essential hypertension I10 ; Renal insufficiency N28.9 ; Dental caries K02.9 ; 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 ; Irritant contact dermatitis due to detergent L24.0 ; Morbid (severe) obesity due to excess calories E66.01 ; Body mass index (BMI) of 39.0-39.9 in adult Z68.39 and Non compliance with medical treatment Z91.19 [facility] [address] [id number] 10 Mar, 2018 Dental caries K02.9 [facility] [id number] [place] [address] 18 Feb, 2018 [facility] [id number] [place] [address] Feb, [facility] [address], [place] [address] Feb, [facility] [address], [place] [address] Feb, [facility] [id number] [place] [address] 2649 January, [facility] [id number] [place] [id number]- [address] January, [facility] [address] [address] January, 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 [facility] [address] [place] [id number] Dec, Dental caries K02.9 [facility] [address] [place] [address]22- 2129 Dec, 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 [facility] [address], [place] [address] Dec, Dental examination Z01.20 ; Periodontal disease K05.6 and Caries of cementum teeth K02.7 [facility] [address], [place] [address] Dec, 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 ; Chronic kidney disease, stage III (moderate) N18.3 ; [facility]FP current use of insulin Z79.4 ; Essential hypertension I10 ; Mixed hyperlipidemia E78.2 ; Diabetic polyneuropathy associated with type 2 diabetes mellitus E11.42 and Dental abscess K04.7 [facility] [address], [place] [address] Nov, [facility] [id number] [place] [address] Nov, Mixed hyperlipidemia E78.2 ; Essential hypertension I10 and 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 [facility] [address], [place] [address] Oct, [address] [address], [place] [address] Sep, [facility] [facility] [address], [place] [address] Aug, Diabetic polyneuropathy associated with type 2 diabetes mellitus E11.42 [facility] [address], [place] [address] Aug, 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 ; Chronic kidney disease, stage III (moderate) N18.3 ; 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 ; Essential hypertension I10 ; Mixed hyperlipidemia E78.2 and Diabetic polyneuropathy associated with type 2 diabetes mellitus E11.42 [facility] [address], [place] [address] Jul, Type 2 diabetes mellitus with hyperglycemia E11.65 and Mixed hyperlipidemia E78.2 [facility] [id number] [place] [address]70- 6017 Jun, Type 2 diabetes mellitus with hyperglycemia E11.65 [facility] [id number] [place] [address]306- 6883 Jun, Essential hypertension I10 [facility] [id number] [place] [address] 69005- 9587 May, [facility] [id number] [place] [address] 45345- 0763 May, Type 2 diabetes mellitus with hyperglycemia E11.65 and Essential hypertension I10 [facility] [id number] [place] [address] 25301- 2737 May, Essential hypertension I10 ; Mixed hyperlipidemia E78.2 ; Renal insufficiency N28.9 ; Hyperkalemia E87.5 ; Swelling of both lower extremities M79.89 and Type 2 diabetes mellitus with hyperglycemia E11.65 [facility] [facility] [address], [place] [address] Apr, Essential hypertension I10 ; Mixed hyperlipidemia E78.2 ; Renal insufficiency N28.9 ; Hyperkalemia E87.5 ; Swelling of both lower extremities M79.89 and Type 2 diabetes mellitus with hyperglycemia E11.65 [facility] [address], [place] [address] Mar, [facility] [facility] [id number] [place] [address]34- 5654 Feb, [address] [address] [address], [place] [address] Feb, Essential hypertension I10 ; Mixed hyperlipidemia E78.2 ; Renal insufficiency N28.9 ; Hyperkalemia E87.5 ; Swelling of both lower extremities M79.89 and Type 2 diabetes mellitus with hyperglycemia E11.65 [facility] [address] [place] [id number] Feb, Encounter for dental examination Z01.20 [facility] [id number] [place] [address] [phone]- 6926 January, Essential hypertension I10 [facility] [address] [address] January, Essential hypertension I10 ; Mixed hyperlipidemia E78.2 ; Renal insufficiency N28.9 ; Hyperkalemia E87.5 ; Swelling of both lower extremities M79.89 and Type 2 diabetes mellitus with hyperglycemia E11.65 [facility] [address] [place] [id number] January, Dental examination Z01.20 [facility] [id number] [place] [address] 53890- 5106 Dec, Dental examination Z01.20 [facility] [id number] [place] [address] 46879- 9484 Dec, Type 2 diabetes mellitus with hyperglycemia, without long- term current use of insulin E11.65 ; Essential hypertension I10 ; Mixed hyperlipidemia E78.2 ; Renal insufficiency N28.9 ; Hyperkalemia E87.5 and Swelling of both lower extremities M79.89 [facility] [id number] [place] [address] 84647- 0539 Nov, Hyperkalemia E87.5 [facility] [id number] [place] [address] 52961- 9036 Nov, Hyperkalemia E87.5 [facility] [id number] [place] [address] [phone]- 2999 Nov, Type 2 diabetes mellitus with hyperglycemia, without long- term current use of insulin E11.65 ; Essential hypertension I10 ; Mixed hyperlipidemia E78.2 ; Renal insufficiency N28.9 ; Hyperkalemia E87.5 and Swelling of both lower extremities M79.89 [place] [place] [id number] [place] [address] 09416- 4319 Oct, Type 2 diabetes mellitus with hyperglycemia, without long- term current use of insulin E11.65 ; Essential hypertension I10 ; Mixed hyperlipidemia E78.2 ; Renal insufficiency N28.9 ; Hyperkalemia E87.5 and Swelling of both lower extremities M79.89 [address] [facility] [address] [address]- [address] Aug, Type 2 diabetes mellitus with hyperglycemia, without long- term current use of insulin E11.65 ; Essential hypertension I10 ; Mixed hyperlipidemia E78.2 ; Renal insufficiency N28.9 ; Hyperkalemia E87.5 and Swelling of both lower extremities M79.89 [facility] [id number] [place] [address] 16627- 0820 Aug, Type 2 diabetes mellitus with hyperglycemia, without long- term current use of insulin E11.65 ; Essential hypertension I10 ; Mixed hyperlipidemia E78.2 ; Renal insufficiency N28.9 ; Hyperkalemia E87.5 and Swelling of both lower extremities M79.89 [facility] [id number] [place] [address] 06500- 3904 Aug, Mixed hyperlipidemia E78.2 [facility] [id number] [place] [address] 93489- 1237 Aug, Type 2 diabetes mellitus with hyperglycemia, without long- term current use of insulin E11.65 ; Essential hypertension I10 ; Mixed hyperlipidemia E78.2 ; Renal insufficiency N28.9 ; Hyperkalemia E87.5 and Swelling of both lower extremities M79.89 [facility] [id number] [place] [address] 42693- 4835 Jul, [place] [id number] [place] [address] Jul, Type 2 diabetes mellitus with hyperglycemia, without long- term current use of insulin E11.65 ; Essential hypertension I10 ; Mixed hyperlipidemia E78.2 ; Renal insufficiency N28.9 ; Hyperkalemia E87.5 ; Weight gain R63.5 and Encounter for immunization Z23 [facility] [facility] [id number] [place] [address] 19993- 1369 Jun, Type 2 diabetes mellitus with hyperglycemia, without long- term current use of insulin E11.65 ; Essential hypertension I10 ; Mixed hyperlipidemia E78.2 ; Renal insufficiency N28.9 and Hyperkalemia E87.5 [place] [facility] [address] [address]- [address] Jun, [facility] [id number] [place] [address] 05164- 5226 May, Type 2 diabetes mellitus with hyperglycemia, without long- term current use of insulin E11.65 ; Essential hypertension I10 ; Mixed hyperlipidemia E78.2 ; Renal insufficiency N28.9 and Hyperkalemia E87.5 [facility] [id number] [place] [address] 43411- 6017 Apr, Type 2 diabetes mellitus with hyperglycemia, without long- term current use of insulin E11.65 ; Essential hypertension I10 ; Mixed hyperlipidemia E78.2 ; Renal insufficiency N28.9 and Hyperkalemia E87.5 [facility] [id number] [place] [address] 67876- 8042 Apr, [facility] [id number] [place] [address] 40456- 4413 Apr, Type 2 diabetes mellitus with hyperglycemia, without long- term current use of insulin E11.65 ; Essential hypertension I10 ; Mixed hyperlipidemia E78.2 and Renal insufficiency N28.9 [facility] [id number] [place] [address] 92582- 7746 Mar, [place] [address] [address]- 1199 Mar, Type 2 diabetes mellitus with hyperglycemia, without long- term current use of insulin E11.65 ; Essential hypertension I10 ; Mixed hyperlipidemia E78.2 and Renal insufficiency N28.9 [place] [address] [place] [address] 2462 Feb, Type 2 diabetes mellitus with hyperglycemia, without long- term current use of insulin E11.65 [facility] [id number] [place] [address] 95182- 0136 Feb, [place] [id number] [place] [address] 51885- 9849 January, [facility] [id number] [place] [address] 86663- 9166 January, Type 2 diabetes mellitus with hyperglycemia, without long- term current use of insulin E11.65 ; Essential hypertension I10 and Mixed hyperlipidemia E78.2 [facility] [facility] [id number] [place] [address] 31095- 7547 Dec, [facility] [facility] [id number] [place] [address] 18148- 6590 Dec, [facility] [id number] [place] [address] 92356- 9922 Oct, [facility] [id number] [place] [address] 59257- 8676 Oct, [place] [address] [place] [address] 80861- 3606 Oct, [place] [address] [place] [address] 84838- 8924 Oct, IMMUNIZATIONS No Known Immunizations SOCIAL HISTORY Never Assessed REASON FOR VISIT FYI PLAN OF CARE VITAL SIGNS MEDICATIONS Medication Instructions Dosage Frequency Start Date End Date Duration Status NovoLog 100 UNIT/ML INJECT SUBCUTANEOUSLY 55 UNITS WITH MEALS AND 10 UNITS WITH SNACKS DIRECTED. 17 Active RESULTS No Results PROCEDURES No Known [...]
--- OUTSIDE RECORDS SUMMARY | 2018-12-15 19:49 | XMS REPORT ---
Author Author ANI CASTILLO Organization [facility] Address [address] [place] [address] Care Team Providers Care Cyber Software Engineer Name Role Phone ANI CASTILLO Unavailable PROBLEMS Type Condition ICD9-CM Code HME77-DX Code Onset Dates Condition Status SNOMED Code Problem Periodontal disease K05.6 Active 1004072 Problem Body mass index (BMI) of 39.0-39.9 in adult Z68.39 Active 143264789 Problem Caries of cementum teeth K02.7 Active 21296474 Problem Type 2 diabetes mellitus with diabetic neuropathic arthropathy E11.610 Active 099023754 Problem Morbid (severe) obesity due to excess calories E66.01 Active 933256312 Problem Non compliance with medical treatment Z91.19 Active 7625712 Problem Type 2 diabetes mellitus with hyperglycemia, without long-term current use of insulin E11.65 Active 398465102975839 Problem 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 Active 34248675 Problem Renal insufficiency N28.9 Active 647663863 Problem Essential hypertension I10 Active 13081185 Problem Mixed hyperlipidemia E78.2 Active 669230740 Problem 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 Active 25525012 Problem retirement current use of insulin Z79.4 Active 813267177 Problem Hyperkalemia E87.5 Active 27202127 Problem Diabetic polyneuropathy associated with type 2 diabetes mellitus E11.42 Active 949353470 Problem Swelling of both lower extremities M79.89 Active [id number] Problem Chronic kidney disease, stage III (moderate) N18.3 Active 392952126 ALLERGIES No Information ENCOUNTERS Encounter Location Date Diagnosis [facility] [id number] [address] Apr, Type 2 diabetes mellitus with diabetic neuropathic arthropathy E11.610 [facility] [address] [address] 20 Mar, 2018 [facility] [address] [address] 17 Mar, 2018 Type 2 diabetes mellitus with diabetic neuropathic arthropathy E11.610 [facility] [address] [address] 13 Mar, 2018 Type 2 diabetes mellitus with diabetic neuropathic arthropathy E11.610 ; 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 ; [employer] current use of insulin Z79.4 ; Mixed hyperlipidemia E78.2 ; Essential hypertension I10 ; Renal insufficiency N28.9 ; Dental caries K02.9 ; 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 ; Irritant contact dermatitis due to detergent L24.0 ; Morbid (severe) obesity due to excess calories E66.01 ; Body mass index (BMI) of 39.0-39.9 in adult Z68.39 and Non compliance with medical treatment Z91.19 [facility] [address] [id number] 10 Mar, 2018 Dental caries K02.9 [facility] [id number] [place] [address] 18 Feb, 2018 [facility] [id number] [place] [address]- [address] Feb, [facility] [address] [address] Feb, [facility] [address] [address] Feb, [facility] [id number] [place] [address] January, [facility] [id number] [place] [id number]- 6[address] January, [facility] [address] [address] January, 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 [facility] [address] [place] [id number] Dec, Dental caries K02.9 [facility] [id number] [place] [address]- 8569 Dec, 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 [facility] [address] [address] Dec, Dental examination Z01.20 ; Periodontal disease K05.6 and Caries of cementum teeth K02.7 [facility] [address] [address] Dec, 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 ; Chronic kidney disease, stage III (moderate) N18.3 ; retirement current use of insulin Z79.4 ; Essential hypertension I10 ; Mixed hyperlipidemia E78.2 ; Diabetic polyneuropathy associated with type 2 diabetes mellitus E11.42 and Dental abscess K04.7 [facility] [address] [address] Nov, [facility] [id number] [address] Nov, Mixed hyperlipidemia E78.2 ; Essential hypertension I10 and 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 [facility] [address] [address] Oct, [facility] [address] [address] Sep, [facility] [address] [address] Aug, Diabetic polyneuropathy associated with type 2 diabetes mellitus E11.42 [facility] [address] [address] Aug, 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 ; Chronic kidney disease, stage III (moderate) N18.3 ; [employer] current use of insulin Z79.4 ; Essential hypertension I10 ; Mixed hyperlipidemia E78.2 and Diabetic polyneuropathy associated with type 2 diabetes mellitus E11.42 [facility] [address] [address] Jul, Type 2 diabetes mellitus with hyperglycemia E11.65 and Mixed hyperlipidemia E78.2 [facility] [id number] [place] [address]181- 8309 Jun, Type 2 diabetes mellitus with hyperglycemia E11.65 [facility] [id number] [place] [address]47- 2226 Jun, Essential hypertension I10 [facility] [id number] [place] [address]- 18[address] May, [facility] [id number] [place] [address]- 6730 May, Type 2 diabetes mellitus with hyperglycemia E11.65 and Essential hypertension I10 [facility] [id number] [place] [address]- 4837 May, Essential hypertension I10 ; Mixed hyperlipidemia E78.2 ; Renal insufficiency N28.9 ; Hyperkalemia E87.5 ; Swelling of both lower extremities M79.89 and Type 2 diabetes mellitus with hyperglycemia E11.65 [facility] [address] [address] Apr, Essential hypertension I10 ; Mixed hyperlipidemia E78.2 ; Renal insufficiency N28.9 ; Hyperkalemia E87.5 ; Swelling of both lower extremities M79.89 and Type 2 diabetes mellitus with hyperglycemia E11.65 [facility] [address] [address] Mar, [facility] [id number] [place] [address]- 7321 Feb, [facility] [address] [address] Feb, Essential hypertension I10 ; Mixed hyperlipidemia E78.2 ; Renal insufficiency N28.9 ; Hyperkalemia E87.5 ; Swelling of both lower extremities M79.89 and Type 2 diabetes mellitus with hyperglycemia E11.65 [facility] [address] [place] [id number] Feb, Encounter for dental examination Z01.20 [facility] [id number] [place] [id number]- 1826 January, Essential hypertension I10 [facility] [address] [address] January, Essential hypertension I10 ; Mixed hyperlipidemia E78.2 ; Renal insufficiency N28.9 ; Hyperkalemia E87.5 ; Swelling of both lower extremities M79.89 and Type 2 diabetes mellitus with hyperglycemia E11.65 [facility] [address] [place] [id number] January, Dental examination Z01.20 [facility] [id number] [place] [address] 8[address]37- 1459 Dec, Dental examination Z01.20 [facility] [id number] [place] [address] 86204- 5640 Dec, Type 2 diabetes mellitus with hyperglycemia, without long- term current use of insulin E11.65 ; Essential hypertension I10 ; Mixed hyperlipidemia E78.2 ; Renal insufficiency N28.9 ; Hyperkalemia E87.5 and Swelling of both lower extremities M79.89 [place] [id number] [place] [address]- 1378 Nov, Hyperkalemia E87.5 [facility] [id number] [place] [address] 76965- 6596 Nov, Hyperkalemia E87.5 [facility] [id number] [place] [id number]- 5910 Nov, Type 2 diabetes mellitus with hyperglycemia, without long- term current use of insulin E11.65 ; Essential hypertension I10 ; Mixed hyperlipidemia E78.2 ; Renal insufficiency N28.9 ; Hyperkalemia E87.5 and Swelling of both lower extremities M79.89 [address] [id number] [place] [address]19- 0285 Oct, Type 2 diabetes mellitus with hyperglycemia, without long- term current use of insulin E11.65 ; Essential hypertension I10 ; Mixed hyperlipidemia E78.2 ; Renal insufficiency N28.9 ; Hyperkalemia E87.5 and Swelling of both lower extremities M79.89 [facility] [address] [address]- [address] Aug, Type 2 diabetes mellitus with hyperglycemia, without long- term current use of insulin E11.65 ; Essential hypertension I10 ; Mixed hyperlipidemia E78.2 ; Renal insufficiency N28.9 ; Hyperkalemia E87.5 and Swelling of both lower extremities M79.89 [facility] [id number] [place] [address] 20772- 5730 Aug, Type 2 diabetes mellitus with hyperglycemia, without long- term current use of insulin E11.65 ; Essential hypertension I10 ; Mixed hyperlipidemia E78.2 ; Renal insufficiency N28.9 ; Hyperkalemia E87.5 and Swelling of both lower extremities M79.89 [facility] [id number] [place] [address] 01425- 5062 Aug, Mixed hyperlipidemia E78.2 [facility] [id number] [place] [address] 48821- 1328 Aug, Type 2 diabetes mellitus with hyperglycemia, without long- term current use of insulin E11.65 ; Essential hypertension I10 ; Mixed hyperlipidemia E78.2 ; Renal insufficiency N28.9 ; Hyperkalemia E87.5 and Swelling of both lower extremities M79.89 [facility] [id number] [place] [address] 93128- 8124 Jul, [facility] [id number] [place] [id number] Jul, Type 2 diabetes mellitus with hyperglycemia, without long- term current use of insulin E11.65 ; Essential hypertension I10 ; Mixed hyperlipidemia E78.2 ; Renal insufficiency N28.9 ; Hyperkalemia E87.5 ; Weight gain R63.5 and Encounter for immunization Z23 [facility] [id number] [place] [address]6870- 8293 Jun, Type 2 diabetes mellitus with hyperglycemia, without long- term current use of insulin E11.65 ; Essential hypertension I10 ; Mixed hyperlipidemia E78.2 ; Renal insufficiency N28.9 and Hyperkalemia E87.5 [facility] [address] [address]- [address] Jun, [facility] [id number] [place] [address] 12697- 4327 May, Type 2 diabetes mellitus with hyperglycemia, without long- term current use of insulin E11.65 ; Essential hypertension I10 ; Mixed hyperlipidemia E78.2 ; Renal insufficiency N28.9 and Hyperkalemia E87.5 [facility] [id number] [place] [address] 47562- 5034 Apr, Type 2 diabetes mellitus with hyperglycemia, without long- term current use of insulin E11.65 ; Essential hypertension I10 ; Mixed hyperlipidemia E78.2 ; Renal insufficiency N28.9 and Hyperkalemia E87.5 [facility] [id number] [place] [address] 67951- 5312 Apr, [facility] [id number] [place] [address] 36775- 6384 Apr, Type 2 diabetes mellitus with hyperglycemia, without long- term current use of insulin E11.65 ; Essential hypertension I10 ; Mixed hyperlipidemia E78.2 and Renal insufficiency N28.9 [facility] [id number] [place] [address] 22773- 8836 Mar, [facility] [address] [address]- 0362 Mar, Type 2 diabetes mellitus with hyperglycemia, without long- term current use of insulin E11.65 ; Essential hypertension I10 ; Mixed hyperlipidemia E78.2 and Renal insufficiency N28.9 [facility] [place] [address] [place] [address]- 7852 Feb, Type 2 diabetes mellitus with hyperglycemia, without long- term current use of insulin E11.65 [facility] [id number] [place] [address] 25941- 5507 Feb, [facility] [id number] [place] [address] 49651- 3945 January, [facility] [id number] [place] [address] 31389- 4431 January, Type 2 diabetes mellitus with hyperglycemia, without long- term current use of insulin E11.65 ; Essential hypertension I10 and Mixed hyperlipidemia E78.2 [facility] [id number] [place] [address] 85187- 3845 Dec, [facility] [id number] [place] [address] 87534- 6568 Dec, [facility] [id number] [place] [address] 04140- 8784 Oct, [facility] [id number] [place] [address] 51205- 9068 Oct, [facility] [id number] [place] [address] 37107- 7184 Oct, [facility] [id number] [place] [address] 36351- 9876 Oct, IMMUNIZATIONS No Known Immunizations SOCIAL HISTORY Never Assessed REASON FOR VISIT RX to [facility] PLAN OF CARE VITAL SIGNS MEDICATIONS Medication Instructions Dosage Frequency Start Date End Date Duration Status Gregorydueto 2.5-500 MG DX- E11.22 Twice a day 1 tablet with meals 12h 30 January Active RESULTS No Results PROCEDURES No Known [...]
--- OUTSIDE RECORDS SUMMARY | 2018-12-15 19:49 | XMS REPORT ---
Author Author ANI CASTILLO Organization [facility] Address [address] [place] [address] Care Team Providers Care Sorter/Assay Tech Name Role Phone ANI CASTILLO Unavailable PROBLEMS Type Condition ICD9-CM Code [id number] Code Onset Dates Condition Status SNOMED Code Problem Periodontal disease K05.6 Active 0141149 Problem Body mass index (BMI) of 39.0-39.9 in adult Z68.39 Active 965249196 Problem Caries of cementum teeth K02.7 Active 50813312 Problem Type 2 diabetes mellitus with diabetic neuropathic arthropathy E11.610 Active 507476239 Problem Morbid (severe) obesity due to excess calories E66.01 Active 534188256 Problem Non compliance with medical treatment Z91.19 Active 6824524 Problem Type 2 diabetes mellitus with hyperglycemia, without long-term current use of insulin E11.65 Active 499100608146774 Problem 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 Active 49520044 Problem Renal insufficiency N28.9 Active 181049064 Problem Essential hypertension I10 Active 14288603 Problem Mixed hyperlipidemia E78.2 Active 414144690 Problem 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 Active 80801570 Problem custodial current use of insulin Z79.4 Active 984071277 Problem Hyperkalemia E87.5 Active 04955465 Problem Diabetic polyneuropathy associated with type 2 diabetes mellitus E11.42 Active 367457983 Problem Swelling of both lower extremities M79.89 Active [id number] Problem Chronic kidney disease, stage III (moderate) N18.3 Active 647162939 ALLERGIES No Information ENCOUNTERS Encounter Location Date Diagnosis [facility] [id number] [address] Apr, Type 2 diabetes mellitus with diabetic neuropathic arthropathy E11.610 [facility] [address] [address] 20 Mar, 2018 [facility] [address] [address] 17 Mar, 2018 Type 2 diabetes mellitus with diabetic neuropathic arthropathy E11.610 [facility] [address] [address] 13 Mar, 2018 Type 2 diabetes mellitus with diabetic neuropathic arthropathy E11.610 ; 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 ; 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 ; Mixed hyperlipidemia E78.2 ; Essential hypertension I10 ; Renal insufficiency N28.9 ; Dental caries K02.9 ; 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 ; Irritant contact dermatitis due to detergent L24.0 ; Morbid (severe) obesity due to excess calories E66.01 ; Body mass index (BMI) of 39.0-39.9 in adult Z68.39 and Non compliance with medical treatment Z91.19 [facility] [facility] [address] [id number] 10 Mar, 2018 Dental caries K02.9 [facility] [id number] [place] [address] 18 Feb, 2018 [facility] [id number] [place] [address]- 115[address] Feb, [facility] [address] [address] Feb, [facility] [address] [address] Feb, [facility] [id number] [place] [address] January, [facility] [id number] [place] [address] [phone] 9088 January, [facility] [address] [id number] January, 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 [facility] [address] [place] [id number] Dec, Dental caries K02.9 [address] [id number] [place] [address]47- 1632 Dec, 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 [facility] [address] [address] Dec, Dental examination Z01.20 ; Periodontal disease K05.6 and Caries of cementum teeth K02.7 [facility] [address] [address] Dec, 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 ; Chronic kidney disease, stage III (moderate) N18.3 ; custodial current use of insulin Z79.4 ; Essential hypertension I10 ; Mixed hyperlipidemia E78.2 ; Diabetic polyneuropathy associated with type 2 diabetes mellitus E11.42 and Dental abscess K04.7 [facility] [address] [address] Nov, [facility] [id number] [address] Nov, Mixed hyperlipidemia E78.2 ; Essential hypertension I10 and 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 [facility] [address] [address] Oct, [facility] [address] [address] Sep, [facility] [address] [address] Aug, Diabetic polyneuropathy associated with type 2 diabetes mellitus E11.42 [facility] [address] [address] Aug, 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 ; Chronic kidney disease, stage III (moderate) N18.3 ; 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 ; Essential hypertension I10 ; Mixed hyperlipidemia E78.2 and Diabetic polyneuropathy associated with type 2 diabetes mellitus E11.42 [facility] [address] [address] Jul, Type 2 diabetes mellitus with hyperglycemia E11.65 and Mixed hyperlipidemia E78.2 [facility] [id number] [place] [address]- 6552 Jun, Type 2 diabetes mellitus with hyperglycemia E11.65 [facility] [id number] [place] [address]- 0401 Jun, Essential hypertension I10 [facility] [id number] [place] [address] 97590- 2816 May, [facility] [id number] [place] [address] 97935- 9633 May, Type 2 diabetes mellitus with hyperglycemia E11.65 and Essential hypertension I10 [facility] [id number] [place] [address]8795- 5[address] May, Essential hypertension I10 ; Mixed hyperlipidemia E78.2 ; Renal insufficiency N28.9 ; Hyperkalemia E87.5 ; Swelling of both lower extremities M79.89 and Type 2 diabetes mellitus with hyperglycemia E11.65 [facility] [address] [address] Apr, Essential hypertension I10 ; Mixed hyperlipidemia E78.2 ; Renal insufficiency N28.9 ; Hyperkalemia E87.5 ; Swelling of both lower extremities M79.89 and Type 2 diabetes mellitus with hyperglycemia E11.65 [facility] [address] [address] Mar, [facility] [id number] [place] [address]24- [address] Feb, [facility] [address] [address] Feb, Essential hypertension I10 ; Mixed hyperlipidemia E78.2 ; Renal insufficiency N28.9 ; Hyperkalemia E87.5 ; Swelling of both lower extremities M79.89 and Type 2 diabetes mellitus with hyperglycemia E11.65 [facility] [id number] [place] [phone] Feb, Encounter for dental examination Z01.20 [facility] [id number] [place] [phone] January, Essential hypertension I10 [facility] [address] [address] January, Essential hypertension I10 ; Mixed hyperlipidemia E78.2 ; Renal insufficiency N28.9 ; Hyperkalemia E87.5 ; Swelling of both lower extremities M79.89 and Type 2 diabetes mellitus with hyperglycemia E11.65 [facility] [id number] [place] [phone] January, Dental examination Z01.20 [facility] [id number] [place] [address]79- 4288 Dec, Dental examination Z01.20 [facility] [id number] [place] [address] 69368- 3797 Dec, Type 2 diabetes mellitus with hyperglycemia, without long- term current use of insulin E11.65 ; Essential hypertension I10 ; Mixed hyperlipidemia E78.2 ; Renal insufficiency N28.9 ; Hyperkalemia E87.5 and Swelling of both lower extremities M79.89 [address] [id number] [place] [address] 21472- 3005 Nov, Hyperkalemia E87.5 [facility] [id number] [place] [address] 06583- 3384 Nov, Hyperkalemia E87.5 [facility] [id number] [place] [address] [phone]- 0327 Nov, Type 2 diabetes mellitus with hyperglycemia, without long- term current use of insulin E11.65 ; Essential hypertension I10 ; Mixed hyperlipidemia E78.2 ; Renal insufficiency N28.9 ; Hyperkalemia E87.5 and Swelling of both lower extremities M79.89 [address] [id number] [place] [address] 17296- 5004 Oct, Type 2 diabetes mellitus with hyperglycemia, without long- term current use of insulin E11.65 ; Essential hypertension I10 ; Mixed hyperlipidemia E78.2 ; Renal insufficiency N28.9 ; Hyperkalemia E87.5 and Swelling of both lower extremities M79.89 [facility] [address] [address]- [address]67 Aug, Type 2 diabetes mellitus with hyperglycemia, without long- term current use of insulin E11.65 ; Essential hypertension I10 ; Mixed hyperlipidemia E78.2 ; Renal insufficiency N28.9 ; Hyperkalemia E87.5 and Swelling of both lower extremities M79.89 [facility] [id number] [place] [address] 48132- 3665 Aug, Type 2 diabetes mellitus with hyperglycemia, without long- term current use of insulin E11.65 ; Essential hypertension I10 ; Mixed hyperlipidemia E78.2 ; Renal insufficiency N28.9 ; Hyperkalemia E87.5 and Swelling of both lower extremities M79.89 [facility] [id number] [place] [address] 55475- 4932 Aug, Mixed hyperlipidemia E78.2 [facility] [id number] [place] [address] 60123- 4269 Aug, Type 2 diabetes mellitus with hyperglycemia, without long- term current use of insulin E11.65 ; Essential hypertension I10 ; Mixed hyperlipidemia E78.2 ; Renal insufficiency N28.9 ; Hyperkalemia E87.5 and Swelling of both lower extremities M79.89 [facility] [id number] [place] [address] 05425- 7704 Jul, [facility] [id number] [place] [phone] Jul, Type 2 diabetes mellitus with hyperglycemia, without long- term current use of insulin E11.65 ; Essential hypertension I10 ; Mixed hyperlipidemia E78.2 ; Renal insufficiency N28.9 ; Hyperkalemia E87.5 ; Weight gain R63.5 and Encounter for immunization Z23 [facility] [id number] [place] [address] 65191- 6487 Jun, Type 2 diabetes mellitus with hyperglycemia, without long- term current use of insulin E11.65 ; Essential hypertension I10 ; Mixed hyperlipidemia E78.2 ; Renal insufficiency N28.9 and Hyperkalemia E87.5 [facility] [address] [address]- [address]329 Jun, [facility] [id number] [place] [address] 24697- 0271 May, Type 2 diabetes mellitus with hyperglycemia, without long- term current use of insulin E11.65 ; Essential hypertension I10 ; Mixed hyperlipidemia E78.2 ; Renal insufficiency N28.9 and Hyperkalemia E87.5 [facility] [id number] [place] [address] 97723- 5768 Apr, Type 2 diabetes mellitus with hyperglycemia, without long- term current use of insulin E11.65 ; Essential hypertension I10 ; Mixed hyperlipidemia E78.2 ; Renal insufficiency N28.9 and Hyperkalemia E87.5 [facility] [id number] [place] [address] 62657- 0630 Apr, [facility] [id number] [place] [address] 63295- 5288 Apr, Type 2 diabetes mellitus with hyperglycemia, without long- term current use of insulin E11.65 ; Essential hypertension I10 ; Mixed hyperlipidemia E78.2 and Renal insufficiency N28.9 [facility] [id number] [place] [address] 77763- 3224 Mar, [facility] [address] 19390- 5941 Mar, Type 2 diabetes mellitus with hyperglycemia, without long- term current use of insulin E11.65 ; Essential hypertension I10 ; Mixed hyperlipidemia E78.2 and Renal insufficiency N28.9 [facility] [place] [address] [place] [address]- 1076 Feb, Type 2 diabetes mellitus with hyperglycemia, without long- term current use of insulin E11.65 [facility] [id number] [place] [address] 34397- 2132 Feb, [facility] [id number] [place] [address] 21811- 2796 January, [facility] [id number] [place] [address] 69047- 1132 January, Type 2 diabetes mellitus with hyperglycemia, without long- term current use of insulin E11.65 ; Essential hypertension I10 and Mixed hyperlipidemia E78.2 [facility] [id number] [place] [address] 51629- 2095 Dec, [facility] [id number] [place] [address] 76326- 3332 Dec, [facility] [id number] [place] [address] 91798- 3279 Oct, [facility] [id number] [place] [address] 28980- 2044 Oct, [facility] [id number] [place] [address] 75339- 8890 Oct, [facility] [id number] [place] [address] 73197- 0518 Oct, IMMUNIZATIONS No Known Immunizations SOCIAL HISTORY Never Assessed REASON FOR VISIT medication questions PLAN OF CARE VITAL SIGNS MEDICATIONS Medication Instructions Dosage Frequency Start Date End Date Duration Status MetFORMIN HCl ER 500 mg Orally twice a day 1 tablet 12h January, 30 day(s) Active RESULTS No Results PROCEDURES No Known [...]
--- OUTSIDE RECORDS SUMMARY | 2018-12-15 19:49 | XMS REPORT ---
Author Author ANI CASTILLO Organization [facility] Address [address] [place] [address] Care Team Providers Care Radiology Transporter Name Role Phone ANI CASTILLO Unavailable PROBLEMS Type Condition ICD9-CM Code SRV53-UW Code Onset Dates Condition Status SNOMED Code Problem Periodontal disease K05.6 Active 8627464 Problem Body mass index (BMI) of 39.0-39.9 in adult Z68.39 Active 893539311 Problem Caries of cementum teeth K02.7 Active 87272235 Problem Type 2 diabetes mellitus with diabetic neuropathic arthropathy E11.610 Active 075335399 Problem Morbid (severe) obesity due to excess calories E66.01 Active 505983865 Problem Non compliance with medical treatment Z91.19 Active 1970986 Problem Type 2 diabetes mellitus with hyperglycemia, without long-term current use of insulin E11.65 Active 394198093045265 Problem 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 Active 49095709 Problem Renal insufficiency N28.9 Active 915620639 Problem Essential hypertension I10 Active 78266879 Problem Mixed hyperlipidemia E78.2 Active 029183847 Problem 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 Active 25598618 Problem FPC current use of insulin Z79.4 Active 834371972 Problem Hyperkalemia E87.5 Active 29189067 Problem Diabetic polyneuropathy associated with type 2 diabetes mellitus E11.42 Active 099908410 Problem Swelling of both lower extremities M79.89 Active 53339280552587915 Problem Chronic kidney disease, stage III (moderate) N18.3 Active 584114698 ALLERGIES No Information ENCOUNTERS Encounter Location Date Diagnosis [facility] [id number], [place] [address] Apr, Type 2 diabetes mellitus with diabetic neuropathic arthropathy E11.610 [facility] [address], [place] [address] 20 Mar, 2018 [facility] [address], [place] [address] 17 Mar, 2018 Type 2 diabetes mellitus with diabetic neuropathic arthropathy E11.610 [facility] [address], [place] [address] 13 Mar, 2018 Type 2 diabetes mellitus with diabetic neuropathic arthropathy E11.610 ; 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 ; 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 ; Mixed hyperlipidemia E78.2 ; Essential hypertension I10 ; Renal insufficiency N28.9 ; Dental caries K02.9 ; 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 ; Irritant contact dermatitis due to detergent L24.0 ; Morbid (severe) obesity due to excess calories E66.01 ; Body mass index (BMI) of 39.0-39.9 in adult Z68.39 and Non compliance with medical treatment Z91.19 [facility] [id number] [id number] 10 Mar, 2018 Dental caries K02.9 [facility] [id number] [place] [address] 18 Feb, 2018 [facility] [id number] [place] [address]33- [address] Feb, [facility] [address], [place] [address] Feb, [facility] [address] [address] Feb, [facility] [id number] [place] [address]486[address] 74[address] January, [facility] [id number] [place] [id number] January, [facility] [address] [address] January, 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 [facility] [address] [place] [id number] Dec, Dental caries K02.9 [id number] [place] [address]380[address] 34[address] Dec, 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 [facility] [address], [place] [address] Dec, Dental examination Z01.20 ; Periodontal disease K05.6 and Caries of cementum teeth K02.7 [facility] [address], [place] [address] Dec, 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 ; Chronic kidney disease, stage III (moderate) N18.3 ; FPC current use of insulin Z79.4 ; Essential hypertension I10 ; Mixed hyperlipidemia E78.2 ; Diabetic polyneuropathy associated with type 2 diabetes mellitus E11.42 and Dental abscess K04.7 [facility] [facility] [address], [place] [address] Nov, [facility] [id number], [place] [address] Nov, Mixed hyperlipidemia E78.2 ; Essential hypertension I10 and 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 [facility] [address], [place] [address] Oct, [facility] [address], [place] [address] Sep, [facility] [address], [place] [address] Aug, Diabetic polyneuropathy associated with type 2 diabetes mellitus E11.42 [facility] [address], [place] [address] Aug, 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 ; Chronic kidney disease, stage III (moderate) N18.3 ; 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 ; Essential hypertension I10 ; Mixed hyperlipidemia E78.2 and Diabetic polyneuropathy associated with type 2 diabetes mellitus E11.42 [facility] [address], [place] [address] Jul, Type 2 diabetes mellitus with hyperglycemia E11.65 and Mixed hyperlipidemia E78.2 [facility] [id number] [place] [address]- [address] Jun, Type 2 diabetes mellitus with hyperglycemia E11.65 [facility] [id number] [place] [address] 71502- 7422 Jun, Essential hypertension I10 [facility] [facility] [id number] [place] [address]20- [address] May, [facility] [id number] [place] [address]48- 90[address] May, Type 2 diabetes mellitus with hyperglycemia E11.65 and Essential hypertension I10 [place] [id number] [place] [address]12- 9455 May, Essential hypertension I10 ; Mixed hyperlipidemia E78.2 ; Renal insufficiency N28.9 ; Hyperkalemia E87.5 ; Swelling of both lower extremities M79.89 and Type 2 diabetes mellitus with hyperglycemia E11.65 [facility] [address], [place] [address] Apr, Essential hypertension I10 ; Mixed hyperlipidemia E78.2 ; Renal insufficiency N28.9 ; Hyperkalemia E87.5 ; Swelling of both lower extremities M79.89 and Type 2 diabetes mellitus with hyperglycemia E11.65 [place] [address], [place] [address] Mar, [facility] [id number] [place] [address]60[address] 46[address] Feb, [address] [address], [place] [address] Feb, Essential hypertension I10 ; Mixed hyperlipidemia E78.2 ; Renal insufficiency N28.9 ; Hyperkalemia E87.5 ; Swelling of both lower extremities M79.89 and Type 2 diabetes mellitus with hyperglycemia E11.65 [facility] [id number] [place] [id number] Feb, Encounter for dental examination Z01.20 [facility] [id number] [place] [phone]- [address] January, Essential hypertension I10 [facility] [address] [address] January, Essential hypertension I10 ; Mixed hyperlipidemia E78.2 ; Renal insufficiency N28.9 ; Hyperkalemia E87.5 ; Swelling of both lower extremities M79.89 and Type 2 diabetes mellitus with hyperglycemia E11.65 [facility] [id number] [place] [id number] January, Dental examination Z01.20 [facility] [id number] [place] [address] 78355- 3235 Dec, Dental examination Z01.20 [facility] [id number] [place] [address] 11895- 6271 Dec, Type 2 diabetes mellitus with hyperglycemia, without long- term current use of insulin E11.65 ; Essential hypertension I10 ; Mixed hyperlipidemia E78.2 ; Renal insufficiency N28.9 ; Hyperkalemia E87.5 and Swelling of both lower extremities M79.89 [id number] [place] [address] 20228- 6599 Nov, Hyperkalemia E87.5 [facility] [place] [id number] [place] [address] 11971- 8764 Nov, Hyperkalemia E87.5 [facility] [id number] [place] [address] [phone]- 5921 Nov, Type 2 diabetes mellitus with hyperglycemia, without long- term current use of insulin E11.65 ; Essential hypertension I10 ; Mixed hyperlipidemia E78.2 ; Renal insufficiency N28.9 ; Hyperkalemia E87.5 and Swelling of both lower extremities M79.89 [place] [id number] [place] [address] 15850- 3880 Oct, Type 2 diabetes mellitus with hyperglycemia, without long- term current use of insulin E11.65 ; Essential hypertension I10 ; Mixed hyperlipidemia E78.2 ; Renal insufficiency N28.9 ; Hyperkalemia E87.5 and Swelling of both lower extremities M79.89 [place] [address] [address] Aug, Type 2 diabetes mellitus with hyperglycemia, without long- term current use of insulin E11.65 ; Essential hypertension I10 ; Mixed hyperlipidemia E78.2 ; Renal insufficiency N28.9 ; Hyperkalemia E87.5 and Swelling of both lower extremities M79.89 [facility] [place] [id number] [place] [address] 13476- 8857 Aug, Type 2 diabetes mellitus with hyperglycemia, without long- term current use of insulin E11.65 ; Essential hypertension I10 ; Mixed hyperlipidemia E78.2 ; Renal insufficiency N28.9 ; Hyperkalemia E87.5 and Swelling of both lower extremities M79.89 [place] [place] [id number] [place] [address] 12988- 6118 Aug, Mixed hyperlipidemia E78.2 [facility] [id number] [place] [address] 32982- 0565 Aug, Type 2 diabetes mellitus with hyperglycemia, without long- term current use of insulin E11.65 ; Essential hypertension I10 ; Mixed hyperlipidemia E78.2 ; Renal insufficiency N28.9 ; Hyperkalemia E87.5 and Swelling of both lower extremities M79.89 [place] [id number] [place] [address] 10263- 8523 Jul, [id number] [place] [phone] Jul, Type 2 diabetes mellitus with hyperglycemia, without long- term current use of insulin E11.65 ; Essential hypertension I10 ; Mixed hyperlipidemia E78.2 ; Renal insufficiency N28.9 ; Hyperkalemia E87.5 ; Weight gain R63.5 and Encounter for immunization Z23 [place] [id number] [place] [address] 15289- 9038 Jun, Type 2 diabetes mellitus with hyperglycemia, without long- term current use of insulin E11.65 ; Essential hypertension I10 ; Mixed hyperlipidemia E78.2 ; Renal insufficiency N28.9 and Hyperkalemia E87.5 [address] [address] [address] [address]- 2310 Jun, [place] [id number] [place] [address] 05973- 3190 May, Type 2 diabetes mellitus with hyperglycemia, without long- term current use of insulin E11.65 ; Essential hypertension I10 ; Mixed hyperlipidemia E78.2 ; Renal insufficiency N28.9 and Hyperkalemia E87.5 [place] [id number] [place] [address] 38944- 4143 Apr, Type 2 diabetes mellitus with hyperglycemia, without long- term current use of insulin E11.65 ; Essential hypertension I10 ; Mixed hyperlipidemia E78.2 ; Renal insufficiency N28.9 and Hyperkalemia E87.5 [place] [id number] [place] [address] 71482- 2310 Apr, [place] [id number] [place] [address] 29530- 9253 Apr, Type 2 diabetes mellitus with hyperglycemia, without long- term current use of insulin E11.65 ; Essential hypertension I10 ; Mixed hyperlipidemia E78.2 and Renal insufficiency N28.9 [place] [id number] [place] [address] 54302- 3920 Mar, [address] [address] 8[address]68- 6164 Mar, Type 2 diabetes mellitus with hyperglycemia, without long- term current use of insulin E11.65 ; Essential hypertension I10 ; Mixed hyperlipidemia E78.2 and Renal insufficiency N28.9 [place] [address] [place] [address]- 3463 Feb, Type 2 diabetes mellitus with hyperglycemia, without long- term current use of insulin E11.65 [place] [id number] [place] [address] 01295- 7818 Feb, [facility] [id number] [place] [address] 86396- 9121 January, [place] [id number] [place] [address] 47205- 3644 January, Type 2 diabetes mellitus with hyperglycemia, without long- term current use of insulin E11.65 ; Essential hypertension I10 and Mixed hyperlipidemia E78.2 [place] [id number] [place] [address] 82230- 3932 Dec, [place] [id number] [place] [address] 91357- 5906 Dec, [place] [id number] [place] [address] 94026- 8110 Oct, [place] [id number] [place] [address] 46108- 1296 Oct, [place] [id number] [place] [address] 93803- 0906 Oct, [place] [id number] [place] [address] 87114- 1674 Oct, IMMUNIZATIONS No Known Immunizations SOCIAL HISTORY Never Assessed REASON FOR VISIT bladder PLAN OF CARE VITAL SIGNS MEDICATIONS Medication Instructions Dosage Frequency Start Date End Date Duration Status MetFORMIN HCl ER 500 mg Orally twice a day 1 tablet with evening meal 12h January, 30 day(s) Active RESULTS No [...]
--- OUTSIDE RECORDS SUMMARY | 2018-12-15 19:49 | XMS REPORT ---
Author Author ANI CASTILLO Organization [facility] Address [address] [place] [address] Care Team Providers Care Blow Torch Burner Name Role Phone ANI CASTILLO Unavailable PROBLEMS Type Condition ICD9-CM Code KTP02-JK Code Onset Dates Condition Status SNOMED Code Problem Periodontal disease K05.6 Active 9920149 Problem Body mass index (BMI) of 39.0-39.9 in adult Z68.39 Active 802706431 Problem Caries of cementum teeth K02.7 Active 16789626 Problem Type 2 diabetes mellitus with diabetic neuropathic arthropathy E11.610 Active 825711455 Problem Morbid (severe) obesity due to excess calories E66.01 Active 644841194 Problem Non compliance with medical treatment Z91.19 Active 0697045 Problem Type 2 diabetes mellitus with hyperglycemia, without long-term current use of insulin E11.65 Active 171049337723301 Problem 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 Active 57041235 Problem Renal insufficiency N28.9 Active 634329995 Problem Essential hypertension I10 Active 73904137 Problem Mixed hyperlipidemia E78.2 Active 565907499 Problem 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 Active 74170162 Problem residential current use of insulin Z79.4 Active 377962678 Problem Hyperkalemia E87.5 Active 21941083 Problem Diabetic polyneuropathy associated with type 2 diabetes mellitus E11.42 Active 993018403 Problem Swelling of both lower extremities M79.89 Active [id number] Problem Chronic kidney disease, stage III (moderate) N18.3 Active 144933619 ALLERGIES No Information ENCOUNTERS Encounter Location Date Diagnosis [facility] [id number] [address] Apr, Type 2 diabetes mellitus with diabetic neuropathic arthropathy E11.610 [facility] [address] [address] 20 Mar, 2018 [facility] [address] [address] 17 Mar, 2018 Type 2 diabetes mellitus with diabetic neuropathic arthropathy E11.610 [facility] [address] [address] 13 Mar, 2018 Type 2 diabetes mellitus with diabetic neuropathic arthropathy E11.610 ; 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 ; rn long term 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 ; Mixed [...] [facility] [address] [id number] 10 Mar, 2018 Dental caries K02.9 [facility] [id number] [place] [address] 18 Feb, 2018 [facility] [id number] [place] [address]- [address]164 Feb, [facility] [address] [address] Feb, [facility] [address] [address] Feb, [facility] [id number] [place] [address]- [address] January, [facility] [id number] [place] [address] [id number] January, [facility] [address] [id number] January, 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 [facility] [address] [place] [id number] Dec, Dental caries K02.9 [address] [id number] [place] [address]- 4766 Dec, 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 [place] [address] [address] Dec, Dental examination Z01.20 ; Periodontal disease K05.6 and Caries of cementum teeth K02.7 [place] [address] [address] Dec, 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 ; Chronic kidney disease, stage III (moderate) N18.3 ; residential current use of insulin Z79.4 ; Essential hypertension I10 ; Mixed hyperlipidemia E78.2 ; Diabetic polyneuropathy associated with type 2 diabetes mellitus E11.42 and Dental abscess K04.7 [place] [place] [address], [place] [address] Nov, [place] [id number] [address] Nov, Mixed hyperlipidemia E78.2 ; Essential hypertension I10 and 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 [place] [address] [address] Oct, [address] [address] [address] Sep, [place] [address] [address] Aug, Diabetic polyneuropathy associated with type 2 diabetes mellitus E11.42 [place] [address] [address] Aug, 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 ; Chronic kidney disease, stage III (moderate) N18.3 ; rn long term 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 ; Essential hypertension I10 ; Mixed hyperlipidemia E78.2 and Diabetic polyneuropathy associated with type 2 diabetes mellitus E11.42 [facility] [address], [place] [address] Jul, Type 2 diabetes mellitus with hyperglycemia E11.65 and Mixed hyperlipidemia E78.2 [place] [id number] [place] [address]178- 8994 Jun, Type 2 diabetes mellitus with hyperglycemia E11.65 [place] [id number] [place] [address]65- 2878 Jun, Essential hypertension I10 [place] [id number] [place] [address]62- 3972 May, [place] [id number] [place] [address] 86862- 1064 May, Type 2 diabetes mellitus with hyperglycemia E11.65 and Essential hypertension I10 [place] [id number] [place] [address]25- 4000 May, Essential hypertension I10 ; Mixed hyperlipidemia E78.2 ; Renal insufficiency N28.9 ; Hyperkalemia E87.5 ; Swelling of both lower extremities M79.89 and Type 2 diabetes mellitus with hyperglycemia E11.65 [place] [address] [address] Apr, Essential hypertension I10 ; Mixed hyperlipidemia E78.2 ; Renal insufficiency N28.9 ; Hyperkalemia E87.5 ; Swelling of both lower extremities M79.89 and Type 2 diabetes mellitus with hyperglycemia E11.65 [place] [address], [place] [address] Mar, [place] [id number] [place] [address] 36921- 5491 Feb, [address] [address] [address] Feb, Essential hypertension I10 ; Mixed hyperlipidemia E78.2 ; Renal insufficiency N28.9 ; Hyperkalemia E87.5 ; Swelling of both lower extremities M79.89 and Type 2 diabetes mellitus with hyperglycemia E11.65 [facility] [address] [place] [id number] Feb, Encounter for dental examination Z01.20 [facility] [id number] [place] [address] [id number]- 3186 January, Essential hypertension I10 [facility] [address] [address] January, Essential hypertension I10 ; Mixed hyperlipidemia E78.2 ; Renal insufficiency N28.9 ; Hyperkalemia E87.5 ; Swelling of both lower extremities M79.89 and Type 2 diabetes mellitus with hyperglycemia E11.65 [facility] [address] [place] [id number] January, Dental examination Z01.20 [facility] [id number] [place] [address] 60397- 4297 Dec, Dental examination Z01.20 [facility] [id number] [place] [address] 15633- 6918 Dec, Type 2 diabetes mellitus with hyperglycemia, without long- term current use of insulin E11.65 ; Essential hypertension I10 ; Mixed hyperlipidemia E78.2 ; Renal insufficiency N28.9 ; Hyperkalemia E87.5 and Swelling of both lower extremities M79.89 [place] [address] [place] [address] 82929- 2639 Nov, Hyperkalemia E87.5 [place] [id number] [place] [address] 64303- 2763 Nov, Hyperkalemia E87.5 [place] [id number] [place] [address] [id number]- 7671 Nov, Type 2 diabetes mellitus with hyperglycemia, without long- term current use of insulin E11.65 ; Essential hypertension I10 ; Mixed hyperlipidemia E78.2 ; Renal insufficiency N28.9 ; Hyperkalemia E87.5 and Swelling of both lower extremities M79.89 [place] [id number] [place] [address]37- 3064 Oct, Type 2 diabetes mellitus with hyperglycemia, without long- term current use of insulin E11.65 ; Essential hypertension I10 ; Mixed hyperlipidemia E78.2 ; Renal insufficiency N28.9 ; Hyperkalemia E87.5 and Swelling of both lower extremities M79.89 [address] [address] [address]- [address]15 Aug, Type 2 diabetes mellitus with hyperglycemia, without long- term current use of insulin E11.65 ; Essential hypertension I10 ; Mixed hyperlipidemia E78.2 ; Renal insufficiency N28.9 ; Hyperkalemia E87.5 and Swelling of both lower extremities M79.89 [place] [id number] [place] [address] 63367- 1672 Aug, Type 2 diabetes mellitus with hyperglycemia, without long- term current use of insulin E11.65 ; Essential hypertension I10 ; Mixed hyperlipidemia E78.2 ; Renal insufficiency N28.9 ; Hyperkalemia E87.5 and Swelling of both lower extremities M79.89 [place] [id number] [place] [address] 61234- 0922 Aug, Mixed hyperlipidemia E78.2 [place] [id number] [place] [address] 70811- 9248 Aug, Type 2 diabetes mellitus with hyperglycemia, without long- term current use of insulin E11.65 ; Essential hypertension I10 ; Mixed hyperlipidemia E78.2 ; Renal insufficiency N28.9 ; Hyperkalemia E87.5 and Swelling of both lower extremities M79.89 [place] [id number] [place] [address] 04840- 4890 Jul, [place] [id number] [place] [id number] Jul, Type 2 diabetes mellitus with hyperglycemia, without long- term current use of insulin E11.65 ; Essential hypertension I10 ; Mixed hyperlipidemia E78.2 ; Renal insufficiency N28.9 ; Hyperkalemia E87.5 ; Weight gain R63.5 and Encounter for immunization Z23 [place] [id number] [place] [address] 45962- 3160 Jun, Type 2 diabetes mellitus with hyperglycemia, without long- term current use of insulin E11.65 ; Essential hypertension I10 ; Mixed hyperlipidemia E78.2 ; Renal insufficiency N28.9 and Hyperkalemia E87.5 [address] [place] [address] [address]- 4668 Jun, [place] [id number] [place] [address] 54301- 2034 May, Type 2 diabetes mellitus with hyperglycemia, without long- term current use of insulin E11.65 ; Essential hypertension I10 ; Mixed hyperlipidemia E78.2 ; Renal insufficiency N28.9 and Hyperkalemia E87.5 [place] [id number] [place] [address] 31615- 9028 Apr, Type 2 diabetes mellitus with hyperglycemia, without long- term current use of insulin E11.65 ; Essential hypertension I10 ; Mixed hyperlipidemia E78.2 ; Renal insufficiency N28.9 and Hyperkalemia E87.5 [place] [id number] [place] [address] 62499- 3390 Apr, [place] [id number] [place] [address] 04792- 2085 Apr, Type 2 diabetes mellitus with hyperglycemia, without long- term current use of insulin E11.65 ; Essential hypertension I10 ; Mixed hyperlipidemia E78.2 and Renal insufficiency N28.9 [place] [id number] [place] [address] 41019- 7092 Mar, [place] [address] [address]- 3417 Mar, Type 2 diabetes mellitus with hyperglycemia, without long- term current use of insulin E11.65 ; Essential hypertension I10 ; Mixed hyperlipidemia E78.2 and Renal insufficiency N28.9 [address] [address] [place] [address]- 2945 Feb, Type 2 diabetes mellitus with hyperglycemia, without long- term current use of insulin E11.65 [place] [id number] [place] [address] 90166- 3076 Feb, [place] [id number] [place] [address] 34201- 1870 January, [place] [id number] [place] [address] 39419- 4661 January, Type 2 diabetes mellitus with hyperglycemia, without long- term current use of insulin E11.65 ; Essential hypertension I10 and Mixed hyperlipidemia E78.2 [place] [id number] [place] [address] 44621- 2543 Dec, [place] [id number] [place] [address] 01468- 9419 Dec, [place] [id number] [place] [address] 40596- 4667 Oct, [place] [id number] [place] [address] 57232- 6861 Oct, [place] [id number] [place] [address] 92759- 2028 Oct, [place] [id number] [place] [address] 93524- 5371 Oct, IMMUNIZATIONS No Known Immunizations SOCIAL HISTORY Never Assessed REASON FOR VISIT Prior Authorization Request PLAN OF CARE VITAL SIGNS MEDICATIONS Medication Instructions Dosage Frequency Start Date End Date Duration Status MetFORMIN HCl ER 500 mg Orally twice a day 1 tablet with evening meal 12h January, 30 day(s) Active Tradjenta 5 mg Orally Once a day 1 tablet 24h January, 30 day(s) Active RESULTS No Results [...]
--- OUTSIDE RECORDS SUMMARY | 2018-12-15 19:50 | XMS REPORT ---
Author Author ANI CASTILLO Organization [facility] Address [address] [place] [address] Care Team Providers Care Risk Control Officer Name Role Phone ANI CASTILLO Unavailable PROBLEMS Type Condition ICD9-CM Code DOP18-CJ Code Onset Dates Condition Status SNOMED Code Problem Periodontal disease K05.6 Active 4212545 Problem Body mass index (BMI) of 39.0-39.9 in adult Z68.39 Active 239634087 Problem Caries of cementum teeth K02.7 Active 84625295 Problem Type 2 diabetes mellitus with diabetic neuropathic arthropathy E11.610 Active 820827143 Problem Morbid (severe) obesity due to excess calories E66.01 Active 045548520 Problem Non compliance with medical treatment Z91.19 Active 9882734 Problem Type 2 diabetes mellitus with hyperglycemia, without long-term current use of insulin E11.65 Active 131402809360446 Problem 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 Active 72502310 Problem Renal insufficiency N28.9 Active 212113050 Problem Essential hypertension I10 Active 84957003 Problem Mixed hyperlipidemia E78.2 Active 802707549 Problem 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 Active 41424981 Problem [facility] current use of insulin Z79.4 Active 479334841 Problem Hyperkalemia E87.5 Active 76245536 Problem Diabetic polyneuropathy associated with type 2 diabetes mellitus E11.42 Active 815763308 Problem Swelling of both lower extremities M79.89 Active 38123261802368664 Problem Chronic kidney disease, stage III (moderate) N18.3 Active 317999057 ALLERGIES No Information ENCOUNTERS Encounter Location Date Diagnosis [facility] [id number], [place] [address] Apr, Type 2 diabetes mellitus with diabetic neuropathic arthropathy E11.610 [facility] [address], [place] [address] 20 Mar, 2018 [facility] [address], [place] [address] 17 Mar, 2018 Type 2 diabetes mellitus with diabetic neuropathic arthropathy E11.610 [facility] [address], [place] [address] 13 Mar, 2018 Type 2 diabetes mellitus with diabetic neuropathic arthropathy E11.610 ; 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 ; 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 ; Mixed hyperlipidemia E78.2 ; Essential hypertension I10 ; Renal insufficiency N28.9 ; Dental caries K02.9 ; 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 ; Irritant contact dermatitis due to detergent L24.0 ; Morbid (severe) obesity due to excess calories E66.01 ; Body mass index (BMI) of 39.0-39.9 in adult Z68.39 and Non compliance with medical treatment Z91.19 [facility] [address] [id number] 10 Mar, 2018 Dental caries K02.9 [facility] [id number] [place] [address] 18 Feb, 2018 [facility] [id number] [place] [address] Feb, [facility] [address], [place] [address] Feb, [facility] [address], [place] [address] Feb, [facility] [id number] [place] [address] 5818 January, [facility] [id number] [place] [phone] January, [facility] [address] [address] January, 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 [facility] [address] [place] [id number] Dec, Dental caries K02.9 [facility] [address] [place] [address]- 7899 Dec, 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 [facility] [address], [place] [address] Dec, Dental examination Z01.20 ; Periodontal disease K05.6 and Caries of cementum teeth K02.7 [facility] [address], [place] [address] Dec, 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 ; Chronic kidney disease, stage III (moderate) N18.3 ; [facility] current use of insulin Z79.4 ; Essential hypertension I10 ; Mixed hyperlipidemia E78.2 ; Diabetic polyneuropathy associated with type 2 diabetes mellitus E11.42 and Dental abscess K04.7 [facility] [address], [place] [address] Nov, [facility] [id number], [place] [address] Nov, Mixed hyperlipidemia E78.2 ; Essential hypertension I10 and 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 [facility] [address], [place] [address] Oct, [facility] [address], [place] [address] Sep, [facility] [address], [place] [address] Aug, Diabetic polyneuropathy associated with type 2 diabetes mellitus E11.42 [facility] [address], [place] [address] Aug, 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 ; Chronic kidney disease, stage III (moderate) N18.3 ; 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 ; Essential hypertension I10 ; Mixed hyperlipidemia E78.2 and Diabetic polyneuropathy associated with type 2 diabetes mellitus E11.42 [facility] [address], [place] [address] Jul, Type 2 diabetes mellitus with hyperglycemia E11.65 and Mixed hyperlipidemia E78.2 [facility] [id number] [place] [address]704- 7907 Jun, Type 2 diabetes mellitus with hyperglycemia E11.65 [facility] [id number] [place] [address] 09899- 9703 Jun, Essential hypertension I10 [facility] [id number] [place] [address] 30762- 5847 May, [facility] [id number] [place] [address] 7[address]32- 4751 May, Type 2 diabetes mellitus with hyperglycemia E11.65 and Essential hypertension I10 [facility] [id number] [place] [address] 07384- 3073 May, Essential hypertension I10 ; Mixed hyperlipidemia E78.2 ; Renal insufficiency N28.9 ; Hyperkalemia E87.5 ; Swelling of both lower extremities M79.89 and Type 2 diabetes mellitus with hyperglycemia E11.65 [facility] [address], [place] [address] Apr, Essential hypertension I10 ; Mixed hyperlipidemia E78.2 ; Renal insufficiency N28.9 ; Hyperkalemia E87.5 ; Swelling of both lower extremities M79.89 and Type 2 diabetes mellitus with hyperglycemia E11.65 [facility] [address], [place] [address] Mar, [facility] [id number] [place] [address] 45743- 7289 Feb, [facility] [address], [place] [address] Feb, Essential hypertension I10 ; Mixed hyperlipidemia E78.2 ; Renal insufficiency N28.9 ; Hyperkalemia E87.5 ; Swelling of both lower extremities M79.89 and Type 2 diabetes mellitus with hyperglycemia E11.65 [facility] [address] [place] [id number] Feb, Encounter for dental examination Z01.20 [facility] [id number] [place] [address] [id number]- 4286 January, Essential hypertension I10 [facility] [address] [address] January, Essential hypertension I10 ; Mixed hyperlipidemia E78.2 ; Renal insufficiency N28.9 ; Hyperkalemia E87.5 ; Swelling of both lower extremities M79.89 and Type 2 diabetes mellitus with hyperglycemia E11.65 [facility] [address] [place] [address] [phone] January, Dental examination Z01.20 [facility] [id number] [place] [address] 77638- 8450 Dec, Dental examination Z01.20 [facility] [id number] [place] [address] 81908- 5339 Dec, Type 2 diabetes mellitus with hyperglycemia, without long- term current use of insulin E11.65 ; Essential hypertension I10 ; Mixed hyperlipidemia E78.2 ; Renal insufficiency N28.9 ; Hyperkalemia E87.5 and Swelling of both lower extremities M79.89 [place] [facility] [address] [place] [address] 27544- 9282 Nov, Hyperkalemia E87.5 [facility] [address] [place] [address] 50388- 1954 Nov, Hyperkalemia E87.5 [facility] [id number] [place] [address] [id number]- 1223 Nov, Type 2 diabetes mellitus with hyperglycemia, without long- term current use of insulin E11.65 ; Essential hypertension I10 ; Mixed hyperlipidemia E78.2 ; Renal insufficiency N28.9 ; Hyperkalemia E87.5 and Swelling of both lower extremities M79.89 [facility] [facility] [id number] [place] [address] 18132- 7616 Oct, Type 2 diabetes mellitus with hyperglycemia, without long- term current use of insulin E11.65 ; Essential hypertension I10 ; Mixed hyperlipidemia E78.2 ; Renal insufficiency N28.9 ; Hyperkalemia E87.5 and Swelling of both lower extremities M79.89 [facility] [place] [address] [address]- [address] Aug, Type 2 diabetes mellitus with hyperglycemia, without long- term current use of insulin E11.65 ; Essential hypertension I10 ; Mixed hyperlipidemia E78.2 ; Renal insufficiency N28.9 ; Hyperkalemia E87.5 and Swelling of both lower extremities M79.89 [facility] [id number] [place] [address] 13654- 3296 Aug, Type 2 diabetes mellitus with hyperglycemia, without long- term current use of insulin E11.65 ; Essential hypertension I10 ; Mixed hyperlipidemia E78.2 ; Renal insufficiency N28.9 ; Hyperkalemia E87.5 and Swelling of both lower extremities M79.89 [facility] [id number] [place] [address] 54909- 4012 Aug, Mixed hyperlipidemia E78.2 [facility] [id number] [place] [address] 55858- 1175 Aug, Type 2 diabetes mellitus with hyperglycemia, without long- term current use of insulin E11.65 ; Essential hypertension I10 ; Mixed hyperlipidemia E78.2 ; Renal insufficiency N28.9 ; Hyperkalemia E87.5 and Swelling of both lower extremities M79.89 [facility] [id number] [place] [address] 14782- 3787 Jul, [facility] [place] [id number] [place] [id number] Jul, Type 2 diabetes mellitus with hyperglycemia, without long- term current use of insulin E11.65 ; Essential hypertension I10 ; Mixed hyperlipidemia E78.2 ; Renal insufficiency N28.9 ; Hyperkalemia E87.5 ; Weight gain R63.5 and Encounter for immunization Z23 [facility] [id number] [place] [address] 98571- 7596 Jun, Type 2 diabetes mellitus with hyperglycemia, without long- term current use of insulin E11.65 ; Essential hypertension I10 ; Mixed hyperlipidemia E78.2 ; Renal insufficiency N28.9 and Hyperkalemia E87.5 [place] [address] [address]- [address]329 Jun, [place] [id number] [place] [address] 23559- 9412 May, Type 2 diabetes mellitus with hyperglycemia, without long- term current use of insulin E11.65 ; Essential hypertension I10 ; Mixed hyperlipidemia E78.2 ; Renal insufficiency N28.9 and Hyperkalemia E87.5 [place] [id number] [place] [address] 17930- 2572 Apr, Type 2 diabetes mellitus with hyperglycemia, without long- term current use of insulin E11.65 ; Essential hypertension I10 ; Mixed hyperlipidemia E78.2 ; Renal insufficiency N28.9 and Hyperkalemia E87.5 [place] [id number] [place] [address] 86913- 4830 Apr, [place] [id number] [place] [address] 41928- 1080 Apr, Type 2 diabetes mellitus with hyperglycemia, without long- term current use of insulin E11.65 ; Essential hypertension I10 ; Mixed hyperlipidemia E78.2 and Renal insufficiency N28.9 [facility] [id number] [place] [address] 41957- 2191 Mar, [place] [address] [address]- [address]108 Mar, Type 2 diabetes mellitus with hyperglycemia, without long- term current use of insulin E11.65 ; Essential hypertension I10 ; Mixed hyperlipidemia E78.2 and Renal insufficiency N28.9 [place] [address] [place] [address]- 0838 Feb, Type 2 diabetes mellitus with hyperglycemia, without long- term current use of insulin E11.65 [facility] [id number] [place] [address] 75759- 8714 Feb, [place] [id number] [place] [address] 06824- 9227 January, [facility] [id number] [place] [address] 70318- 6139 January, Type 2 diabetes mellitus with hyperglycemia, without long- term current use of insulin E11.65 ; Essential hypertension I10 and Mixed hyperlipidemia E78.2 [place] [place] [id number] [place] [address] 51844- 4976 Dec, [place] [id number] [place] [address] 55038- 1939 Dec, [place] [id number] [place] [address] 22706- 5235 Oct, [place] [place] [id number] [place] [address] 59251- 1571 Oct, [place] [place] [id number] [place] [address] 74507- 4213 Oct, [place] [address] [place] [address] 97159- 6458 Oct, IMMUNIZATIONS No Known Immunizations SOCIAL HISTORY Never Assessed REASON FOR VISIT DM ed PLAN OF CARE VITAL SIGNS MEDICATIONS Medication Instructions Dosage Frequency Start Date End Date Duration Status Triamcinolone Acetonide 0.1 % Externally Twice a day 1 application to affected area 12h Jun, Unknown NovoLog 100 UNIT/ML Subcutaneous with meals and snacks 50 units meals and 10 units with snack 30 days Unknown Gabapentin 300 MG Orally Once a day 1 capsule before bedtime 24h Aug, 28 days Unknown Lyrica 50 mg Orally Twice a day 1 capsule 12h 28 days Unknown Simvastatin 40 mg Orally Once a day 1 tablet in the evening 24h Unknown Fish Oil 1000 MG Orally Once a day 2 capsule 24h Unknown NovoLog 100 UNIT/ML Subcutaneous as directed 50 units meals and 10 units snacks Aug, 30 days Unknown Levemir 100 UNIT/ML Subcutaneous Twice daily 60 Units 30 days Unknown Chlorthalidone 25 MG Orally Once a day 1/2 tablet in the morning 24h Unknown Jentadueto 2.5-500 MG Orally Twice a day 1 tablet with meals 12h January, 30 day(s) Active Clonidine HCl 0.2 MG Orally twice a day 1 tablet 12h 90 days Unknown Metoprolol Succinate ER 50 mg Orally twice a day 1 tablet 12h Unknown RESULTS No Results PROCEDURES No Known procedures [...]
--- OUTSIDE RECORDS SUMMARY | 2018-12-15 19:50 | XMS REPORT ---
Author Author JACOBY GONZALEZ Organization [facility] Address [address] [place] [address] Care Team Providers Care Mobile Mechanic Name Role Phone JACOBY GONZALEZ Unavailable PROBLEMS Type Condition ICD9-CM Code KLM32-SO Code Onset Dates Condition Status SNOMED Code Problem Periodontal disease K05.6 Active 7304483 Problem Body mass index (BMI) of 39.0-39.9 in adult Z68.39 Active 750954755 Problem Caries of cementum teeth K02.7 Active 31628694 Problem Type 2 diabetes mellitus with diabetic neuropathic arthropathy E11.610 Active 407477950 Problem Morbid (severe) obesity due to excess calories E66.01 Active 979658705 Problem Non compliance with medical treatment Z91.19 Active 9636024 Problem Type 2 diabetes mellitus with hyperglycemia, without long-term current use of insulin E11.65 Active 142138012006449 Problem 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 Active 43697671 Problem Renal insufficiency N28.9 Active 028367218 Problem Essential hypertension I10 Active 62586783 Problem Mixed hyperlipidemia E78.2 Active 392423096 Problem 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 Active 82404312 Problem FPC current use of insulin Z79.4 Active 815704044 Problem Hyperkalemia E87.5 Active 68185378 Problem Diabetic polyneuropathy associated with type 2 diabetes mellitus E11.42 Active 353782042 Problem Swelling of both lower extremities M79.89 Active [id number] Problem Chronic kidney disease, stage III (moderate) N18.3 Active 940925480 ALLERGIES No Information ENCOUNTERS Encounter Location Date Diagnosis [facility] [address] [facility] [place] [id number] [address] Mar, [facility] [address] [facility] [place] [id number] [address] Mar, Type 2 diabetes mellitus with diabetic neuropathic arthropathy E11.610 [facility] [id number] [place] [address] 63752- 8727 13 Mar, 2018 Type 2 diabetes mellitus with diabetic neuropathic arthropathy E11.610 ; 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 ; FPC current use of insulin Z79.4 ; Mixed hyperlipidemia E78.2 ; Essential hypertension I10 ; Renal insufficiency N28.9 ; Dental caries K02.9 ; 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 ; Irritant contact dermatitis due to detergent L24.0 ; Morbid (severe) obesity due to excess calories E66.01 ; Body mass index (BMI) of 39.0-39.9 in adult Z68.39 and Non compliance with medical treatment Z91.19 [facility] [id number] [place] [id number] Mar, Dental caries K02.9 [facility] [id number] [place] [address] 33126- 2074 18 Feb, 2018 [facility] [id number] [place] [address] 92978- 7993 Feb, [facility] [id number] [place] [address] 46088- 2976 Feb, [facility] [id number] [place] [address] 98689- 7885 Feb, [facility] [id number] [place] [address] 99847- 0562 January, [facility] [id number] [place] [address] 14301- 4637 January, [facility] [id number] [place] [address] 47195- 3057 January, 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 [facility] [id number] [place] [address] [phone] Dec, Dental caries K02.9 [facility] [id number] [place] [address] 97150- 8298 Dec, 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 [place] [id number] [place] [address] 47906- 8755 Dec, Dental examination Z01.20 ; Periodontal disease K05.6 and Caries of cementum teeth K02.7 [facility] [id number] [place] [address] 82905- 6681 Dec, 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 ; Chronic kidney disease, stage III (moderate) N18.3 ; 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 ; Essential hypertension I10 ; Mixed hyperlipidemia E78.2 ; Diabetic polyneuropathy associated with type 2 diabetes mellitus E11.42 and Dental abscess K04.7 [facility] [id number] [place] [address] 64981- 5321 Nov, [facility] [id number] [place] [address] 69833- 5358 Nov, Mixed hyperlipidemia E78.2 ; Essential hypertension I10 and 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 [facility] [id number] [place] [address] 36890- 8668 13 Oct, 2017 [facility] [place] [id number] [place] [address] 78110- 5810 Sep, [facility] [id number] [place] [address] 49242- 3628 Aug, Diabetic polyneuropathy associated with type 2 diabetes mellitus E11.42 [place] [address] [place] [address] 09159- 0228 Aug, 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 ; Chronic kidney disease, stage III (moderate) N18.3 ; FPC current use of insulin Z79.4 ; Essential hypertension I10 ; Mixed hyperlipidemia E78.2 and Diabetic polyneuropathy associated with type 2 diabetes mellitus E11.42 [facility] [id number] [place] [address] 15844- 2241 Jul, Type 2 diabetes mellitus with hyperglycemia E11.65 and Mixed hyperlipidemia E78.2 [facility] [address] [address] Jun, Type 2 diabetes mellitus with hyperglycemia E11.65 [facility] [address] [address] Jun, Essential hypertension I10 [facility] [id number] [place] [address] 14189- 2274 May, [facility] [id number] [place] [address] 63155- 3524 May, Type 2 diabetes mellitus with hyperglycemia E11.65 and Essential hypertension I10 [facility] [id number] [place] [address] 11526- 0294 May, Essential hypertension I10 ; Mixed hyperlipidemia E78.2 ; Renal insufficiency N28.9 ; Hyperkalemia E87.5 ; Swelling of both lower extremities M79.89 and Type 2 diabetes mellitus with hyperglycemia E11.65 [facility] [address] [address] Apr, Essential hypertension I10 ; Mixed hyperlipidemia E78.2 ; Renal insufficiency N28.9 ; Hyperkalemia E87.5 ; Swelling of both lower extremities M79.89 and Type 2 diabetes mellitus with hyperglycemia E11.65 [facility] [address] [address] Mar, [facility] [address] [address] 9[address] Feb, [facility] [address] [address]199 Feb, Essential hypertension I10 ; Mixed hyperlipidemia E78.2 ; Renal insufficiency N28.9 ; Hyperkalemia E87.5 ; Swelling of both lower extremities M79.89 and Type 2 diabetes mellitus with hyperglycemia E11.65 [facility] [id number] [place] [address] [id number] Feb, Encounter for dental examination Z01.20 [facility] [id number] [place] [address] 86903- 6046 January, Essential hypertension I10 [facility] [id number] [place] [address] 39980- 7714 January, Essential hypertension I10 ; Mixed hyperlipidemia E78.2 ; Renal insufficiency N28.9 ; Hyperkalemia E87.5 ; Swelling of both lower extremities M79.89 and Type 2 diabetes mellitus with hyperglycemia E11.65 [facility] [id number] [place] [address] [phone] January, Dental examination Z01.20 [facility] [id number] [place] [address] 38698- 7714 Dec, Dental examination Z01.20 [facility] [id number] [place] [address] 11469- 2355 Dec, Type 2 diabetes mellitus with hyperglycemia, without long- term current use of insulin E11.65 ; Essential hypertension I10 ; Mixed hyperlipidemia E78.2 ; Renal insufficiency N28.9 ; Hyperkalemia E87.5 and Swelling of both lower extremities M79.89 [facility] [id number] [place] [address] 48977- 9115 Nov, Hyperkalemia E87.5 [place] [id number] [place] [address] 13278- 6407 Nov, Hyperkalemia E87.5 [facility] [place] [id number] [place] [address] 34739- 5116 Nov, Type 2 diabetes mellitus with hyperglycemia, without long- term current use of insulin E11.65 ; Essential hypertension I10 ; Mixed hyperlipidemia E78.2 ; Renal insufficiency N28.9 ; Hyperkalemia E87.5 and Swelling of both lower extremities M79.89 [facility] [address] [address]- 8193 Oct, Type 2 diabetes mellitus with hyperglycemia, without long- term current use of insulin E11.65 ; Essential hypertension I10 ; Mixed hyperlipidemia E78.2 ; Renal insufficiency N28.9 ; Hyperkalemia E87.5 and Swelling of both lower extremities M79.89 [facility] [place] [address] [address]39- 2543 Aug, Type 2 diabetes mellitus with hyperglycemia, without long- term current use of insulin E11.65 ; Essential hypertension I10 ; Mixed hyperlipidemia E78.2 ; Renal insufficiency N28.9 ; Hyperkalemia E87.5 and Swelling of both lower extremities M79.89 [place] [address] 68669- 6012 Aug, Type 2 diabetes mellitus with hyperglycemia, without long- term current use of insulin E11.65 ; Essential hypertension I10 ; Mixed hyperlipidemia E78.2 ; Renal insufficiency N28.9 ; Hyperkalemia E87.5 and Swelling of both lower extremities M79.89 [place] [address] 86339- 6759 Aug, Mixed hyperlipidemia E78.2 [place] [address] 68624- 8715 Aug, Type 2 diabetes mellitus with hyperglycemia, without long- term current use of insulin E11.65 ; Essential hypertension I10 ; Mixed hyperlipidemia E78.2 ; Renal insufficiency N28.9 ; Hyperkalemia E87.5 and Swelling of both lower extremities M79.89 [place] [address] 80036- 2779 Jul, [place] [address] 33415- 8447 Jul, Type 2 diabetes mellitus with hyperglycemia, without long- term current use of insulin E11.65 ; Essential hypertension I10 ; Mixed hyperlipidemia E78.2 ; Renal insufficiency N28.9 ; Hyperkalemia E87.5 ; Weight gain R63.5 and Encounter for immunization Z23 [place] [address] 63605- 3856 Jun, Type 2 diabetes mellitus with hyperglycemia, without long- term current use of insulin E11.65 ; Essential hypertension I10 ; Mixed hyperlipidemia E78.2 ; Renal insufficiency N28.9 and Hyperkalemia E87.5 [facility] [place] [id number] [place] [address] 21968- 4568 Jun, [facility] [id number] [place] [address] 90283- 2354 May, Type 2 diabetes mellitus with hyperglycemia, without long- term current use of insulin E11.65 ; Essential hypertension I10 ; Mixed hyperlipidemia E78.2 ; Renal insufficiency N28.9 and Hyperkalemia E87.5 [facility] [id number] [place] [address] 26062- 5886 Apr, Type 2 diabetes mellitus with hyperglycemia, without long- term current use of insulin E11.65 ; Essential hypertension I10 ; Mixed hyperlipidemia E78.2 ; Renal insufficiency N28.9 and Hyperkalemia E87.5 [place] [id number] [place] [address] 83011- 7026 Apr, [facility] [id number] [place] [address] 67150- 8533 Apr, Type 2 diabetes mellitus with hyperglycemia, without long- term current use of insulin E11.65 ; Essential hypertension I10 ; Mixed hyperlipidemia E78.2 and Renal insufficiency N28.9 [facility] [place] [id number] [place] [address] 74770- 5917 Mar, [facility] [id number] [place] [address] 00836- 0222 Mar, Type 2 diabetes mellitus with hyperglycemia, without long- term current use of insulin E11.65 ; Essential hypertension I10 ; Mixed hyperlipidemia E78.2 and Renal insufficiency N28.9 [place] [address] [place] [address] 41295- 4706 Feb, Type 2 diabetes mellitus with hyperglycemia, without long- term current use of insulin E11.65 [facility] [place] [address] [address]- 6908 Feb, [facility] [id number] [place] [address] 04363- 8939 January, [facility] [id number] [place] [address] 10863- 7783 January, Type 2 diabetes mellitus with hyperglycemia, without long- term current use of insulin E11.65 ; Essential hypertension I10 and Mixed hyperlipidemia E78.2 [facility] [address] [address]- 3395 Dec, [facility] [id number] [place] [address] 83849- 6206 Dec, [facility] [id number] [place] [address] 10605- 3288 Oct, [facility] [place] [id number] [place] [address] 39336- 2069 Oct, [facility] [address] [address]- 6901 Oct, [facility] [address] [address]- 6984 Oct, IMMUNIZATIONS No Known Immunizations SOCIAL HISTORY Never Assessed REASON FOR VISIT referal for dental pain fam. prac. PLAN OF CARE Activity Details Follow Up prn Reason: VITAL SIGNS MEDICATIONS Unknown Medications RESULTS No Results PROCEDURES Procedure Date Ordered Result Body Site SCREENING OF A PATIENT January 03, 2018 Billing Notes on claim January 03, 2018 INSTRUCTIONS MEDICATIONS ADMINISTERED No Known Medications MEDICAL (GENERAL) HISTORY Type Description Date Medical History Type 2 Diabetes Medical History Hyperlipidemia Medical History Seasonal allergies Medical History DM uncontrolled Noncompliance-Eye Referral Made never kept appt Medical History Essential hypertension, benign Medical History Seeing Dr. Stoner Hospitalization History Infection in left leg 2013
--- OUTSIDE RECORDS SUMMARY | 2018-12-15 19:50 | XMS REPORT ---
Author Author JOSUE DHILLON [facility] Address Unknown Care Team Providers Care Marshmallow Maker Name Role Phone JOSUE DHILLON Unavailable PROBLEMS Type Condition ICD9-CM Code [id number] Code Onset Dates Condition Status SNOMED Code Problem Periodontal disease K05.6 Active 8634880 Problem Body mass index (BMI) of 39.0-39.9 in adult Z68.39 Active 681806164 Problem Caries of cementum teeth K02.7 Active 42970994 Problem Type 2 diabetes mellitus with diabetic neuropathic arthropathy E11.610 Active 517050959 Problem Morbid (severe) obesity due to excess calories E66.01 Active 009172605 Problem Non compliance with medical treatment Z91.19 Active 5398721 Problem Type 2 diabetes mellitus with hyperglycemia, without long-term current use of insulin E11.65 Active 266913160424491 Problem 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 Active 72107904 Problem Renal insufficiency N28.9 Active 497863916 Problem Essential hypertension I10 Active 52972832 Problem Mixed hyperlipidemia E78.2 Active 421606351 Problem 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 Active 36561831 Problem 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 Active 941327809 Problem Hyperkalemia E87.5 Active 17608679 Problem Diabetic polyneuropathy associated with type 2 diabetes mellitus E11.42 Active 997161564 Problem Swelling of both lower extremities M79.89 Active [id number] Problem Chronic kidney disease, stage III (moderate) N18.3 Active 702343295 ALLERGIES No Known Allergies ENCOUNTERS Encounter Location Date Diagnosis [facility] [address] [facility] [id number] [address] Mar, [facility] [address] [facility] [id number] [address] Mar, Type 2 diabetes mellitus with diabetic neuropathic arthropathy E11.610 [facility] [address] [address] 13 Mar, 2018 Type 2 diabetes mellitus with diabetic neuropathic arthropathy E11.610 ; 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 ; 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 ; Mixed hyperlipidemia E78.2 ; Essential hypertension I10 ; Renal insufficiency N28.9 ; Dental caries K02.9 ; 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 ; Irritant contact dermatitis due to detergent L24.0 ; Morbid (severe) obesity due to excess calories E66.01 ; Body mass index (BMI) of 39.0-39.9 in adult Z68.39 and Non compliance with medical treatment Z91.19 [facility] [id number] [place] [id number] Mar, Dental caries K02.9 [facility] [address] [id number] [id number] 18 Feb, 2018 [facility] [id number] [place] [address]- [address] Feb, [facility] [address] [id number] [address] Feb, [facility] [id number] [place] [address]223- 2964 Feb, [facility] [address] [address] January, [facility] [id number] [id number] January, [facility] [address] [address] January, 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 [facility] [address] [id number] Dec, Dental caries K02.9 [facility] [address], [place] [address] Dec, 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 [facility] [address], [place] [address] Dec, Dental examination Z01.20 ; Periodontal disease K05.6 and Caries of cementum teeth K02.7 [facility] [address], [place] [address] 10 Dec, 2017 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 ; Chronic kidney disease, stage III (moderate) N18.3 ; 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 ; Essential hypertension I10 ; Mixed hyperlipidemia E78.2 ; Diabetic polyneuropathy associated with type 2 diabetes mellitus E11.42 and Dental abscess K04.7 [facility] [id number] [place] [address]- 2606 08 Nov, 2017 [facility] [id number] [place] [address] 17698- 3091 Nov, Mixed hyperlipidemia E78.2 ; Essential hypertension I10 and 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 [facility] [address] [address] 13 Oct, 2017 [facility] [id number] [place] [address]84- [address]24 Sep, [facility] [id number] [address] Aug, Diabetic polyneuropathy associated with type 2 diabetes mellitus E11.42 [facility] [address] [place] [address]- [address]109 Aug, 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 ; Chronic kidney disease, stage III (moderate) N18.3 ; half-way current use of insulin Z79.4 ; Essential hypertension I10 ; Mixed hyperlipidemia E78.2 and Diabetic polyneuropathy associated with type 2 diabetes mellitus E11.42 [facility] [address] [address] Jul, Type 2 diabetes mellitus with hyperglycemia E11.65 and Mixed hyperlipidemia E78.2 [facility] [address] [address] Jun, Type 2 diabetes mellitus with hyperglycemia E11.65 [facility] [address] [address] Jun, Essential hypertension I10 [facility] [address] [address] May, [facility] [address] [place] [address]64- 0497 May, Type 2 diabetes mellitus with hyperglycemia E11.65 and Essential hypertension I10 [facility] [address] [place] [address] 35217- 3296 May, Essential hypertension I10 ; Mixed hyperlipidemia E78.2 ; Renal insufficiency N28.9 ; Hyperkalemia E87.5 ; Swelling of both lower extremities M79.89 and Type 2 diabetes mellitus with hyperglycemia E11.65 [facility] [address], [place] [address] Apr, Essential hypertension I10 ; Mixed hyperlipidemia E78.2 ; Renal insufficiency N28.9 ; Hyperkalemia E87.5 ; Swelling of both lower extremities M79.89 and Type 2 diabetes mellitus with hyperglycemia E11.65 [facility] [address] [address] Mar, [facility] [address] [place] [address] 7[address]18- 5[address] Feb, [facility] [address] [address] Feb, Essential hypertension I10 ; Mixed hyperlipidemia E78.2 ; Renal insufficiency N28.9 ; Hyperkalemia E87.5 ; Swelling of both lower extremities M79.89 and Type 2 diabetes mellitus with hyperglycemia E11.65 [facility] [id number] [id number] Feb, Encounter for dental examination Z01.20 [facility] [address] [place] [address] 69594- 8672 January, Essential hypertension I10 [facility] [id number] [place] [address] 74079- 3750 January, Essential hypertension I10 ; Mixed hyperlipidemia E78.2 ; Renal insufficiency N28.9 ; Hyperkalemia E87.5 ; Swelling of both lower extremities M79.89 and Type 2 diabetes mellitus with hyperglycemia E11.65 [facility] [address] [place] [id number] January, Dental examination Z01.20 [facility] [id number] [place] [address] 34556- 0812 Dec, Dental examination Z01.20 [facility] [id number] [place] [address] 29609- 6479 Dec, Type 2 diabetes mellitus with hyperglycemia, without long- term current use of insulin E11.65 ; Essential hypertension I10 ; Mixed hyperlipidemia E78.2 ; Renal insufficiency N28.9 ; Hyperkalemia E87.5 and Swelling of both lower extremities M79.89 [facility] [id number] [place] [address] 11554- 4860 Nov, Hyperkalemia E87.5 [facility] [address] [place] [address] 15900- 3998 Nov, Hyperkalemia E87.5 [facility] [id number] [place] [address] 73484- 1766 Nov, Type 2 diabetes mellitus with hyperglycemia, without long- term current use of insulin E11.65 ; Essential hypertension I10 ; Mixed hyperlipidemia E78.2 ; Renal insufficiency N28.9 ; Hyperkalemia E87.5 and Swelling of both lower extremities M79.89 [facility] [address] [place] [address] 21129- 6047 Oct, Type 2 diabetes mellitus with hyperglycemia, without long- term current use of insulin E11.65 ; Essential hypertension I10 ; Mixed hyperlipidemia E78.2 ; Renal insufficiency N28.9 ; Hyperkalemia E87.5 and Swelling of both lower extremities M79.89 [facility] [address] [address]- [address] Aug, Type 2 diabetes mellitus with hyperglycemia, without long- term current use of insulin E11.65 ; Essential hypertension I10 ; Mixed hyperlipidemia E78.2 ; Renal insufficiency N28.9 ; Hyperkalemia E87.5 and Swelling of both lower extremities M79.89 [facility] [address] [address] Aug, Type 2 diabetes mellitus with hyperglycemia, without long- term current use of insulin E11.65 ; Essential hypertension I10 ; Mixed hyperlipidemia E78.2 ; Renal insufficiency N28.9 ; Hyperkalemia E87.5 and Swelling of both lower extremities M79.89 [facility] [address] [address]- [address] Aug, Mixed hyperlipidemia E78.2 [facility] [address] [address]- [address] Aug, Type 2 diabetes mellitus with hyperglycemia, without long- term current use of insulin E11.65 ; Essential hypertension I10 ; Mixed hyperlipidemia E78.2 ; Renal insufficiency N28.9 ; Hyperkalemia E87.5 and Swelling of both lower extremities M79.89 [facility] [id number] [place] [address] 88710- 8570 Jul, [facility] [address] [address]- [address] Jul, Type 2 diabetes mellitus with hyperglycemia, without long- term current use of insulin E11.65 ; Essential hypertension I10 ; Mixed hyperlipidemia E78.2 ; Renal insufficiency N28.9 ; Hyperkalemia E87.5 ; Weight gain R63.5 and Encounter for immunization Z23 [facility] [id number] [place] [address] 20937- 0835 Jun, Type 2 diabetes mellitus with hyperglycemia, without long- term current use of insulin E11.65 ; Essential hypertension I10 ; Mixed hyperlipidemia E78.2 ; Renal insufficiency N28.9 and Hyperkalemia E87.5 [facility] [id number] [place] [address] 78629- 0438 Jun, [facility] [id number] [place] [address] 35865- 6293 May, Type 2 diabetes mellitus with hyperglycemia, without long- term current use of insulin E11.65 ; Essential hypertension I10 ; Mixed hyperlipidemia E78.2 ; Renal insufficiency N28.9 and Hyperkalemia E87.5 [facility] [id number] [place] [address] 02880- 6308 Apr, Type 2 diabetes mellitus with hyperglycemia, without long- term current use of insulin E11.65 ; Essential hypertension I10 ; Mixed hyperlipidemia E78.2 ; Renal insufficiency N28.9 and Hyperkalemia E87.5 [facility] [id number] [place] [address] 41036- 7825 Apr, [facility] [id number] [place] [address] 28801- 1884 Apr, Type 2 diabetes mellitus with hyperglycemia, without long- term current use of insulin E11.65 ; Essential hypertension I10 ; Mixed hyperlipidemia E78.2 and Renal insufficiency N28.9 [facility] [address], [place] [address] Mar, [facility] [id number] [place] [address] 07841- 1885 Mar, Type 2 diabetes mellitus with hyperglycemia, without long- term current use of insulin E11.65 ; Essential hypertension I10 ; Mixed hyperlipidemia E78.2 and Renal insufficiency N28.9 [facility] [address] [place] [address] 89457- 6855 Feb, Type 2 diabetes mellitus with hyperglycemia, without long- term current use of insulin E11.65 [facility] [id number] [place] [address] 76546- 3837 Feb, [facility] [address] [address] January, [facility] [id number] [place] [address] 851814- 1594 January, Type 2 diabetes mellitus with hyperglycemia, without long- term current use of insulin E11.65 ; Essential hypertension I10 and Mixed hyperlipidemia E78.2 [facility] [id number] [place] [address] 50505- 3301 Dec, [facility] [id number] [place] [address] 61431- 4138 Dec, [facility] [id number] [place] [address] 10284- 5854 Oct, [facility] [id number] [place] [address] 77859- 4065 Oct, [facility] [id number] [place] [address] 81337- 8836 Oct, [facility] [id number] [place] [address] 23445- 8037 Oct, IMMUNIZATIONS No Known Immunizations SOCIAL HISTORY Never Assessed REASON FOR VISIT root tip extract. PLAN OF CARE Activity Details Follow Up prn Reason:Ext # 21 root tip and complete new treatment plan VITAL SIGNS Height 72 in 2018-01-18 Blood pressure systolic 210 mmHg 2018-01-18 Blood pressure diastolic 100 mmHg 2018-01-18 MEDICATIONS Medication Instructions Dosage Frequency Start Date End Date Duration Status Chlorthalidone 25 MG Orally Once a day 1/2 tablet in the morning 24h Active Farxiga 10 mg Orally Once a day 1 tablet 24h Active Gabapentin 300 MG Orally Once a day 1 capsule before bedtime 24h Aug, 28 days Active Triamcinolone Acetonide 0.1 % Externally Twice a day 1 application to affected area 12h Jun, Active Fish Oil 1000 MG Orally Once a day 2 capsule 24h Active NovoLog 100 UNIT/ML Subcutaneous as directed 50 units meals and 10 units snacks Aug, 30 days Active NovoLog 100 UNIT/ML Subcutaneous with meals and snacks 50 units meals and 10 units with snack 30 days Active Clonidine HCl 0.2 MG Orally twice a day 1 tablet 12h 90 days Active Metoprolol Succinate ER 50 mg Orally twice a day 1 tablet 12h Active Levemir 100 UNIT/ML Subcutaneous Twice daily 60 Units 30 days Active Lyrica 50 mg Orally Twice a day 1 capsule 12h 28 days Active Simvastatin 40 mg Orally Once a day 1 tablet in the evening 24h Active RESULTS No Results PROCEDURES Procedure Date Ordered Result Body Site INTRAORL-PERIAPICAL 1 FILM [id number] January 18, 2018 EXTRAC ERUPTED TOOTH/EXPOSED ROOT January 18, 2018 INSTRUCTIONS MEDICATIONS ADMINISTERED No Known Medications MEDICAL (GENERAL) HISTORY Type Description Date Medical History Type 2 Diabetes Medical History Hyperlipidemia Medical History Seasonal allergies Medical History DM uncontrolled Noncompliance-Eye Referral Made never kept appt Medical History Essential hypertension, benign Medical History Seeing Dr. Stoner Hospitalization History Infection in left leg 2013
--- OUTSIDE RECORDS SUMMARY | 2018-12-15 19:51 | XMS REPORT ---
Author Author ANI CASTILLO Organization [facility] Address [address] [place] [address] Care Team Providers Care Closed Circuit Screen Watcher Name Role Phone ANI CASTILLO Unavailable PROBLEMS Type Condition ICD9-CM Code WZX55-TI Code Onset Dates Condition Status SNOMED Code Problem Essential hypertension I10 Active 85062836 Problem Swelling of both lower extremities M79.89 Active 38108924989691142 Problem Hyperkalemia E87.5 Active 26273760 Problem Mixed hyperlipidemia E78.2 Active 653714855 Problem Periodontal disease K05.6 Active 3250281 Problem Caries of cementum teeth K02.7 Active 86786014 Problem 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 Active 32355195 Problem nursing home 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 use of 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.4 Active 704725626 Problem Chronic kidney disease, stage III (moderate) N18.3 Active 330273121 Problem Diabetic polyneuropathy associated with type 2 diabetes mellitus E11.42 Active [id number] ALLERGIES No Information ENCOUNTERS Encounter Location Date Diagnosis [facility] [id number] [place] [address]003- 7797 Mar, [facility] [id number] [address] Mar, [facility] [id number] [place] [address] [id number] Mar, [facility] [id number] [place] [address] 49520- 8158 18 Feb, 2018 [facility] [id number] [place] [address] 11004- 9120 Feb, [facility] [id number] [place] [address] 87517- 5540 Feb, [facility] [address] [place] [address] Feb, [facility] [address] [place] [address] 100[address] January, [facility] [address] [place] [address] January, [facility] [id number] [place] [address] 57655- 4757 January, 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 [facility] [id number] [place] [address] [id number] Dec, Dental caries K02.9 [facility] [id number] [place] [address] 49369- 7036 Dec, 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 [facility] [id number] [place] [address] 16143- 6463 Dec, Dental examination Z01.20 ; Periodontal disease K05.6 and Caries of cementum teeth K02.7 [facility] [id number] [place] [address] 37248- 0914 Dec, 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 ; Chronic kidney disease, stage III (moderate) N18.3 ; 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 ; Essential hypertension I10 ; Mixed hyperlipidemia E78.2 ; Diabetic polyneuropathy associated with type 2 diabetes mellitus E11.42 and Dental abscess K04.7 [facility] [address] [place] [address] Nov, [facility] [id number] [place] [address] 59383- 3816 Nov, Mixed hyperlipidemia E78.2 ; Essential hypertension I10 and 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 [facility] [address] [place] [address] Oct, [facility] [address] [place] [address] Sep, [facility] [id number] [place] [address] 29124- 6695 Aug, Diabetic polyneuropathy associated with type 2 diabetes mellitus E11.42 [facility] [id number] [place] [address] 77176- 2437 Aug, 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 ; Chronic kidney disease, stage III (moderate) N18.3 ; nursing home current use of insulin Z79.4 ; Essential hypertension I10 ; Mixed hyperlipidemia E78.2 and Diabetic polyneuropathy associated with type 2 diabetes mellitus E11.42 [facility] [id number] [place] [address] 80198- 3954 Jul, Type 2 diabetes mellitus with hyperglycemia E11.65 and Mixed hyperlipidemia E78.2 [facility] [id number] [place] [address] 74624- 6776 Jun, Type 2 diabetes mellitus with hyperglycemia E11.65 [facility] [id number] [place] [address] 68143- 1951 Jun, Essential hypertension I10 [facility] [id number] [place] [address] 39437- 7035 May, [facility] [id number] [place] [address] 22430- 2079 May, Type 2 diabetes mellitus with hyperglycemia E11.65 and Essential hypertension I10 [facility] [address] [place] [address] 26133- 3234 May, Essential hypertension I10 ; Mixed hyperlipidemia E78.2 ; Renal insufficiency N28.9 ; Hyperkalemia E87.5 ; Swelling of both lower extremities M79.89 and Type 2 diabetes mellitus with hyperglycemia E11.65 [facility] [address] [place] [address] 1552 Apr, Essential hypertension I10 ; Mixed hyperlipidemia E78.2 ; Renal insufficiency N28.9 ; Hyperkalemia E87.5 ; Swelling of both lower extremities M79.89 and Type 2 diabetes mellitus with hyperglycemia E11.65 [facility] [address] [place] [address] 52877- 8480 Mar, [facility] [id number] [place] [address] 67986- 1864 Feb, [facility] [id number] [place] [address] 55784- 9236 Feb, Essential hypertension I10 ; Mixed hyperlipidemia E78.2 ; Renal insufficiency N28.9 ; Hyperkalemia E87.5 ; Swelling of both lower extremities M79.89 and Type 2 diabetes mellitus with hyperglycemia E11.65 [facility] [id number] [place] [address] [id number] Feb, Encounter for dental examination Z01.20 [facility] [id number] [place] [address] 73410- 4955 January, Essential hypertension I10 [facility] [id number] [place] [address] 53463- 5892 January, Essential hypertension I10 ; Mixed hyperlipidemia E78.2 ; Renal insufficiency N28.9 ; Hyperkalemia E87.5 ; Swelling of both lower extremities M79.89 and Type 2 diabetes mellitus with hyperglycemia E11.65 [facility] [address] [place] [address] [id number] January, Dental examination Z01.20 [facility] [address] [place] [address] 91346- 4230 Dec, Dental examination Z01.20 [facility] [id number] [place] [address] 38449- 5486 Dec, Type 2 diabetes mellitus with hyperglycemia, without long- term current use of insulin E11.65 ; Essential hypertension I10 ; Mixed hyperlipidemia E78.2 ; Renal insufficiency N28.9 ; Hyperkalemia E87.5 and Swelling of both lower extremities M79.89 [facility] [id number] [place] [address] 34640- 6234 Nov, Hyperkalemia E87.5 [facility] [address] 6[address]- 5193 Nov, Hyperkalemia E87.5 [facility] [address] [address]- 2010 Nov, Type 2 diabetes mellitus with hyperglycemia, without long- term current use of insulin E11.65 ; Essential hypertension I10 ; Mixed hyperlipidemia E78.2 ; Renal insufficiency N28.9 ; Hyperkalemia E87.5 and Swelling of both lower extremities M79.89 [facility] [address] 40127- 5421 Oct, Type 2 diabetes mellitus with hyperglycemia, without long- term current use of insulin E11.65 ; Essential hypertension I10 ; Mixed hyperlipidemia E78.2 ; Renal insufficiency N28.9 ; Hyperkalemia E87.5 and Swelling of both lower extremities M79.89 [facility] [id number] [place] [address] 05789- 8659 Aug, Type 2 diabetes mellitus with hyperglycemia, without long- term current use of insulin E11.65 ; Essential hypertension I10 ; Mixed hyperlipidemia E78.2 ; Renal insufficiency N28.9 ; Hyperkalemia E87.5 and Swelling of both lower extremities M79.89 [facility] [id number] [place] [address] 85729- 6869 Aug, Type 2 diabetes mellitus with hyperglycemia, without long- term current use of insulin E11.65 ; Essential hypertension I10 ; Mixed hyperlipidemia E78.2 ; Renal insufficiency N28.9 ; Hyperkalemia E87.5 and Swelling of both lower extremities M79.89 [facility] [id number] [place] [address] 39077- 0646 Aug, Mixed hyperlipidemia E78.2 [facility] [id number] [place] [address] 37823- 4716 Aug, Type 2 diabetes mellitus with hyperglycemia, without long- term current use of insulin E11.65 ; Essential hypertension I10 ; Mixed hyperlipidemia E78.2 ; Renal insufficiency N28.9 ; Hyperkalemia E87.5 and Swelling of both lower extremities M79.89 [facility] [id number] [place] [address] 63031- 9691 Jul, [facility] [address] 99906- 7701 Jul, Type 2 diabetes mellitus with hyperglycemia, without long- term current use of insulin E11.65 ; Essential hypertension I10 ; Mixed hyperlipidemia E78.2 ; Renal insufficiency N28.9 ; Hyperkalemia E87.5 ; Weight gain R63.5 and Encounter for immunization Z23 [facility] [address] 23563- 7480 Jun, Type 2 diabetes mellitus with hyperglycemia, without long- term current use of insulin E11.65 ; Essential hypertension I10 ; Mixed hyperlipidemia E78.2 ; Renal insufficiency N28.9 and Hyperkalemia E87.5 [facility] [address] 0[address]10- 1000 Jun, [facility] [address] 43538- 2595 May, Type 2 diabetes mellitus with hyperglycemia, without long- term current use of insulin E11.65 ; Essential hypertension I10 ; Mixed hyperlipidemia E78.2 ; Renal insufficiency N28.9 and Hyperkalemia E87.5 [facility] [id number] [place] [address] 26595- 3575 Apr, Type 2 diabetes mellitus with hyperglycemia, without long- term current use of insulin E11.65 ; Essential hypertension I10 ; Mixed hyperlipidemia E78.2 ; Renal insufficiency N28.9 and Hyperkalemia E87.5 [facility] [id number] [place] [address] 39374- 3738 Apr, [place] [address] 68652- 2916 Apr, Type 2 diabetes mellitus with hyperglycemia, without long- term current use of insulin E11.65 ; Essential hypertension I10 ; Mixed hyperlipidemia E78.2 and Renal insufficiency N28.9 [facility] [address] [place] [address]- 8626 Mar, [facility] [address] [place] [address] 2543 Mar, Type 2 diabetes mellitus with hyperglycemia, without long- term current use of insulin E11.65 ; Essential hypertension I10 ; Mixed hyperlipidemia E78.2 and Renal insufficiency N28.9 [facility] [address] [place] [address] 15810- 1167 Feb, Type 2 diabetes mellitus with hyperglycemia, without long- term current use of insulin E11.65 [facility] [address] [place] [address]- 6375 Feb, [facility] [id number] [place] [address] 89641- 2815 January, [facility] [address] [place] [address] 66862- 8809 January, Type 2 diabetes mellitus with hyperglycemia, without long- term current use of insulin E11.65 ; Essential hypertension I10 and Mixed hyperlipidemia E78.2 [facility] [address] [place] [address]- 2924 Dec, [facility] [address] [place] [address]- 5652 Dec, [facility] [address] [place] [address] 2546 Oct, [facility] [id number] [place] [address]- 7416 Oct, [facility] [address] [place] [address]- 2546 Oct, [facility] [address] [place] [address]- 0659 Oct, IMMUNIZATIONS No Known Immunizations SOCIAL HISTORY Never Assessed REASON FOR VISIT MTM (Medication Therapy Management) PLAN OF CARE VITAL SIGNS MEDICATIONS Unknown Medications RESULTS No Results PROCEDURES No Known procedures INSTRUCTIONS MEDICATIONS ADMINISTERED No Known Medications MEDICAL (GENERAL) HISTORY Type Description Date Medical History Type 2 Diabetes Medical History Hyperlipidemia Medical History Seasonal allergies Medical History Other and unspecified hyperlipidemia Medical History DM uncontrolled Noncompliance-Eye Referral Made never kept appt Medical History Essential hypertension, benign Medical History Seeing Dr. Stoner Hospitalization History Infection in left leg 2013
--- OUTSIDE RECORDS SUMMARY | 2018-12-15 19:51 | XMS REPORT ---
Author Author ANI CASTILLO Organization [facility] Address [address] [place] [address] Care Team Providers Care [employer] Name Role Phone ANI CASTILLO Unavailable PROBLEMS Type Condition ICD9-CM Code AZC29-MB Code Onset Dates Condition Status SNOMED Code Problem Periodontal disease K05.6 Active 5567068 Problem Body mass index (BMI) of 39.0-39.9 in adult Z68.39 Active 410789504 Problem Caries of cementum teeth K02.7 Active 53485376 Problem Type 2 diabetes mellitus with diabetic neuropathic arthropathy E11.610 Active 869456658 Problem Morbid (severe) obesity due to excess calories E66.01 Active 620260837 Problem Non compliance with medical treatment Z91.19 Active 4294374 Problem Type 2 diabetes mellitus with hyperglycemia, without long-term current use of insulin E11.65 Active [id number] Problem 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 Active 04659976 Problem Renal insufficiency N28.9 Active 548463427 Problem Essential hypertension I10 Active 15909911 Problem Mixed hyperlipidemia E78.2 Active 835912843 Problem 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 Active 18046630 Problem alf current use of insulin Z79.4 Active 380626506 Problem Hyperkalemia E87.5 Active 61858675 Problem Diabetic polyneuropathy associated with type 2 diabetes mellitus E11.42 Active 238708828 Problem Swelling of both lower extremities M79.89 Active [id number] Problem Chronic kidney disease, stage III (moderate) N18.3 Active 602520778 ALLERGIES No Information ENCOUNTERS Encounter Location Date Diagnosis [facility] [address] [facility] [id number], [place] [address] Mar, [facility] [address] [facility] [id number], [place] [address] Mar, Type 2 diabetes mellitus with diabetic neuropathic arthropathy E11.610 [facility] [id number] [place] [address]- [address] 13 Mar, 2018 Type 2 diabetes mellitus with diabetic neuropathic arthropathy E11.610 ; 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 ; alf current use of insulin Z79.4 ; Mixed hyperlipidemia E78.2 ; Essential hypertension I10 ; Renal insufficiency N28.9 ; Dental caries K02.9 ; 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 ; Irritant contact dermatitis due to detergent L24.0 ; Morbid (severe) obesity due to excess calories E66.01 ; Body mass index (BMI) of 39.0-39.9 in adult Z68.39 and Non compliance with medical treatment Z91.19 [facility] [id number] [place] [id number] Mar, Dental caries K02.9 [facility] [id number] [place] [address] 82043- 3641 Feb, [facility] [id number] [place] [address] 69619- 1889 Feb, [facility] [id number] [place] [address] 77005- 6060 Feb, [facility] [id number] [place] [address] 38500- 8712 Feb, [facility] [id number] [place] [address] 41632- 4876 January, [facility] [id number] [place] [address] 71885- 2903 January, [facility] [id number] [place] [address] 67581- 1632 January, 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 [facility] [id number] [id number] Dec, Dental caries K02.9 [facility] [id number] [place] [address] 44123- 3491 Dec, 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 [place] [id number] [place] [address] 08148- 6885 Dec, Dental examination Z01.20 ; Periodontal disease K05.6 and Caries of cementum teeth K02.7 [facility] [id number] [place] [address] 40380- 7040 Dec, 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 ; Chronic kidney disease, stage III (moderate) N18.3 ; alf current use of insulin Z79.4 ; Essential hypertension I10 ; Mixed hyperlipidemia E78.2 ; Diabetic polyneuropathy associated with type 2 diabetes mellitus E11.42 and Dental abscess K04.7 [facility] [facility] [id number] [place] [address] 47610- 3434 Nov, [facility] [id number] [place] [address] 80138- 0129 Nov, Mixed hyperlipidemia E78.2 ; Essential hypertension I10 and 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 [facility] [facility] [id number] [place] [address] 66495- 9300 Oct, [facility] [id number] [place] [address] 22780- 8608 Sep, [facility] [facility] [id number] [place] [address] 66729- 7962 Aug, Diabetic polyneuropathy associated with type 2 diabetes mellitus E11.42 [facility] [id number] [place] [address] 73621- 1786 Aug, 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 ; Chronic kidney disease, stage III (moderate) N18.3 ; alf current use of insulin Z79.4 ; Essential hypertension I10 ; Mixed hyperlipidemia E78.2 and Diabetic polyneuropathy associated with type 2 diabetes mellitus E11.42 [facility] [facility] [id number] [place] [address] 92215- 5911 Jul, Type 2 diabetes mellitus with hyperglycemia E11.65 and Mixed hyperlipidemia E78.2 [facility] [address] [address] Jun, Type 2 diabetes mellitus with hyperglycemia E11.65 [facility] [address] [address] Jun, Essential hypertension I10 [facility] [id number] [place] [address] 93161- 0398 May, [facility] [id number] [place] [address] 80454- 1126 May, Type 2 diabetes mellitus with hyperglycemia E11.65 and Essential hypertension I10 [facility] [address] [address] May, Essential hypertension I10 ; Mixed hyperlipidemia E78.2 ; Renal insufficiency N28.9 ; Hyperkalemia E87.5 ; Swelling of both lower extremities M79.89 and Type 2 diabetes mellitus with hyperglycemia E11.65 [facility] [address], [place] [address] Apr, Essential hypertension I10 ; Mixed hyperlipidemia E78.2 ; Renal insufficiency N28.9 ; Hyperkalemia E87.5 ; Swelling of both lower extremities M79.89 and Type 2 diabetes mellitus with hyperglycemia E11.65 [facility] [address] [address] Mar, [facility] [address], [place] [address] Feb, [facility] [address] [place] [address] 92452- 3100 Feb, Essential hypertension I10 ; Mixed hyperlipidemia E78.2 ; Renal insufficiency N28.9 ; Hyperkalemia E87.5 ; Swelling of both lower extremities M79.89 and Type 2 diabetes mellitus with hyperglycemia E11.65 [facility] [id number] [place] [id number] Feb, Encounter for dental examination Z01.20 [facility] [address], [place] [address] January, Essential hypertension I10 [facility] [address] [place] [address] 89612- 6006 January, Essential hypertension I10 ; Mixed hyperlipidemia E78.2 ; Renal insufficiency N28.9 ; Hyperkalemia E87.5 ; Swelling of both lower extremities M79.89 and Type 2 diabetes mellitus with hyperglycemia E11.65 [facility] [address] [id number] January, Dental examination Z01.20 [facility] [id number] [place] [address] 34332- 4021 Dec, Dental examination Z01.20 [facility] [id number] [place] [address] 57083- 1017 Dec, Type 2 diabetes mellitus with hyperglycemia, without long- term current use of insulin E11.65 ; Essential hypertension I10 ; Mixed hyperlipidemia E78.2 ; Renal insufficiency N28.9 ; Hyperkalemia E87.5 and Swelling of both lower extremities M79.89 [facility] [id number] [place] [address] 29172- 6680 Nov, Hyperkalemia E87.5 [facility] [address] [address] Nov, Hyperkalemia E87.5 [facility] [id number] [place] [address] 96620- 8343 Nov, Type 2 diabetes mellitus with hyperglycemia, without long- term current use of insulin E11.65 ; Essential hypertension I10 ; Mixed hyperlipidemia E78.2 ; Renal insufficiency N28.9 ; Hyperkalemia E87.5 and Swelling of both lower extremities M79.89 [facility] [address] [address] Oct, Type 2 diabetes mellitus with hyperglycemia, without long- term current use of insulin E11.65 ; Essential hypertension I10 ; Mixed hyperlipidemia E78.2 ; Renal insufficiency N28.9 ; Hyperkalemia E87.5 and Swelling of both lower extremities M79.89 [place] [address] [address]- 7030 Aug, Type 2 diabetes mellitus with hyperglycemia, without long- term current use of insulin E11.65 ; Essential hypertension I10 ; Mixed hyperlipidemia E78.2 ; Renal insufficiency N28.9 ; Hyperkalemia E87.5 and Swelling of both lower extremities M79.89 [place] [address] 48150- 7663 Aug, Type 2 diabetes mellitus with hyperglycemia, without long- term current use of insulin E11.65 ; Essential hypertension I10 ; Mixed hyperlipidemia E78.2 ; Renal insufficiency N28.9 ; Hyperkalemia E87.5 and Swelling of both lower extremities M79.89 [place] [address] 73115- 7835 Aug, Mixed hyperlipidemia E78.2 [place] [address] 85292- 5583 Aug, Type 2 diabetes mellitus with hyperglycemia, without long- term current use of insulin E11.65 ; Essential hypertension I10 ; Mixed hyperlipidemia E78.2 ; Renal insufficiency N28.9 ; Hyperkalemia E87.5 and Swelling of both lower extremities M79.89 [place] [address] 25020- 5466 Jul, [place] [address] 95012- 7111 Jul, Type 2 diabetes mellitus with hyperglycemia, without long- term current use of insulin E11.65 ; Essential hypertension I10 ; Mixed hyperlipidemia E78.2 ; Renal insufficiency N28.9 ; Hyperkalemia E87.5 ; Weight gain R63.5 and Encounter for immunization Z23 [place] [address] 62702- 2742 Jun, Type 2 diabetes mellitus with hyperglycemia, without long- term current use of insulin E11.65 ; Essential hypertension I10 ; Mixed hyperlipidemia E78.2 ; Renal insufficiency N28.9 and Hyperkalemia E87.5 [place] [address] [address] Jun, [facility] [id number] [place] [address] 07720- 9048 May, Type 2 diabetes mellitus with hyperglycemia, without long- term current use of insulin E11.65 ; Essential hypertension I10 ; Mixed hyperlipidemia E78.2 ; Renal insufficiency N28.9 and Hyperkalemia E87.5 [place] [address] [place] [address] 20903- 9638 Apr, Type 2 diabetes mellitus with hyperglycemia, without long- term current use of insulin E11.65 ; Essential hypertension I10 ; Mixed hyperlipidemia E78.2 ; Renal insufficiency N28.9 and Hyperkalemia E87.5 [place] [address] [place] [address] Apr, [facility] [facility] [id number] [place] [address] 14016- 8442 Apr, Type 2 diabetes mellitus with hyperglycemia, without long- term current use of insulin E11.65 ; Essential hypertension I10 ; Mixed hyperlipidemia E78.2 and Renal insufficiency N28.9 [place] [address] [address] Mar, [place] [id number] [place] [address] 85974- 3595 Mar, Type 2 diabetes mellitus with hyperglycemia, without long- term current use of insulin E11.65 ; Essential hypertension I10 ; Mixed hyperlipidemia E78.2 and Renal insufficiency N28.9 [place] [address] [address] Feb, Type 2 diabetes mellitus with hyperglycemia, without long- term current use of insulin E11.65 [place] [address] [address] 277[address] Feb, [facility] [id number] [place] [address] 34099- 7754 January, [facility] [id number] [place] [address] 95096- 0986 January, Type 2 diabetes mellitus with hyperglycemia, without long- term current use of insulin E11.65 ; Essential hypertension I10 and Mixed hyperlipidemia E78.2 [facility] [id number] [place] [address] 53517- 5361 Dec, [place] [id number] [place] [address] 87987- 4254 Dec, [place] [facility] [id number] [place] [address] 69435- 9260 Oct, [facility] [id number] [place] [address] 67788- 5417 Oct, [facility] [id number] [place] [address] 81714- 6695 Oct, [facility] [id number] [place] [address] 62859- 2864 Oct, IMMUNIZATIONS No Known Immunizations SOCIAL HISTORY Never Assessed REASON FOR VISIT deferred lab PLAN OF CARE VITAL SIGNS MEDICATIONS Unknown [...]
--- OUTSIDE RECORDS SUMMARY | 2018-12-15 19:51 | XMS REPORT ---
Author Author ANI CASTILLO Organization [facility] Address [address] [place] [address] Care Team Providers Care Appointment Coordinator Name Role Phone ANI CASTILLO Unavailable PROBLEMS Type Condition ICD9-CM Code [id number] Code Onset Dates Condition Status SNOMED Code Problem Periodontal disease K05.6 Active 0509387 Problem Body mass index (BMI) of 39.0-39.9 in adult Z68.39 Active 330907879 Problem Caries of cementum teeth K02.7 Active 96639113 Problem Type 2 diabetes mellitus with diabetic neuropathic arthropathy E11.610 Active 710097497 Problem Morbid (severe) obesity due to excess calories E66.01 Active 355374116 Problem Non compliance with medical treatment Z91.19 Active 3230145 Problem Type 2 diabetes mellitus with hyperglycemia, without long-term current use of insulin E11.65 Active 334737139943940 Problem 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 Active 89605972 Problem Renal insufficiency N28.9 Active 253158838 Problem Essential hypertension I10 Active 17878868 Problem Mixed hyperlipidemia E78.2 Active 419967939 Problem 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 Active 91967643 Problem intermediate current use of insulin Z79.4 Active 782669190 Problem Hyperkalemia E87.5 Active 98149225 Problem Diabetic polyneuropathy associated with type 2 diabetes mellitus E11.42 Active 948929336 Problem Swelling of both lower extremities M79.89 Active 80569183914709204 Problem Chronic kidney disease, stage III (moderate) N18.3 Active 510167440 ALLERGIES No Known Allergies ENCOUNTERS Encounter Location Date Diagnosis [facility] [address] [facility] [id number] [address] Mar, [facility] [address] [facility] [id number], [place] [address] Mar, Type 2 diabetes mellitus with diabetic neuropathic arthropathy E11.610 [facility] [id number] [place] [address] 25658- 6718 13 Mar, 2018 Type 2 diabetes mellitus with diabetic neuropathic arthropathy E11.610 ; 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 ; intermediate current use of insulin Z79.4 ; Mixed hyperlipidemia E78.2 ; Essential hypertension I10 ; Renal insufficiency N28.9 ; Dental caries K02.9 ; 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 ; Irritant contact dermatitis due to detergent L24.0 ; Morbid (severe) obesity due to excess calories E66.01 ; Body mass index (BMI) of 39.0-39.9 in adult Z68.39 and Non compliance with medical treatment Z91.19 [facility] [id number] [place] [address] [id number] Mar, Dental caries K02.9 [facility] [id number] [place] [address] 28240- 0659 Feb, [facility] [id number] [place] [address] 85171- 9684 Feb, [facility] [id number] [place] [address] 14911- 7123 Feb, [facility] [id number] [place] [address] 22586- 7904 Feb, [facility] [id number] [place] [address] 07165- 0670 January, [facility] [id number] [place] [address] 85751- 3456 January, [facility] [id number] [place] [address] 48111- 5788 January, 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 [facility] [id number] [place] [address] [id number] Dec, Dental caries K02.9 [facility] [id number] [place] [address] 11919- 3635 Dec, 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 [place] [id number] [place] [address] 19802- 8563 Dec, Dental examination Z01.20 ; Periodontal disease K05.6 and Caries of cementum teeth K02.7 [place] [id number] [place] [address] 64593- 0713 Dec, 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 ; Chronic kidney disease, stage III (moderate) N18.3 ; intermediate current use of insulin Z79.4 ; Essential hypertension I10 ; Mixed hyperlipidemia E78.2 ; Diabetic polyneuropathy associated with type 2 diabetes mellitus E11.42 and Dental abscess K04.7 [place] [id number] [place] [address] 61207- 8296 Nov, [place] [id number] [place] [address] 12080- 8572 Nov, Mixed hyperlipidemia E78.2 ; Essential hypertension I10 and 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 [place] [id number] [place] [address] 89421- 1451 Oct, [place] [id number] [place] [address] 98485- 2409 Sep, [place] [id number] [place] [address] 92596- 5730 Aug, Diabetic polyneuropathy associated with type 2 diabetes mellitus E11.42 [place] [id number] [place] [address] 29903- 8652 Aug, 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 ; Chronic kidney disease, stage III (moderate) N18.3 ; conflicts analyst current use of insulin Z79.4 ; Essential hypertension I10 ; Mixed hyperlipidemia E78.2 and Diabetic polyneuropathy associated with type 2 diabetes mellitus E11.42 [place] [id number] [place] [address] 03446- 8195 Jul, Type 2 diabetes mellitus with hyperglycemia E11.65 and Mixed hyperlipidemia E78.2 [facility] [address] [address] Jun, Type 2 diabetes mellitus with hyperglycemia E11.65 [facility] [address], [place] [address] Jun, Essential hypertension I10 [facility] [id number] [place] [address] 85187- 0321 May, [facility] [id number] [place] [address] 37591- 3164 May, Type 2 diabetes mellitus with hyperglycemia E11.65 and Essential hypertension I10 [facility] [address] [address] May, Essential hypertension I10 ; Mixed hyperlipidemia E78.2 ; Renal insufficiency N28.9 ; Hyperkalemia E87.5 ; Swelling of both lower extremities M79.89 and Type 2 diabetes mellitus with hyperglycemia E11.65 [facility] [address], [place] [address] 7[address] Apr, Essential hypertension I10 ; Mixed hyperlipidemia E78.2 ; Renal insufficiency N28.9 ; Hyperkalemia E87.5 ; Swelling of both lower extremities M79.89 and Type 2 diabetes mellitus with hyperglycemia E11.65 [facility] [address], [place] [address] 4882 Mar, [facility] [address], [place] [address] 8[address] Feb, [facility] [address], [place] [address] 8513 Feb, Essential hypertension I10 ; Mixed hyperlipidemia E78.2 ; Renal insufficiency N28.9 ; Hyperkalemia E87.5 ; Swelling of both lower extremities M79.89 and Type 2 diabetes mellitus with hyperglycemia E11.65 [facility] [address] [id number] Feb, Encounter for dental examination Z01.20 [facility] [id number] [place] [address] 16969- 6956 January, Essential hypertension I10 [facility] [id number] [place] [address] 41579- 4743 January, Essential hypertension I10 ; Mixed hyperlipidemia E78.2 ; Renal insufficiency N28.9 ; Hyperkalemia E87.5 ; Swelling of both lower extremities M79.89 and Type 2 diabetes mellitus with hyperglycemia E11.65 [facility] [id number] [place] [address] [id number] January, Dental examination Z01.20 [facility] [id number] [place] [address] 41183- 1014 Dec, Dental examination Z01.20 [facility] [id number] [place] [address] 28095- 0600 Dec, Type 2 diabetes mellitus with hyperglycemia, without long- term current use of insulin E11.65 ; Essential hypertension I10 ; Mixed hyperlipidemia E78.2 ; Renal insufficiency N28.9 ; Hyperkalemia E87.5 and Swelling of both lower extremities M79.89 [place] [id number] [place] [address] 43760- 0375 Nov, Hyperkalemia E87.5 [place] [id number] [place] [address] 85229- 7400 Nov, Hyperkalemia E87.5 [place] [id number] [place] [address] 04406- 5519 Nov, Type 2 diabetes mellitus with hyperglycemia, without long- term current use of insulin E11.65 ; Essential hypertension I10 ; Mixed hyperlipidemia E78.2 ; Renal insufficiency N28.9 ; Hyperkalemia E87.5 and Swelling of both lower extremities M79.89 [facility] [address], [place] [address]- [address] Oct, Type 2 diabetes mellitus with hyperglycemia, without long- term current use of insulin E11.65 ; Essential hypertension I10 ; Mixed hyperlipidemia E78.2 ; Renal insufficiency N28.9 ; Hyperkalemia E87.5 and Swelling of both lower extremities M79.89 [place] [address] 87110- 6923 Aug, Type 2 diabetes mellitus with hyperglycemia, without long- term current use of insulin E11.65 ; Essential hypertension I10 ; Mixed hyperlipidemia E78.2 ; Renal insufficiency N28.9 ; Hyperkalemia E87.5 and Swelling of both lower extremities M79.89 [place] [address] 96293- 2753 Aug, Type 2 diabetes mellitus with hyperglycemia, without long- term current use of insulin E11.65 ; Essential hypertension I10 ; Mixed hyperlipidemia E78.2 ; Renal insufficiency N28.9 ; Hyperkalemia E87.5 and Swelling of both lower extremities M79.89 [place] [address] 75604- 8824 Aug, Mixed hyperlipidemia E78.2 [place] [address] 66284- 6363 Aug, Type 2 diabetes mellitus with hyperglycemia, without long- term current use of insulin E11.65 ; Essential hypertension I10 ; Mixed hyperlipidemia E78.2 ; Renal insufficiency N28.9 ; Hyperkalemia E87.5 and Swelling of both lower extremities M79.89 [place] [address] 23201- 0228 Jul, [place] [address] 43341- 4844 Jul, Type 2 diabetes mellitus with hyperglycemia, without long- term current use of insulin E11.65 ; Essential hypertension I10 ; Mixed hyperlipidemia E78.2 ; Renal insufficiency N28.9 ; Hyperkalemia E87.5 ; Weight gain R63.5 and Encounter for immunization Z23 [place] [address] 79806- 0618 Jun, Type 2 diabetes mellitus with hyperglycemia, without long- term current use of insulin E11.65 ; Essential hypertension I10 ; Mixed hyperlipidemia E78.2 ; Renal insufficiency N28.9 and Hyperkalemia E87.5 [place] [address], [place] [address]- 3167 Jun, [place] [id number] [place] [address] 39302- 1414 May, Type 2 diabetes mellitus with hyperglycemia, without long- term current use of insulin E11.65 ; Essential hypertension I10 ; Mixed hyperlipidemia E78.2 ; Renal insufficiency N28.9 and Hyperkalemia E87.5 [place] [id number] [place] [address] 95717- 7562 Apr, Type 2 diabetes mellitus with hyperglycemia, without long- term current use of insulin E11.65 ; Essential hypertension I10 ; Mixed hyperlipidemia E78.2 ; Renal insufficiency N28.9 and Hyperkalemia E87.5 [place] [id number] [place] [address] 85510- 4586 Apr, [place] [id number] [place] [address] 33038- 2025 Apr, Type 2 diabetes mellitus with hyperglycemia, without long- term current use of insulin E11.65 ; Essential hypertension I10 ; Mixed hyperlipidemia E78.2 and Renal insufficiency N28.9 [place] [id number] [place] [address] 60988- 6412 Mar, [place] [id number] [place] [address] 72968- 1067 Mar, Type 2 diabetes mellitus with hyperglycemia, without long- term current use of insulin E11.65 ; Essential hypertension I10 ; Mixed hyperlipidemia E78.2 and Renal insufficiency N28.9 [place] [id number] [place] [address] 71432- 4696 Feb, Type 2 diabetes mellitus with hyperglycemia, without long- term current use of insulin E11.65 [place] [address], [place] [address]- 2772 Feb, [place] [id number] [place] [address] 05702- 0016 January, [place] [id number] [place] [address] 23486- 2317 January, Type 2 diabetes mellitus with hyperglycemia, without long- term current use of insulin E11.65 ; Essential hypertension I10 and Mixed hyperlipidemia E78.2 [place] [id number] [place] [address] 17039- 6905 Dec, [place] [id number] [place] [address] 33129- 9978 Dec, [place] [id number] [place] [address] 92839- 8350 Oct, [place] [id number] [place] [address] 97988- 2784 Oct, [place] [id number] [place] [address] 56160- 0907 Oct, [place] [id number] [place] [address] 24993- 4922 Oct, IMMUNIZATIONS No Known Immunizations SOCIAL HISTORY Never Assessed REASON FOR VISIT Diabetes follow up-AHarrymanRN, Has a tooth that recently broke and is having difficulty getting in to see dental PLAN OF CARE Activity Details Follow Up due for Nephrology f/u [facility] 3 mo or as indicated by lab Reason:DM VITAL SIGNS Height 72 in 2018-01-03 Weight 294.5 lbs 2018-01-03 Temperature 97.7 degrees Fahrenheit 2018-01-03 Heart Rate 96 bpm 2018-01-03 Respiratory Rate 20 2018-01-03 BMI 39.94 kg/m2 2018-01-03 Blood pressure systolic 160 mmHg 2018-01-03 Blood pressure diastolic 84 mmHg 2018-01-03 MEDICATIONS Medication Instructions Dosage Frequency Start Date End Date Duration Status Farxiga 10 mg Orally Once a day 1 tablet 24h Active Simvastatin 40 mg Orally Once a day 1 tablet in the evening 24h Active Fish Oil 1000 MG Orally Once a day 2 capsule 24h Active Cephalexin 500 mg Orally 3 times a day 1 capsule 8h 10 Dec, 2017 Dec, 07 days Active Metoprolol Succinate ER 50 mg Orally twice a day 1 tablet 12h Active Gabapentin 300 MG Orally Once a day 1 capsule before bedtime 24h 27 Aug, 2017 28 days Active Chlorthalidone 25 MG Orally Once a day 1/2 tablet in the morning 24h Active Levemir 100 UNIT/ML Subcutaneous Twice daily 60 Units 30 days Active NovoLog 100 UNIT/ML Subcutaneous with meals and snacks 50 units meals and 10 units with snack 30 days Active Triamcinolone Acetonide 0.1 % Externally Twice a day 1 application to affected area 12h Jun, Active Lyrica 50 mg Orally Twice a day 1 capsule 12h 28 days Active NovoLog 100 UNIT/ML Subcutaneous as directed 50 units meals and 10 units snacks Aug, 30 days Active Clonidine HCl 0.2 MG Orally twice a day 1 tablet 12h 90 days Active RESULTS No Results PROCEDURES Procedure Date Ordered Result Body Site GLYCATED HEMOGLOBIN TEST January 03, 2018 LAB NOT BILLED BY [facility] January 03, 2018 VENIPUNCT, ROUTINE* January 03, 2018 INSTRUCTIONS MEDICATIONS ADMINISTERED No Known Medications MEDICAL (GENERAL) HISTORY Type Description Date Medical History Type 2 Diabetes Medical History Hyperlipidemia Medical History Seasonal allergies Medical History DM uncontrolled Noncompliance-Eye Referral Made never kept appt Medical History Essential hypertension, benign Medical History Seeing Dr. Stoner Hospitalization History Infection in left leg 2013
--- OUTSIDE RECORDS SUMMARY | 2018-12-15 19:52 | XMS REPORT ---
Author Author ANI CASTILLO Organization [facility] Address [address] [place] [address] Care Team Providers Care Cost Specialist Name Role Phone ANI CASTILLO Unavailable PROBLEMS Type Condition ICD9-CM Code LWX25-MY Code Onset Dates Condition Status SNOMED Code Problem Essential hypertension I10 Active 35426871 Problem Swelling of both lower extremities M79.89 Active [id number] Problem Hyperkalemia E87.5 Active 92467891 Problem Mixed hyperlipidemia E78.2 Active 996224593 Problem Periodontal disease K05.6 Active 7247417 Problem Caries of cementum teeth K02.7 Active 77861789 Problem 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 Active 14736467 Problem intermediate current use of insulin Z79.4 Active 297299771 Problem Chronic kidney disease, stage III (moderate) N18.3 Active 352535386 Problem Diabetic polyneuropathy associated with type 2 diabetes mellitus E11.42 Active 161861901 ALLERGIES No Known Allergies ENCOUNTERS Encounter Location Date Diagnosis [facility] [id number] [address] Mar, [facility] [id number] [id number] Mar, [facility] [id number] [place] [address] 395[address] Feb, [facility] [id number] [place] [address] 52392- 9028 January, [facility] [id number] [place] [address] 42757- 0175 January, [facility] [id number] [place] [address] 57612- 6009 January, 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 [facility] [id number] [id number] Dec, Dental caries K02.9 [facility] [address], [place] [address] Dec, Type 2 diabetes mellitus with diabetic chronic kidney disease E11.22 [facility] [id number] [place] [address] 03995- 5402 Dec, Dental examination Z01.20 ; Periodontal disease K05.6 and Caries of cementum teeth K02.7 [facility] [id number] [place] [address] 48513- 0547 Dec, Type 2 diabetes mellitus with diabetic chronic kidney disease E11.22 ; Chronic kidney disease, stage III (moderate) N18.3 ; intermediate current use of insulin Z79.4 ; Essential hypertension I10 ; Mixed hyperlipidemia E78.2 ; Diabetic polyneuropathy associated with type 2 diabetes mellitus E11.42 and Dental abscess K04.7 [facility] [address], [place] [address] Nov, [facility] [id number] [place] [address] 95568- 8965 Nov, Mixed hyperlipidemia E78.2 ; Essential hypertension I10 and Type 2 diabetes mellitus with diabetic chronic kidney disease E11.22 [facility] [address], [place] [address] Oct, [facility] [id number], [place] [address] Sep, [facility] [id number], [place] [address] Aug, Diabetic polyneuropathy associated with type 2 diabetes mellitus E11.42 [facility] [address], [place] [address] Aug, Type 2 diabetes mellitus with diabetic chronic kidney disease E11.22 ; Chronic kidney disease, stage III (moderate) N18.3 ; intermediate current use of insulin Z79.4 ; Essential hypertension I10 ; Mixed hyperlipidemia E78.2 and Diabetic polyneuropathy associated with type 2 diabetes mellitus E11.42 [facility] [id number] [place] [address] 10485- 9501 Jul, Type 2 diabetes mellitus with hyperglycemia E11.65 and Mixed hyperlipidemia E78.2 [facility] [id number] [place] [address] 08725- 5033 Jun, Type 2 diabetes mellitus with hyperglycemia E11.65 [facility] [id number] [place] [address] 72501- 7572 Jun, Essential hypertension I10 [facility] [id number] [place] [address] 11665- 7243 May, [facility] [id number] [place] [address] 82314- 7626 May, Type 2 diabetes mellitus with hyperglycemia E11.65 and Essential hypertension I10 [facility] [id number] [place] [address] 82706- 1991 May, Essential hypertension I10 ; Mixed hyperlipidemia E78.2 ; Renal insufficiency N28.9 ; Hyperkalemia E87.5 ; Swelling of both lower extremities M79.89 and Type 2 diabetes mellitus with hyperglycemia E11.65 [facility] [id number] [place] [address] 14058- 7004 Apr, Essential hypertension I10 ; Mixed hyperlipidemia E78.2 ; Renal insufficiency N28.9 ; Hyperkalemia E87.5 ; Swelling of both lower extremities M79.89 and Type 2 diabetes mellitus with hyperglycemia E11.65 [facility] [id number] [place] [address] 96260- 7054 Mar, [facility] [id number] [place] [address] 18190- 3517 Feb, [facility] [id number] [place] [address] 22645- 1246 Feb, Essential hypertension I10 ; Mixed hyperlipidemia E78.2 ; Renal insufficiency N28.9 ; Hyperkalemia E87.5 ; Swelling of both lower extremities M79.89 and Type 2 diabetes mellitus with hyperglycemia E11.65 [facility] [id number] [place] [phone] Feb, Encounter for dental examination Z01.20 [facility] [id number] [place] [address] 37533- 7316 January, Essential hypertension I10 [facility] [id number] [place] [address] [phone] January, Essential hypertension I10 ; Mixed hyperlipidemia E78.2 ; Renal insufficiency N28.9 ; Hyperkalemia E87.5 ; Swelling of both lower extremities M79.89 and Type 2 diabetes mellitus with hyperglycemia E11.65 [facility] [address] [id number] January, Dental examination Z01.20 [facility] [id number] [place] [address] [phone]- [phone] Dec, Dental examination Z01.20 [facility] [id number] [place] [address] 16021- 6086 Dec, Type 2 diabetes mellitus with hyperglycemia, without long- term current use of insulin E11.65 ; Essential hypertension I10 ; Mixed hyperlipidemia E78.2 ; Renal insufficiency N28.9 ; Hyperkalemia E87.5 and Swelling of both lower extremities M79.89 [facility] [address], [place] [address] Nov, Hyperkalemia E87.5 [facility] [id number] [place] [address] 59681- 9712 Nov, Hyperkalemia E87.5 [facility] [id number] [place] [phone]- 0378 Nov, Type 2 diabetes mellitus with hyperglycemia, without long- term current use of insulin E11.65 ; Essential hypertension I10 ; Mixed hyperlipidemia E78.2 ; Renal insufficiency N28.9 ; Hyperkalemia E87.5 and Swelling of both lower extremities M79.89 [place] [address] [address]- [address] Oct, Type 2 diabetes mellitus with hyperglycemia, without long- term current use of insulin E11.65 ; Essential hypertension I10 ; Mixed hyperlipidemia E78.2 ; Renal insufficiency N28.9 ; Hyperkalemia E87.5 and Swelling of both lower extremities M79.89 [facility] [address] [address] Aug, Type 2 diabetes mellitus with hyperglycemia, without long- term current use of insulin E11.65 ; Essential hypertension I10 ; Mixed hyperlipidemia E78.2 ; Renal insufficiency N28.9 ; Hyperkalemia E87.5 and Swelling of both lower extremities M79.89 [facility] [address] 8[address]60- [address] Aug, Type 2 diabetes mellitus with hyperglycemia, without long- term current use of insulin E11.65 ; Essential hypertension I10 ; Mixed hyperlipidemia E78.2 ; Renal insufficiency N28.9 ; Hyperkalemia E87.5 and Swelling of both lower extremities M79.89 [facility] [id number] [place] [address] 28122- 1260 Aug, Mixed hyperlipidemia E78.2 [facility] [id number] [place] [address] 86841- 0515 Aug, Type 2 diabetes mellitus with hyperglycemia, without long- term current use of insulin E11.65 ; Essential hypertension I10 ; Mixed hyperlipidemia E78.2 ; Renal insufficiency N28.9 ; Hyperkalemia E87.5 and Swelling of both lower extremities M79.89 [place] [address] 00747- 5936 Jul, [facility] [address] [address]78- [address] Jul, Type 2 diabetes mellitus with hyperglycemia, without long- term current use of insulin E11.65 ; Essential hypertension I10 ; Mixed hyperlipidemia E78.2 ; Renal insufficiency N28.9 ; Hyperkalemia E87.5 ; Weight gain R63.5 and Encounter for immunization Z23 [facility] [address] 79694- 3744 Jun, Type 2 diabetes mellitus with hyperglycemia, without long- term current use of insulin E11.65 ; Essential hypertension I10 ; Mixed hyperlipidemia E78.2 ; Renal insufficiency N28.9 and Hyperkalemia E87.5 [place] [address] 11036- 8582 Jun, [facility] [address] 9[address]85- 2761 May, Type 2 diabetes mellitus with hyperglycemia, without long- term current use of insulin E11.65 ; Essential hypertension I10 ; Mixed hyperlipidemia E78.2 ; Renal insufficiency N28.9 and Hyperkalemia E87.5 [place] [facility] [address] 21380- 8173 Apr, Type 2 diabetes mellitus with hyperglycemia, without long- term current use of insulin E11.65 ; Essential hypertension I10 ; Mixed hyperlipidemia E78.2 ; Renal insufficiency N28.9 and Hyperkalemia E87.5 [facility] [id number] [place] [address] 15877- 9774 Apr, [place] [address] 13678- 3148 Apr, Type 2 diabetes mellitus with hyperglycemia, without long- term current use of insulin E11.65 ; Essential hypertension I10 ; Mixed hyperlipidemia E78.2 and Renal insufficiency N28.9 [place] [address] 96197- 0995 Mar, [place] [address] 03761- 4171 Mar, Type 2 diabetes mellitus with hyperglycemia, without long- term current use of insulin E11.65 ; Essential hypertension I10 ; Mixed hyperlipidemia E78.2 and Renal insufficiency N28.9 [facility] [id number] [place] [address] 56514- 4681 Feb, Type 2 diabetes mellitus with hyperglycemia, without long- term current use of insulin E11.65 [facility] [address], [place] [address] 12[address] Feb, [facility] [id number] [place] [address] 51079- 2636 January, [facility] [id number] [place] [address] 62295- 9402 January, Type 2 diabetes mellitus with hyperglycemia, without long- term current use of insulin E11.65 ; Essential hypertension I10 and Mixed hyperlipidemia E78.2 [facility] [id number] [place] [address] 97454- 6369 Dec, [facility] [id number] [place] [address] 35924- 0639 Dec, [facility] [id number] [place] [address] 93301- 4778 Oct, [facility] [id number] [place] [address] 05340- 3074 Oct, [facility] [id number] [place] [address] 09772- 7690 Oct, [facility] [id number] [place] [address] 01081- 8281 Oct, IMMUNIZATIONS No Known Immunizations SOCIAL HISTORY Never Assessed REASON FOR VISIT Diabetes--CarleyleachMA, Refill medications: Farxiga, NovoLog, Chlorthalidone PLAN OF CARE Activity Details Follow Up 3 months Reason:DM VITAL SIGNS Height 72 in 2017-09-14 Weight 272 lbs 2017-09-14 Temperature 98.2 degrees Fahrenheit 2017-09-14 Heart Rate 110 bpm 2017-09-14 Respiratory Rate 20 2017-09-14 BMI 36.89 kg/m2 2017-09-14 Blood pressure systolic 140 mmHg 2017-09-14 Blood pressure diastolic 92 mmHg 2017-09-14 MEDICATIONS Medication Instructions Dosage Frequency Start Date End Date Duration Status Farxiga 10 mg Orally Once a day 1 tablet 24h Active NovoLog 100 UNIT/ML Subcutaneous as directed 50 units meals and 10 units snacks Aug, 30 days Active Fish Oil 1000 MG Orally Once a day 2 capsule 24h Active Chlorthalidone 25 MG Orally Once a day 1/2 tablet in the morning 24h Active Simvastatin 40 mg Orally Once a day 1 tablet in the evening 24h Active NovoLog 100 UNIT/ML Subcutaneous with meals and snacks 50 units meals and 10 units with snack 30 days Active Metoprolol Succinate ER 50 mg Orally twice a day 1 tablet 12h Active Clonidine HCl 0.2 MG Orally twice a day 1 tablet 12h 90 days Active Levemir 100 UNIT/ML Subcutaneous Twice daily 60 Units 30 days Active Lyrica 50 mg Orally Twice a day 1 capsule 12h Aug, 28 days Active Triamcinolone Acetonide 0.1 % Externally Twice a day 1 application to affected area 12h Jun, Active RESULTS No Results PROCEDURES Procedure Date Ordered Result Body Site GLYCATED HEMOGLOBIN TEST Sep 14, 2017 [facility] Sep 14, 2017 VENIPUNCT, ROUTINE* Sep 14, 2017 INSTRUCTIONS MEDICATIONS ADMINISTERED No Known Medications MEDICAL (GENERAL) HISTORY Type Description Date Medical History Type 2 Diabetes Medical History Hyperlipidemia Medical History Seasonal allergies Medical History Other and unspecified hyperlipidemia Medical History DM uncontrolled Noncompliance-Eye Referral Made never kept appt Medical History Essential hypertension, benign Hospitalization History Infection in left leg 2013
--- OUTSIDE RECORDS SUMMARY | 2018-12-15 19:52 | XMS REPORT ---
Author Author ANI CASTILLO Organization [employer] Address Unknown Phone Unavailable Care Team Providers Care Structural Worker Name Role Phone ANI CASTILLO CP Unavailable Allergies No Known Allergies Problems Problem Type Condition Code Onset Dates Condition Status Problem Type 2 diabetes mellitus with hyperglycemia, without long-term current use of insulin E11.65 Active Problem Essential hypertension I10 Active Problem Renal insufficiency N28.9 Active Problem Mixed hyperlipidemia E78.2 Active Medications Medication Code System Code Instructions Start Date End Date Status Dosage Levemir [facility] [id number] 100 UNIT/ML Subcutaneous Once a day at bedtime Apr 30, 2016 10 units Results No Known Results Summary Purpose [employer] Submission
--- OUTSIDE RECORDS SUMMARY | 2018-12-15 19:52 | XMS REPORT ---
Author Author ANI CASTILLO [facility] [address] Address [address] [place] [address] Care Team Providers Care Clinical Psychiatrist Name Role Phone ANI CASTILLO Unavailable PROBLEMS Type Condition ICD9-CM Code FAO27-WL Code Onset Dates Condition Status SNOMED Code Problem Type 2 diabetes mellitus with hyperglycemia E11.65 Active 97753811 Problem Swelling of both lower extremities M79.89 Active 30358761051259778 Problem Essential hypertension I10 Active 26744021 Problem Mixed hyperlipidemia E78.2 Active 830907308 Problem Hyperkalemia E87.5 Active 01386839 Problem Renal insufficiency N28.9 Active 566011828 ALLERGIES Substance Reaction Event Type Date Status N.K.D.A. Unknown Non Drug Allergy Aug, Unknown SOCIAL HISTORY No smoking Hx information available PLAN OF CARE Activity Details Follow Up 1 weeks Reason:HTN VITAL SIGNS Height 72 in 2016-09-16 Weight 250.6 lbs 2016-09-16 Temperature 98.2 degrees Fahrenheit 2016-09-16 Heart Rate 94 bpm 2016-09-16 Respiratory Rate 22 2016-09-16 BMI 33.98 kg/m2 2016-09-16 Blood pressure systolic 160 mmHg 2016-09-16 Blood pressure diastolic 80 mmHg 2016-09-16 MEDICATIONS Medication Instructions Dosage Frequency Start Date End Date Duration Status Lisinopril 20 mg Orally Once a day 1 tablet 24h Active Levemir 100 UNIT/ML Subcutaneous 2 times a day 27 units 12h Active Chlorthalidone 25 MG Orally Once a day 1/2 tablet in the morning 24h Active Fish Oil 1000 MG Orally Once a day 2 capsule 24h 30 day(s) Active Clonidine HCl 0.1 MG Orally Once a day 1 tablet at bedtime 24h Aug, Active NovoLog 100 UNIT/ML Subcutaneous with meals 8 units Active Simvastatin 40 mg Orally Once a day 1 tablet in the evening 24h Active Triamcinolone Acetonide 0.1 % Externally Twice a day 1 application to affected area 12h Jun, Active RESULTS Name Result Date Reference Range CMP 2016-09-16 Glucose, Serum 190 65-99 BUN 48 8-27 Creatinine, Serum 1.42 0.76-1.27 eGFR If NonAfricn Am 53 >59 eGFR If Africn Am 62 >59 BUN/Creatinine Ratio 34 10-22 Sodium, Serum 137 134-144 Potassium, Serum 5.4 3.5-5.2 Chloride, Serum 101 96-106 Carbon Dioxide, Total 22 18-29 Calcium, Serum 9.3 8.6-10.2 Protein, Total, Serum 7.0 6.0-8.5 Albumin, Serum 4.1 3.6-4.8 Globulin, Total 2.9 1.5-4.5 A/G Ratio 1.4 1.1-2.5 Bilirubin, Total 0.3 0.0-1.2 Alkaline Phosphatase, S 95 39-117 AST (SGOT) 17 0-40 ALT (SGPT) 18 0-44 PROCEDURES Procedure Date Ordered Related Diagnosis Body Site LAB NOT BILLED BY [facility] Sep 16, 2016 Office Visit, Est Pt., Level 4 Sep 16, 2016 VENIPUNCT, ROUTINE* Sep 16, 2016 IMMUNIZATIONS No Known Immunizations
--- OUTSIDE RECORDS SUMMARY | 2018-12-15 19:52 | XMS REPORT ---
Author Author ANI CASTILLO Organization [facility] Address [address] [place] [address] Care Team Providers Care Vocational Rehabilitation Administrator Name Role Phone ANI CASTILLO Unavailable PROBLEMS Type Condition ICD9-CM Code EEH36-PA Code Onset Dates Condition Status SNOMED Code Problem Type 2 diabetes mellitus with diabetic chronic kidney disease E11.22 Active 37005025 Problem Chronic kidney disease, stage III (moderate) N18.3 Active 111963408 Problem Diabetic polyneuropathy associated with type 2 diabetes mellitus E11.42 Active 926214676 Problem Essential hypertension I10 Active 17503065 Problem Mixed hyperlipidemia E78.2 Active 857264753 Problem Hyperkalemia E87.5 Active 22874971 Problem Swelling of both lower extremities M79.89 Active 52850354813915614 Problem Type 2 diabetes mellitus with diabetic neuropathic arthropathy E11.610 Active 012368781 Problem 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 Active 89485954 Problem Periodontal disease K05.6 Active 6393297 Problem 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 Active 777939152 Problem Type 2 diabetes mellitus with hyperglycemia, without long-term current use of insulin E11.65 Active 195245559807668 Problem Caries of cementum teeth K02.7 Active 41209969 ALLERGIES No Information ENCOUNTERS Encounter Location Date Diagnosis [facility] [address] [facility] [id number] [address] Mar, [facility] [address] [facility] [id number], [place] [address] Mar, Type 2 diabetes mellitus with diabetic neuropathic arthropathy E11.610 ; 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 ; Mixed hyperlipidemia E78.2 ; Essential hypertension I10 ; Renal insufficiency N28.9 ; Dental caries K02.9 ; Endocrine disorder, unspecified E34.9 ; 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 ; Type 2 diabetes mellitus with diabetic chronic kidney disease E11.22 and Irritant contact dermatitis due to detergent L24.0 [facility] [address] [id number] Mar, Dental caries K02.9 [facility] [address], [place] [address] 18 Feb, 2018 [facility] [address], [place] [address] Feb, [facility] [address], [place] [address] Feb, [facility] [id number] [place] [address]20- [address] Feb, [facility] [id number] [place] [address]6847[address] 7810 January, [facility] [id number] [place] [address] 26350- 2711 January, [facility] [id number] [place] [address] 14215- 5740 January, Type 2 diabetes mellitus with diabetic chronic kidney disease E11.22 [facility] [address] [id number] Dec, Dental caries K02.9 [facility] [address], [place] [address] Dec, Type 2 diabetes mellitus with diabetic chronic kidney disease E11.22 [facility] [address], [place] [address] Dec, Dental examination Z01.20 ; Periodontal disease K05.6 and Caries of cementum teeth K02.7 [facility] [address], [place] [address] Dec, Type 2 diabetes mellitus with diabetic chronic kidney disease E11.22 ; Chronic kidney disease, stage III (moderate) N18.3 ; 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 ; Essential hypertension I10 ; Mixed hyperlipidemia E78.2 ; Diabetic polyneuropathy associated with type 2 diabetes mellitus E11.42 and Dental abscess K04.7 [facility] [id number] [place] [address]76- 7158 Nov, [facility] [id number] [place] [address] 15693- 6355 Nov, Mixed hyperlipidemia E78.2 ; Essential hypertension I10 and Type 2 diabetes mellitus with diabetic chronic kidney disease E11.22 [facility] [id number] [place] [address]4022[address]95 Oct, [facility] [id number] [place] [address]3467- 4047 Sep, [facility] [id number] [place] [address] 37134- 4311 Aug, Diabetic polyneuropathy associated with type 2 diabetes mellitus E11.42 [facility] [id number] [place] [address]10[address] Aug, Type 2 diabetes mellitus with diabetic chronic kidney disease E11.22 ; Chronic kidney disease, stage III (moderate) N18.3 ; 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 ; Essential hypertension I10 ; Mixed hyperlipidemia E78.2 and Diabetic polyneuropathy associated with type 2 diabetes mellitus E11.42 [facility] [address], [place] [address] Jul, Type 2 diabetes mellitus with hyperglycemia E11.65 and Mixed hyperlipidemia E78.2 [facility] [id number] [place] [address] 27686- 1466 Jun, Type 2 diabetes mellitus with hyperglycemia E11.65 [facility] [id number] [place] [address] 69087- 7745 Jun, Essential hypertension I10 [facility] [id number] [place] [address] 45711- 2326 May, [facility] [id number] [place] [address] 97725- 0236 May, Type 2 diabetes mellitus with hyperglycemia E11.65 and Essential hypertension I10 [id number] [place] [address] 12712- 7103 May, Essential hypertension I10 ; Mixed hyperlipidemia E78.2 ; Renal insufficiency N28.9 ; Hyperkalemia E87.5 ; Swelling of both lower extremities M79.89 and Type 2 diabetes mellitus with hyperglycemia E11.65 [facility] [id number] [place] [address] 66376- 4828 Apr, Essential hypertension I10 ; Mixed hyperlipidemia E78.2 ; Renal insufficiency N28.9 ; Hyperkalemia E87.5 ; Swelling of both lower extremities M79.89 and Type 2 diabetes mellitus with hyperglycemia E11.65 [facility] [id number] [place] [address] 07082- 7818 Mar, [place] [id number] [place] [address] 78255- 0559 Feb, [facility] [id number] [place] [address] 32445- 5685 Feb, Essential hypertension I10 ; Mixed hyperlipidemia E78.2 ; Renal insufficiency N28.9 ; Hyperkalemia E87.5 ; Swelling of both lower extremities M79.89 and Type 2 diabetes mellitus with hyperglycemia E11.65 [facility] [id number] [place] [id number] Feb, Encounter for dental examination Z01.20 [place] [id number] [place] [address] 19617- 6713 January, Essential hypertension I10 [place] [id number] [place] [address] 97543- 7296 January, Essential hypertension I10 ; Mixed hyperlipidemia E78.2 ; Renal insufficiency N28.9 ; Hyperkalemia E87.5 ; Swelling of both lower extremities M79.89 and Type 2 diabetes mellitus with hyperglycemia E11.65 [facility] [id number] [place] [id number] January, Dental examination Z01.20 [facility] [id number] [place] [address] 25450- 0268 Dec, Dental examination Z01.20 [facility] [id number] [place] [id number] 5096 Dec, Type 2 diabetes mellitus with hyperglycemia, without long- term current use of insulin E11.65 ; Essential hypertension I10 ; Mixed hyperlipidemia E78.2 ; Renal insufficiency N28.9 ; Hyperkalemia E87.5 and Swelling of both lower extremities M79.89 [facility] [id number] [place] [address] 45156- 8898 Nov, Hyperkalemia E87.5 [facility] [id number] [place] [address] 79043- 8678 Nov, Hyperkalemia E87.5 [facility] [id number] [place] [address] 60861- 0144 Nov, Type 2 diabetes mellitus with hyperglycemia, without long- term current use of insulin E11.65 ; Essential hypertension I10 ; Mixed hyperlipidemia E78.2 ; Renal insufficiency N28.9 ; Hyperkalemia E87.5 and Swelling of both lower extremities M79.89 [facility] [id number] [place] [address] 78171- 4171 Oct, Type 2 diabetes mellitus with hyperglycemia, without long- term current use of insulin E11.65 ; Essential hypertension I10 ; Mixed hyperlipidemia E78.2 ; Renal insufficiency N28.9 ; Hyperkalemia E87.5 and Swelling of both lower extremities M79.89 [facility] [id number] [place] [address] 55867- 7910 Aug, Type 2 diabetes mellitus with hyperglycemia, without long- term current use of insulin E11.65 ; Essential hypertension I10 ; Mixed hyperlipidemia E78.2 ; Renal insufficiency N28.9 ; Hyperkalemia E87.5 and Swelling of both lower extremities M79.89 [facility] [id number] [place] [address] 49427- 0658 Aug, Type 2 diabetes mellitus with hyperglycemia, without long- term current use of insulin E11.65 ; Essential hypertension I10 ; Mixed hyperlipidemia E78.2 ; Renal insufficiency N28.9 ; Hyperkalemia E87.5 and Swelling of both lower extremities M79.89 [facility] [id number] [place] [address] 40436- 4933 Aug, Mixed hyperlipidemia E78.2 [facility] [address] [place] [id number] 8967 Aug, Type 2 diabetes mellitus with hyperglycemia, without long- term current use of insulin E11.65 ; Essential hypertension I10 ; Mixed hyperlipidemia E78.2 ; Renal insufficiency N28.9 ; Hyperkalemia E87.5 and Swelling of both lower extremities M79.89 [facility] [address] [address]- [address] Jul, [facility] [facility] [address] [address]- 2406 Jul, Type 2 diabetes mellitus with hyperglycemia, without long- term current use of insulin E11.65 ; Essential hypertension I10 ; Mixed hyperlipidemia E78.2 ; Renal insufficiency N28.9 ; Hyperkalemia E87.5 ; Weight gain R63.5 and Encounter for immunization Z23 [facility] [id number] [place] [address] 00709- 0972 Jun, Type 2 diabetes mellitus with hyperglycemia, without long- term current use of insulin E11.65 ; Essential hypertension I10 ; Mixed hyperlipidemia E78.2 ; Renal insufficiency N28.9 and Hyperkalemia E87.5 [place] [address] 8[address]24- 1316 Jun, [facility] [facility] [address] 49172- 8244 May, Type 2 diabetes mellitus with hyperglycemia, without long- term current use of insulin E11.65 ; Essential hypertension I10 ; Mixed hyperlipidemia E78.2 ; Renal insufficiency N28.9 and Hyperkalemia E87.5 [place] [address], [place] [address] Apr, Type 2 diabetes mellitus with hyperglycemia, without long- term current use of insulin E11.65 ; Essential hypertension I10 ; Mixed hyperlipidemia E78.2 ; Renal insufficiency N28.9 and Hyperkalemia E87.5 [facility] [id number] [place] [address] 45147- 1855 Apr, [facility] [id number] [place] [address] 32273- 5065 Apr, Type 2 diabetes mellitus with hyperglycemia, without long- term current use of insulin E11.65 ; Essential hypertension I10 ; Mixed hyperlipidemia E78.2 and Renal insufficiency N28.9 [facility] [id number] [place] [address] 75176- 0489 Mar, [facility] [id number] [place] [address] 54335- 9278 Mar, Type 2 diabetes mellitus with hyperglycemia, without long- term current use of insulin E11.65 ; Essential hypertension I10 ; Mixed hyperlipidemia E78.2 and Renal insufficiency N28.9 [facility] [id number] [place] [address] 41483- 5865 Feb, Type 2 diabetes mellitus with hyperglycemia, without long- term current use of insulin E11.65 [facility] [address] [address] 5127 Feb, [facility] [id number] [place] [address] 35924- 6082 January, [facility] [id number] [place] [address] 97394- 4379 January, Type 2 diabetes mellitus with hyperglycemia, without long- term current use of insulin E11.65 ; Essential hypertension I10 and Mixed hyperlipidemia E78.2 [facility] [id number] [place] [address] 37231- 7217 Dec, [facility] [address] [facility] [id number] [address] Dec, [facility] [address] [place] [id number], [place] [address]- 7719 Oct, [facility] [id number], [place] [address]- 7272 Oct, [facility] [id number] [id number]362 Oct, [facility] [address] [facility] [id number] [address] 9399 Oct, IMMUNIZATIONS No Known Immunizations SOCIAL HISTORY Never Assessed REASON FOR VISIT [facility] PLAN OF CARE VITAL SIGNS MEDICATIONS Unknown [...]
--- OUTSIDE RECORDS SUMMARY | 2018-12-15 19:52 | XMS REPORT ---
Author Author ANI CASTILLO Organization [facility] Address [address] [place] [address] Care Team Providers Care Controller Operations And Hr Manager Name Role Phone ANI CASTILLO Unavailable PROBLEMS Type Condition ICD9-CM Code OPC01-GD Code Onset Dates Condition Status SNOMED Code Problem Renal insufficiency N28.9 Active 960715203 Problem Type 2 diabetes mellitus with hyperglycemia, without long-term current use of insulin E11.65 Active 29168211 Assessment Type 2 diabetes mellitus with hyperglycemia, without long-term current use of insulin E11.65 May, Active 99795934 Assessment Hyperkalemia E87.5 May, Active 41347660 Problem Essential hypertension I10 Active 74024740 Problem Mixed hyperlipidemia E78.2 Active 108927400 ALLERGIES Substance Reaction Event Type Date Status N.K.D.A. Unknown Non Drug Allergy May, Unknown SOCIAL HISTORY No smoking Hx information available PLAN OF CARE VITAL SIGNS Height 72 in 2016-06-02 Weight 222.9 lbs 2016-06-02 Heart Rate 92 bpm 2016-06-02 Respiratory Rate 18 2016-06-02 BMI 30.23 kg/m2 2016-06-02 Blood pressure systolic 122 mmHg 2016-06-02 Blood pressure diastolic 76 mmHg 2016-06-02 MEDICATIONS Medication Instructions Dosage Frequency Start Date End Date Duration Status Metformin HCl 1000 MG Orally Twice a day 1 tablet with meals 12h Active Lisinopril 20 mg Orally Once a day 1 tablet 24h Active Levemir 100 UNIT/ML Subcutaneous 2 times a day 15 units 12h Active Simvastatin 40 mg Orally Once a day 1 tablet in the evening 24h Active Amlodipine Besylate 5 mg Orally Once a day 1 tablet 24h 30 day(s) Active Fish Oil 1000 MG Orally Once a day 2 capsule 24h 30 day(s) Active RESULTS Name Result Date Reference Range CMP 2016-06-02 Glucose, Serum 158 65-99 BUN 34 8-27 Creatinine, Serum 1.50 0.76-1.27 eGFR If NonAfricn Am 50 >59 eGFR If Africn Am 58 >59 BUN/Creatinine Ratio 23 10-22 Sodium, Serum 139 134-144 Potassium, Serum 5.7 3.5-5.2 Chloride, Serum 100 97-108 Carbon Dioxide, Total 22 18-29 Calcium, Serum 9.6 8.6-10.2 Protein, Total, Serum 6.5 6.0-8.5 Albumin, Serum 3.9 3.6-4.8 Globulin, Total 2.6 1.5-4.5 A/G Ratio 1.5 1.1-2.5 Bilirubin, Total <0.2 0.0-1.2 Alkaline Phosphatase, S 86 39-117 AST (SGOT) 14 0-40 ALT (SGPT) 13 0-44 GLUCOSE FINGERSTICK (IN HOUSE) 2016-06-02 GLU FINGERSTICK 171 PC Lot # [id number] Exp date 08/08/2016 PROCEDURES Procedure Date Ordered Related Diagnosis Body Site GLUCOSE BLOOD TEST Jun 02, 2016 COMPREHEN METABOLIC PANEL Jun 02, 2016 VENIPUNCT, ROUTINE* Jun 02, 2016 Office Visit, Est Pt., Level 4 Jun 02, 2016 IMMUNIZATIONS No Known Immunizations
--- OUTSIDE RECORDS SUMMARY | 2018-12-15 19:52 | XMS REPORT ---
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 Name Role Phone ANI CASTILLO Unavailable PROBLEMS Type Condition ICD9-CM Code BAT39-IG Code Onset Dates Condition Status SNOMED Code Problem Type 2 diabetes mellitus with diabetic chronic kidney disease E11.22 Active 97132241 Problem Chronic kidney disease, stage III (moderate) N18.3 Active 324407403 Problem Diabetic polyneuropathy associated with type 2 diabetes mellitus E11.42 Active 483974902 Problem Essential hypertension I10 Active 57679306 Problem Mixed hyperlipidemia E78.2 Active 265747970 Problem Hyperkalemia E87.5 Active 21739355 Problem Swelling of both lower extremities M79.89 Active [id number] Problem Type 2 diabetes mellitus with diabetic neuropathic arthropathy E11.610 Active 246361812 Problem 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 Active 11578792 Problem Periodontal disease K05.6 Active 2691510 Problem long term care pharmacist current use of insulin Z79.4 Active 367542304 Problem Type 2 diabetes mellitus with hyperglycemia, without long-term current use of insulin E11.65 Active 575527809450618 Problem Caries of cementum teeth K02.7 Active 66169731 ALLERGIES No Information ENCOUNTERS Encounter Location Date Diagnosis [facility] [address] [facility] [id number] [address] Mar, [facility] [address] [facility] [id number] [address] Mar, Type 2 diabetes mellitus with diabetic neuropathic arthropathy E11.610 ; long term care pharmacist current use of insulin Z79.4 ; Mixed hyperlipidemia E78.2 ; Essential hypertension I10 ; Renal insufficiency N28.9 ; Dental caries K02.9 ; Endocrine disorder, unspecified E34.9 ; 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 ; Type 2 diabetes mellitus with diabetic chronic kidney disease E11.22 and Irritant contact dermatitis due to detergent L24.0 [facility] [address] [id number] Mar, Dental caries K02.9 [facility] [address] [address] 18 Feb, 2018 [facility] [address] [address] Feb, [facility] [address], [place] [address] Feb, [facility] [address] [id number] [place] [address] 49599- 3963 Feb, [facility] [address] [place] [address] 86509- 1084 January, [facility] [id number] [place] [address] 27843- 7435 January, [facility] [address] [place] [address] 32621- 2856 January, Type 2 diabetes mellitus with diabetic chronic kidney disease E11.22 [facility] [address] [id number] Dec, Dental caries K02.9 [facility] [address], [place] [address] Dec, Type 2 diabetes mellitus with diabetic chronic kidney disease E11.22 [facility] [address], [place] [address] Dec, Dental examination Z01.20 ; Periodontal disease K05.6 and Caries of cementum teeth K02.7 [facility] [address] [address] Dec, Type 2 diabetes mellitus with diabetic chronic kidney disease E11.22 ; Chronic kidney disease, stage III (moderate) N18.3 ; long term care pharmacist current use of insulin Z79.4 ; Essential hypertension I10 ; Mixed hyperlipidemia E78.2 ; Diabetic polyneuropathy associated with type 2 diabetes mellitus E11.42 and Dental abscess K04.7 [facility] [id number] [place] [address] 35654- 5911 Nov, [facility] [id number] [place] [address] 04179- 2918 Nov, Mixed hyperlipidemia E78.2 ; Essential hypertension I10 and Type 2 diabetes mellitus with diabetic chronic kidney disease E11.22 [facility] [address] [id number] [place] [address] 59664- 8252 Oct, [facility] [address] [id number] [place] [address] 83737- 5492 Sep, [facility] [address] [id number] [place] [address] 28661- 4835 Aug, Diabetic polyneuropathy associated with type 2 diabetes mellitus E11.42 [facility] [address] [address] [id number] [place] [address] 60367- 1640 Aug, Type 2 diabetes mellitus with diabetic chronic kidney disease E11.22 ; Chronic kidney disease, stage III (moderate) N18.3 ; long term care pharmacist current use of insulin Z79.4 ; Essential hypertension I10 ; Mixed hyperlipidemia E78.2 and Diabetic polyneuropathy associated with type 2 diabetes mellitus E11.42 [facility] [address], [place] [address] Jul, Type 2 diabetes mellitus with hyperglycemia E11.65 and Mixed hyperlipidemia E78.2 [facility] [address] [place] [address] 04885- 7926 Jun, Type 2 diabetes mellitus with hyperglycemia E11.65 [facility] [address] [id number] [place] [address] 05041- 9211 Jun, Essential hypertension I10 [facility] [address] [address] [id number] [place] [address] 97935- 4402 May, [facility] [address] [address] [id number] [place] [address] 48256- 6581 May, Type 2 diabetes mellitus with hyperglycemia E11.65 and Essential hypertension I10 [address] [place] [address] 30611- 1948 May, Essential hypertension I10 ; Mixed hyperlipidemia E78.2 ; Renal insufficiency N28.9 ; Hyperkalemia E87.5 ; Swelling of both lower extremities M79.89 and Type 2 diabetes mellitus with hyperglycemia E11.65 [facility] [address] [address] [id number] [place] [address] 54716- 9772 Apr, Essential hypertension I10 ; Mixed hyperlipidemia E78.2 ; Renal insufficiency N28.9 ; Hyperkalemia E87.5 ; Swelling of both lower extremities M79.89 and Type 2 diabetes mellitus with hyperglycemia E11.65 [facility] [address] [place] [address] 37098- 9649 Mar, [place] [id number] [place] [address] 03540- 8860 Feb, [facility] [address] [address] [id number] [place] [address] 06367- 8323 Feb, Essential hypertension I10 ; Mixed hyperlipidemia E78.2 ; Renal insufficiency N28.9 ; Hyperkalemia E87.5 ; Swelling of both lower extremities M79.89 and Type 2 diabetes mellitus with hyperglycemia E11.65 [facility] [address] [place] [id number] Feb, Encounter for dental examination Z01.20 [place] [id number] [place] [address] 14889- 8992 January, Essential hypertension I10 [place] [id number] [place] [address] 37855- 5071 January, Essential hypertension I10 ; Mixed hyperlipidemia E78.2 ; Renal insufficiency N28.9 ; Hyperkalemia E87.5 ; Swelling of both lower extremities M79.89 and Type 2 diabetes mellitus with hyperglycemia E11.65 [facility] [address] [place] [address] [id number] [place] [id number] January, Dental examination Z01.20 [facility] [address] [place] [address] 04325- 0174 Dec, Dental examination Z01.20 [facility] [address] [id number] [place] [address] [phone]- 6188 Dec, Type 2 diabetes mellitus with hyperglycemia, without long- term current use of insulin E11.65 ; Essential hypertension I10 ; Mixed hyperlipidemia E78.2 ; Renal insufficiency N28.9 ; Hyperkalemia E87.5 and Swelling of both lower extremities M79.89 [facility] [address] [place] [address] 56683- 7333 Nov, Hyperkalemia E87.5 [facility] [address] [id number] [place] [address] 21463- 3059 Nov, Hyperkalemia E87.5 [facility] [address] [id number] [place] [address] 44095- 5511 Nov, Type 2 diabetes mellitus with hyperglycemia, without long- term current use of insulin E11.65 ; Essential hypertension I10 ; Mixed hyperlipidemia E78.2 ; Renal insufficiency N28.9 ; Hyperkalemia E87.5 and Swelling of both lower extremities M79.89 [facility] [address] [place] [address] 99943- 2991 Oct, Type 2 diabetes mellitus with hyperglycemia, without long- term current use of insulin E11.65 ; Essential hypertension I10 ; Mixed hyperlipidemia E78.2 ; Renal insufficiency N28.9 ; Hyperkalemia E87.5 and Swelling of both lower extremities M79.89 [place] [address] [place] [address] 59329- 9191 Aug, Type 2 diabetes mellitus with hyperglycemia, without long- term current use of insulin E11.65 ; Essential hypertension I10 ; Mixed hyperlipidemia E78.2 ; Renal insufficiency N28.9 ; Hyperkalemia E87.5 and Swelling of both lower extremities M79.89 [facility] [address] [id number] [place] [address] 69674- 9161 Aug, Type 2 diabetes mellitus with hyperglycemia, without long- term current use of insulin E11.65 ; Essential hypertension I10 ; Mixed hyperlipidemia E78.2 ; Renal insufficiency N28.9 ; Hyperkalemia E87.5 and Swelling of both lower extremities M79.89 [facility] [address] [id number] [place] [address] 94556- 1994 Aug, Mixed hyperlipidemia E78.2 [facility] [address] [place] [phone]- [phone] Aug, Type 2 diabetes mellitus with hyperglycemia, without long- term current use of insulin E11.65 ; Essential hypertension I10 ; Mixed hyperlipidemia E78.2 ; Renal insufficiency N28.9 ; Hyperkalemia E87.5 and Swelling of both lower extremities M79.89 [place] [address] [address]- [address] Jul, [place] [address] 56187- 1191 Jul, Type 2 diabetes mellitus with hyperglycemia, without long- term current use of insulin E11.65 ; Essential hypertension I10 ; Mixed hyperlipidemia E78.2 ; Renal insufficiency N28.9 ; Hyperkalemia E87.5 ; Weight gain R63.5 and Encounter for immunization Z23 [facility] [address] [address] [id number] [place] [address] 98039- 3674 Jun, Type 2 diabetes mellitus with hyperglycemia, without long- term current use of insulin E11.65 ; Essential hypertension I10 ; Mixed hyperlipidemia E78.2 ; Renal insufficiency N28.9 and Hyperkalemia E87.5 [place] [address] 91728- 0159 Jun, [place] [address] 55370- 5980 May, Type 2 diabetes mellitus with hyperglycemia, without long- term current use of insulin E11.65 ; Essential hypertension I10 ; Mixed hyperlipidemia E78.2 ; Renal insufficiency N28.9 and Hyperkalemia E87.5 [place] [address], [place] [address] 8[address] Apr, Type 2 diabetes mellitus with hyperglycemia, without long- term current use of insulin E11.65 ; Essential hypertension I10 ; Mixed hyperlipidemia E78.2 ; Renal insufficiency N28.9 and Hyperkalemia E87.5 [place] [facility] [address] [place] [id number] [place] [address] 28711- 5016 Apr, [facility] [address] [address] [id number] [place] [address] 22260- 0716 Apr, Type 2 diabetes mellitus with hyperglycemia, without long- term current use of insulin E11.65 ; Essential hypertension I10 ; Mixed hyperlipidemia E78.2 and Renal insufficiency N28.9 [facility] [address] [place] [id number] [place] [address] 88588- 5037 Mar, [facility] [address] [id number] [place] [address] 96624- 0344 Mar, Type 2 diabetes mellitus with hyperglycemia, without long- term current use of insulin E11.65 ; Essential hypertension I10 ; Mixed hyperlipidemia E78.2 and Renal insufficiency N28.9 [place] [address] [place] [address] 73234- 7237 Feb, Type 2 diabetes mellitus with hyperglycemia, without long- term current use of insulin E11.65 [facility] [facility] [address] [address] 3120 Feb, [facility] [address] [place] [address] 08543- 0571 January, [facility] [address] [place] [id number] [place] [address] 33596- 4015 January, Type 2 diabetes mellitus with hyperglycemia, without long- term current use of insulin E11.65 ; Essential hypertension I10 and Mixed hyperlipidemia E78.2 [facility] [address] [place] [address] 41620- 1418 Dec, [facility] [address] [facility] [id number] [address] 3096 Dec, [facility] [address] [facility] [id number] [address] 2376 Oct, [facility] [address] [facility] [id number] [address] 4226 Oct, [facility] [address] [facility] [id number], [place] [address]- 0366 Oct, [facility] [address] [facility] [id number], [place] [address] 7646 Oct, IMMUNIZATIONS No Known Immunizations SOCIAL HISTORY Never Assessed REASON FOR VISIT Repository Medication PLAN OF CARE VITAL SIGNS MEDICATIONS Medication Instructions Dosage Frequency Start Date End Date Duration Status Simvastatin 40 mg Orally Once a day 1 tablet in the evening 24h 30 days Active Chlorthalidone 25 MG Orally Once a day 1/2 tablet in the morning 24h Active Metoprolol Succinate ER 50 mg Orally twice a day 1 tablet 12h 30 days Active Farxiga 10 mg Orally Once a day 1 tablet 24h Nov, Active Metoprolol Succinate ER 50 mg Orally twice a day 1 tablet 12h Nov, Active Farxiga 10 mg Orally Once a day 1 tablet 24h Active Clonidine HCl 0.2 MG Orally twice a day 1 tablet 12h 30 days Active RESULTS No Results PROCEDURES No [...]
--- OUTSIDE RECORDS SUMMARY | 2018-12-15 19:53 | XMS REPORT ---
Author Author ANI CASTILLO Organization [employer] Address Unknown Phone Unavailable Care Team Providers Care Government Auditor Name Role Phone ANI CASTILLO CP Unavailable Allergies No Known Allergies Problems Problem Type Condition Code Onset Dates Condition Status Problem Renal insufficiency N28.9 Active Problem Type 2 diabetes mellitus with hyperglycemia, without long-term current use of insulin E11.65 Active Problem Hyperkalemia E87.5 Active Problem Essential hypertension I10 Active Problem Mixed hyperlipidemia E78.2 Active Medications Medication Code System Code Instructions Start Date End Date Status Dosage Levemir [facility] [address]-50 100 UNIT/ML Subcutaneous 2 times a day 15 units Results No Known Results Summary Purpose [employer] Submission
--- OUTSIDE RECORDS SUMMARY | 2018-12-15 19:53 | XMS REPORT ---
Author Author ANI CASTILLO Organization [facility] Address [address] [place] [address] Care Team Providers Care Machine Brusher Name Role Phone ANI CASTILLO Unavailable PROBLEMS Type Condition ICD9-CM Code [id number] Code Onset Dates Condition Status SNOMED Code Problem Type 2 diabetes mellitus with hyperglycemia E11.65 Active 40840876 Problem Swelling of both lower extremities M79.89 Active 37836961548889139 Problem Essential hypertension I10 Active 04154927 Problem Mixed hyperlipidemia E78.2 Active 086387222 Problem Hyperkalemia E87.5 Active 92254749 Problem Renal insufficiency N28.9 Active 610174320 ALLERGIES Substance Reaction Event Type Date Status N.K.D.A. Unknown Non Drug Allergy Aug, Unknown SOCIAL HISTORY No smoking Hx information available PLAN OF CARE Activity Details Follow Up Oct 28 Reason:DM VITAL SIGNS Height 72 in 2016-09-23 Weight 247.0 lbs 2016-09-23 Temperature 98.0 degrees Fahrenheit 2016-09-23 Heart Rate 92 bpm 2016-09-23 Respiratory Rate 22 2016-09-23 BMI 33.50 kg/m2 2016-09-23 Blood pressure systolic 124 mmHg 2016-09-23 Blood pressure diastolic 78 mmHg 2016-09-23 MEDICATIONS Medication Instructions Dosage Frequency Start Date End Date Duration Status Triamcinolone Acetonide 0.1 % Externally Twice a day 1 application to affected area 12h Jun, Active Chlorthalidone 25 MG Orally Once a day 1/2 tablet in the morning 24h Active Clonidine HCl 0.1 MG Orally Once a day 1 tablet at bedtime 24h Active NovoLog 100 UNIT/ML Subcutaneous with meals 10 units Active Simvastatin 40 mg Orally Once a day 1 tablet in the evening 24h Active Fish Oil 1000 MG Orally Once a day 2 capsule 24h 30 day(s) Active Levemir 100 UNIT/ML Subcutaneous 2 times a day 30 units 12h Active Lisinopril 20 mg Orally Once a day 1 tablet 24h Active RESULTS Name Result Date Reference Range [facility] 2016-09-23 Glucose, Serum 71 65-99 BUN 29 8-27 Creatinine, Serum 1.25 0.76-1.27 eGFR If NonAfricn Am 62 >59 eGFR If Africn Am 72 >59 BUN/Creatinine Ratio 23 10-22 Sodium, Serum 143 134-144 Potassium, Serum 4.1 3.5-5.2 Chloride, Serum 102 96-106 Carbon Dioxide, Total 24 18-29 Calcium, Serum 9.7 8.6-10.2 Protein, Total, Serum 7.2 6.0-8.5 Albumin, Serum 4.2 3.6-4.8 Globulin, Total 3.0 1.5-4.5 A/G Ratio 1.4 1.1-2.5 Bilirubin, Total 0.3 0.0-1.2 Alkaline Phosphatase, S 89 39-117 AST (SGOT) 18 0-40 ALT (SGPT) 18 0-44 PROCEDURES Procedure Date Ordered Related Diagnosis Body Site LAB NOT BILLED BY [facility] Sep 23, 2016 Office Visit, Est Pt., Level 4 Sep 23, 2016 VENIPUNCT, ROUTINE* Sep 23, 2016 IMMUNIZATIONS No Known Immunizations
--- OUTSIDE RECORDS SUMMARY | 2018-12-15 19:53 | XMS REPORT ---
Author Author ANI CASTILLO [facility] Address [address] [place] [address] Care Team Providers Care Experience Specialist Name Role Phone ANI CASTILLO Unavailable PROBLEMS Type Condition ICD9-CM Code [id number] Code Onset Dates Condition Status SNOMED Code Problem Type 2 diabetes mellitus with hyperglycemia E11.65 Active 51603922 Problem Swelling of both lower extremities M79.89 Active 90149247531474735 Problem Essential hypertension I10 Active 22372761 Problem Mixed hyperlipidemia E78.2 Active 966925810 Problem Hyperkalemia E87.5 Active 90860238 Problem Renal insufficiency N28.9 Active 646834022 ALLERGIES No Known Allergies SOCIAL HISTORY Never Assessed PLAN OF CARE Activity Details Follow Up 4 Weeks Reason:DM VITAL SIGNS Height 72 in 2016-11-24 Weight 258.4 lbs 2016-11-24 Temperature 97.6 degrees Fahrenheit 2016-11-24 Heart Rate 96 bpm 2016-11-24 Respiratory Rate 16 2016-11-24 BMI 35.04 kg/m2 2016-11-24 Blood pressure systolic 144 mmHg 2016-11-24 Blood pressure diastolic 78 mmHg 2016-11-24 MEDICATIONS Medication Instructions Dosage Frequency Start Date End Date Duration Status Triamcinolone Acetonide 0.1 % Externally Twice a day 1 application to affected area 12h Jun, Active Fish Oil 1000 MG Orally Once a day 2 capsule 24h 30 day(s) Active Lisinopril 20 mg Orally Once a day 1 tablet 24h Active Clonidine HCl 0.1 MG Orally Once a day 1 tablet at bedtime 24h Active Simvastatin 40 mg Orally Once a day 1 tablet in the evening 24h Active Farxiga 10 mg Orally Once a day 1/2 tablet 24h Nov, 28 days Active Chlorthalidone 25 MG Orally Once a day 1/2 tablet in the morning 24h Active Levemir 100 UNIT/ML Subcutaneous 2 times a day 40 12h Active NovoLog 100 UNIT/ML Subcutaneous with meals 20 units Active RESULTS Name Result Date Reference Range MAGNESIUM, SERUM 2016-11-24 Magnesium, Serum 1.7 1.6-2.3 CBC 2016-11-24 WBC 8.8 3.4-10.8 RBC 4.74 4.14-5.80 Hemoglobin 13.5 12.6-17.7 Hematocrit 42.8 37.5-51.0 MCV 90 79-97 MCH 28.5 26.6-33.0 MCHC 31.5 31.5-35.7 RDW 13.4 12.3-15.4 Platelets 195 150-379 Neutrophils 63 Lymphs 23 Monocytes 9 Eos 4 Basos 1 Neutrophils (Absolute) 5.6 1.4-7.0 Lymphs (Absolute) 2.0 0.7-3.1 Monocytes(Absolute) 0.8 0.1-0.9 Eos (Absolute) 0.4 0.0-0.4 Baso (Absolute) 0.0 0.0-0.2 Immature Granulocytes 0 Immature Grans (Abs) 0.0 0.0-0.1 CMP 2016-11-24 Glucose, Serum 351 65-99 BUN 37 8-27 Creatinine, Serum 1.42 0.76-1.27 eGFR If NonAfricn Am 53 >59 eGFR If Africn Am 62 >59 BUN/Creatinine Ratio 26 10-22 Sodium, Serum 135 134-144 Potassium, Serum 6.2 3.5-5.2 Chloride, Serum 99 96-106 Carbon Dioxide, Total 25 18-29 Calcium, Serum 9.1 8.6-10.2 Protein, Total, Serum 6.8 6.0-8.5 Albumin, Serum 4.0 3.6-4.8 Globulin, Total 2.8 1.5-4.5 A/G Ratio 1.4 1.1-2.5 Bilirubin, Total <0.2 0.0-1.2 Alkaline Phosphatase, S 110 39-117 AST (SGOT) 13 0-40 ALT (SGPT) 13 0-44 PROCEDURES Procedure Date Ordered Result Body Site ASSAY OF MAGNESIUM November 24, 2016 COMPREHEN METABOLIC PANEL November 24, 2016 COMPLETE CBC W/AUTO DIFF WBC November 24, 2016 VENIPUNCT, ROUTINE* November 24, 2016 IMMUNIZATIONS No Known Immunizations MEDICAL (GENERAL) HISTORY Type Description Date Medical History Type 2 Diabetes Medical History Hyperlipidemia Medical History Seasonal allergies Medical History Other and unspecified hyperlipidemia Medical History Diabetes mellitus without mention of complication, type II or unspecified type, uncontrolled Medical History Essential hypertension, benign Hospitalization History Infection in left leg 2014
--- OUTSIDE RECORDS SUMMARY | 2018-12-15 19:53 | XMS REPORT ---
Author Author ANI CASTILLO [facility] [employer] Address Unknown Phone Unavailable Care Team Providers Care Milling General Superintendent Name Role Phone ANI CASTILLO Unavailable Allergies, Adverse Reactions, Alerts Substance Reaction Event Type N.K.D.A. Info Not Available Non Drug Allergy Problems Problem Type Condition Code Onset Dates Condition Status Assessment Hyperkalemia E87.5 Active Assessment Mixed hyperlipidemia E78.2 Active Assessment Renal insufficiency N28.9 Active Assessment Encounter for immunization Z23 Active Assessment Weight gain R63.5 Active Problem Renal insufficiency N28.9 Active Problem Type 2 diabetes mellitus with hyperglycemia, without long-term current use of insulin E11.65 Active Problem Hyperkalemia E87.5 Active Assessment Type 2 diabetes mellitus with hyperglycemia, without long-term current use of insulin E11.65 Active Assessment Essential hypertension I10 Active Problem Essential hypertension I10 Active Problem Mixed hyperlipidemia E78.2 Active Medications Medication Code System Code Instructions Start Date End Date Status Dosage Lisinopril [facility] [address]-50 20 mg Orally Once a day 1 tablet NovoLog [facility] [address]-09 100 UNIT/ML Subcutaneous with meals 6 units Simvastatin [facility] [address]-64 40 mg Orally Once a day 1 tablet in the evening Fish Oil [facility] [address]-31 1000 MG Orally Once a day 2 capsule Triamcinolone Acetonide [facility] [address]-03 0.1 % Externally Twice a day Jul 01, 2016 1 application to affected area NIFEdipine ER Osmotic Release [facility] [address]-80 60 mg Orally Once a day 1 tablet Levemir [facility] [address]-67 100 UNIT/ML Subcutaneous 2 times a day 19 units Procedures Procedure Coding System Code Date [facility] C[facility] NOBLL Jul 29, 2016 CHEST X-RAY CPT-4 16021 Jul 29, 2016 GLYCATED HEMOGLOBIN TEST CPT-4 16621 Jul 29, 2016 FLUARIX QUAD P-FREE 3 AND UP .50 2015 CPT-4 53760 Jul 29, 2016 Office Visit, Est Pt., Level 5 CPT-4 02684 Jul 29, 2016 VENIPUNCT, ROUTINE* CPT-4 02070 Jul 29, 2016 SINGLE IMMUNIZATION ADMIN CPT-4 57175 Jul 29, 2016 Vital Signs Date/Time: Jul 29, 2016 Cardiac Monitoring Heart Rate 88 bpm Weight 240 lbs Height 72 in BMI 32.55 Index Blood Pressure Diastolic 70 mmHg Blood Pressure Systolic 110 mmHg Results Name Result Date Reference Range Unit Abnormality Flag A1C (IN HOUSE) ----A1C IN HOUSE 9.4 [id number] 4.3 - 5.6 % ----Previous A1c 14.0 [id number] ----Lot [id number] ----Exp date [id number] ROUTINE VENIPUNCTURE Immunizations Vaccine Administration Date FLUARIX QUAD P-FREE 3 AND UP .50 2015Jul 29, 2016 Summary Purpose [employer] Submission
--- OUTSIDE RECORDS SUMMARY | 2018-12-15 19:53 | XMS REPORT ---
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 Active 322539360 Problem Swelling of both lower extremities M79.89 Active 00287151732665932 Problem Hyperkalemia E87.5 Active 87268380 Problem Chronic kidney disease, stage III (moderate) N18.3 Active 482323624 Problem Diabetic polyneuropathy associated with type 2 diabetes mellitus E11.42 Active 175818538 ALLERGIES No Information ENCOUNTERS Encounter Location Date Diagnosis [place] [id number] [place] [address] 71475- 4210 Dec, [facility] [id number] [place] [address] 27465- 7718 Nov, [facility] [id number] [place] [address] 77966- 0186 Nov, Mixed hyperlipidemia E78.2 ; Essential hypertension I10 and Type 2 diabetes mellitus with diabetic chronic kidney disease E11.22 [facility] [id number] [place] [address] 60121- 5882 Oct, [facility] [id number] [place] [address] 75762- 9151 Sep, [facility] [id number] [place] [address] 32681- 2446 Aug, Diabetic polyneuropathy associated with type 2 diabetes mellitus E11.42 [place] [address], [place] [address] 20 Aug, 2017 Type 2 diabetes mellitus with diabetic chronic kidney disease E11.22 ; Chronic kidney disease, stage III (moderate) N18.3 ; 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 ; Essential hypertension I10 ; Mixed hyperlipidemia E78.2 and Diabetic polyneuropathy associated with type 2 diabetes mellitus E11.42 [place] [id number] [place] [address] 18544- 1495 Jul, Type 2 diabetes mellitus with hyperglycemia E11.65 and Mixed hyperlipidemia E78.2 [place] [id number] [place] [address] 74592- 0580 Jun, Type 2 diabetes mellitus with hyperglycemia E11.65 [place] [id number] [place] [address] 42599- 4913 Jun, Essential hypertension I10 [place] [id number] [place] [address] 72692- 4123 May, [place] [id number] [place] [address] 87121- 7060 May, Type 2 diabetes mellitus with hyperglycemia E11.65 and Essential hypertension I10 [place] [address] [place] [address] 94709- 6256 May, Essential hypertension I10 ; Mixed hyperlipidemia E78.2 ; Renal insufficiency N28.9 ; Hyperkalemia E87.5 ; Swelling of both lower extremities M79.89 and Type 2 diabetes mellitus with hyperglycemia E11.65 [place] [address], [place] [address] Apr, Essential hypertension I10 ; Mixed hyperlipidemia E78.2 ; Renal insufficiency N28.9 ; Hyperkalemia E87.5 ; Swelling of both lower extremities M79.89 and Type 2 diabetes mellitus with hyperglycemia E11.65 [place] [address] [place] [address] 52985- 5973 Mar, [facility] [id number] [place] [address] 86792- 4912 Feb, [facility] [id number] [place] [address] 38986- 2234 Feb, Essential hypertension I10 ; Mixed hyperlipidemia E78.2 ; Renal insufficiency N28.9 ; Hyperkalemia E87.5 ; Swelling of both lower extremities M79.89 and Type 2 diabetes mellitus with hyperglycemia E11.65 [facility] [id number] [place] [address] [id number] Feb, Encounter for dental examination Z01.20 [place] [address] 89297- 3684 January, Essential hypertension I10 [place] [id number] [place] [address] 45935- 5574 January, Essential hypertension I10 ; Mixed hyperlipidemia E78.2 ; Renal insufficiency N28.9 ; Hyperkalemia E87.5 ; Swelling of both lower extremities M79.89 and Type 2 diabetes mellitus with hyperglycemia E11.65 [facility] [id number] [place] [address] [id number] January, Dental examination Z01.20 [facility] [id number] [place] [address] 01784- 3718 Dec, Dental examination Z01.20 [facility] [id number] [place] [address] 99836- 7968 Dec, Type 2 diabetes mellitus with hyperglycemia, without long- term current use of insulin E11.65 ; Essential hypertension I10 ; Mixed hyperlipidemia E78.2 ; Renal insufficiency N28.9 ; Hyperkalemia E87.5 and Swelling of both lower extremities M79.89 [facility] [id number] [place] [address] 31961- 4579 Nov, Hyperkalemia E87.5 [place] [id number] [place] [address] 42217- 8326 Nov, Hyperkalemia E87.5 [place] [id number] [place] [address] 84007- 8944 Nov, Type 2 diabetes mellitus with hyperglycemia, without long- term current use of insulin E11.65 ; Essential hypertension I10 ; Mixed hyperlipidemia E78.2 ; Renal insufficiency N28.9 ; Hyperkalemia E87.5 and Swelling of both lower extremities M79.89 [place] [address] [place] [address] [address]57293- 3148 Oct, Type 2 diabetes mellitus with hyperglycemia, without long- term current use of insulin E11.65 ; Essential hypertension I10 ; Mixed hyperlipidemia E78.2 ; Renal insufficiency N28.9 ; Hyperkalemia E87.5 and Swelling of both lower extremities M79.89 [place] [address] 04882- 8311 Aug, Type 2 diabetes mellitus with hyperglycemia, without long- term current use of insulin E11.65 ; Essential hypertension I10 ; Mixed hyperlipidemia E78.2 ; Renal insufficiency N28.9 ; Hyperkalemia E87.5 and Swelling of both lower extremities M79.89 [place] [address] 96351- 0889 Aug, Type 2 diabetes mellitus with hyperglycemia, without long- term current use of insulin E11.65 ; Essential hypertension I10 ; Mixed hyperlipidemia E78.2 ; Renal insufficiency N28.9 ; Hyperkalemia E87.5 and Swelling of both lower extremities M79.89 [place] [id number] [place] [address] 51730- 7325 Aug, Mixed hyperlipidemia E78.2 [place] [address] [place] [address] [phone]- 4611 Aug, Type 2 diabetes mellitus with hyperglycemia, without long- term current use of insulin E11.65 ; Essential hypertension I10 ; Mixed hyperlipidemia E78.2 ; Renal insufficiency N28.9 ; Hyperkalemia E87.5 and Swelling of both lower extremities M79.89 [place] [address] [place] [address]- 1033 Jul, [place] [address] 45302- 2999 Jul, Type 2 diabetes mellitus with hyperglycemia, without long- term current use of insulin E11.65 ; Essential hypertension I10 ; Mixed hyperlipidemia E78.2 ; Renal insufficiency N28.9 ; Hyperkalemia E87.5 ; Weight gain R63.5 and Encounter for immunization Z23 [place] [address] 50745- 0884 Jun, Type 2 diabetes mellitus with hyperglycemia, without long- term current use of insulin E11.65 ; Essential hypertension I10 ; Mixed hyperlipidemia E78.2 ; Renal insufficiency N28.9 and Hyperkalemia E87.5 [place] [address] 49450- 9416 Jun, [place] [address] 05409- 3588 May, Type 2 diabetes mellitus with hyperglycemia, without long- term current use of insulin E11.65 ; Essential hypertension I10 ; Mixed hyperlipidemia E78.2 ; Renal insufficiency N28.9 and Hyperkalemia E87.5 [place] [address] 35334- 5315 Apr, Type 2 diabetes mellitus with hyperglycemia, without long- term current use of insulin E11.65 ; Essential hypertension I10 ; Mixed hyperlipidemia E78.2 ; Renal insufficiency N28.9 and Hyperkalemia E87.5 [place] [id number] [place] [address] 00413- 6480 Apr, [place] [address] 08298- 7118 Apr, Type 2 diabetes mellitus with hyperglycemia, without long- term current use of insulin E11.65 ; Essential hypertension I10 ; Mixed hyperlipidemia E78.2 and Renal insufficiency N28.9 [place] [address] 89229- 9926 Mar, [facility] [address], [place] [address] 0028 Mar, Type 2 diabetes mellitus with hyperglycemia, without long- term current use of insulin E11.65 ; Essential hypertension I10 ; Mixed hyperlipidemia E78.2 and Renal insufficiency N28.9 [place] [address] [place] [address] 97108- 5481 Feb, Type 2 diabetes mellitus with hyperglycemia, without long- term current use of insulin E11.65 [place] [address] [place] [address] 77921- 2299 Feb, [place] [id number] [place] [address] 29581- 6502 January, [place] [id number] [place] [address] 95832- 9517 January, Type 2 diabetes mellitus with hyperglycemia, without long- term current use of insulin E11.65 ; Essential hypertension I10 and Mixed hyperlipidemia E78.2 [place] [address] [place] [address] 40917- 3601 Dec, [place] [id number] [place] [address] 41771- 6605 Dec, [place] [id number] [place] [address] 61724- 5703 Oct, [place] [address] [place] [address] 65737- 1777 Oct, [place] [address] [place] [address] 52358- 8006 Oct, [place] [id number] [place] [address] 39608- 1703 Oct, IMMUNIZATIONS No Known Immunizations SOCIAL HISTORY Never Assessed REASON FOR VISIT Critical Lab Result PLAN OF CARE VITAL SIGNS MEDICATIONS Unknown [...]
--- OUTSIDE RECORDS SUMMARY | 2018-12-15 19:53 | XMS REPORT ---
Author Author ANI CASTILLO [facility] Address [address] [place] [address] Care Team Providers Care Band Sewer Name Role Phone ANI CASTILLO Unavailable PROBLEMS Type Condition ICD9-CM Code [id number] Code Onset Dates Condition Status SNOMED Code Problem Type 2 diabetes mellitus with hyperglycemia E11.65 Active 19865515 Problem Swelling of both lower extremities M79.89 Active 08759336298326748 Problem Essential hypertension I10 Active 73240380 Problem Mixed hyperlipidemia E78.2 Active 516737160 Problem Hyperkalemia E87.5 Active 07262207 Problem Renal insufficiency N28.9 Active 477984593 ALLERGIES No Information SOCIAL HISTORY Never Assessed PLAN OF CARE VITAL SIGNS MEDICATIONS Unknown Medications RESULTS No Results PROCEDURES No Known procedures IMMUNIZATIONS No Known Immunizations MEDICAL (GENERAL) HISTORY Type Description Date Medical History Type 2 Diabetes Medical History Hyperlipidemia Medical History Seasonal allergies Medical History Other and unspecified hyperlipidemia Medical History Diabetes mellitus without mention of complication, type II or unspecified type, uncontrolled Medical History Essential hypertension, benign Hospitalization History Infection in left leg 2013
--- OUTSIDE RECORDS SUMMARY | 2018-12-15 19:53 | XMS REPORT ---
Author Author ANI CASTILLO Organization [facility] Address [address] [place] [address] Care Team Providers Care Meat Pickler Name Role Phone ANI CASTILLO Unavailable PROBLEMS Type Condition ICD9-CM Code [id number] Code Onset Dates Condition Status SNOMED Code Problem Type 2 diabetes mellitus with hyperglycemia E11.65 Active 14620093 Problem Swelling of both lower extremities M79.89 Active 46114558526968145 Problem Essential hypertension I10 Active 58615032 Problem Mixed hyperlipidemia E78.2 Active 219638419 Problem Hyperkalemia E87.5 Active 04887121 Problem Renal insufficiency N28.9 Active 206935160 ALLERGIES No Information SOCIAL HISTORY Never Assessed PLAN OF CARE VITAL SIGNS MEDICATIONS Medication Instructions Dosage Frequency Start Date End Date Duration Status Clonidine HCl 0.1 MG Orally twice a day 1 tablet at bedtime 12h Active Lisinopril 20 mg Orally Once a day 1/2 tablet 24h Active RESULTS No Results PROCEDURES No Known [...]
--- OUTSIDE RECORDS SUMMARY | 2018-12-15 19:53 | XMS REPORT ---
Author Author ANI CASTILLO [facility] Address [address] [place] [address] Care Team Providers Care Workday Director Name Role Phone ANI CASTILLO Unavailable PROBLEMS Type Condition ICD9-CM Code [id number] Code Onset Dates Condition Status SNOMED Code Problem Type 2 diabetes mellitus with hyperglycemia E11.65 Active 72239356 Problem Swelling of both lower extremities M79.89 Active 81466709259976351 Problem Essential hypertension I10 Active 12344008 Problem Mixed hyperlipidemia E78.2 Active 342409429 Problem Hyperkalemia E87.5 Active 57306794 Problem Renal insufficiency N28.9 Active 653738767 ALLERGIES Unknown Allergies SOCIAL HISTORY No smoking Hx information available PLAN OF CARE VITAL SIGNS MEDICATIONS Medication Instructions Dosage Frequency Start Date End Date Duration Status Simvastatin 40 mg Orally Once a day 1 tablet in the evening 24h Active RESULTS No Results PROCEDURES No Known procedures IMMUNIZATIONS No Known Immunizations
--- OUTSIDE RECORDS SUMMARY | 2018-12-15 19:53 | XMS REPORT ---
Author Author ANI CASTILLO Organization [employer] Address Unknown Phone Unavailable Care Team Providers Care Welding Machine Operator Electron Beam Name Role Phone ANI CASTILLO CP Unavailable Allergies No Known Allergies Problems Problem Type Condition Code Onset Dates Condition Status Problem Type 2 diabetes mellitus with hyperglycemia, without long-term current use of insulin E11.65 Active Problem Essential hypertension I10 Active Problem Renal insufficiency N28.9 Active Problem Mixed hyperlipidemia E78.2 Active Medications No Known Medications Results No Known Results Summary Purpose [employer] Submission
--- OUTSIDE RECORDS SUMMARY | 2018-12-15 19:53 | XMS REPORT ---
Author Author ANI CASTILLO Organization [employer] Address Unknown Phone Unavailable Care Team Providers Care Community Theater Actor Name Role Phone ANI CASTILLO CP Unavailable [...] Start Date End Date Status Dosage Levemir [facility] [address]-64 100 UNIT/ML Subcutaneous 2 times a day 19 units Results No Known Results Summary Purpose [employer] Submission
--- OUTSIDE RECORDS SUMMARY | 2018-12-15 19:54 | XMS REPORT ---
Author Author ANI CASTILLO [facility] [employer] Address Unknown Phone Unavailable Care Team Providers Care Reception Agent Name Role Phone ANI CASTILLO CP Unavailable Allergies, Adverse Reactions, Alerts Substance Reaction Event Type N.K.D.A. Info Not Available Non Drug Allergy Problems Problem Type Condition Code Onset Dates Condition Status Assessment Renal insufficiency N28.9 Active Problem Type 2 diabetes mellitus with hyperglycemia, without long-term current use of insulin E11.65 Active Problem Essential hypertension I10 Active Problem Renal insufficiency N28.9 Active Assessment Essential hypertension I10 Active Assessment Mixed hyperlipidemia E78.2 Active Problem Mixed hyperlipidemia E78.2 Active Assessment Type 2 diabetes mellitus with hyperglycemia, without long-term current use of insulin E11.65 Active Medications Medication Code System Code Instructions Start Date End Date Status Dosage Metformin HCl [facility] [address]-96 1000 MG Orally Twice a day 1 tablet with meals Simvastatin [facility] [address]-60 40 mg Orally Once a day 1 tablet in the evening Fish Oil [facility] [address]-36 1000 MG Orally Once a day 2 capsule Amlodipine Besylate [facility] [address]-90 5 MG Orally Once a day 1 tablet Lisinopril [facility] [address]-41 20 mg Orally twice a day 1 tablet Procedures Procedure Coding System Code Date COMPREHEN METABOLIC PANEL CPT-4 64846 Apr 29, 2016 VENIPUNCT, ROUTINE* CPT-4 34143 Apr 29, 2016 GLYCATED HEMOGLOBIN TEST CPT-4 69089 Apr 29, 2016 Office Visit, Est Pt., Level 5 CPT-4 90403 Apr 29, 2016 Vital Signs Date/Time: Apr 29, 2016 Cardiac Monitoring Heart Rate 92 bpm Weight 215.0 lbs Height 72 in BMI 29.16 Index Blood Pressure Diastolic 100 mmHg Blood Pressure Systolic 180 mmHg Results No Known Results Summary Purpose [employer] Submission
--- OUTSIDE RECORDS SUMMARY | 2018-12-15 19:54 | XMS REPORT ---
Author Author ANI CASTILLO [facility] [employer] Address Unknown Phone Unavailable Care Team Providers Care Yard Foreman Name Role Phone ANI CASTILLO CP Unavailable [...] Instructions Start Date End Date Status Dosage Simvastatin [facility] [address]-00 40 mg Orally Once a day 1 tablet in the evening Amlodipine Besylate [facility] [address]-01 5 MG Orally Once a day April 01, 2016 1 tablet Fish Oil [facility] [address]-33 1000 MG Orally Once a day April 01, 2016Apr 2 capsule Metformin HCl [facility] [address]-88 1000 MG Orally Twice a day 1 tablet with meals Lisinopril [facility] [address]-76 20 mg Orally Once a day 1 tablet Hydrochlorothiazide [facility] [address]-80 25 MG Orally Once a day 1/2 tablet Procedures Procedure Coding System Code Date COMPREHEN METABOLIC PANEL CPT-4 11217 April 01, 2016 VENIPUNCT, ROUTINE* CPT-4 32737 April 01, 2016 Office Visit, Est Pt., Level 4 CPT-4 92252 April 01, 2016 Vital Signs Date/Time: April 01, 2016 Cardiac Monitoring Heart Rate 86 bpm Weight 209.0 lbs Height 72 in Blood Pressure Diastolic 102 mmHg Blood Pressure Systolic 150 mmHg Results No Known Results Summary Purpose [employer] Submission
--- OUTSIDE RECORDS SUMMARY | 2018-12-15 19:54 | XMS REPORT ---
Author Author ANI CASTILLO [facility] Address [address] [place] [address] Care Team Providers Care Maintenance Journeyman Name Role Phone ANI CASTILLO Unavailable PROBLEMS Type Condition ICD9-CM Code QWK94-FG Code Onset Dates Condition Status SNOMED Code Problem Type 2 diabetes mellitus with hyperglycemia E11.65 Active 27070044 Problem Swelling of both lower extremities M79.89 Active 32721200727627158 Problem Essential hypertension I10 Active 36027182 Problem Mixed hyperlipidemia E78.2 Active 397763922 Problem Hyperkalemia E87.5 Active 20153250 Problem Renal insufficiency N28.9 Active 407399122 ALLERGIES Substance Reaction Event Type Date Status N.K.D.A. Unknown Non Drug Allergy Oct, Unknown SOCIAL HISTORY No smoking Hx information available PLAN OF CARE Activity Details Follow Up 4 Weeks Reason:DM VITAL SIGNS Height 72 in 2016-10-28 Weight 258.6 lbs 2016-10-28 Temperature 97.8 degrees Fahrenheit 2016-10-28 Heart Rate 88 bpm 2016-10-28 Respiratory Rate 20 2016-10-28 BMI 35.07 kg/m2 2016-10-28 Blood pressure systolic 136 mmHg 2016-10-28 Blood pressure diastolic 72 mmHg 2016-10-28 MEDICATIONS Medication Instructions Dosage Frequency Start Date End Date Duration Status Levemir 100 UNIT/ML Subcutaneous 2 times a day 30 units 12h Active NovoLog 100 UNIT/ML Subcutaneous with meals 20 units Active Chlorthalidone 25 MG Orally Once a day 1/2 tablet in the morning 24h Active Simvastatin 40 mg Orally Once a day 1 tablet in the evening 24h Active Lisinopril 20 mg Orally Once a day 1 tablet 24h Active Clonidine HCl 0.1 MG Orally Once a day 1 tablet at bedtime 24h Active Triamcinolone Acetonide 0.1 % Externally Twice a day 1 application to affected area 12h Jun, Active Farxiga 5 mg Orally Once a day 1 tablet 24h Oct, 28 days Active Fish Oil 1000 MG Orally Once a day 2 capsule 24h 30 day(s) Active RESULTS Name Result Date Reference Range A1C (IN HOUSE) 2016-10-28 A1C IN HOUSE 10.4 4.3 - 5.6 % Previous A1c 9.4 Lot [id number] Exp date 07/2018 CBC 2016-10-28 WBC 9.3 3.4-10.8 RBC 4.68 4.14-5.80 Hemoglobin 13.3 12.6-17.7 Hematocrit 40.5 37.5-51.0 MCV 87 79-97 MCH 28.4 26.6-33.0 MCHC 32.8 31.5-35.7 RDW 13.7 12.3-15.4 Platelets 211 150-379 Neutrophils 73 Lymphs 18 Monocytes 7 Eos 2 Basos 0 Neutrophils (Absolute) 6.8 1.4-7.0 Lymphs (Absolute) 1.7 0.7-3.1 Monocytes(Absolute) 0.7 0.1-0.9 Eos (Absolute) 0.2 0.0-0.4 Baso (Absolute) 0.0 0.0-0.2 Immature Granulocytes 0 Immature Grans (Abs) 0.0 0.0-0.1 CMP 2016-10-28 Glucose, Serum 217 65-99 BUN 31 8-27 Creatinine, Serum 1.35 0.76-1.27 eGFR If NonAfricn Am 57 >59 eGFR If Africn Am 66 >59 BUN/Creatinine Ratio 23 10-22 Sodium, Serum 141 134-144 Potassium, Serum 5.0 3.5-5.2 Chloride, Serum 100 96-106 Carbon Dioxide, Total 25 18-29 Calcium, Serum 8.6 8.6-10.2 Protein, Total, Serum 6.4 6.0-8.5 Albumin, Serum 3.8 3.6-4.8 Globulin, Total 2.6 1.5-4.5 A/G Ratio 1.5 1.1-2.5 Bilirubin, Total 0.3 0.0-1.2 Alkaline Phosphatase, S 84 39-117 AST (SGOT) 21 0-40 ALT (SGPT) 17 0-44 PROCEDURES Procedure Date Ordered Related Diagnosis Body Site GLYCATED HEMOGLOBIN TEST Oct 28, 2016 [facility] Oct [facility], 2016 VENIPUNCT, ROUTINE* Oct 28, 2016 Office Visit, Est Pt., Level 4 Oct 28, 2016 IMMUNIZATIONS No Known Immunizations
--- OUTSIDE RECORDS SUMMARY | 2018-12-15 19:54 | XMS REPORT ---
Author Author ANI CASTILLO Organization [facility] Address [address] [place] [address] Care Team Providers Care Bilingual Counter Sales Retail Name Role Phone ANI CASTILLO Unavailable PROBLEMS Type Condition ICD9-CM Code HHE46-DF Code Onset Dates Condition Status SNOMED Code Problem Essential hypertension I10 Active 49622059 Problem Swelling of both lower extremities M79.89 Active 66089940939112046 Problem Hyperkalemia E87.5 Active 95460179 Problem Mixed hyperlipidemia E78.2 Active 165753242 Problem Periodontal disease K05.6 Active 1054320 Problem Caries of cementum teeth K02.7 Active 34778925 Problem Type 2 diabetes mellitus with diabetic chronic kidney disease E11.22 Active 27177957 Problem retirement current use of insulin Z79.4 Active 167049287 Problem Chronic kidney disease, stage III (moderate) N18.3 Active 127284073 Problem Diabetic polyneuropathy associated with type 2 diabetes mellitus E11.42 Active 145481310 ALLERGIES No Information ENCOUNTERS Encounter Location Date Diagnosis [facility] [address], [place] [address] Mar, [facility] [id number] [id number] Mar, [facility] [id number] [place] [address] 47457- 1085 Feb, [facility] [id number] [place] [address] 31187- 2920 Feb, [facility] [id number] [place] [address] 54076- 8001 Feb, [facility] [id number] [place] [address] 52371- 4947 Feb, [facility] [address], [place] [address] 7163 January, [facility] [address], [place] [address] 94[address] January, [facility] [address], [place] [address] 4[address] January, Type 2 diabetes mellitus with diabetic chronic kidney disease E11.22 [facility] [address] [id number] Dec, Dental caries K02.9 [facility] [address], [place] [address] Dec, Type 2 diabetes mellitus with diabetic chronic kidney disease E11.22 [facility] [address], [place] [address] 8[address] Dec, Dental examination Z01.20 ; Periodontal disease K05.6 and Caries of cementum teeth K02.7 [facility] [address], [place] [address] Dec, Type 2 diabetes mellitus with diabetic chronic kidney disease E11.22 ; Chronic kidney disease, stage III (moderate) N18.3 ; 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 ; Essential hypertension I10 ; Mixed hyperlipidemia E78.2 ; Diabetic polyneuropathy associated with type 2 diabetes mellitus E11.42 and Dental abscess K04.7 [facility] [address], [place] [address] Nov, [facility] [address], [place] [address] 2716 Nov, Mixed hyperlipidemia E78.2 ; Essential hypertension I10 and Type 2 diabetes mellitus with diabetic chronic kidney disease E11.22 [facility] [id number], [place] [address] Oct, [facility] [address], [place] [address] Sep, [facility] [address], [place] [address] 89[address] Aug, Diabetic polyneuropathy associated with type 2 diabetes mellitus E11.42 [facility] [id number] [place] [address] 20254- 3181 Aug, Type 2 diabetes mellitus with diabetic chronic kidney disease E11.22 ; Chronic kidney disease, stage III (moderate) N18.3 ; 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 ; Essential hypertension I10 ; Mixed hyperlipidemia E78.2 and Diabetic polyneuropathy associated with type 2 diabetes mellitus E11.42 [facility] [id number] [place] [address] 29319- 5538 Jul, Type 2 diabetes mellitus with hyperglycemia E11.65 and Mixed hyperlipidemia E78.2 [facility] [id number] [place] [address] 64187- 9972 Jun, Type 2 diabetes mellitus with hyperglycemia E11.65 [facility] [id number] [place] [address] 11524- 3609 Jun, Essential hypertension I10 [facility] [id number] [place] [address] 13312- 4421 May, [facility] [id number] [place] [address] 50023- 2612 May, Type 2 diabetes mellitus with hyperglycemia E11.65 and Essential hypertension I10 [facility] [id number] [place] [address] 64613- 2181 May, Essential hypertension I10 ; Mixed hyperlipidemia E78.2 ; Renal insufficiency N28.9 ; Hyperkalemia E87.5 ; Swelling of both lower extremities M79.89 and Type 2 diabetes mellitus with hyperglycemia E11.65 [facility] [address] [place] [address] 03402- 1832 Apr, Essential hypertension I10 ; Mixed hyperlipidemia E78.2 ; Renal insufficiency N28.9 ; Hyperkalemia E87.5 ; Swelling of both lower extremities M79.89 and Type 2 diabetes mellitus with hyperglycemia E11.65 [facility] [address], [place] [address] 4795 Mar, [facility] [address] [place] [address] 94424- 2939 Feb, [facility] [address], [place] [address] 7696 Feb, Essential hypertension I10 ; Mixed hyperlipidemia E78.2 ; Renal insufficiency N28.9 ; Hyperkalemia E87.5 ; Swelling of both lower extremities M79.89 and Type 2 diabetes mellitus with hyperglycemia E11.65 [facility] [address] [address] Feb, Encounter for dental examination Z01.20 [facility] [address] [place] [address] 98004- 3022 January, Essential hypertension I10 [facility] [id number] [place] [address] 42218- 3600 January, Essential hypertension I10 ; Mixed hyperlipidemia E78.2 ; Renal insufficiency N28.9 ; Hyperkalemia E87.5 ; Swelling of both lower extremities M79.89 and Type 2 diabetes mellitus with hyperglycemia E11.65 [facility] [address] [place] [address] [id number] January, Dental examination Z01.20 [facility] [address] [place] [address] 90819- 0503 Dec, Dental examination Z01.20 [facility] [address] [place] [address] 39855- 5136 Dec, Type 2 diabetes mellitus with hyperglycemia, without long- term current use of insulin E11.65 ; Essential hypertension I10 ; Mixed hyperlipidemia E78.2 ; Renal insufficiency N28.9 ; Hyperkalemia E87.5 and Swelling of both lower extremities M79.89 [facility] [address], [place] [address] 9063 Nov, Hyperkalemia E87.5 [facility] [address] [place] [address] 40807- 0776 Nov, Hyperkalemia E87.5 [facility] [address] [address]- 2328 Nov, Type 2 diabetes mellitus with hyperglycemia, without long- term current use of insulin E11.65 ; Essential hypertension I10 ; Mixed hyperlipidemia E78.2 ; Renal insufficiency N28.9 ; Hyperkalemia E87.5 and Swelling of both lower extremities M79.89 [facility] [id number] [place] [address] 82764- 0691 Oct, Type 2 diabetes mellitus with hyperglycemia, without long- term current use of insulin E11.65 ; Essential hypertension I10 ; Mixed hyperlipidemia E78.2 ; Renal insufficiency N28.9 ; Hyperkalemia E87.5 and Swelling of both lower extremities M79.89 [facility] [id number] [place] [address] 37011- 0949 Aug, Type 2 diabetes mellitus with hyperglycemia, without long- term current use of insulin E11.65 ; Essential hypertension I10 ; Mixed hyperlipidemia E78.2 ; Renal insufficiency N28.9 ; Hyperkalemia E87.5 and Swelling of both lower extremities M79.89 [facility] [address] [place] [address] 72627- 3015 Aug, Type 2 diabetes mellitus with hyperglycemia, without long- term current use of insulin E11.65 ; Essential hypertension I10 ; Mixed hyperlipidemia E78.2 ; Renal insufficiency N28.9 ; Hyperkalemia E87.5 and Swelling of both lower extremities M79.89 [facility] [address] [place] [address] 10289- 4813 Aug, Mixed hyperlipidemia E78.2 [facility] [id number] [place] [address]93 Aug, Type 2 diabetes mellitus with hyperglycemia, without long- term current use of insulin E11.65 ; Essential hypertension I10 ; Mixed hyperlipidemia E78.2 ; Renal insufficiency N28.9 ; Hyperkalemia E87.5 and Swelling of both lower extremities M79.89 [facility] [id number] [place] [address] 22823- 6461 Jul, [facility] [address] 93772- 3658 Jul, Type 2 diabetes mellitus with hyperglycemia, without long- term current use of insulin E11.65 ; Essential hypertension I10 ; Mixed hyperlipidemia E78.2 ; Renal insufficiency N28.9 ; Hyperkalemia E87.5 ; Weight gain R63.5 and Encounter for immunization Z23 [facility] [id number] [place] [address] 23751- 7489 Jun, Type 2 diabetes mellitus with hyperglycemia, without long- term current use of insulin E11.65 ; Essential hypertension I10 ; Mixed hyperlipidemia E78.2 ; Renal insufficiency N28.9 and Hyperkalemia E87.5 [facility] [address] 00747- 2361 Jun, [facility] [id number] [place] [address] 54789- 8391 May, Type 2 diabetes mellitus with hyperglycemia, without long- term current use of insulin E11.65 ; Essential hypertension I10 ; Mixed hyperlipidemia E78.2 ; Renal insufficiency N28.9 and Hyperkalemia E87.5 [facility] [id number] [place] [address] 88157- 5308 Apr, Type 2 diabetes mellitus with hyperglycemia, without long- term current use of insulin E11.65 ; Essential hypertension I10 ; Mixed hyperlipidemia E78.2 ; Renal insufficiency N28.9 and Hyperkalemia E87.5 [facility] [id number] [place] [address] 82861- 9763 Apr, [facility] [id number] [place] [address] 80758- 2199 Apr, Type 2 diabetes mellitus with hyperglycemia, without long- term current use of insulin E11.65 ; Essential hypertension I10 ; Mixed hyperlipidemia E78.2 and Renal insufficiency N28.9 [facility] [id number] [place] [address] 21480- 6899 Mar, [facility] [id number] [place] [address] 23995- 9232 Mar, Type 2 diabetes mellitus with hyperglycemia, without long- term current use of insulin E11.65 ; Essential hypertension I10 ; Mixed hyperlipidemia E78.2 and Renal insufficiency N28.9 [facility] [id number] [place] [address] 01305- 6567 Feb, Type 2 diabetes mellitus with hyperglycemia, without long- term current use of insulin E11.65 [facility] [id number] [place] [address] 25101- 3217 Feb, [facility] [id number] [place] [address] 98613- 2474 January, [facility] [id number] [place] [address] 08066- 2643 January, Type 2 diabetes mellitus with hyperglycemia, without long- term current use of insulin E11.65 ; Essential hypertension I10 and Mixed hyperlipidemia E78.2 [facility] [id number] [place] [address] 53040- 6932 Dec, [facility] [id number] [place] [address] 21685- 1411 Dec, [facility] [id number] [place] [address] 13076- 9982 Oct, [facility] [id number] [place] [address] 55276- 2555 Oct, [facility] [id number] [place] [address] 77405- 7843 Oct, [facility] [id number] [place] [address] 72651- 0536 Oct, IMMUNIZATIONS No Known Immunizations SOCIAL HISTORY [...]
--- OUTSIDE RECORDS SUMMARY | 2018-12-15 19:54 | XMS REPORT ---
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 852300227 Problem Swelling of both lower extremities M79.89 Active 44354192199207062 Problem Hyperkalemia E87.5 Active 21346552 Problem Chronic kidney disease, stage III (moderate) N18.3 Active 783883561 Problem Diabetic polyneuropathy associated with type 2 diabetes mellitus E11.42 Active [id number] ALLERGIES No Information ENCOUNTERS Encounter Location Date Diagnosis [place] [id number] [place] [address] 01023- 5617 Dec, [facility] [id number] [place] [address] 83827- 6535 Nov, [facility] [id number] [place] [address] 22148- 6612 Nov, Mixed hyperlipidemia E78.2 ; Essential hypertension I10 and Type 2 diabetes mellitus with diabetic chronic kidney disease E11.22 [facility] [id number] [place] [address] 75285- 7486 Oct, [facility] [id number] [place] [address] 09074- 6259 Sep, [facility] [id number] [place] [address] 65826- 3138 Aug, Diabetic polyneuropathy associated with type 2 diabetes mellitus E11.42 [place] [address], [place] [address]- 2412 20 Aug, 2017 Type 2 diabetes mellitus with diabetic chronic kidney disease E11.22 ; Chronic kidney disease, stage III (moderate) N18.3 ; 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 ; Essential hypertension I10 ; Mixed hyperlipidemia E78.2 and Diabetic polyneuropathy associated with type 2 diabetes mellitus E11.42 [place] [id number] [place] [address] 21868- 0805 Jul, Type 2 diabetes mellitus with hyperglycemia E11.65 and Mixed hyperlipidemia E78.2 [facility] [id number] [place] [address] 89625- 4819 Jun, Type 2 diabetes mellitus with hyperglycemia E11.65 [facility] [id number] [place] [address] 24686- 0974 Jun, Essential hypertension I10 [facility] [place] [id number] [place] [address] 56006- 5638 May, [facility] [id number] [place] [address] 56981- 0971 May, Type 2 diabetes mellitus with hyperglycemia E11.65 and Essential hypertension I10 [facility] [address] [place] [address] 54164- 5942 May, Essential hypertension I10 ; Mixed hyperlipidemia E78.2 ; Renal insufficiency N28.9 ; Hyperkalemia E87.5 ; Swelling of both lower extremities M79.89 and Type 2 diabetes mellitus with hyperglycemia E11.65 [facility] [address], [place] [address]- 5180 Apr, Essential hypertension I10 ; Mixed hyperlipidemia E78.2 ; Renal insufficiency N28.9 ; Hyperkalemia E87.5 ; Swelling of both lower extremities M79.89 and Type 2 diabetes mellitus with hyperglycemia E11.65 [facility] [address] [place] [address] 19052- 0768 Mar, [facility] [address] [place] [address] 22018- 7188 Feb, [facility] [id number] [place] [address] 03430- 2541 Feb, Essential hypertension I10 ; Mixed hyperlipidemia E78.2 ; Renal insufficiency N28.9 ; Hyperkalemia E87.5 ; Swelling of both lower extremities M79.89 and Type 2 diabetes mellitus with hyperglycemia E11.65 [facility] [id number] [place] [address] [id number] Feb, Encounter for dental examination Z01.20 [facility] [place] [address] 60470- 5799 January, Essential hypertension I10 [facility] [id number] [place] [address] 00907- 0985 January, Essential hypertension I10 ; Mixed hyperlipidemia E78.2 ; Renal insufficiency N28.9 ; Hyperkalemia E87.5 ; Swelling of both lower extremities M79.89 and Type 2 diabetes mellitus with hyperglycemia E11.65 [facility] [id number] [place] [address] [id number] January, Dental examination Z01.20 [facility] [id number] [place] [address] 78229- 1530 Dec, Dental examination Z01.20 [facility] [id number] [place] [address] 41626- 8357 Dec, Type 2 diabetes mellitus with hyperglycemia, without long- term current use of insulin E11.65 ; Essential hypertension I10 ; Mixed hyperlipidemia E78.2 ; Renal insufficiency N28.9 ; Hyperkalemia E87.5 and Swelling of both lower extremities M79.89 [facility] [id number] [place] [address] 66498- 2516 Nov, Hyperkalemia E87.5 [facility] [id number] [place] [address] 54256- 4434 Nov, Hyperkalemia E87.5 [facility] [id number] [place] [address] 61462- 1001 Nov, Type 2 diabetes mellitus with hyperglycemia, without long- term current use of insulin E11.65 ; Essential hypertension I10 ; Mixed hyperlipidemia E78.2 ; Renal insufficiency N28.9 ; Hyperkalemia E87.5 and Swelling of both lower extremities M79.89 [place] [address]18542- 1162 Oct, Type 2 diabetes mellitus with hyperglycemia, without long- term current use of insulin E11.65 ; Essential hypertension I10 ; Mixed hyperlipidemia E78.2 ; Renal insufficiency N28.9 ; Hyperkalemia E87.5 and Swelling of both lower extremities M79.89 [facility] [place] [address] 80014- 4097 Aug, Type 2 diabetes mellitus with hyperglycemia, without long- term current use of insulin E11.65 ; Essential hypertension I10 ; Mixed hyperlipidemia E78.2 ; Renal insufficiency N28.9 ; Hyperkalemia E87.5 and Swelling of both lower extremities M79.89 [facility] [place] [address] 70868- 1466 Aug, Type 2 diabetes mellitus with hyperglycemia, without long- term current use of insulin E11.65 ; Essential hypertension I10 ; Mixed hyperlipidemia E78.2 ; Renal insufficiency N28.9 ; Hyperkalemia E87.5 and Swelling of both lower extremities M79.89 [facility] [id number] [place] [address] 06929- 3240 Aug, Mixed hyperlipidemia E78.2 [facility] [address] 91499718- 9760 Aug, Type 2 diabetes mellitus with hyperglycemia, without long- term current use of insulin E11.65 ; Essential hypertension I10 ; Mixed hyperlipidemia E78.2 ; Renal insufficiency N28.9 ; Hyperkalemia E87.5 and Swelling of both lower extremities M79.89 [place] [address] [place] [address]- 5842 Jul, [facility] [address] 52302- 3358 Jul, Type 2 diabetes mellitus with hyperglycemia, without long- term current use of insulin E11.65 ; Essential hypertension I10 ; Mixed hyperlipidemia E78.2 ; Renal insufficiency N28.9 ; Hyperkalemia E87.5 ; Weight gain R63.5 and Encounter for immunization Z23 [facility] [address] 48393- 0544 Jun, Type 2 diabetes mellitus with hyperglycemia, without long- term current use of insulin E11.65 ; Essential hypertension I10 ; Mixed hyperlipidemia E78.2 ; Renal insufficiency N28.9 and Hyperkalemia E87.5 [facility] [place] [address] 55202- 5663 Jun, [facility] [address] 08463- 5484 May, Type 2 diabetes mellitus with hyperglycemia, without long- term current use of insulin E11.65 ; Essential hypertension I10 ; Mixed hyperlipidemia E78.2 ; Renal insufficiency N28.9 and Hyperkalemia E87.5 [facility] [place] [address] 10292- 9861 Apr, Type 2 diabetes mellitus with hyperglycemia, without long- term current use of insulin E11.65 ; Essential hypertension I10 ; Mixed hyperlipidemia E78.2 ; Renal insufficiency N28.9 and Hyperkalemia E87.5 [facility] [place] [id number] [place] [address] 39307- 5726 Apr, [facility] [place] [address] 26319- 2431 Apr, Type 2 diabetes mellitus with hyperglycemia, without long- term current use of insulin E11.65 ; Essential hypertension I10 ; Mixed hyperlipidemia E78.2 and Renal insufficiency N28.9 [place] [address] 77493- 1146 Mar, [facility] [address] [address]- 5038 Mar, Type 2 diabetes mellitus with hyperglycemia, without long- term current use of insulin E11.65 ; Essential hypertension I10 ; Mixed hyperlipidemia E78.2 and Renal insufficiency N28.9 [place] [address] [place] [address] 39525- 0198 Feb, Type 2 diabetes mellitus with hyperglycemia, without long- term current use of insulin E11.65 [place] [address] [place] [address] 94540- 1098 Feb, [place] [id number] [place] [address] 36434- 0635 January, [facility] [place] [id number] [place] [address] 17132- 1096 January, Type 2 diabetes mellitus with hyperglycemia, without long- term current use of insulin E11.65 ; Essential hypertension I10 and Mixed hyperlipidemia E78.2 [place] [address] [place] [address] 97497- 0557 Dec, [place] [id number] [place] [address] 04512- 6667 Dec, [place] [id number] [place] [address] 88886- 5806 Oct, [place] [address] [place] [address] 59922- 0056 Oct, [place] [address] [place] [address] 94679- 3355 Oct, [place] [id number] [place] [address] 97551- 1123 Oct, IMMUNIZATIONS No Known Immunizations SOCIAL HISTORY Never Assessed REASON FOR VISIT paperwork PLAN OF CARE VITAL SIGNS MEDICATIONS Unknown [...]
--- OUTSIDE RECORDS SUMMARY | 2018-12-15 19:54 | XMS REPORT ---
Author Author ANI CASTILLO [facility] eClinicalWorks Address Unknown Phone Unavailable Care Team Providers Care Flash Developer Name Role Phone ANI CASTILLO CP Unavailable Allergies, Adverse Reactions, Alerts Substance Reaction Event Type N.K.D.A. Info Not Available Non Drug Allergy Problems Problem Type Condition Code Onset Dates Condition Status Assessment Renal insufficiency N28.9 Active Assessment Hyperkalemia E87.5 Active Problem Type 2 diabetes mellitus with [...] Instructions Start Date End Date Status Dosage Amlodipine Besylate [facility] [address]-51 5 mg Orally Once a day 1 tablet Lisinopril [facility] [address]-68 20 mg Orally Once a day 1 tablet Levemir [facility] [address]-28 100 UNIT/ML Subcutaneous 2 times a day Apr 30, 2016 10 units Metformin HCl [facility] [address]-66 1000 MG Orally Twice a day 1 tablet with meals Fish Oil [facility] [address]-31 1000 MG Orally Once a day 2 capsule Simvastatin [facility] [address]-44 40 mg Orally Once a day 1 tablet in the evening Procedures Procedure Coding System Code Date VENIPUNCT, ROUTINE* CPT-4 51636 May 19, 2016 Office Visit, Est Pt., Level 5 CPT-4 34395 May 19, 2016 COMPREHEN METABOLIC PANEL CPT-4 03891 May 19, 2016 GLUCOSE BLOOD TEST CPT-4 66901 May 19, 2016 Vital Signs Date/Time: May 19, 2016 Cardiac Monitoring Heart Rate 86 bpm Weight 224.8 lbs Height 72 in BMI 30.49 Index Blood Pressure Diastolic 87 mmHg Blood Pressure Systolic 158 mmHg Results No Known Results Summary Purpose eClinicalWorks Submission
--- OUTSIDE RECORDS SUMMARY | 2018-12-15 19:54 | XMS REPORT ---
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 Active 639679780 Problem Swelling of both lower extremities M79.89 Active [id number] Problem Hyperkalemia E87.5 Active 64609815 Problem Chronic kidney disease, stage III (moderate) N18.3 Active 970443981 Problem Diabetic polyneuropathy associated with type 2 diabetes mellitus E11.42 Active 564062480 ALLERGIES No Known Allergies ENCOUNTERS Encounter Location Date Diagnosis [place] [id number] [place] [address] 26123[address] 8676 Dec, [facility] [id number] [place] [address] 32307- 3936 Nov, [facility] [id number] [place] [address] 34775- 1073 Nov, Mixed hyperlipidemia E78.2 ; Essential hypertension I10 and Type 2 diabetes mellitus with diabetic chronic kidney disease E11.22 [facility] [id number] [place] [address] 80361- 6923 Oct, [facility] [id number] [place] [address] 59646- 4069 Sep, [facility] [id number] [place] [address] 79682- 4768 Aug, Diabetic polyneuropathy associated with type 2 diabetes mellitus E11.42 [place] [address], [place] [address] Aug, Type 2 diabetes mellitus with diabetic chronic kidney disease E11.22 ; Chronic kidney disease, stage III (moderate) N18.3 ; skilled nursing current use of insulin Z79.4 ; Essential hypertension I10 ; Mixed hyperlipidemia E78.2 and Diabetic polyneuropathy associated with type 2 diabetes mellitus E11.42 [place] [id number] [place] [address] 25987- 0876 Jul, Type 2 diabetes mellitus with hyperglycemia E11.65 and Mixed hyperlipidemia E78.2 [place] [id number] [place] [address] 10674- 4218 Jun, Type 2 diabetes mellitus with hyperglycemia E11.65 [place] [id number] [place] [address] 57213- 5436 Jun, Essential hypertension I10 [place] [id number] [place] [address] 41066- 4112 May, [place] [id number] [place] [address] 06068- 8214 May, Type 2 diabetes mellitus with hyperglycemia E11.65 and Essential hypertension I10 [place] [id number] [place] [address] 11194- 1564 May, Essential hypertension I10 ; Mixed hyperlipidemia E78.2 ; Renal insufficiency N28.9 ; Hyperkalemia E87.5 ; Swelling of both lower extremities M79.89 and Type 2 diabetes mellitus with hyperglycemia E11.65 [place] [address], [place] [address] Apr, Essential hypertension I10 ; Mixed hyperlipidemia E78.2 ; Renal insufficiency N28.9 ; Hyperkalemia E87.5 ; Swelling of both lower extremities M79.89 and Type 2 diabetes mellitus with hyperglycemia E11.65 [place] [id number] [place] [address] 42566- 1723 Mar, [facility] [id number] [place] [address] 80217- 5552 Feb, [facility] [address] 21172- 7960 Feb, Essential hypertension I10 ; Mixed hyperlipidemia E78.2 ; Renal insufficiency N28.9 ; Hyperkalemia E87.5 ; Swelling of both lower extremities M79.89 and Type 2 diabetes mellitus with hyperglycemia E11.65 [facility] [address] [id number] Feb, Encounter for dental examination Z01.20 [place] [address] 88542- 8028 January, Essential hypertension I10 [place] [address] 42985- 6026 January, Essential hypertension I10 ; Mixed hyperlipidemia E78.2 ; Renal insufficiency N28.9 ; Hyperkalemia E87.5 ; Swelling of both lower extremities M79.89 and Type 2 diabetes mellitus with hyperglycemia E11.65 [facility] [id number] [place] [address] [id number] January, Dental examination Z01.20 [facility] [id number] [place] [address] 75024- 1660 Dec, Dental examination Z01.20 [facility] [id number] [place] [address] 26552- 5442 Dec, Type 2 diabetes mellitus with hyperglycemia, without long- term current use of insulin E11.65 ; Essential hypertension I10 ; Mixed hyperlipidemia E78.2 ; Renal insufficiency N28.9 ; Hyperkalemia E87.5 and Swelling of both lower extremities M79.89 [place] [id number] [place] [address] [id number]- 5769 Nov, Hyperkalemia E87.5 [place] [id number] [place] [address] 92245- 8654 Nov, Hyperkalemia E87.5 [place] [id number] [place] [address] 12438- 8416 Nov, Type 2 diabetes mellitus with hyperglycemia, without long- term current use of insulin E11.65 ; Essential hypertension I10 ; Mixed hyperlipidemia E78.2 ; Renal insufficiency N28.9 ; Hyperkalemia E87.5 and Swelling of both lower extremities M79.89 [place] [address] 775255- 8338 Oct, Type 2 diabetes mellitus with hyperglycemia, without long- term current use of insulin E11.65 ; Essential hypertension I10 ; Mixed hyperlipidemia E78.2 ; Renal insufficiency N28.9 ; Hyperkalemia E87.5 and Swelling of both lower extremities M79.89 [place] [address] 77773- 7021 Aug, Type 2 diabetes mellitus with hyperglycemia, without long- term current use of insulin E11.65 ; Essential hypertension I10 ; Mixed hyperlipidemia E78.2 ; Renal insufficiency N28.9 ; Hyperkalemia E87.5 and Swelling of both lower extremities M79.89 [place] [address] 65306- 0618 Aug, Type 2 diabetes mellitus with hyperglycemia, without long- term current use of insulin E11.65 ; Essential hypertension I10 ; Mixed hyperlipidemia E78.2 ; Renal insufficiency N28.9 ; Hyperkalemia E87.5 and Swelling of both lower extremities M79.89 [place] [id number] [place] [address] 26318- 1909 Aug, Mixed hyperlipidemia E78.2 [place] [id number] [place] [address] 18803- 6008 Aug, Type 2 diabetes mellitus with hyperglycemia, without long- term current use of insulin E11.65 ; Essential hypertension I10 ; Mixed hyperlipidemia E78.2 ; Renal insufficiency N28.9 ; Hyperkalemia E87.5 and Swelling of both lower extremities M79.89 [place] [address] 82547- 3660 Jul, [place] [address] 13196- 4149 Jul, Type 2 diabetes mellitus with hyperglycemia, without long- term current use of insulin E11.65 ; Essential hypertension I10 ; Mixed hyperlipidemia E78.2 ; Renal insufficiency N28.9 ; Hyperkalemia E87.5 ; Weight gain R63.5 and Encounter for immunization Z23 [place] [address] 27115- 4422 Jun, Type 2 diabetes mellitus with hyperglycemia, without long- term current use of insulin E11.65 ; Essential hypertension I10 ; Mixed hyperlipidemia E78.2 ; Renal insufficiency N28.9 and Hyperkalemia E87.5 [place] [address] 52266- 5143 Jun, [place] [address] 79521- 0665 May, Type 2 diabetes mellitus with hyperglycemia, without long- term current use of insulin E11.65 ; Essential hypertension I10 ; Mixed hyperlipidemia E78.2 ; Renal insufficiency N28.9 and Hyperkalemia E87.5 [place] [address] 53893- 7132 Apr, Type 2 diabetes mellitus with hyperglycemia, without long- term current use of insulin E11.65 ; Essential hypertension I10 ; Mixed hyperlipidemia E78.2 ; Renal insufficiency N28.9 and Hyperkalemia E87.5 [place] [id number] [place] [address] 11834- 6280 Apr, [place] [address] 81696- 4551 Apr, Type 2 diabetes mellitus with hyperglycemia, without long- term current use of insulin E11.65 ; Essential hypertension I10 ; Mixed hyperlipidemia E78.2 and Renal insufficiency N28.9 [place] [address] 11540- 4884 Mar, [facility] [address], [place] [address] 4[address] Mar, Type 2 diabetes mellitus with hyperglycemia, without long- term current use of insulin E11.65 ; Essential hypertension I10 ; Mixed hyperlipidemia E78.2 and Renal insufficiency N28.9 [place] [address] [place] [address] 30228- 7099 Feb, Type 2 diabetes mellitus with hyperglycemia, without long- term current use of insulin E11.65 [place] [id number] [place] [address] 33847- 5347 Feb, [place] [id number] [place] [address] 19880- 5564 January, [place] [id number] [place] [address] 79035- 5039 January, Type 2 diabetes mellitus with hyperglycemia, without long- term current use of insulin E11.65 ; Essential hypertension I10 and Mixed hyperlipidemia E78.2 [place] [id number] [place] [address] 22997- 9755 Dec, [place] [id number] [place] [address] 33037- 6402 Dec, [place] [id number] [place] [address] 99413- 1674 Oct, [place] [address], [place] [address]- 3207 Oct, [place] [address] [place] [address]- 7003 Oct, [place] [id number] [place] [address] 17966- 3300 Oct, IMMUNIZATIONS No Known Immunizations SOCIAL HISTORY Never Assessed REASON FOR VISIT Diabetes--tcuppettMAL PLAN OF CARE Activity Details Follow Up 6-8 weeema Reason:DM VITAL SIGNS Height 72 in 2017-03-22 Weight 267.8 lbs 2017-03-22 Temperature 98.4 degrees Fahrenheit 2017-03-22 Heart Rate 96 bpm 2017-03-22 Respiratory Rate 20 2017-03-22 BMI 36.32 kg/m2 2017-03-22 Blood pressure systolic 152 mmHg 2017-03-22 Blood pressure diastolic 84 mmHg 2017-03-22 MEDICATIONS Medication Instructions Dosage Frequency Start Date End Date Duration Status Farxiga 10 mg Orally Once a day 1 tablet 24h Active Fish Oil 1000 MG Orally Once a day 2 capsule 24h 30 day(s) Active Simvastatin 40 mg Orally Once a day 1 tablet in the evening 24h Active Chlorthalidone 25 MG Orally Once a day 1/2 tablet in the morning 24h Active NovoLog 100 UNIT/ML Subcutaneous with meals and snacks 40 units with meals and 5 units with snacks Active Clonidine HCl 0.1 MG Orally twice a day 1 tablet 12h Active Metoprolol Succinate ER 50 MG Orally Once a day 1 tablet 24h Feb, 90 day(s) Active Lantus 100 UNIT/ML Subcutaneous 2 times a day 50 Units 12h Feb, Active RESULTS Name Result Date Reference Range MAGNESIUM, SERUM 2017-03-22 Magnesium, Serum 1.8 1.6-2.3 CBC 2017-03-22 WBC 8.6 3.4-10.8 RBC 4.75 4.14-5.80 Hemoglobin 13.9 12.6-17.7 Hematocrit 43.2 37.5-51.0 MCV 91 79-97 MCH 29.3 26.6-33.0 MCHC 32.2 31.5-35.7 RDW 13.2 12.3-15.4 Platelets 224 150-379 Neutrophils 72 Lymphs 15 Monocytes 10 Eos 3 Basos 0 Neutrophils (Absolute) 6.2 1.4-7.0 Lymphs (Absolute) 1.3 0.7-3.1 Monocytes(Absolute) 0.8 0.1-0.9 Eos (Absolute) 0.2 0.0-0.4 Baso (Absolute) 0.0 0.0-0.2 Immature Granulocytes 0 Immature Grans (Abs) 0.0 0.0-0.1 CMP 2017-03-22 Glucose, Serum 570 65-99 BUN 26 8-27 Creatinine, Serum 1.52 0.76-1.27 eGFR If NonAfricn Am 49 >59 eGFR If Africn Am 57 >59 BUN/Creatinine Ratio 17 10-24 Sodium, Serum 133 134-144 Potassium, Serum 5.6 3.5-5.2 Chloride, Serum 94 96-106 Carbon Dioxide, Total 25 18-29 Calcium, Serum 8.9 8.6-10.2 Protein, Total, Serum 6.8 6.0-8.5 Albumin, Serum 3.9 3.6-4.8 Globulin, Total 2.9 1.5-4.5 A/G Ratio 1.3 1.2-2.2 Bilirubin, Total 0.3 0.0-1.2 Alkaline Phosphatase, S 119 39-117 AST (SGOT) 14 0-40 ALT (SGPT) 16 0-44 PROCEDURES Procedure Date Ordered Result Body Site COMPREHEN METABOLIC PANEL March 22, 2017 COMPLETE CBC W/AUTO DIFF WBC March 22, 2017 ASSAY OF MAGNESIUM March 22, 2017 VENIPUNCT, ROUTINE* March 22, 2017 INSTRUCTIONS MEDICATIONS ADMINISTERED No Known Medications [...]
--- OUTSIDE RECORDS SUMMARY | 2018-12-15 19:55 | XMS REPORT ---
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 Active 312424208 Problem Swelling of both lower extremities M79.89 Active [id number] Problem Hyperkalemia E87.5 Active 25764878 Problem Chronic kidney disease, stage III (moderate) N18.3 Active 098397983 Problem Diabetic polyneuropathy associated with type 2 diabetes mellitus E11.42 Active 756676009 ALLERGIES No Known Allergies ENCOUNTERS Encounter Location Date Diagnosis [place] [id number] [place] [address] 26498- 0676 Dec, [facility] [id number] [place] [address] 42598- 9978 Nov, [facility] [id number] [place] [address] 24326- 1917 Nov, Mixed hyperlipidemia E78.2 ; Essential hypertension I10 and Type 2 diabetes mellitus with diabetic chronic kidney disease E11.22 [facility] [id number] [place] [address] 52716- 8903 Oct, [facility] [id number] [place] [address] 50770- 8909 Sep, [facility] [id number] [place] [address] 18396- 7985 Aug, Diabetic polyneuropathy associated with type 2 diabetes mellitus E11.42 [place] [address] [place] [address] 64061- 0043 Aug, Type 2 diabetes mellitus with diabetic chronic kidney disease E11.22 ; Chronic kidney disease, stage III (moderate) N18.3 ; 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 ; Essential hypertension I10 ; Mixed hyperlipidemia E78.2 and Diabetic polyneuropathy associated with type 2 diabetes mellitus E11.42 [place] [id number] [place] [address] 13802- 1795 Jul, Type 2 diabetes mellitus with hyperglycemia E11.65 and Mixed hyperlipidemia E78.2 [place] [id number] [place] [address] 77462- 0650 Jun, Type 2 diabetes mellitus with hyperglycemia E11.65 [place] [id number] [place] [address] 06755- 6527 Jun, Essential hypertension I10 [place] [id number] [place] [address] 91400- 7031 May, [place] [id number] [place] [address] 41464- 5969 May, Type 2 diabetes mellitus with hyperglycemia E11.65 and Essential hypertension I10 [place] [id number] [place] [address] 02080- 7191 May, Essential hypertension I10 ; Mixed hyperlipidemia E78.2 ; Renal insufficiency N28.9 ; Hyperkalemia E87.5 ; Swelling of both lower extremities M79.89 and Type 2 diabetes mellitus with hyperglycemia E11.65 [place] [address] [address] 1089 Apr, Essential hypertension I10 ; Mixed hyperlipidemia E78.2 ; Renal insufficiency N28.9 ; Hyperkalemia E87.5 ; Swelling of both lower extremities M79.89 and Type 2 diabetes mellitus with hyperglycemia E11.65 [place] [id number] [place] [address] 09211- 5566 Mar, [facility] [id number] [place] [address] 52731- 4475 Feb, [facility] [id number] [place] [address] 03576- 6863 Feb, Essential hypertension I10 ; Mixed hyperlipidemia E78.2 ; Renal insufficiency N28.9 ; Hyperkalemia E87.5 ; Swelling of both lower extremities M79.89 and Type 2 diabetes mellitus with hyperglycemia E11.65 [facility] [id number] [place] [address] [id number] Feb, Encounter for dental examination Z01.20 [place] [address] 08319- 3454 January, Essential hypertension I10 [place] [address] 45622- 8142 January, Essential hypertension I10 ; Mixed hyperlipidemia E78.2 ; Renal insufficiency N28.9 ; Hyperkalemia E87.5 ; Swelling of both lower extremities M79.89 and Type 2 diabetes mellitus with hyperglycemia E11.65 [facility] [id number] [place] [address] [id number] January, Dental examination Z01.20 [facility] [id number] [place] [address] 17672- 3695 Dec, Dental examination Z01.20 [facility] [id number] [place] [address] 90348- 9470 Dec, Type 2 diabetes mellitus with hyperglycemia, without long- term current use of insulin E11.65 ; Essential hypertension I10 ; Mixed hyperlipidemia E78.2 ; Renal insufficiency N28.9 ; Hyperkalemia E87.5 and Swelling of both lower extremities M79.89 [facility] [address] [place] [address] [phone]- 1165 Nov, Hyperkalemia E87.5 [facility] [id number] [place] [address] 82058- 6429 Nov, Hyperkalemia E87.5 [place] [id number] [place] [address] 21941- 9447 Nov, Type 2 diabetes mellitus with hyperglycemia, without long- term current use of insulin E11.65 ; Essential hypertension I10 ; Mixed hyperlipidemia E78.2 ; Renal insufficiency N28.9 ; Hyperkalemia E87.5 and Swelling of both lower extremities M79.89 [place] [address] 831984- 4524 Oct, Type 2 diabetes mellitus with hyperglycemia, without long- term current use of insulin E11.65 ; Essential hypertension I10 ; Mixed hyperlipidemia E78.2 ; Renal insufficiency N28.9 ; Hyperkalemia E87.5 and Swelling of both lower extremities M79.89 [place] [address] 88282- 0041 Aug, Type 2 diabetes mellitus with hyperglycemia, without long- term current use of insulin E11.65 ; Essential hypertension I10 ; Mixed hyperlipidemia E78.2 ; Renal insufficiency N28.9 ; Hyperkalemia E87.5 and Swelling of both lower extremities M79.89 [place] [address] 54434- 6616 Aug, Type 2 diabetes mellitus with hyperglycemia, without long- term current use of insulin E11.65 ; Essential hypertension I10 ; Mixed hyperlipidemia E78.2 ; Renal insufficiency N28.9 ; Hyperkalemia E87.5 and Swelling of both lower extremities M79.89 [place] [id number] [place] [address] 61719- 6771 Aug, Mixed hyperlipidemia E78.2 [place] [address] 04788- 8982 Aug, Type 2 diabetes mellitus with hyperglycemia, without long- term current use of insulin E11.65 ; Essential hypertension I10 ; Mixed hyperlipidemia E78.2 ; Renal insufficiency N28.9 ; Hyperkalemia E87.5 and Swelling of both lower extremities M79.89 [place] [address] [place] [address]- 7913 Jul, [place] [address] 58757- 1824 Jul, Type 2 diabetes mellitus with hyperglycemia, without long- term current use of insulin E11.65 ; Essential hypertension I10 ; Mixed hyperlipidemia E78.2 ; Renal insufficiency N28.9 ; Hyperkalemia E87.5 ; Weight gain R63.5 and Encounter for immunization Z23 [place] [address] 92046- 3442 Jun, Type 2 diabetes mellitus with hyperglycemia, without long- term current use of insulin E11.65 ; Essential hypertension I10 ; Mixed hyperlipidemia E78.2 ; Renal insufficiency N28.9 and Hyperkalemia E87.5 [place] [address] 81822- 7005 Jun, [place] [address] 76873- 9702 May, Type 2 diabetes mellitus with hyperglycemia, without long- term current use of insulin E11.65 ; Essential hypertension I10 ; Mixed hyperlipidemia E78.2 ; Renal insufficiency N28.9 and Hyperkalemia E87.5 [place] [address] 29879- 0213 Apr, Type 2 diabetes mellitus with hyperglycemia, without long- term current use of insulin E11.65 ; Essential hypertension I10 ; Mixed hyperlipidemia E78.2 ; Renal insufficiency N28.9 and Hyperkalemia E87.5 [place] [address] [id number] [place] [address] 75515- 0430 Apr, [place] [address] 27856- 9853 Apr, Type 2 diabetes mellitus with hyperglycemia, without long- term current use of insulin E11.65 ; Essential hypertension I10 ; Mixed hyperlipidemia E78.2 and Renal insufficiency N28.9 [place] [address] 59425- 7297 Mar, [facility] [address] [address]- 2613 Mar, Type 2 diabetes mellitus with hyperglycemia, without long- term current use of insulin E11.65 ; Essential hypertension I10 ; Mixed hyperlipidemia E78.2 and Renal insufficiency N28.9 [facility] [address] [place] [address] 11070- 3352 Feb, Type 2 diabetes mellitus with hyperglycemia, without long- term current use of insulin E11.65 [place] [address] [address]- 8858 Feb, [place] [address] [address] [id number] [place] [address] 95050- 1714 January, [place] [address] [address] [id number] [place] [address] 04600- 3636 January, Type 2 diabetes mellitus with hyperglycemia, without long- term current use of insulin E11.65 ; Essential hypertension I10 and Mixed hyperlipidemia E78.2 [place] [address] [place] [address] 07727- 5196 Dec, [place] [address] [id number] [place] [address] 38794- 5489 Dec, [place] [id number] [place] [address] 17209- 3280 Oct, [place] [address] [place] [address] 60634- 7337 Oct, [place] [address] [address]- 0486 Oct, [place] [address] [id number] [place] [address] 42989- 4556 Oct, IMMUNIZATIONS No Known Immunizations SOCIAL HISTORY Never Assessed REASON FOR VISIT FOLLOW UP PLAN OF CARE Activity Details Follow Up NA: TE 11, 12, 13 Reason: VITAL SIGNS MEDICATIONS Medication Instructions Dosage Frequency Start Date End Date Duration Status Chlorthalidone 25 MG Orally Once a day 1/2 tablet in the morning 24h Active Fish Oil 1000 MG Orally Once a day 2 capsule 24h 30 day(s) Active Simvastatin 40 mg Orally Once a day 1 tablet in the evening 24h Active Clonidine HCl 0.1 MG Orally twice a day 1 tablet at bedtime 12h Active Levemir 100 UNIT/ML Subcutaneous 2 times a day 45 units 12h Active NovoLog 100 UNIT/ML Subcutaneous with meals and snacks 30 units with meals and 5 units with snacks Active Farxiga 10 MG Orally Once a day 1 tablet 24h Active Lisinopril 20 mg Orally Once a day 1/2 tablet 24h Active RESULTS No Results PROCEDURES Procedure Date Ordered Result Body Site Dental no charge March 08, 2017 INSTRUCTIONS MEDICATIONS ADMINISTERED No Known Medications [...]
--- OUTSIDE RECORDS SUMMARY | 2018-12-15 19:55 | XMS REPORT ---
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 102514697 Problem Swelling of both lower extremities M79.89 Active 58616658168247268 Problem Hyperkalemia E87.5 Active 51947046 Problem Chronic kidney disease, stage III (moderate) N18.3 Active 247044941 Problem Diabetic polyneuropathy associated with type 2 diabetes mellitus E11.42 Active 388868077 ALLERGIES No Known Allergies ENCOUNTERS Encounter Location Date Diagnosis [place] [id number] [place] [id number] [place] [address] 39576- 7368 Dec, [facility] [id number] [place] [address] 59890- 7275 Nov, [facility] [address] [place] [id number] [place] [address] 66651- 0540 Nov, Mixed hyperlipidemia E78.2 ; Essential hypertension I10 and Type 2 diabetes mellitus with diabetic chronic kidney disease E11.22 [facility] [id number] [place] [address] 87408- 1769 Oct, [facility] [id number] [place] [address] 22389- 5092 Sep, [facility] [id number] [place] [address] 53517- 8499 Aug, Diabetic polyneuropathy associated with type 2 diabetes mellitus E11.42 [place] [address] [address]- 8809 Aug, Type 2 diabetes mellitus with diabetic chronic kidney disease E11.22 ; Chronic kidney disease, stage III (moderate) N18.3 ; group home current use of insulin Z79.4 ; Essential hypertension I10 ; Mixed hyperlipidemia E78.2 and Diabetic polyneuropathy associated with type 2 diabetes mellitus E11.42 [place] [address] [place] [id number] [place] [address] 12007- 4596 Jul, Type 2 diabetes mellitus with hyperglycemia E11.65 and Mixed hyperlipidemia E78.2 [place] [address] [place] [id number] [place] [address] 60376- 3059 Jun, Type 2 diabetes mellitus with hyperglycemia E11.65 [place] [address] [place] [address] [id number] [place] [address] 58155- 3507 Jun, Essential hypertension I10 [place] [address] [place] [id number] [place] [address] 42513- 7461 May, [place] [address] [place] [id number] [place] [address] 05331- 2909 May, Type 2 diabetes mellitus with hyperglycemia E11.65 and Essential hypertension I10 [place] [address] [place] [id number] [place] [address] 64523- 8565 May, Essential hypertension I10 ; Mixed hyperlipidemia E78.2 ; Renal insufficiency N28.9 ; Hyperkalemia E87.5 ; Swelling of both lower extremities M79.89 and Type 2 diabetes mellitus with hyperglycemia E11.65 [place] [address] [address]- 5654 Apr, Essential hypertension I10 ; Mixed hyperlipidemia E78.2 ; Renal insufficiency N28.9 ; Hyperkalemia E87.5 ; Swelling of both lower extremities M79.89 and Type 2 diabetes mellitus with hyperglycemia E11.65 [place] [address] [place] [address] 24203- 3162 Mar, [facility] [address] [place] [address] 48466- 0860 Feb, [facility] [address] 18514- 8898 Feb, Essential hypertension I10 ; Mixed hyperlipidemia E78.2 ; Renal insufficiency N28.9 ; Hyperkalemia E87.5 ; Swelling of both lower extremities M79.89 and Type 2 diabetes mellitus with hyperglycemia E11.65 [facility] [address] [id number] Feb, Encounter for dental examination Z01.20 [place] [address] 20225- 4577 January, Essential hypertension I10 [place] [address] 85798- 2112 January, Essential hypertension I10 ; Mixed hyperlipidemia E78.2 ; Renal insufficiency N28.9 ; Hyperkalemia E87.5 ; Swelling of both lower extremities M79.89 and Type 2 diabetes mellitus with hyperglycemia E11.65 [facility] [id number] [place] [address] [id number] January, Dental examination Z01.20 [facility] [id number] [place] [address] 35699- 4677 Dec, Dental examination Z01.20 [facility] [id number] [place] [address] 03695- 6423 Dec, Type 2 diabetes mellitus with hyperglycemia, without long- term current use of insulin E11.65 ; Essential hypertension I10 ; Mixed hyperlipidemia E78.2 ; Renal insufficiency N28.9 ; Hyperkalemia E87.5 and Swelling of both lower extremities M79.89 [place] [address] [place] [address] [id number]- 5278 Nov, Hyperkalemia E87.5 [place] [address] [id number] [place] [address] 16841- 6475 Nov, Hyperkalemia E87.5 [place] [address] [place] [id number] [place] [address] 74253- 9431 Nov, Type 2 diabetes mellitus with hyperglycemia, without long- term current use of insulin E11.65 ; Essential hypertension I10 ; Mixed hyperlipidemia E78.2 ; Renal insufficiency N28.9 ; Hyperkalemia E87.5 and Swelling of both lower extremities M79.89 [place] [address] 904021- 5301 Oct, Type 2 diabetes mellitus with hyperglycemia, without long- term current use of insulin E11.65 ; Essential hypertension I10 ; Mixed hyperlipidemia E78.2 ; Renal insufficiency N28.9 ; Hyperkalemia E87.5 and Swelling of both lower extremities M79.89 [place] [address] 49250- 9798 Aug, Type 2 diabetes mellitus with hyperglycemia, without long- term current use of insulin E11.65 ; Essential hypertension I10 ; Mixed hyperlipidemia E78.2 ; Renal insufficiency N28.9 ; Hyperkalemia E87.5 and Swelling of both lower extremities M79.89 [place] [address] 66173- 6952 Aug, Type 2 diabetes mellitus with hyperglycemia, without long- term current use of insulin E11.65 ; Essential hypertension I10 ; Mixed hyperlipidemia E78.2 ; Renal insufficiency N28.9 ; Hyperkalemia E87.5 and Swelling of both lower extremities M79.89 [place] [address] [place] [id number] [place] [address] 47711- 1626 Aug, Mixed hyperlipidemia E78.2 [place] [address] [id number] [place] [address] 36673- 8053 Aug, Type 2 diabetes mellitus with hyperglycemia, without long- term current use of insulin E11.65 ; Essential hypertension I10 ; Mixed hyperlipidemia E78.2 ; Renal insufficiency N28.9 ; Hyperkalemia E87.5 and Swelling of both lower extremities M79.89 [place] [address] 28211- 6620 Jul, [place] [address] 67804- 1331 Jul, Type 2 diabetes mellitus with hyperglycemia, without long- term current use of insulin E11.65 ; Essential hypertension I10 ; Mixed hyperlipidemia E78.2 ; Renal insufficiency N28.9 ; Hyperkalemia E87.5 ; Weight gain R63.5 and Encounter for immunization Z23 [place] [address] 87273- 2372 Jun, Type 2 diabetes mellitus with hyperglycemia, without long- term current use of insulin E11.65 ; Essential hypertension I10 ; Mixed hyperlipidemia E78.2 ; Renal insufficiency N28.9 and Hyperkalemia E87.5 [place] [address] 88232- 7259 Jun, [place] [address] 85335- 8979 May, Type 2 diabetes mellitus with hyperglycemia, without long- term current use of insulin E11.65 ; Essential hypertension I10 ; Mixed hyperlipidemia E78.2 ; Renal insufficiency N28.9 and Hyperkalemia E87.5 [place] [address] 08992- 6867 Apr, Type 2 diabetes mellitus with hyperglycemia, without long- term current use of insulin E11.65 ; Essential hypertension I10 ; Mixed hyperlipidemia E78.2 ; Renal insufficiency N28.9 and Hyperkalemia E87.5 [place] [id number] [place] [address] 50666- 4603 Apr, [place] [address] 84972- 0068 Apr, Type 2 diabetes mellitus with hyperglycemia, without long- term current use of insulin E11.65 ; Essential hypertension I10 ; Mixed hyperlipidemia E78.2 and Renal insufficiency N28.9 [place] [address] 51270- 5773 Mar, [facility] [address] [address]- 3854 Mar, Type 2 diabetes mellitus with hyperglycemia, without long- term current use of insulin E11.65 ; Essential hypertension I10 ; Mixed hyperlipidemia E78.2 and Renal insufficiency N28.9 [place] [address] [place] [address] 67734- 0065 Feb, Type 2 diabetes mellitus with hyperglycemia, without long- term current use of insulin E11.65 [place] [address] [address]- 9764 Feb, [place] [id number] [place] [address] 59980- 8508 January, [place] [address] [id number] [place] [address] 61955- 5608 January, Type 2 diabetes mellitus with hyperglycemia, without long- term current use of insulin E11.65 ; Essential hypertension I10 and Mixed hyperlipidemia E78.2 [place] [address] [address]- 1200 Dec, [place] [id number] [place] [address] 99580- 1233 Dec, [place] [address] [place] [address] 93575- 1419 Oct, [place] [address] [address]- 4969 Oct, [place] [address] [address]- 5475 Oct, [place] [id number] [place] [address] 45001- 1609 Oct, IMMUNIZATIONS No Known Immunizations SOCIAL HISTORY Never Assessed REASON FOR VISIT lab f/dylan Erazo MA PLAN OF CARE Activity Details Follow Up 4-5 Weeks Reason:DM VITAL SIGNS Height 72 in 2017-04-26 Weight 248.7 lbs 2017-04-26 Temperature 98.1 degrees Fahrenheit 2017-04-26 Heart Rate 98 bpm 2017-04-26 Respiratory Rate 22 2017-04-26 BMI 33.73 kg/m2 2017-04-26 Blood pressure systolic 150 mmHg 2017-04-26 Blood pressure diastolic 88 mmHg 2017-04-26 MEDICATIONS Medication Instructions Dosage Frequency Start Date End Date Duration Status Triamcinolone Acetonide 0.1 % Externally Twice a day 1 application to affected area 12h Jun, Active Levemir 100 UNIT/ML Subcutaneous Twice daily 50 Units Apr, Active Clonidine HCl 0.1 MG Orally twice a day 1 tablet 12h Active Farxiga 10 mg Orally Once a day 1 tablet 24h Active Metoprolol Succinate ER 50 MG Orally Once a day 1 tablet 24h 90 day(s ) Active Simvastatin 40 mg Orally Once a day 1 tablet in the evening 24h Active Fish Oil 1000 MG Orally Once a day 2 capsule 24h 30 day(s) Active Chlorthalidone 25 MG Orally Once a day 1/2 tablet in the morning 24h Active Levemir 100 UNIT/ML Subcutaneous 2 times a day 45 units 12h Active NovoLog 100 UNIT/ML Subcutaneous with meals and snacks 42 units with meals and 5 units with snacks Active RESULTS Name Result Date Reference Range GLUCOSE FINGERSTICK (IN HOUSE) 2017-04-26 GLU FINGERSTICK 309 PC Lot # [id number] Exp date 12/05/09 PROCEDURES Procedure Date Ordered Result Body Site LAB NOT BILLED BY [facility] Apr 26, 2017 GLUCOSE BLOOD TEST Apr 26, 2017 VENIPUNCT, ROUTINE* Apr 26, 2017 INSTRUCTIONS MEDICATIONS ADMINISTERED No Known Medications [...]
--- OUTSIDE RECORDS SUMMARY | 2018-12-15 19:55 | XMS REPORT ---
Author Author ANI CASTILLO Organization [facility] Address [address] [place] [address] Care Team Providers Care Welfare Manager Name Role Phone ANI CASTILLO Unavailable PROBLEMS Type Condition ICD9-CM Code OQI27-BC Code Onset Dates Condition Status SNOMED Code Problem Essential hypertension I10 Active 35285203 Problem Swelling of both lower extremities M79.89 Active [id number] Problem Hyperkalemia E87.5 Active 64637614 Problem Mixed hyperlipidemia E78.2 Active 046475780 Problem Periodontal disease K05.6 Active 9499979 Problem Caries of cementum teeth K02.7 Active 93363064 Problem Type 2 diabetes mellitus with diabetic chronic kidney disease E11.22 Active 29473807 Problem group home current use of insulin Z79.4 Active 215187101 Problem Chronic kidney disease, stage III (moderate) N18.3 Active 971480599 Problem Diabetic polyneuropathy associated with type 2 diabetes mellitus E11.42 Active 606400950 ALLERGIES No Information ENCOUNTERS Encounter Location Date Diagnosis [facility] [address] [place] [address] [id number] Dec, Dental caries K02.9 [facility] [id number] [place] [address] 84426- 1970 Dec, Type 2 diabetes mellitus with diabetic chronic kidney disease E11.22 [facility] [id number] [place] [address] 71055- 1830 Dec, Dental examination Z01.20 ; Periodontal disease K05.6 and Caries of cementum teeth K02.7 [facility] [id number] [place] [address] 52317- 7109 Dec, Type 2 diabetes mellitus with diabetic chronic kidney disease E11.22 ; Chronic kidney disease, stage III (moderate) N18.3 ; group home current use of insulin Z79.4 ; Essential hypertension I10 ; Mixed hyperlipidemia E78.2 ; Diabetic polyneuropathy associated with type 2 diabetes mellitus E11.42 and Dental abscess K04.7 [facility] [address] [address] Nov, [facility] [id number] [address] 0861 Nov, Mixed hyperlipidemia E78.2 ; Essential hypertension I10 and Type 2 diabetes mellitus with diabetic chronic kidney disease E11.22 [facility] [address] [address] 5304 Oct, [facility] [id number] [place] [address] 19153- 9121 Sep, [place] [id number] [address] 3965 Aug, Diabetic polyneuropathy associated with type 2 diabetes mellitus E11.42 [facility] [address] [address] 4589 Aug, Type 2 diabetes mellitus with diabetic chronic kidney disease E11.22 ; Chronic kidney disease, stage III (moderate) N18.3 ; 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 ; Essential hypertension I10 ; Mixed hyperlipidemia E78.2 and Diabetic polyneuropathy associated with type 2 diabetes mellitus E11.42 [place] [address] [address] 14[address] Jul, Type 2 diabetes mellitus with hyperglycemia E11.65 and Mixed hyperlipidemia E78.2 [facility] [address] [address] Jun, Type 2 diabetes mellitus with hyperglycemia E11.65 [place] [address] [address] 1511 Jun, Essential hypertension I10 [facility] [address] [address] May, [facility] [address] [address] 7[address] May, Type 2 diabetes mellitus with hyperglycemia E11.65 and Essential hypertension I10 [place] [id number] [place] [address] 47568- 0044 May, Essential hypertension I10 ; Mixed hyperlipidemia E78.2 ; Renal insufficiency N28.9 ; Hyperkalemia E87.5 ; Swelling of both lower extremities M79.89 and Type 2 diabetes mellitus with hyperglycemia E11.65 [place] [id number] [place] [address] 78822- 0115 Apr, Essential hypertension I10 ; Mixed hyperlipidemia E78.2 ; Renal insufficiency N28.9 ; Hyperkalemia E87.5 ; Swelling of both lower extremities M79.89 and Type 2 diabetes mellitus with hyperglycemia E11.65 [place] [id number] [place] [address] 51697- 3010 Mar, [place] [id number] [place] [address] 85287- 5879 Feb, [place] [id number] [place] [address] 11119- 4485 Feb, Essential hypertension I10 ; Mixed hyperlipidemia E78.2 ; Renal insufficiency N28.9 ; Hyperkalemia E87.5 ; Swelling of both lower extremities M79.89 and Type 2 diabetes mellitus with hyperglycemia E11.65 [facility] [address] [place] [address] [phone] Feb, Encounter for dental examination Z01.20 [address] [place] [address] 90424- 1719 January, Essential hypertension I10 [place] [id number] [place] [address] 89252- 7565 January, Essential hypertension I10 ; Mixed hyperlipidemia E78.2 ; Renal insufficiency N28.9 ; Hyperkalemia E87.5 ; Swelling of both lower extremities M79.89 and Type 2 diabetes mellitus with hyperglycemia E11.65 [facility] [id number] [id number] January, Dental examination Z01.20 [facility] [id number] [place] [address] 74938- 3111 Dec, Dental examination Z01.20 [facility] [address] [place] [address] 04953- 8570 Dec, Type 2 diabetes mellitus with hyperglycemia, without long- term current use of insulin E11.65 ; Essential hypertension I10 ; Mixed hyperlipidemia E78.2 ; Renal insufficiency N28.9 ; Hyperkalemia E87.5 and Swelling of both lower extremities M79.89 [place] [id number] [place] [address] 33583- 2240 Nov, Hyperkalemia E87.5 [place] [id number] [place] [address] 75700- 7877 Nov, Hyperkalemia E87.5 [place] [id number] [place] [address] 85151- 7617 Nov, Type 2 diabetes mellitus with hyperglycemia, without long- term current use of insulin E11.65 ; Essential hypertension I10 ; Mixed hyperlipidemia E78.2 ; Renal insufficiency N28.9 ; Hyperkalemia E87.5 and Swelling of both lower extremities M79.89 [place] [address] [place] [address] 09314- 1117 Oct, Type 2 diabetes mellitus with hyperglycemia, without long- term current use of insulin E11.65 ; Essential hypertension I10 ; Mixed hyperlipidemia E78.2 ; Renal insufficiency N28.9 ; Hyperkalemia E87.5 and Swelling of both lower extremities M79.89 [place] [address] [place] [address] 29368- 8709 Aug, Type 2 diabetes mellitus with hyperglycemia, without long- term current use of insulin E11.65 ; Essential hypertension I10 ; Mixed hyperlipidemia E78.2 ; Renal insufficiency N28.9 ; Hyperkalemia E87.5 and Swelling of both lower extremities M79.89 [place] [address] [address]- 7671 Aug, Type 2 diabetes mellitus with hyperglycemia, without long- term current use of insulin E11.65 ; Essential hypertension I10 ; Mixed hyperlipidemia E78.2 ; Renal insufficiency N28.9 ; Hyperkalemia E87.5 and Swelling of both lower extremities M79.89 [place] [address] 6[address]- 4724 Aug, Mixed hyperlipidemia E78.[address] [address]32- 4601 Aug, Type 2 diabetes mellitus with hyperglycemia, without long- term current use of insulin E11.65 ; Essential hypertension I10 ; Mixed hyperlipidemia E78.2 ; Renal insufficiency N28.9 ; Hyperkalemia E87.5 and Swelling of both lower extremities M79.[address] [address]48- 3538 Jul, [address] 24358- 1488 Jul, Type 2 diabetes mellitus with hyperglycemia, without long- term current use of insulin E11.65 ; Essential hypertension I10 ; Mixed hyperlipidemia E78.2 ; Renal insufficiency N28.9 ; Hyperkalemia E87.5 ; Weight gain R63.5 and Encounter for immunization Z23 [address] [address]- 1411 Jun, Type 2 diabetes mellitus with hyperglycemia, without long- term current use of insulin E11.65 ; Essential hypertension I10 ; Mixed hyperlipidemia E78.2 ; Renal insufficiency N28.9 and Hyperkalemia E87.[address] 09733- 6859 Jun, [address] 82440- 1625 May, Type 2 diabetes mellitus with hyperglycemia, without long- term current use of insulin E11.65 ; Essential hypertension I10 ; Mixed hyperlipidemia E78.2 ; Renal insufficiency N28.9 and Hyperkalemia E87.5 [place] [id number] [place] [address] 89577- 8629 Apr, Type 2 diabetes mellitus with hyperglycemia, without long- term current use of insulin E11.65 ; Essential hypertension I10 ; Mixed hyperlipidemia E78.2 ; Renal insufficiency N28.9 and Hyperkalemia E87.5 [place] [id number] [place] [address] 22706- 0539 Apr, [place] [id number] [place] [address] 93947- 0582 Apr, Type 2 diabetes mellitus with hyperglycemia, without long- term current use of insulin E11.65 ; Essential hypertension I10 ; Mixed hyperlipidemia E78.2 and Renal insufficiency N28.9 [place] [id number] [place] [address] 84528- 4135 Mar, [place] [id number] [place] [address] 82167- 9245 Mar, Type 2 diabetes mellitus with hyperglycemia, without long- term current use of insulin E11.65 ; Essential hypertension I10 ; Mixed hyperlipidemia E78.2 and Renal insufficiency N28.9 [place] [id number] [place] [address] 14855- 4344 Feb, Type 2 diabetes mellitus with hyperglycemia, without long- term current use of insulin E11.65 [place] [id number] [place] [address] 67608- 4462 Feb, [place] [id number] [place] [address] 22388- 4007 January, [place] [id number] [place] [address] 09061- 2881 January, Type 2 diabetes mellitus with hyperglycemia, without long- term current use of insulin E11.65 ; Essential hypertension I10 and Mixed hyperlipidemia E78.2 [place] [id number] [place] [address] 89385- 8876 Dec, [facility] [id number] [address]- 8069 Dec, [facility] [id number] [address]- 4306 Oct, [facility] [id number] [address]- 7766 Oct, [facility] [id number] [address]- 9026 Oct, [facility] [address] [facility] [id number] [address]- 6439 Oct, IMMUNIZATIONS No Known Immunizations SOCIAL HISTORY Never Assessed REASON FOR VISIT Repository Medication PLAN OF CARE VITAL SIGNS MEDICATIONS Medication Instructions Dosage Frequency Start Date End Date Duration Status Clonidine HCl 0.2 MG Orally twice a [...]
--- OUTSIDE RECORDS SUMMARY | 2018-12-15 19:55 | XMS REPORT ---
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 Name Role Phone ANI CASTILLO Unavailable PROBLEMS Type Condition ICD9-CM Code VDS07-GR Code Onset Dates Condition Status SNOMED Code Problem Essential hypertension I10 Active 72214059 Problem Swelling of both lower extremities M79.89 Active 66825704253166221 Problem Hyperkalemia E87.5 Active 15703183 Problem Mixed hyperlipidemia E78.2 Active 512699189 Problem Periodontal disease K05.6 Active 8403506 Problem Caries of cementum teeth K02.7 Active 22799878 Problem Type 2 diabetes mellitus with diabetic chronic kidney disease E11.22 Active 30042728 Problem shelter current use of insulin Z79.4 Active 927579220 Problem Chronic kidney disease, stage III (moderate) N18.3 Active 029155392 Problem Diabetic polyneuropathy associated with type 2 diabetes mellitus E11.42 Active 903172526 ALLERGIES No Information ENCOUNTERS Encounter Location Date Diagnosis [facility] [address], [place] [address]- 2571 Mar, [facility] [id number] [id number] Mar, [facility] [address] [place] [address] 64775- 2439 Feb, [facility] [id number] [place] [address] 26944- 1797 Feb, [facility] [id number] [place] [address] 28680- 1586 January, [facility] [id number] [place] [address] 26411- 1131 January, [facility] [address], [place] [address]- 2276 January, Type 2 diabetes mellitus with diabetic chronic kidney disease E11.22 [facility] [address] [address] Dec, Dental caries K02.9 [facility] [address] [place] [address] 21803- 9489 Dec, Type 2 diabetes mellitus with diabetic chronic kidney disease E11.22 [facility] [id number] [place] [address] 81140- 0643 Dec, Dental examination Z01.20 ; Periodontal disease K05.6 and Caries of cementum teeth K02.7 [place] [address], [place] [address]- 2551 Dec, Type 2 diabetes mellitus with diabetic chronic kidney disease E11.22 ; Chronic kidney disease, stage III (moderate) N18.3 ; shelter current use of insulin Z79.4 ; Essential hypertension I10 ; Mixed hyperlipidemia E78.2 ; Diabetic polyneuropathy associated with type 2 diabetes mellitus E11.42 and Dental abscess K04.7 [place] [address], [place] [address]- 2038 Nov, [facility] [address] [place] [address] 02093- 2977 Nov, Mixed hyperlipidemia E78.2 ; Essential hypertension I10 and Type 2 diabetes mellitus with diabetic chronic kidney disease E11.22 [facility] [address], [place] [address]- 5629 Oct, [facility] [address] [place] [address] 24309- 5064 Sep, [facility] [address] [place] [address] 75058- 3783 Aug, Diabetic polyneuropathy associated with type 2 diabetes mellitus E11.42 [facility] [address] [place] [address] 94016- 2587 Aug, Type 2 diabetes mellitus with diabetic chronic kidney disease E11.22 ; Chronic kidney disease, stage III (moderate) N18.3 ; shelter current use of insulin Z79.4 ; Essential hypertension I10 ; Mixed hyperlipidemia E78.2 and Diabetic polyneuropathy associated with type 2 diabetes mellitus E11.42 [place] [id number] [place] [address] 15655- 1711 Jul, Type 2 diabetes mellitus with hyperglycemia E11.65 and Mixed hyperlipidemia E78.2 [place] [address] 65492- 4898 Jun, Type 2 diabetes mellitus with hyperglycemia E11.65 [place] [address] 29097- 0595 Jun, Essential hypertension I10 [address] 82361- 1327 May, [place] [address] 64504- 3655 May, Type 2 diabetes mellitus with hyperglycemia E11.65 and Essential hypertension I10 [place] [address] 05884- 6860 May, Essential hypertension I10 ; Mixed hyperlipidemia E78.2 ; Renal insufficiency N28.9 ; Hyperkalemia E87.5 ; Swelling of both lower extremities M79.89 and Type 2 diabetes mellitus with hyperglycemia E11.65 [place] [id number] [place] [address] 71234- 0740 Apr, Essential hypertension I10 ; Mixed hyperlipidemia E78.2 ; Renal insufficiency N28.9 ; Hyperkalemia E87.5 ; Swelling of both lower extremities M79.89 and Type 2 diabetes mellitus with hyperglycemia E11.65 [place] [id number] [place] [address] 62802- 5451 Mar, [place] [id number] [place] [address] 77250- 9323 Feb, [place] [address], [place] [address]- 4495 Feb, Essential hypertension I10 ; Mixed hyperlipidemia E78.2 ; Renal insufficiency N28.9 ; Hyperkalemia E87.5 ; Swelling of both lower extremities M79.89 and Type 2 diabetes mellitus with hyperglycemia E11.65 [facility] [address] [place] [address] [id number] Feb, Encounter for dental examination Z01.20 [facility] [id number] [place] [address] 40383- 7955 January, Essential hypertension I10 [place] [id number] [place] [address] 11963- 8710 January, Essential hypertension I10 ; Mixed hyperlipidemia E78.2 ; Renal insufficiency N28.9 ; Hyperkalemia E87.5 ; Swelling of both lower extremities M79.89 and Type 2 diabetes mellitus with hyperglycemia E11.65 [facility] [id number] [place] [address] [id number] January, Dental examination Z01.20 [facility] [id number] [place] [address] 98934- 8465 Dec, Dental examination Z01.20 [facility] [id number] [place] [address] 30856- 2232 Dec, Type 2 diabetes mellitus with hyperglycemia, without long- term current use of insulin E11.65 ; Essential hypertension I10 ; Mixed hyperlipidemia E78.2 ; Renal insufficiency N28.9 ; Hyperkalemia E87.5 and Swelling of both lower extremities M79.89 [facility] [address], [place] [address]- 4009 Nov, Hyperkalemia E87.5 [facility] [id number] [place] [address] 96651- 5217 Nov, Hyperkalemia E87.5 [place] [id number] [place] [address] 97279- 6209 Nov, Type 2 diabetes mellitus with hyperglycemia, without long- term current use of insulin E11.65 ; Essential hypertension I10 ; Mixed hyperlipidemia E78.2 ; Renal insufficiency N28.9 ; Hyperkalemia E87.5 and Swelling of both lower extremities M79.89 [place] [address] [place] [address] 72241- 8866 Oct, Type 2 diabetes mellitus with hyperglycemia, without long- term current use of insulin E11.65 ; Essential hypertension I10 ; Mixed hyperlipidemia E78.2 ; Renal insufficiency N28.9 ; Hyperkalemia E87.5 and Swelling of both lower extremities M79.89 [place] [address] 29426- 8654 Aug, Type 2 diabetes mellitus with hyperglycemia, without long- term current use of insulin E11.65 ; Essential hypertension I10 ; Mixed hyperlipidemia E78.2 ; Renal insufficiency N28.9 ; Hyperkalemia E87.5 and Swelling of both lower extremities M79.89 [place] [address] [place] [address] 26608- 9277 Aug, Type 2 diabetes mellitus with hyperglycemia, without long- term current use of insulin E11.65 ; Essential hypertension I10 ; Mixed hyperlipidemia E78.2 ; Renal insufficiency N28.9 ; Hyperkalemia E87.5 and Swelling of both lower extremities M79.89 [place] [address] [place] [address] 75647- 1209 Aug, Mixed hyperlipidemia E78.2 [place] [address] [place] [address] 18717- 0749 Aug, Type 2 diabetes mellitus with hyperglycemia, without long- term current use of insulin E11.65 ; Essential hypertension I10 ; Mixed hyperlipidemia E78.2 ; Renal insufficiency N28.9 ; Hyperkalemia E87.5 and Swelling of both lower extremities M79.89 [place] [id number] [place] [address] 46199- 1648 Jul, [place] [address] 288522- 2546 Jul, Type 2 diabetes mellitus with hyperglycemia, without long- term current use of insulin E11.65 ; Essential hypertension I10 ; Mixed hyperlipidemia E78.2 ; Renal insufficiency N28.9 ; Hyperkalemia E87.5 ; Weight gain R63.5 and Encounter for immunization Z23 [place] [address] [place] [address] 73463- 8582 Jun, Type 2 diabetes mellitus with hyperglycemia, without long- term current use of insulin E11.65 ; Essential hypertension I10 ; Mixed hyperlipidemia E78.2 ; Renal insufficiency N28.9 and Hyperkalemia E87.5 [place] [id number] [place] [address] 75109- 7462 Jun, [place] [id number] [place] [address] 95640- 2711 May, Type 2 diabetes mellitus with hyperglycemia, without long- term current use of insulin E11.65 ; Essential hypertension I10 ; Mixed hyperlipidemia E78.2 ; Renal insufficiency N28.9 and Hyperkalemia E87.5 [place] [id number] [place] [address] 70260- 3340 Apr, Type 2 diabetes mellitus with hyperglycemia, without long- term current use of insulin E11.65 ; Essential hypertension I10 ; Mixed hyperlipidemia E78.2 ; Renal insufficiency N28.9 and Hyperkalemia E87.5 [place] [id number] [place] [address] 99520- 6545 Apr, [place] [id number] [place] [address] 35232- 0472 Apr, Type 2 diabetes mellitus with hyperglycemia, without long- term current use of insulin E11.65 ; Essential hypertension I10 ; Mixed hyperlipidemia E78.2 and Renal insufficiency N28.9 [place] [address] [place] [address] 26603- 0418 Mar, [place] [id number] [place] [address] 69291- 0171 Mar, Type 2 diabetes mellitus with hyperglycemia, without long- term current use of insulin E11.65 ; Essential hypertension I10 ; Mixed hyperlipidemia E78.2 and Renal insufficiency N28.9 [place] [address] [place] [address] 25211- 2477 Feb, Type 2 diabetes mellitus with hyperglycemia, without long- term current use of insulin E11.65 [place] [address] [place] [address] 51830- 4609 Feb, [place] [id number] [place] [address] 05373- 8483 January, [place] [id number] [place] [address] 39765- 8299 January, Type 2 diabetes mellitus with hyperglycemia, without long- term current use of insulin E11.65 ; Essential hypertension I10 and Mixed hyperlipidemia E78.2 [place] [id number] [place] [address] 63329- 8812 Dec, [place] [id number] [place] [address] 87025- 2225 Dec, [place] [id number] [place] [address] 61539- 7296 Oct, [place] [id number] [place] [address] 24220- 9542 Oct, [place] [id number] [place] [address] 71254- 7010 Oct, [place] [id number] [place] [address] [phone]- 0128 Oct, IMMUNIZATIONS No Known Immunizations SOCIAL HISTORY Never Assessed REASON FOR VISIT prior auths PLAN OF CARE VITAL SIGNS MEDICATIONS Medication Instructions Dosage Frequency Start Date End Date Duration Status Gabapentin 300 MG Orally Once a day 1 capsule before bedtime 24h Aug, 28 days Active RESULTS No Results PROCEDURES No [...]
--- OUTSIDE RECORDS SUMMARY | 2018-12-15 19:56 | XMS REPORT | Continuity of Care Document ---
Author Author [facility] Address Unknown Phone Unavailable Allergies Active Description Code Type Severity Reaction Onset Reported/Identified Relationship to Patient Clinical Status Yes No Known Drug Allergies [id number] Drug Allergy Unknown N/A 04/22/2014 Medications There is no data. Problems Date Dx Coded Attending Type Code Diagnosis Diagnosed By 12/29/2010 ANI CASTILLO APRN 601.9 PROSTATITIS UNSPECIFIED 04/25/2014 ISABELA RAYO MD Ot 041.11 METHICILLIN SUSCEPTIBLE STAPHYLOCOCCUS A 04/25/2014 ISABELA RAYO MD Ot 250.00 DIAB RON WO COMPL, TYPE II OR UNSPEC TY 04/25/2014 ISABELA RAYO MD Ot 272.0 PURE HYPERCHOLESTEROLEM 04/25/2014 ISABELA RAYO MD Ot 305.1 TOBACCO USE DISORDER 04/25/2014 ISABELA RAYO MD Ot 401.9 HYPERTENSION NOS 04/25/2014 ISABELA RAYO MD Ot 682.3 CELLULITIS OF ARM 10/28/2014 ANI CASTILLO APRN 250.02 DIABETES MELLITUS WITHOUT MENTION OF COMPLICATION TYPE II OR UNSPECIFIED TYPE UNCONTROLLED 10/28/2014 ANI CASTILLO APRN 272.4 OTHER AND UNSPECIFIED HYPERLIPIDEMIA 10/28/2014 ANI CASTILLO APRN 401.1 HYPERTENSION, BENIGN ESSENTIAL 06/16/2017 ISIDRO BOWLING MD (DDU) Ot M51.36 OTHER INTERVERTEBRAL DISC DEGENERATION, 06/16/2017 ISIDRO BOWLING MD (DDU) Ot M51.36 OTHER INTERVERTEBRAL DISC DEGENERATION, 06/17/2017 SANTIAGO SALGADO MD Ot E78.5 HYPERLIPIDEMIA, UNSPECIFIED 06/17/2017 SANTIAGO SALGADO MD Ot I12.9 HYPERTENSIVE CHRONIC KIDNEY DISEASE W ST 06/17/2017 SANTIAGO SALGADO MD Ot N18.3 CHRONIC KIDNEY DISEASE, STAGE 3 (MODERAT 06/17/2017 ABOUL-MAGD MD, SANTIAGO Ot N32.89 OTHER SPECIFIED DISORDERS OF BLADDER 06/17/2017 NAOMI WATTS SANTIAGO Ot Z72.0 TOBACCO USE 06/22/2017 SHLOMO SALGADO MDINE Ot E78.5 HYPERLIPIDEMIA, UNSPECIFIED 06/22/2017 NAOMI WATTS SANTIAGO Ot I12.9 HYPERTENSIVE CHRONIC KIDNEY DISEASE W ST 06/22/2017 SHLOMO SALGADO MDINE Ot N18.3 CHRONIC KIDNEY DISEASE, STAGE 3 (MODERAT 06/22/2017 SHLOMO SALGADO MDINE Ot N32.89 OTHER SPECIFIED DISORDERS OF BLADDER 06/22/2017 NAOMI WATTS SANTIAGO Ot Z72.0 TOBACCO USE 06/22/2017 SHLOMO SALGADO MDINE Ot E78.5 HYPERLIPIDEMIA, UNSPECIFIED 06/22/2017 NAOMI WATTS SANTIAGO Ot I12.9 HYPERTENSIVE CHRONIC KIDNEY DISEASE W ST 06/22/2017 SANTIAGO SALGADO MD Ot N18.3 CHRONIC KIDNEY DISEASE, STAGE 3 (MODERAT 06/22/2017 NAOMI WATTS SANTIAGO Ot N32.89 OTHER SPECIFIED DISORDERS OF BLADDER 06/22/2017 SHLOMO SALGADO MDINE Ot Z72.0 TOBACCO USE 06/28/2017 SANTIAGO SALGADO MD Ot E78.5 HYPERLIPIDEMIA, UNSPECIFIED 06/28/2017 NAOMI WATTS SANTIAGO Ot I12.9 HYPERTENSIVE CHRONIC KIDNEY DISEASE W ST 06/28/2017 SHLOMO SALGADO MDINE Ot N18.3 CHRONIC KIDNEY DISEASE, STAGE 3 (MODERAT 06/28/2017 SHLOMO SALGADO MDINE Ot N32.89 OTHER SPECIFIED DISORDERS OF BLADDER 06/28/2017 NAOMI WATTS SANTIAGO Ot Z72.0 TOBACCO USE 07/15/2017 SHLOMO SALGADO MDINE Ot E87.5 HYPERKALEMIA 07/15/2017 NAOMI WATTS SANTIAGO Ot I10 ESSENTIAL (PRIMARY) HYPERTENSION 07/15/2017 NAOMI WATTS SANTIAGO Ot N18.3 CHRONIC KIDNEY DISEASE, STAGE 3 (MODERAT 07/15/2017 NAOMI WATTS SANTIAGO Ot Z72.0 TOBACCO USE Procedures There is no data. Results Test Result Range Comp. Metabolic Panel (14) - 06/02/16 17:59 Glucose, Serum 158 mg/dL 65-99 BUN 34 mg/dL 8-27 Creatinine, Serum 1.50 mg/dL 0.76-1.27 eGFR If NonAfricn Am 50 mL/min/1.73 >59 eGFR If Africn Am 58 mL/min/1.73 >59 BUN/Creatinine Ratio 23 10-22 Sodium, Serum 139 mmol/L 134-144 Potassium, Serum 5.7 mmol/L 3.5-5.2 Chloride, Serum 100 mmol/L 97-108 Carbon Dioxide, Total 22 mmol/L 18-29 Calcium, Serum 9.6 mg/dL 8.6-10.2 Protein, Total, Serum 6.5 g/dL 6.0-8.5 Albumin, Serum 3.9 g/dL 3.6-4.8 Globulin, Total 2.6 g/dL 1.5-4.5 A/G Ratio 1.5 1.1-2.5 Bilirubin, Total <0.2 mg/dL 0.0-1.2 Alkaline Phosphatase, S 86 IU/L 39-117 AST (SGOT) 14 IU/L 0-40 ALT (SGPT) 13 IU/L 0-44 Comp. Metabolic Panel (14) - 07/01/16 17:23 Glucose, Serum 132 mg/dL 65-99 BUN 23 mg/dL 8-27 Creatinine, Serum 1.36 mg/dL 0.76-1.27 eGFR If NonAfricn Am 56 mL/min/1.73 >59 eGFR If Africn Am 65 mL/min/1.73 >59 BUN/Creatinine Ratio 17 10-22 Sodium, Serum 142 mmol/L 134-144 Potassium, Serum 4.5 mmol/L 3.5-5.2 Chloride, Serum 101 mmol/L 97-108 Carbon Dioxide, Total 25 mmol/L 18-29 Calcium, Serum 9.7 mg/dL 8.6-10.2 Protein, Total, Serum 7.2 g/dL 6.0-8.5 Albumin, Serum 4.5 g/dL 3.6-4.8 Globulin, Total 2.7 g/dL 1.5-4.5 A/G Ratio 1.7 1.1-2.5 Bilirubin, Total 0.4 mg/dL 0.0-1.2 Alkaline Phosphatase, S 73 IU/L 39-117 AST (SGOT) 19 IU/L 0-40 ALT (SGPT) 18 IU/L 0-44 Comp. Metabolic Panel (14) - 08/26/16 17:14 Glucose, Serum 319 mg/dL 65-99 BUN 37 mg/dL 8-27 Creatinine, Serum 1.43 mg/dL 0.76-1.27 eGFR If NonAfricn Am 53 mL/min/1.73 >59 eGFR If Africn Am 61 mL/min/1.73 >59 BUN/Creatinine Ratio 26 10-22 Sodium, Serum 141 mmol/L 136-144 Potassium, Serum 5.1 mmol/L 3.5-5.2 Chloride, Serum 103 mmol/L 97-106 Carbon Dioxide, Total 23 mmol/L 18-29 Calcium, Serum 8.7 mg/dL 8.6-10.2 Protein, Total, Serum 6.7 g/dL 6.0-8.5 Albumin, Serum 4.0 g/dL 3.6-4.8 Globulin, Total 2.7 g/dL 1.5-4.5 A/G Ratio 1.5 1.1-2.5 Bilirubin, Total <0.2 mg/dL 0.0-1.2 Alkaline Phosphatase, S 98 IU/L 39-117 AST (SGOT) 16 IU/L 0-40 ALT (SGPT) 16 IU/L 0-44 Comp. Metabolic Panel (14) - 09/16/16 17:21 Glucose, Serum 190 mg/dL 65-99 BUN 48 mg/dL 8-27 Creatinine, Serum 1.42 mg/dL 0.76-1.27 eGFR If NonAfricn Am 53 mL/min/1.73 >59 eGFR If Africn Am 62 mL/min/1.73 >59 BUN/Creatinine Ratio 34 10-22 Sodium, Serum 137 mmol/L 134-144 Potassium, Serum 5.4 mmol/L 3.5-5.2 Chloride, Serum 101 mmol/L 96-106 Carbon Dioxide, Total 22 mmol/L 18-29 Calcium, Serum 9.3 mg/dL 8.6-10.2 Protein, Total, Serum 7.0 g/dL 6.0-8.5 Albumin, Serum 4.1 g/dL 3.6-4.8 Globulin, Total 2.9 g/dL 1.5-4.5 A/G Ratio 1.4 1.1-2.5 Bilirubin, Total 0.3 mg/dL 0.0-1.2 Alkaline Phosphatase, S 95 IU/L 39-117 AST (SGOT) 17 IU/L 0-40 ALT (SGPT) 18 IU/L 0-44 Comp. Metabolic Panel (14) - 09/23/16 13:08 Glucose, Serum 71 mg/dL 65-99 BUN 29 mg/dL 8-27 Creatinine, Serum 1.25 mg/dL 0.76-1.27 eGFR If NonAfricn Am 62 mL/min/1.73 >59 eGFR If Africn Am 72 mL/min/1.73 >59 BUN/Creatinine Ratio 23 10-22 Sodium, Serum 143 mmol/L 134-144 Potassium, Serum 4.1 mmol/L 3.5-5.2 Chloride, Serum 102 mmol/L 96-106 Carbon Dioxide, Total 24 mmol/L 18-29 Calcium, Serum 9.7 mg/dL 8.6-10.2 Protein, Total, Serum 7.2 g/dL 6.0-8.5 Albumin, Serum 4.2 g/dL 3.6-4.8 Globulin, Total 3.0 g/dL 1.5-4.5 A/G Ratio 1.4 1.1-2.5 Bilirubin, Total 0.3 mg/dL 0.0-1.2 Alkaline Phosphatase, S 89 IU/L 39-117 AST (SGOT) 18 IU/L 0-40 ALT (SGPT) 18 IU/L 0-44 CBC With Differential/Platelet - 10/28/16 14:18 WBC 9.3 x10E3/uL 3.4-10.8 RBC 4.68 x10E6/uL 4.14-5.80 Hemoglobin 13.3 g/dL 12.6-17.7 Hematocrit 40.5 % 37.5-51.0 MCV 87 fL 79-97 MCH 28.4 pg 26.6-33.0 MCHC 32.8 g/dL 31.5-35.7 RDW 13.7 % 12.3-15.4 Platelets 211 x10E3/uL 150-379 Neutrophils 73 % Lymphs 18 % Monocytes 7 % Eos 2 % Basos 0 % Neutrophils (Absolute) 6.8 x10E3/uL 1.4-7.0 Lymphs (Absolute) 1.7 x10E3/uL 0.7-3.1 Monocytes(Absolute) 0.7 x10E3/uL 0.1-0.9 Eos (Absolute) 0.2 x10E3/uL 0.0-0.4 Baso (Absolute) 0.0 x10E3/uL 0.0-0.2 Immature Granulocytes 0 % Immature Grans (Abs) 0.0 x10E3/uL 0.0-0.1 Comp. Metabolic Panel (14) - 10/28/16 14:18 Glucose, Serum 217 mg/dL 65-99 BUN 31 mg/dL 8-27 Creatinine, Serum 1.35 mg/dL 0.76-1.27 eGFR If NonAfricn Am 57 mL/min/1.73 >59 eGFR If Africn Am 66 mL/min/1.73 >59 BUN/Creatinine Ratio 23 10-22 Sodium, Serum 141 mmol/L 134-144 Potassium, Serum 5.0 mmol/L 3.5-5.2 Chloride, Serum 100 mmol/L 96-106 Carbon Dioxide, Total 25 mmol/L 18-29 Calcium, Serum 8.6 mg/dL 8.6-10.2 Protein, Total, Serum 6.4 g/dL 6.0-8.5 Albumin, Serum 3.8 g/dL 3.6-4.8 Globulin, Total 2.6 g/dL 1.5-4.5 A/G Ratio 1.5 1.1-2.5 Bilirubin, Total 0.3 mg/dL 0.0-1.2 Alkaline Phosphatase, S 84 IU/L 39-117 AST (SGOT) 21 IU/L 0-40 ALT (SGPT) 17 IU/L 0-44 CBC With Differential/Platelet - 11/24/16 17:56 WBC 8.8 x10E3/uL 3.4-10.8 RBC 4.74 x10E6/uL 4.14-5.80 Hemoglobin 13.5 g/dL 12.6-17.7 Hematocrit 42.8 % 37.5-51.0 MCV 90 fL 79-97 MCH 28.5 pg 26.6-33.0 MCHC 31.5 g/dL 31.5-35.7 RDW 13.4 % 12.3-15.4 Platelets 195 x10E3/uL 150-379 Neutrophils 63 % Lymphs 23 % Monocytes 9 % Eos 4 % Basos 1 % Neutrophils (Absolute) 5.6 x10E3/uL 1.4-7.0 Lymphs (Absolute) 2.0 x10E3/uL 0.7-3.1 Monocytes(Absolute) 0.8 x10E3/uL 0.1-0.9 Eos (Absolute) 0.4 x10E3/uL 0.0-0.4 Baso (Absolute) 0.0 x10E3/uL 0.0-0.2 Immature Granulocytes 0 % Immature Grans (Abs) 0.0 x10E3/uL 0.0-0.1 Comp. Metabolic Panel (14) - 11/24/16 17:56 Glucose, Serum 351 mg/dL 65-99 BUN 37 mg/dL 8-27 Creatinine, Serum 1.42 mg/dL 0.76-1.27 eGFR If NonAfricn Am 53 mL/min/1.73 >59 eGFR If Africn Am 62 mL/min/1.73 >59 BUN/Creatinine Ratio 26 10-22 Sodium, Serum 135 mmol/L 134-144 Potassium, Serum 6.2 mmol/L 3.5-5.2 Chloride, Serum 99 mmol/L 96-106 Carbon Dioxide, Total 25 mmol/L 18-29 Calcium, Serum 9.1 mg/dL 8.6-10.2 Protein, Total, Serum 6.8 g/dL 6.0-8.5 Albumin, Serum 4.0 g/dL 3.6-4.8 Globulin, Total 2.8 g/dL 1.5-4.5 A/G Ratio 1.4 1.1-2.5 Bilirubin, Total <0.2 mg/dL 0.0-1.2 Alkaline Phosphatase, S 110 IU/L 39-117 AST (SGOT) 13 IU/L 0-40 ALT (SGPT) 13 IU/L 0-44 Magnesium, Serum - 11/24/16 17:56 Magnesium, Serum 1.7 mg/dL 1.6-2.3 Comp. Metabolic Panel (14) - 12/24/16 10:42 Glucose, Serum 257 mg/dL 65-99 BUN 31 mg/dL 8-27 Creatinine, Serum 1.45 mg/dL 0.76-1.27 eGFR If NonAfricn Am 52 mL/min/1.73 >59 eGFR If Africn Am 60 mL/min/1.73 >59 BUN/Creatinine Ratio 21 10-22 Sodium, Serum 142 mmol/L 134-144 Potassium, Serum 5.0 mmol/L 3.5-5.2 Chloride, Serum 103 mmol/L 96-106 Carbon Dioxide, Total 23 mmol/L 18-29 Calcium, Serum 9.0 mg/dL 8.6-10.2 Protein, Total, Serum 6.6 g/dL 6.0-8.5 Albumin, Serum 4.1 g/dL 3.6-4.8 Globulin, Total 2.5 g/dL 1.5-4.5 A/G Ratio 1.6 1.2-2.2 Bilirubin, Total 0.4 mg/dL 0.0-1.2 Alkaline Phosphatase, S 93 IU/L 39-117 AST (SGOT) 14 IU/L 0-40 ALT (SGPT) 13 IU/L 0-44 CBC With Differential/Platelet - 01/27/17 17:53 WBC 12.1 x10E3/uL 3.4-10.8 RBC 5.32 x10E6/uL 4.14-5.80 Hemoglobin 15.3 g/dL 12.6-17.7 Hematocrit 48.5 % 37.5-51.0 MCV 91 fL 79-97 MCH 28.8 pg 26.6-33.0 MCHC 31.5 g/dL 31.5-35.7 RDW 13.0 % 12.3-15.4 Platelets 264 x10E3/uL 150-379 Neutrophils 70 % Lymphs 19 % Monocytes 8 % Eos 3 % Basos 0 % Neutrophils (Absolute) 8.3 x10E3/uL 1.4-7.0 Lymphs (Absolute) 2.3 x10E3/uL 0.7-3.1 Monocytes(Absolute) 0.9 x10E3/uL 0.1-0.9 Eos (Absolute) 0.4 x10E3/uL 0.0-0.4 Baso (Absolute) 0.1 x10E3/uL 0.0-0.2 Immature Granulocytes 0 % Immature Grans (Abs) 0.0 x10E3/uL 0.0-0.1 Comp. Metabolic Panel (14) - 01/27/17 17:53 Glucose, Serum 444 mg/dL 65-99 BUN 36 mg/dL 8-27 Creatinine, Serum 1.62 mg/dL 0.76-1.27 eGFR If NonAfricn Am 45 mL/min/1.73 >59 eGFR If Africn Am 53 mL/min/1.73 >59 BUN/Creatinine Ratio 22 10-24 Sodium, Serum 137 mmol/L 134-144 Potassium, Serum 6.0 mmol/L 3.5-5.2 Chloride, Serum 97 mmol/L 96-106 Carbon Dioxide, Total 24 mmol/L 18-29 Calcium, Serum 9.3 mg/dL 8.6-10.2 Protein, Total, Serum 7.5 g/dL 6.0-8.5 Albumin, Serum 4.2 g/dL 3.6-4.8 Globulin, Total 3.3 g/dL 1.5-4.5 A/G Ratio 1.3 1.2-2.2 Bilirubin, Total <0.2 mg/dL 0.0-1.2 Alkaline Phosphatase, S 118 IU/L 39-117 AST (SGOT) 15 IU/L 0-40 ALT (SGPT) 15 IU/L 0-44 CBC With Differential/Platelet - 03/22/17 15:16 WBC 8.6 x10E3/uL 3.4-10.8 RBC 4.75 x10E6/uL 4.14-5.80 Hemoglobin 13.9 g/dL 12.6-17.7 Hematocrit 43.2 % 37.5-51.0 MCV 91 fL 79-97 MCH 29.3 pg 26.6-33.0 MCHC 32.2 g/dL 31.5-35.7 RDW 13.2 % 12.3-15.4 Platelets 224 x10E3/uL 150-379 Neutrophils 72 % Lymphs 15 % Monocytes 10 % Eos 3 % Basos 0 % Neutrophils (Absolute) 6.2 x10E3/uL 1.4-7.0 Lymphs (Absolute) 1.3 x10E3/uL 0.7-3.1 Monocytes(Absolute) 0.8 x10E3/uL 0.1-0.9 Eos (Absolute) 0.2 x10E3/uL 0.0-0.4 Baso (Absolute) 0.0 x10E3/uL 0.0-0.2 Immature Granulocytes 0 % Immature Grans (Abs) 0.0 x10E3/uL 0.0-0.1 Comp. Metabolic Panel (14) - 03/22/17 15:16 Glucose, Serum 570 mg/dL 65-99 BUN 26 mg/dL 8-27 Creatinine, Serum 1.52 mg/dL 0.76-1.27 eGFR If NonAfricn Am 49 mL/min/1.73 >59 eGFR If Africn Am 57 mL/min/1.73 >59 BUN/Creatinine Ratio 17 10-24 Sodium, Serum 133 mmol/L 134-144 Potassium, Serum 5.6 mmol/L 3.5-5.2 Chloride, Serum 94 mmol/L 96-106 Carbon Dioxide, Total 25 mmol/L 18-29 Calcium, Serum 8.9 mg/dL 8.6-10.2 Protein, Total, Serum 6.8 g/dL 6.0-8.5 Albumin, Serum 3.9 g/dL 3.6-4.8 Globulin, Total 2.9 g/dL 1.5-4.5 A/G Ratio 1.3 1.2-2.2 Bilirubin, Total 0.3 mg/dL 0.0-1.2 Alkaline Phosphatase, S 119 IU/L 39-117 AST (SGOT) 14 IU/L 0-40 ALT (SGPT) 16 IU/L 0-44 Magnesium, Serum - 03/22/17 15:16 Magnesium, Serum 1.8 mg/dL 1.6-2.3 CBC With Differential/Platelet - 04/26/17 15:09 WBC 9.2 x10E3/uL 3.4-10.8 RBC 4.75 x10E6/uL 4.14-5.80 Hemoglobin 13.5 g/dL 12.6-17.7 Hematocrit 43.1 % 37.5-51.0 MCV 91 fL 79-97 MCH 28.4 pg 26.6-33.0 MCHC 31.3 g/dL 31.5-35.7 RDW 13.6 % 12.3-15.4 Platelets 193 x10E3/uL 150-379 Neutrophils 64 % Lymphs 20 % Monocytes 11 % Eos 4 % Basos 1 % Neutrophils (Absolute) 5.9 x10E3/uL 1.4-7.0 Lymphs (Absolute) 1.9 x10E3/uL 0.7-3.1 Monocytes(Absolute) 1.0 x10E3/uL 0.1-0.9 Eos (Absolute) 0.3 x10E3/uL 0.0-0.4 Baso (Absolute) 0.1 x10E3/uL 0.0-0.2 Immature Granulocytes 0 % Immature Grans (Abs) 0.0 x10E3/uL 0.0-0.1 Comp. Metabolic Panel (14) - 04/26/17 15:09 Glucose, Serum 241 mg/dL 65-99 BUN 40 mg/dL 8-27 Creatinine, Serum 1.64 mg/dL 0.76-1.27 eGFR If NonAfricn Am 45 mL/min/1.73 >59 eGFR If Africn Am 52 mL/min/1.73 >59 BUN/Creatinine Ratio 24 10-24 Sodium, Serum 136 mmol/L 134-144 Potassium, Serum 5.3 mmol/L 3.5-5.2 Chloride, Serum 101 mmol/L 96-106 Carbon Dioxide, Total 21 mmol/L 18-29 Calcium, Serum 8.7 mg/dL 8.6-10.2 Protein, Total, Serum 6.4 g/dL 6.0-8.5 Albumin, Serum 3.7 g/dL 3.6-4.8 Globulin, Total 2.7 g/dL 1.5-4.5 A/G Ratio 1.4 1.2-2.2 Bilirubin, Total 0.3 mg/dL 0.0-1.2 Alkaline Phosphatase, S 89 IU/L 39-117 AST (SGOT) 11 IU/L 0-40 ALT (SGPT) 12 IU/L 0-44 Comp. Metabolic Panel (14) - 05/31/17 15:22 Glucose, Serum 189 mg/dL 65-99 BUN 38 mg/dL 8-27 Creatinine, Serum 1.66 mg/dL 0.76-1.27 eGFR If NonAfricn Am 44 mL/min/1.73 >59 eGFR If Africn Am 51 mL/min/1.73 >59 BUN/Creatinine Ratio 23 10-24 Sodium, Serum 141 mmol/L 134-144 Potassium, Serum 5.3 mmol/L 3.5-5.2 Chloride, Serum 102 mmol/L 96-106 Carbon Dioxide, Total 23 mmol/L 18-29 Calcium, Serum 9.5 mg/dL 8.6-10.2 Protein, Total, Serum 6.9 g/dL 6.0-8.5 Albumin, Serum 4.3 g/dL 3.6-4.8 Globulin, Total 2.6 g/dL 1.5-4.5 A/G Ratio 1.7 1.2-2.2 Bilirubin, Total 0.4 mg/dL 0.0-1.2 Alkaline Phosphatase, S 113 IU/L 39-117 AST (SGOT) 14 IU/L 0-40 ALT (SGPT) 18 IU/L 0-44 CMP - 05/31/17 15:22 Glucose, Serum 189 mg/dL 65-99 BUN 38 mg/dL 8-27 Creatinine, Serum 1.66 mg/dL 0.76-1.27 eGFR If NonAfricn Am 44 mL/min/1.73 >59 eGFR If Africn Am 51 mL/min/1.73 >59 BUN/Creatinine Ratio 23 10-24 Sodium, Serum 141 mmol/L 134-144 Potassium, Serum 5.3 mmol/L 3.5-5.2 Chloride, Serum 102 mmol/L 96-106 Carbon Dioxide, Total 23 mmol/L 18-29 Calcium, Serum 9.5 mg/dL 8.6-10.2 Protein, Total, Serum 6.9 g/dL 6.0-8.5 Albumin, Serum 4.3 g/dL 3.6-4.8 Globulin, Total 2.6 g/dL 1.5-4.5 A/G Ratio 1.7 1.2-2.2 Bilirubin, Total 0.4 mg/dL 0.0-1.2 Alkaline Phosphatase, S 113 IU/L 39-117 AST (SGOT) 14 IU/L 0-40 ALT (SGPT) 18 IU/L 0-44 Automated blood complete blood count (hemogram) panel - 06/30/17 14:35 Blood leukocytes automated count (number/volume) 9.7 10*3/uL 4.3-11.0 Blood erythrocytes automated count (number/volume) 4.96 10*6/uL 4.35-5.85 Venous blood hemoglobin measurement (mass/volume) 14.2 g/dL 13.3-17.7 Blood hematocrit (volume fraction) 44 % 40-54 Automated erythrocyte mean corpuscular volume 88 [foz_us] 80-99 Automated erythrocyte mean corpuscular hemoglobin (mass per erythrocyte) 29 pg 25-34 Automated erythrocyte mean corpuscular hemoglobin concentration measurement ( mass/volume) 33 g/dL 32-36 Automated erythrocyte distribution width ratio 12.6 % 10.0-14.5 Automated blood platelet count (count/volume) 189 10*3/uL 130-400 Automated blood platelet mean volume measurement 11.6 [foz_us] 7.4-10.4 Serum or plasma renal function panel (Na, K, Cl, CO2, BUN, Cr, glucose,Ca, phos , alb) - 06/30/17 14:35 Serum or plasma sodium measurement (moles/volume) 136 mmol/L 135-145 Serum or plasma potassium measurement (moles/volume) 5.2 mmol/L 3.6-5.0 Serum or plasma chloride measurement (moles/volume) 102 mmol/L 98-107 Carbon dioxide 29 mmol/L 21-32 Serum or plasma anion gap determination (moles/volume) 5 mmol/L 5-14 Serum or plasma urea nitrogen measurement (mass/volume) 30 mg/dL 7-18 Serum or plasma creatinine measurement (mass/volume) 1.59 mg/dL 0.60-1.30 Serum or plasma urea nitrogen/creatinine mass ratio 19 NRG Serum or plasma creatinine measurement with calculation of estimated glomerular filtration rate 44 NRG Serum or plasma glucose measurement (mass/volume) 381 mg/dL 70-105 Serum or plasma calcium measurement (mass/volume) 9.0 mg/dL 8.5-10.1 Serum or plasma albumin measurement (mass/volume) 3.6 g/dL 3.2-4.5 Serum or plasma phosphate measurement (mass/volume) 4.2 mg/dL 2.3-4.7 Serum or plasma uric acid measurement (mass/volume) - 06/30/17 14:35 Serum or plasma uric acid measurement (mass/volume) 7.0 mg/dL 2.6-7.2 Serum or plasma intact pararthyroid hormone measurement (mass/volume) - 14:35 Serum or plasma intact parathyroid hormone measurement (mass/volume) 61.0 pg/mL 10.0-65.0 Bio-intact parathyroid hormone (PTH) measurement with calcium 8.9 % 8.5-10.5 25-hydroxyvitamin D measurement - 06/30/17 14:35 25-hydroxy vitamin D measurement 20 % 30-100 Complete urinalysis with reflex to culture - 06/30/17 14:40 Urine color determination YELLOW NRG Urine clarity determination CLEAR NRG Urine pH measurement by test strip 6 5-9 Specific gravity of urine by test strip 1.010 1.016- 1.022 Urine protein assay by test strip, semi-quantitative 1+ NEGATIVE Urine glucose detection by automated test strip 4+ NEGATIVE Erythrocytes detection in urine sediment by light microscopy 1+ NEGATIVE Urine ketones detection by automated test strip NEGATIVE NEGATIVE Urine nitrite detection by test strip NEGATIVE NEGATIVE Urine total bilirubin detection by test strip NEGATIVE NEGATIVE Urine urobilinogen measurement by automated test strip (mass/volume) NORMAL NORMAL Urine leukocyte esterase detection by dipstick 1+ NEGATIVE Automated urine sediment erythrocyte count by microscopy (number/high power field) [HPF] NRG Automated urine sediment leukocyte count by microscopy (number/high power field ) [HPF] NRG Bacteria detection in urine sediment by light microscopy NEGATIVE NRG Squamous epithelial cells detection in urine sediment by light microscopy RARE NRG Crystals detection in urine sediment by light microscopy NONE NRG Casts detection in urine sediment by light microscopy NONE NRG Mucus detection in urine sediment by light microscopy NEGATIVE NRG Complete urinalysis with reflex to culture NO NRG Urine protein/creatinine mass ratio - 06/30/17 14:40 Urine protein measurement (mass/volume) 10 mg/dL 6-12 Urine creatinine measurement (mass/volume) 34 mg/dL 30- 125 Urine protein/creatinine mass ratio 0.29 NRG CMP - 09/14/17 12:39 GLUCOSE 302 mg/dL 65-99 UREA NITROGEN (BUN) 37 mg/dL 7-25 CREATININE 1.81 mg/dL 0.70-1.25 eGFR NON-AFR. BHUTANESE 39 mL/min/1.73m2 > OR=60 eGFR 46 mL/min/1.73m2 > OR=60 BUN/CREATININE RATIO 20 (calc) 6-22 SODIUM 133 mmol/L 135-146 POTASSIUM 4.5 mmol/L 3.5-5.3 CHLORIDE 95 mmol/L 98-110 CARBON DIOXIDE 29 mmol/L 20-31 CALCIUM 9.5 mg/dL 8.6-10.3 PROTEIN, TOTAL 7.4 g/dL 6.1-8.1 ALBUMIN 3.7 g/dL 3.6-5.1 GLOBULIN 3.7 g/dL (calc) 1.9-3.7 ALBUMIN/GLOBULIN RATIO 1.0 (calc) 1.0-2.5 BILIRUBIN, TOTAL 0.6 mg/dL 0.2-1.2 ALKALINE PHOSPHATASE 116 U/L 40-115 AST 16 U/L 10-35 ALT 14 U/L 9-46 TSH - 07/10/18 15:06 TSH 2.38 mIU/L 0.40-4.50 LIPID PANEL - 07/17/18 11:00 CHOLESTEROL, TOTAL 151 mg/dL <200 HDL CHOLESTEROL 33 mg/dL >40 TRIGLYCERIDES 210 mg/dL <150 LDL-CHOLESTEROL 88 mg/dL (calc) NRG CHOL/HDLC RATIO 4.6 (calc) <5.0 NON HDL CHOLESTEROL 118 mg/dL (calc) <130 Encounters ACCT No. Visit Date/Time Discharge Status Pt. Type Provider Facility Loc./Unit Complaint [id number] 10/28/2014 14:05:00 10/28/2014 23:59:59 CLS Outpatient NADIRJaswinder ANI BAUTISTA [id number] 08/27/2016 08:36:00 Document Registration [id number] 06/03/2016 07:06:00 Document Registration [id number] 10/29/2016 09:09:00 Document Registration [id number] 06/01/2017 07:06:00 Document Registration [id number] 12/08/2018 13:00:00 12/08/2018 23:59:59 CLS Outpatient VINICIO ALVARADO [facility] [id number] 07/17/2018 11:20:00 Document Registration [id number] 07/10/2018 14:00:00 Document Registration [id number] 09/14/2017 11:20:00 Document Registration [id number] 05/31/2017 14:20:00 Document Registration [id number] 06/30/2017 14:26:00 06/30/2017 23:59:59 CLS Outpatient SANTIAGO SALGADO MD [facility] LAB I10 N18.3 Z72.0 E87.5 [id number] 06/16/2017 09:16:00 06/16/2017 23:59:59 CLS Outpatient SANTIAGO SALGADO MD [facility] RAD N18.3 [id number] 08/02/2016 09:34:00 08/02/2016 23:59:59 CLS Outpatient TAWNYA WATTS, ISIDRO Carbajal (DDU) [facility] RAD DDU [id number] 04/22/2014 16:08:00 04/25/2014 15:20:00 DIS Inpatient GIRMA WATTS, ISABELA Simpson [facility] 4TH CELLULITIS RL EXTREMITY, UNCONROLLED DIABETES [id number] 09/24/2016 07:06:00 Document Registration [id number] 01/28/2017 08:46:00 Document Registration [id number] 07/02/2016 10:05:00 Document Registration [id number] 03/23/2017 11:08:00 Document Registration [id number] 03/23/2017 10:08:00 Document Registration [id number] 09/17/2016 08:06:00 Document Registration [id number] 04/27/2017 08:07:00 Document Registration [id number] 12/25/2016 08:35:00 Document Registration [id number] 11/25/2016 08:40:00 Document Registration
--- NOTE | 2018-12-15 20:00 | NUR ---
THE PT PULLED HIS EMS IV. A NEW 20G WAS STARTED.
[2018-12-15 20:20] LABS: BASOPHILS % (AUTO) 0 % (0-10); EOSINOPHILS # (AUTO) 0.1 10^3/uL (0.0-0.3); EOSINOPHILS % (AUTO) 1 % (0-10); HEMATOCRIT 38 % (40-54); HEMOGLOBIN 12.2 G/DL (13.3-17.7); LYMPHOCYTES % (AUTO) 8 % (12-44); MEAN CORPUSCULAR HEMOGLOBIN 29 PG (25-34); MEAN CORPUSCULAR HGB CONC 32 G/DL (32-36); MEAN CORPUSCULAR VOLUME 90 FL (80-99); MEAN PLATELET VOLUME 11.9 FL (7.4-10.4); MONOCYTES # (AUTO) 0.8 X 10^3 (0.0-1.0); MONOCYTES % (AUTO) 7 % (0-12); NEUTROPHILS # (AUTO) 9.7 X 10^3 (1.8-7.8); NEUTROPHILS % (AUTO) 84 % (42-75); PLATELET COUNT 194 10^3/uL (130-400); RED CELL DISTRIBUTION WIDTH 12.8 % (10.0-14.5); WHITE BLOOD COUNT 11.5 10^3/uL (4.3-11.0)
--- NOTE | 2018-12-15 20:24 | NUR ---
ACUE CHECK IS 78.
[2018-12-15 20:42] LABS: BILIRUBIN,URINE NEGATIVE (NEGATIVE); CLARITY,URINE VERY CLOUDY; COLOR,URINE YELLOW; GLUCOSE, URINE (UA) NEGATIVE (NEGATIVE); KETONES,URINE NEGATIVE (NEGATIVE); LEUKOCYTE ESTERASE ,URINE 2+ (NEGATIVE); NITRITE,URINE NEGATIVE (NEGATIVE); PH,URINE 5 (5-9); PROTEIN,URINE 3+ (NEGATIVE); UROBILINOGEN,URINE NORMAL (NORMAL)
[2018-12-15 20:44] LABS: ALANINE AMINOTRANSFERASE 14 U/L (0-55); ALBUMIN 3.7 GM/DL (3.2-4.5); ALKALINE PHOSPHATASE 65 U/L (40-136); AMYLASE 68 U/L (25-125); BILIRUBIN,TOTAL 0.3 MG/DL (0.1-1.0); BUN/CREATININE RATIO 26; CALCIUM 8.6 MG/DL (8.5-10.1); CARBON DIOXIDE 22 MMOL/L (21-32); CHLORIDE 108 MMOL/L (98-107); CREATINE KINASE 103 U/L (30-200); CREATININE SERUM 1.22 MG/DL (0.60-1.30); GFR ESTIMATED 60; GLUCOSE 79 MG/DL (70-105); LIPASE 19 U/L (8-78); POTASSIUM 4.3 MMOL/L (3.6-5.0); SODIUM 139 MMOL/L (135-145)
[2018-12-15 20:45] LABS: ACETAMINOPHEN < 10 UG/ML (10-30)
[2018-12-15 20:55] LABS: AMPHETAMINE SCREEN, URINE POSITIVE (NEGATIVE); BARBITURATE SCREEN URINE NEGATIVE (NEGATIVE); BENZODIAZEPINES SCREEN URINE NEGATIVE (NEGATIVE); CANNABINOID SCREEN, URINE NEGATIVE (NEGATIVE); COCAINE SCREEN URINE NEGATIVE (NEGATIVE); METHADONE STAT NEGATIVE (NEGATIVE); METHAMPHETAMINE SCREEN URINE S POSITIVE (NEGATIVE); OPIATE SCREEN URINE NEGATIVE (NEGATIVE); OXYCODONE STAT NEGATIVE (NEGATIVE); PROPOXYPHENE STAT NEGATIVE (NEGATIVE); TRICYCLIC ANTIDEPRESSANTS SCRE NEGATIVE (NEGATIVE)
[2018-12-15 21:00] LABS: RBC,URINE >100 /HPF
[2018-12-15] MEDS ORDERED: NS 100 ML (IVPB) BAG IV ONE (21:00)
[2018-12-15] MEDS ORDERED: IOHEXOL 350 MG/ML 150 ML (OMNIPAQUE 350) VIAL IV ONE (21:00)
[2018-12-15 21:01] LABS: BACTERIA,URINE LARGE /HPF
[2018-12-15 21:06] LABS: CREATINE KINASE MB 3.6 NG/ML (<6.6); TSH (THYROID ANALYZER) 3.36 UIU/ML (0.35-4.94)
[2018-12-15 21:17] LABS: PROTHROMBIN TIME PATIENT 13.4 SEC (12.2-14.7)
[2018-12-15] MEDS ORDERED: LACTATED RINGERS 1,000 ML IV ONE (21:20)
--- NOTE | 2018-12-15 21:36 | NUR ---
ACCUE CHECK IS 131. IS INFORMED.
[2018-12-15 21:42] VITALS: BP 174/66
--- NOTE | 2018-12-15 21:51 | Diagnostic Imaging Report ---
PROCEDURE: CT angiography of the head and CT angiography of the neck with and without contrast. TECHNIQUE: Contiguous noncontrast images were obtained from the skull base through the vertex. After intravenous contrast administration, helical CT angiography of the neck was performed. Source data was reformatted into multiple MIP projections. Delayed post contrast acquisition was also obtained. Auto Exposure Controls were utilized during the CT exam to meet ALARA standards for radiation dose reduction. INDICATION: Confusion. Anxiety. Altered mental status. FINDINGS: Good opacification of the carotid and vertebral arteries. Vessels are symmetrical with their takeoff. There are scattered atherosclerotic plaques within the vertebral arteries, bilaterally. There is also moderate scattered atherosclerotic plaquing within the carotid arteries at the bifurcation. There are no findings to indicate hemodynamic stenosis. No evidence of carotid or vertebral dissection. Both vertebral arteries supply the basilar artery. Carotid arteries show atherosclerotic changes within the carotid siphon. There is hemodynamic stenosis felt to be present within the left internal carotid artery within the siphon estimated stenosis of 70%. The anterior cerebral artery shows good opacification without significant stenosis. The middle cerebral arteries are also widely patent, bilaterally, throughout to the sylvian fissures. The posterior cerebral arteries are well opacified as are the cerebellar arteries. No enhancing intracranial masses. The ventricles and cortical gyral pattern are normal. Soft tissues of the neck appear normal. Reconstructed images of the cervical spine show good alignment with diffuse degenerative changes. IMPRESSION: CT angiography of the head and neck showing scattered atherosclerotic plaquing in the cervical region. There is hemodynamic change noted within the left internal carotid artery within the carotid siphon with stenosis estimated at approximately 70%. Nonhemodynamic atherosclerotic change is noted of the right internal carotid artery within the carotid siphon estimated at approximately 30-50%. Dictated by: Dictated on workstation # [id number]
--- NOTE | 2018-12-15 21:54 | Diagnostic Imaging Report ---
PROCEDURE: CT chest with contrast only. TECHNIQUE: Multiple contiguous axial images were obtained through the chest after administration of intravenous contrast. Auto Exposure Controls were utilized during the CT exam to meet ALARA standards for radiation dose reduction. INDICATION: Confusion and anxiety. FINDINGS: CT chest: Good opacification of the aorta and pulmonary arteries. Aorta is atherosclerotic without aneurysm. Pulmonary arteries appear normal. There is mild atelectasis within the right middle lobe and lingula, the lungs are otherwise well-aerated. There are no infiltrates. No pneumothorax or pleural effusions. There is noted mild thickening along the major fissure in the mid right lung consistent with some scarring. No mediastinal or hilar adenopathy of pathologic size. No bony lesions demonstrated. IMPRESSION: Mild pleural thickening along the major fissure. Mild atelectasis noted within the right middle lobe and lingula. Dictated by: Dictated on workstation # [id number]
[2018-12-15] MEDS ORDERED: SULF1TAB35 PO (22:05)
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
[2018-12-15 22:06] VITALS: BP 180/70
== END 2018-12-15 22:16 | disposition home or self-care (01) ==
LOC: EDUNIT# 18:31 → ER 18:32
DX: R41.82 Altered mental status, unspecified (principal); E11.649 Type 2 diabetes mellitus with hypoglycemia without coma; I10 Essential (primary) hypertension; F19.10 Other psychoactive substance abuse, uncomplicated; N39.0 Urinary tract infection, site not specified; F17.210 Nicotine dependence, cigarettes, uncomplicated; Z79.84 Long term (current) use of oral hypoglycemic drugs; Z98.890 Other specified postprocedural states
CPT/HCPCS: 36415; 70450; 70496; 70498; 71045; 71260; 80053; 80306; 80320; 80329; 81000; 82140; 82150; 82550; 82553; 82962; 83690; 83735; 83880; 84443; 84484; 85025; 85610; 85730; 87077; 87088; 87186; 93005; 93041